=== PATIENT | female | born 1940 | race Caucasian/White ===

== ENCOUNTER → 2017-10-04 08:29 | Outpatient (CLI) | payer MEDICARE, OTHER, SELFPAY ==
[2017-10-04 10:51] LABS: Anion Gap 6 (5-15); BUN 11 mg/dL (7-18); BUN/Creat Ratio 13.9 RATIO (10-20); Calcium,Total 8.9 mg/dL (8.5-10.1); Chloride 106 mmol/L (98-107); Cholesterol 136 mg/dL (200); Creatinine, Serum 0.79 mg/dL (0.55-1.02); EST Glomerular Filtration Rate 75 mL/min (>60); Est Glom Filt Rate - Afr Amer 90 mL/min (>60); Glucose 92 mg/dL (74-106); High Density Lipoprotein 88 mg/dL; Sodium Level 142 mmol/L (136-145); Triglycerides 57 mg/dL; Very Low Density Lipoprotein 11 mg/dL (5-40)
== END ==
PROVIDERS: Family Provider Family Medicine; PCP Family Medicine; Visit Provider Family Medicine
DX: I10 Essential (primary) hypertension (principal)
CPT/HCPCS: 36415; 80048; 80061

== ENCOUNTER → 2017-12-10 06:07 | Outpatient (CLI) | payer MEDICARE, OTHER, SELFPAY ==
--- NOTE | 2017-12-10 16:01 | STRESSREP ---
Stress Test Report Date: 12/10/2017 Procedure: Exercise tolerance test/imaging study Indications: Chest pain Consent: Per the patient Procedure: The patient exercised on a Quentin protocol for 6 minutes completing Stage II achieving a peak heart rate of 144 bpm (100 % predicted maximal heart rate) with a peak blood pressure 182/74 mmHg and a peak MET capacity of 7 METs. The baseline ECG demonstrated sinus bradycardia; nonspecific T-wave abnormality. The peak exercise ECG demonstrated continued nonspecific T-wave abnormality. There were occasional PACs and PVCs during exercise, occasional PACs during recovery, and rare PVCs during recovery. The functional capacity was considered good. There was no complaint of chest discomfort during exercise or recovery. The examination was discontinued secondary to dyspnea. Impression: 1. Technically adequate (percent predicted maximal heart rate greater than 85%) exercise tolerance test 2. Peak exercise ECG demonstrated continued nonspecific T-wave abnormality 3. There were occasional PACs and PVCs during exercise, occasional PACs during recovery, and rare PVCs during recovery. 4. Nuclear images pending Myocardial perfusion imaging study: Technique: The patient was injected with 10 mCi of technetium 99m Cardiolite and subsequently rest SPECT Cardiolite nuclear imaging was obtained in the horizontal long, vertical long, and short axis views. The patient exercised on a Quentin protocol for 6 minutes completing Stage II achieving a peak heart rate of 144 bpm (100 % predicted maximal heart rate) with a peak blood pressure 182/74 mmHg and a peak MET capacity of 7 METs. The patient was injected with 31 mCi of technetium 99m Cardiolite and subsequently stress SPECT Cardiolite nuclear imaging was obtained in the horizontal long, vertical long, and short axis views. A gated Cardiolite study at peak stress was obtained. Interpretation: Rest and stress SPECT Cardiolite nuclear imaging status post realignment and normalization demonstrates the appearance of relative uniform tracer uptake and myocardial perfusion appearing within normal limits. There is end systolic thickening and brightening. The gated Cardiolite study demonstrates myocardial thickening and inward wall motion. The reported LVEF is 74 %. Impression: 1. Rest and stress SPECT Cardiolite nuclear imaging demonstrate relative uniform tracer uptake and myocardial perfusion appearing within normal limits. 2. The gated Cardiolite study reports an LVEF of 74 %. This note was generated with [email or web address] software. It may contain incorrect words, spelling, and punctuation that were not noted in checking the note before signing.
--- NOTE | 2017-12-10 16:06 | STRESSREP_ITS ---
Stress Test Report Date: 12/10/2017 Procedure: Exercise tolerance test/imaging study Indications: Chest pain Consent: Per the patient Procedure: The patient exercised on a Quentin protocol for 6 minutes completing Stage II achieving a peak heart rate of 144 bpm (100 % predicted maximal heart rate) with a peak blood pressure 182/74 mmHg and a peak MET capacity of 7 METs. The baseline ECG demonstrated sinus bradycardia; nonspecific T-wave abnormality. The peak exercise ECG demonstrated continued nonspecific T-wave abnormality. There were occasional PACs and PVCs during exercise, occasional PACs during recovery, and rare PVCs during recovery. The functional capacity was considered good. There was no complaint of chest discomfort during exercise or recovery. The examination was discontinued secondary to dyspnea. Impression: 1. Technically adequate (percent predicted maximal heart rate greater than 85% ) exercise tolerance test 2. Peak exercise ECG demonstrated continued nonspecific T-wave abnormality 3. There were occasional PACs and PVCs during exercise, occasional PACs during recovery, and rare PVCs during recovery. 4. Nuclear images pending Myocardial perfusion imaging study: Technique: The patient was injected with 10 mCi of technetium 99m Cardiolite and subsequently rest SPECT Cardiolite nuclear imaging was obtained in the horizontal long, vertical long, and short axis views. The patient exercised on a Quentin protocol for 6 minutes completing Stage II achieving a peak heart rate of 144 bpm (100 % predicted maximal heart rate) with a peak blood pressure 182/ 74 mmHg and a peak MET capacity of 7 METs. The patient was injected with 31 mCi of technetium 99m Cardiolite and subsequently stress SPECT Cardiolite nuclear imaging was obtained in the horizontal long, vertical long, and short axis views. A gated Cardiolite study at peak stress was obtained. Interpretation: Rest and stress SPECT Cardiolite nuclear imaging status post realignment and normalization demonstrates the appearance of relative uniform tracer uptake and myocardial perfusion appearing within normal limits. There is end systolic thickening and brightening. The gated Cardiolite study demonstrates myocardial thickening and inward wall motion. The reported LVEF is 74 %. Impression: 1. Rest and stress SPECT Cardiolite nuclear imaging demonstrate relative uniform tracer uptake and myocardial perfusion appearing within normal limits. 2. The gated Cardiolite study reports an LVEF of 74 %. This note was generated with [employer] software. It may contain incorrect words, spelling, and punctuation that were not noted in checking the note before signing.
== END ==
PROVIDERS: Family Provider Family Medicine; PCP Family Medicine; Visit Provider Family Medicine
DX: R07.9 Chest pain, unspecified (principal)
CPT/HCPCS: 78452; 93017; A9500; A4216

== ENCOUNTER → 2018-04-01 09:28 | Outpatient (CLI) | payer MEDICARE, OTHER, SELFPAY ==
[2018-04-01 12:46] LABS: Anion Gap 12 (5-15); BUN 12 mg/dL (7-18); BUN/Creat Ratio 13.5 RATIO (10-20); Calcium,Total 8.9 mg/dL (8.5-10.1); Chloride 106 mmol/L (98-107); Cholesterol 132 mg/dL (200); Creatinine, Serum 0.89 mg/dL (0.55-1.02); EST Glomerular Filtration Rate 66 mL/min (>60); Est Glom Filt Rate - Afr Amer 79 mL/min (>60); Glucose 98 mg/dL (74-106); High Density Lipoprotein 81 mg/dL; Potassium 4.4 mmol/L (3.5-5.1); Sodium Level 145 mmol/L (136-145); Triglycerides 54 mg/dL; Very Low Density Lipoprotein 11 mg/dL (5-40)
== END ==
PROVIDERS: Family Provider Family Medicine; PCP Family Medicine; Visit Provider Family Medicine
DX: I10 Essential (primary) hypertension (principal); E78.5 Hyperlipidemia, unspecified
CPT/HCPCS: 36415; 80048; 80061

== ENCOUNTER → 2018-09-29 11:43 | Outpatient (CLI) | payer MEDICARE, OTHER, SELFPAY ==
[2018-08-22 12:52] VITALS: BMI 27.7
[2018-09-29 14:12] LABS: Anion Gap 3 (5-15); BUN 11 mg/dL (7-18); BUN/Creat Ratio 13.1 RATIO (10-20); Calcium,Total 8.9 mg/dL (8.5-10.1); Chloride 108 mmol/L (98-107); Cholesterol 150 mg/dL (200); Creatinine, Serum 0.84 mg/dL (0.55-1.02); EST Glomerular Filtration Rate 70 mL/min (>60); Est Glom Filt Rate - Afr Amer 84 mL/min (>60); Glucose 99 mg/dL (74-106); High Density Lipoprotein 97 mg/dL; Potassium 4.7 mmol/L (3.5-5.1); Sodium Level 141 mmol/L (136-145); Triglycerides 60 mg/dL; Very Low Density Lipoprotein 12 mg/dL (5-40)
== END ==
PROVIDERS: Family Provider Family Medicine; PCP Family Medicine; Visit Provider Family Medicine
DX: I10 Essential (primary) hypertension (principal)
CPT/HCPCS: 36415; 80048; 80061

== ENCOUNTER → 2019-02-26 12:59 | Outpatient (CLI) | payer MEDICARE, OTHER, SELFPAY ==
[2019-02-23 14:03] VITALS: BMI 26.1
--- NOTE | 2019-02-26 13:01 | CDU_ITS ---
Reason For Study: vertigo Rt. Velocities/BP Lt. Velocities/BP Prox CCA 96.9/12.1 cm/sec. Prox CCA 92.4/17.6 cm/sec. Mid CCA 61.7/10.8 cm/sec. Mid CCA 98.6/17.6 cm/sec. Dist CCA 52.6/12.1 cm/sec. Dist CCA 88.7/13.9 cm/sec. Prox ICA 72.1/10.8 cm/sec. Prox ICA 118.2/24.9 cm/sec. Mid ICA 226.7/35.8 cm/sec. Mid ICA 113.8/24.3 cm/sec. Dist ICA 128.0/24.8 cm/sec. Dist ICA 95.5/20.6 cm/sec. Rt. ICA/CCA = 3.7. Lt. ICA/CCA = 1.2. Prox ECA 74.7/5.6 cm/sec. Prox ECA 90.0/7.7 cm/sec. Rt. Vert. 63.0/10.2 cm/sec. Lt. Vert. 39.0/12.6 cm/sec. Right Extracranial There is homogeneous, smooth atherosclerotic plaque noted in the right common carotid artery. There is heterogeneous, irregular atherosclerotic plaque noted in the right internal carotid artery. There is heterogeneous, irregular atherosclerotic plaque noted in the right external carotid artery. Antegrade flow is noted in the right vertebral artery. Left Extracranial There is heterogeneous, irregular atherosclerotic plaque noted in the left common carotid artery. There is heterogeneous, smooth atherosclerotic plaque noted in the left internal carotid artery. There is homogeneous, smooth atherosclerotic plaque noted in the left external carotid artery. Antegrade flow is noted in the left vertebral artery. Procedure Carotid Duplex [id number]. The exam was diagnostic. Exam performed in department. 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 <50% stenosis left external carotid Patent and antegrade vertebrals bilaterally Ordering Physician: Aramis Engle Performed By: Brennon Blas RVT
== END ==
PROVIDERS: Family Provider Family Medicine; PCP Family Medicine; Referring Provider Nurse Practitioner Family; Visit Provider Nurse Practitioner Family
DX: I65.22 Occlusion and stenosis of left carotid artery (principal); I48.0 Paroxysmal atrial fibrillation; R00.1 Bradycardia, unspecified; R42 Dizziness and giddiness
CPT/HCPCS: 93225; 93226; 93880

== ENCOUNTER → 2019-04-01 | Outpatient (CLI) | payer MEDICARE, OTHER, SELFPAY ==
[2019-02-23 14:03] VITALS: BMI 26.1
[2019-04-01 12:34] LABS: Anion Gap 3 (5-15); BUN 12 mg/dL (7-18); BUN/Creat Ratio 13.5 RATIO (10-20); Chloride 111 mmol/L (98-107); Cholesterol 133 mg/dL (200); Creatinine, Serum 0.89 mg/dL (0.55-1.02); EST Glomerular Filtration Rate 65 mL/min (>60); Est Glom Filt Rate - Afr Amer 79 mL/min (>60); Glucose 96 mg/dL (74-106); High Density Lipoprotein 84 mg/dL; Potassium 4.2 mmol/L (3.5-5.1); Sodium Level 144 mmol/L (136-145); Triglycerides 54 mg/dL; Very Low Density Lipoprotein 11 mg/dL (5-40)
== END | disposition home or self-care (01) ==
LOC: MFPLAB 10:06
PROVIDERS: Family Provider Family Medicine; PCP Family Medicine; Referring Provider Family Medicine; Visit Provider Family Medicine
DX: I10 Essential (primary) hypertension (principal)
CPT/HCPCS: 36415; 80048; 80061

== ENCOUNTER → 2019-04-08 | Outpatient (CLI) | payer MEDICARE, OTHER, SELFPAY ==
[2019-02-23 14:03] VITALS: BMI 26.1
--- NOTE | 2019-04-08 14:52 | BI_ITS ---
MAMMOGRAPHY - BILATERAL SCREENING REASON FOR EXAM: Female, 78 years old. Routine annual screening examination. PERTINENT HISTORY: Non-contributory. TECHNIQUE: Digital bilateral breast frank (3D mammographic acquisition) in the CC and MLO projections. 2-D mediolateral oblique (MLO) and craniocaudad (CC) views of both breasts were obtained. CAD: Full Field Digital Mammography with Computer Added Detection was performed. COMPARISON: Comparison is made with prior study of April 04, 2017 and March 20, 2016. FINDINGS: Breast Composition: There are scattered areas of fibroglandular density. There are no dominant masses or suspicious calcifications. Stable small bilateral benign appearing axillary lymph nodes. No other significant abnormalities are identified. There has been no significant change since the prior study. BI/SCREEN MAMM (CAD) W/FRANK BILAT IMPRESSION: Stable bilateral screening mammogram. Yearly follow-up mammogram recommended. (A) ASSESSMENT CATEGORY: BIRADS Category 2: Benign. A letter regarding these results will be sent to the patient by the facility within 30 days. Approximately 10% of breast cancers are not detected by mammography. A normal mammogram should not delay biopsy of a clinically suspicious abnormality. [id number] Electronically Signed: Jason Em, at 15:43 EDT , Service support ,
== END | disposition home or self-care (01) ==
PROVIDERS: Family Provider Family Medicine; PCP Family Medicine; Referring Provider Family Medicine; Visit Provider Family Medicine
DX: Z12.31 Encounter for screening mammogram for malignant neoplasm of breast (principal)
CPT/HCPCS: 77063; 77067

== ENCOUNTER → 2019-12-07 | Outpatient (CLI) | payer MEDICARE, OTHER, SELFPAY ==
[2019-10-15 12:26] VITALS: BMI 24.7
--- NOTE | 2019-12-07 15:41 | MRI_ITS ---
STUDY: MRI RIGHT HIP REASON FOR EXAM: Female, 79 years old. rt hip trochanteric bursitis -- pain rt hip x 6 months, NKI TECHNIQUE: Standardized fat and water weighted pulse sequences were obtained in all 3 orthogonal planes. COMPARISON: None. FINDINGS: Marrow signal is normal, with no fracture, bone contusion, or osteonecrosis. Left hip is unremarkable. Trace right hip joint effusion. Normal right acetabulum, femoral head, and femoral neck. Normal visualized labrum. Moderate fluid in the right trochanteric bursa. No iliopsoas bursitis. Mild interstitial edema in the gluteus medius and minimus muscles. Mild edema in the distal gluteus medius and minimus tendons. Normal iliopsoas insertion. Visualized pelvic structures are unremarkable. No free fluid. No soft tissue mass or cystic lesion. MRI/Lower Ext Joint Only (Routine) IMPRESSION: 1. Intermediate grade strain of the right gluteus medius and minimus tendons. No high-grade tear. 2. Right trochanteric bursitis. Electronically Signed: Joya Javed MD at 18:14 EDT Tel , Service support ,
== END | disposition home or self-care (01) ==
LOC: MRI 15:31
PROVIDERS: PCP Family Medicine; Visit Provider Orthopaedic Surgery
DX: M70.61 Trochanteric bursitis, right hip (principal)
CPT/HCPCS: 73721

== ENCOUNTER → 2020-02-05 | Outpatient (CLI) | payer MEDICARE, OTHER, SELFPAY ==
[2019-10-15 12:26] VITALS: BMI 24.7
[2020-02-05 17:53] LABS: Anion Gap 5 (5-15); BUN 14 mg/dL (7-18); BUN/Creat Ratio 17.6 RATIO (10-20); Calcium,Total 9.2 mg/dL (8.5-10.1); Chloride 108 mmol/L (98-107); Cholesterol 145 mg/dL (200); Creatinine, Serum 0.79 mg/dL (0.55-1.02); EST Glomerular Filtration Rate 74 mL/min (>60); Est Glom Filt Rate - Afr Amer 90 mL/min (>60); Glucose 130 mg/dL (74-106); High Density Lipoprotein 93 mg/dL; Potassium 4.6 mmol/L (3.5-5.1); Sodium Level 142 mmol/L (136-145); Triglycerides 73 mg/dL; Very Low Density Lipoprotein 15 mg/dL (5-40)
== END | disposition home or self-care (01) ==
LOC: MFPLAB 15:02
PROVIDERS: PCP Family Medicine; Visit Provider Family Medicine
DX: I10 Essential (primary) hypertension (principal)
CPT/HCPCS: 36415; 80048; 80061

== ENCOUNTER → 2020-04-11 | Outpatient (CLI) | payer MEDICARE, OTHER, SELFPAY ==
[2019-10-15 12:26] VITALS: BMI 24.7
--- NOTE | 2020-04-11 14:02 | BI_ITS ---
MAMMOGRAPHY - BILATERAL SCREENING REASON FOR EXAM: Female, 79 years old. Routine annual screening examination. PERTINENT HISTORY: Non-contributory. TECHNIQUE: Digital bilateral breast frank (3D mammographic acquisition) in the CC and MLO projections. 2-D mediolateral oblique (MLO) and craniocaudad (CC) views of both breasts were obtained. CAD: Full Field Digital Mammography with Computer Added Detection was performed. COMPARISON: Comparison is made with prior study dated 04/08/2019 and 04/04/2017. FINDINGS: Breast Composition: There are scattered areas of fibroglandular density. There are no dominant masses or suspicious calcifications. Stable small bilateral benign appearing axillary lymph nodes. No other significant abnormalities are identified. There has been no significant change since the prior study. BI/SCREEN MAMM (CAD) W/FRANK BILAT IMPRESSION: Stable bilateral screening mammogram. Yearly follow-up mammogram recommended. (A) ASSESSMENT CATEGORY: BIRADS Category 2: Benign. A letter regarding these results will be sent to the patient by the facility within 30 days. Approximately 10% of breast cancers are not detected by mammography. A normal mammogram should not delay biopsy of a clinically suspicious abnormality. [id number] Electronically Signed: Jason Em, at 15:15 EDT , Service support ,
== END | disposition home or self-care (01) ==
LOC: OPBI 13:59
PROVIDERS: PCP Family Medicine; Referring Provider Family Medicine; Visit Provider Family Medicine
DX: Z12.31 Encounter for screening mammogram for malignant neoplasm of breast (principal)
CPT/HCPCS: 77063; 77067

== ENCOUNTER → 2020-04-20 | Outpatient (CLI) | payer MEDICARE, OTHER, SELFPAY ==
[2020-04-18 13:51] VITALS: BMI 24.2
== END | disposition home or self-care (01) ==
LOC: PSN 10:57
PROVIDERS: PCP Family Medicine; Referring Provider Nurse Practitioner Family; Visit Provider Nurse Practitioner Family
DX: I45.5 Other specified heart block (principal); I48.0 Paroxysmal atrial fibrillation
CPT/HCPCS: 93225; 93226

== ENCOUNTER → 2020-04-28 | Outpatient (CLI) | payer MEDICARE, OTHER, SELFPAY ==
[2020-04-18 13:51] VITALS: BMI 24.2
[2020-04-28 12:17] LABS: Hematocrit 45.8 % (37-47); Hemoglobin 14.8 g/dL (12.0-15.0); Mean Corp Hgb Conc 32.3 g/dL (32-36); Mean Corpuscular Hgb 30.6 pg (27.0-32.0); Mean Corpuscular Volume 94.6 fL (81-99); Platelet Count 252 K/mm3 (150-450); RBC Distribution Width CV 12.3 % (11.6-14.6); RBC Distribution Width SD 43.1 fl (35.1-43.9); Red Blood Count 4.84 M/mm3 (4.2-5.4)
[2020-04-28 13:04] LABS: Anion Gap 5 (5-15); BUN 13 mg/dL (7-18); BUN/Creat Ratio 15.1 RATIO (10-20); Calcium,Total 9.5 mg/dL (8.5-10.1); Chloride 103 mmol/L (98-107); Creatinine, Serum 0.86 mg/dL (0.55-1.02); EST Glomerular Filtration Rate 67 mL/min (>60); Est Glom Filt Rate - Afr Amer 81 mL/min (>60); Glucose 82 mg/dL (74-106); Magnesium 2.3 mg/dL (1.6-2.6); Sodium Level 137 mmol/L (136-145)
== END | disposition home or self-care (01) ==
LOC: MFPLAB 10:50
PROVIDERS: PCP Family Medicine; Referring Provider Family Medicine; Visit Provider Nurse Practitioner Family
DX: I48.0 Paroxysmal atrial fibrillation (principal); R42 Dizziness and giddiness; R55 Syncope and collapse; Z79.01 Long term (current) use of anticoagulants
CPT/HCPCS: 36415; 80048; 83735; 85027

== ENCOUNTER → 2020-05-27 13:51 | Outpatient (CLI) | payer MEDICARE, OTHER, SELFPAY ==
[2020-05-11 13:33] VITALS: BMI 24.5
--- NOTE | 2020-05-27 13:54 | ECHOD_ITS ---
Reason For Study: DYSPNEA/SOB Procedure This was a 2D Doppler, Color Flow transthoracic echocardiogram. Exam performed in department. Left Ventricle Normal LV size. Left ventricular systolic function is normal. The estimated ejection fraction is 65 %. Stage 1 diastolic dysfunction. No regional wall motion abnormalities noted. Right Ventricle Normal RV size. Normal systolic function. Atria Normal left atrium. Normal right atrium. Mitral Valve Normal mitral valve. Mild (1+) mitral valve insufficiency. Tricuspid Valve Normal tricuspid valve. Mild tricuspid valve insufficiency. Pulmonary artery systolic pressure is 35 mmHg. Aortic Valve Normal aortic valve. Trisinus/trileaflet aortic valve. Mild (1+) aortic valve insufficiency. Pulmonic Valve Normal pulmonic valve. Mild pulmonic valve insufficiency identified. Great Vessels Normal aortic root. The pulmonary artery is normal size. Normal inferior vena cava. Pericardium/Pleural No pericardial effusion. MMode/2D Measurements & Calculations LVIDd: 4.1 cm IVSd: 0.90 cm Ao root diam: 3.2 cm LVIDs: 2.7 cm LVPWd: 0.86 cm RVDd: 3.7 cm FS: 34.5 % LAV(MOD-bp): 38.3 ml LVAd ap4: 24.1 cm2 SV(MOD-sp4): 37.6 ml LAV(MOD-bp) Indexed: 21.5 ml/m2 EDV(MOD-sp4): 67.1 ml LAV(MOD-sp2): 37.8 ml EDV(sp4-el): 67.4 ml LAV(MOD-sp4): 35.5 ml LVAs ap4: 14.4 cm2 ESV(MOD-sp4): 29.5 ml ESV(sp4-el): 28.9 ml EF(MOD-sp4): 56.0 % EF(sp4-el): 57.1 % SV(sp4-el): 38.5 ml LA A4 area: 14.9 cm2 LA dimension(2D): 3.5 cm RA A4 area: 11.8 cm2 Time Measurements MV dec time: 0.25 sec Doppler Measurements & Calculations MV E max osmin: 66.4 cm/sec Lat Peak E' Osmin: 8.8 cm/sec Med Peak E' Osmin: 7.8 cm/sec MV A max osmin: 83.7 cm/sec E/E' lat: 7.5 E/E' med: 8.6 MV E/A: 0.79 Ao V2 max: 160.0 cm/sec AI max osmin: 404.9 cm/sec LV V1 max: 125.0 cm/sec Ao max P.2 mmHg AI max P.6 mmHg LV V1 max P.3 mmHg AI dec slope: 319.5 cm/sec2 AI P1/2t: 371.1 msec PA V2 max: 109.1 cm/sec PI end-d osmin: 100.7 cm/sec TR max osmin: 289.6 cm/sec PI dec slope: 184.9 cm/sec2 TR max P.6 mmHg Interpretation Summary Normal LV size. Left ventricular systolic function is normal. The estimated ejection fraction is 65 %. Stage 1 diastolic dysfunction. Mild (1+) aortic valve insufficiency. Mild (1+) mitral valve insufficiency. Ordering Physician: Celsa Harman/Anders Bedoya Referring Physician: DAMIAN ORELLANA Performed By: Megan Goodwin RDCS
== END ==
PROVIDERS: PCP Family Medicine; Referring Provider Physician Assistant Medical; Visit Provider Physician Assistant Medical
DX: R06.00 Dyspnea, unspecified (principal); R06.02 Shortness of breath; G45.9 Transient cerebral ischemic attack, unspecified
CPT/HCPCS: 93306

== ENCOUNTER → 2020-06-29 12:34 | Outpatient (CLI) | payer MEDICARE, OTHER, SELFPAY ==
[2020-06-22 14:03] VITALS: BMI 24.8
--- NOTE | 2020-06-29 12:35 | CDU_ITS ---
Reason For Study: CAROTID STENOSIS Rt. Velocities/BP Lt. Velocities/BP Prox CCA 82.9/13.8 cm/sec. Prox CCA 147.2/15.7 cm/sec. Mid CCA 80.3/12.5 cm/sec. Mid CCA 105.5/13.4 cm/sec. Dist CCA 75.5/14.2 cm/sec. Dist CCA 110.0/16.7 cm/sec. Prox ICA 182.9/19.7 cm/sec. Prox ICA 87.5/14.4 cm/sec. Mid ICA 173.3/20.5 cm/sec. Mid ICA 116.7/21.7 cm/sec. Dist ICA 105.8/19.9 cm/sec. Dist ICA 87.5/19.9 cm/sec. Rt. ICA/CCA = 182.9/82.9=2.2. Lt. ICA/CCA = 116.7/110.0=1.1. Prox ECA 84.8/0.0 cm/sec. Prox ECA 124.0/7.1 cm/sec. Rt. Vert. 66.1/7.9 cm/sec. Lt. Vert. 46.0/6.5 cm/sec. Right Extracranial There is heterogeneous, irregular atherosclerotic plaque noted in the right common carotid artery. There is heterogeneous, irregular atherosclerotic plaque noted in the right internal carotid artery. The atherosclerotic plaque causes acoustic shadowing. There is intimal thickening but no significant atherosclerotic plaque noted in the right external carotid artery. Antegrade flow is noted in the right vertebral artery. There is heterogeneous, irregular atherosclerotic plaque noted in the right bulb. Acoustic shadowing. Left Extracranial There is heterogeneous, irregular atherosclerotic plaque noted in the left common carotid artery. There is homogeneous, smooth atherosclerotic plaque noted in the left internal carotid artery. There is heterogeneous, smooth atherosclerotic plaque noted in the left external carotid artery. Antegrade flow is noted in the left vertebral artery. Interpretation Summary Irregular calcific plaque with shadowing at the proximal right internal and external carotid arteries 50 to 69% stenosis right proximal internal carotid Less than 50% stenosis right external carotid Widely patent left carotid bulb and proximal internal and external carotid arteries with last than 50% stenosis of the left internal carotid artery Less than 50% stenosis left external carotid artery Patent and antegrade vertebrals bilaterally No hemodynamically significant change since February 26, 2019 Ordering Physician: Celsa Harman Referring Physician: Chirag Gibbons Performed By: Daisha Greenberg, JENNIE, RVT
== END ==
PROVIDERS: PCP Family Medicine; Referring Provider Physician Assistant Medical; Visit Provider Physician Assistant Medical
DX: I65.23 Occlusion and stenosis of bilateral carotid arteries (principal)
CPT/HCPCS: 93880

== ENCOUNTER → 2021-01-11 10:25 | Outpatient (CLI) | payer MEDICARE, OTHER, SELFPAY ==
[2020-11-24 12:38] VITALS: BMI 25.0
--- NOTE | 2021-01-11 10:33 | RAD_ITS ---
STUDY: X-RAY - RIGHT KNEE REASON FOR EXAM: Female, 80 years old. KNEE PAIN TECHNIQUE: 3 view(s) of the knee. COMPARISON: None. FINDINGS: No acute fracture, dislocation or osseous destruction. Osteopenia. Mild medial compartment joint space narrowing. Mild lateral prominent joint space narrowing. Moderate/severe patellofemoral joint space narrowing. Small volume joint effusion. Mild swelling. Patellar tendon calcification. 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
== END ==
PROVIDERS: PCP Family Medicine; Referring Provider Family Medicine; Visit Provider Family Medicine
DX: M25.561 Pain in right knee (principal)
CPT/HCPCS: 73562

== ENCOUNTER 2021-08-23 14:52 | Outpatient (CLI) | payer MEDICARE, OTHER, SELFPAY ==
--- NOTE | 2021-08-23 14:55 | VDLE_ITS ---
Reason For Study: LLE PAIN RIGHT LEFT CFV is compressible, spontaneous, phasic, GSV is normal. competent and demonstrates normal CFV is compressible, spontaneous, phasic, augmentation. competent, and demonstrates normal Procedure augmentation. This is a venous duplex using B-mode, color FV is compressible, spontaneous, phasic, flow and spectral Doppler. competent and demonstrates normal Exam performed in department. augmentation. The exam was diagnostic. POP V is compressible, spontaneous, phasic, A preliminary report was called and/or faxed competent and demonstrates normal to Dr. Gibbons @ 3:20pm @[phone]. augmentation. T/P Trunk is compressible. PTV is compressible. LT PerV is compressible. VL/Venous Duplex US, Unilateral Interpretation Summary Deep veins of the left lower extremity are patent and compressible segmentally. There is no evidence of left lower extremity deep vein thrombosis. Valvular competence appears intac t within the proximal deep venous system on the left . The left great saphenous vein appears patent a nd compressible segmentally. Ordering Physician: Chirag Gibbons Referring Physician: Chirag Gibbons Performed By: Daisha Greenberg, JENNIE, RVT
== END 2021-08-23 23:59 | disposition short-term general hospital (02) ==
LOC: CVS 14:53
PROVIDERS: PCP Family Medicine; Visit Provider Family Medicine
DX: M79.605 Pain in left leg (principal)
CPT/HCPCS: 93971

== ENCOUNTER → 2022-06-22 | Outpatient (CLI) | payer MEDICARE, OTHER, SELFPAY ==
[2022-06-22 12:34] LABS: Absolute Lymphocyte Count 2.12 X10^3/uL (0.83-4.51); Absolute Neutrophil Count 3.4 X10^3/uL (2.0-7.7); Basophil# 0.04 X10^3/uL; Basophil% 0.6 % (0-1); Eosinophil# 0.11 X10^3/uL; Eosinophils% 1.8 % (0-5); Hematocrit 46.2 % (37-47); Hemoglobin 14.6 g/dL (12.0-15.0); Lymphocyte # 2.12 X10^3/ul (0.83-4.51); Lymphocyte % 34.2 % (19-41); Mean Corp Hgb Conc 31.6 g/dL (32-36); Mean Corpuscular Volume 94.9 fL (81-99); Mean Platelet Vol. 10.3 fl (6.2-12.0); Monocyte# 0.53 X10^3/uL; Monocyte% 8.6 % (0-10); NRBC Flagged by Analyzer 0 % (0-5); Neutrophil # 3.38 X10^3/uL (2.7-7.7); Neutrophil % 54.6 % (47-70); Platelet Count 236 K/mm3 (150-450); RBC Distribution Width CV 13.6 % (11.6-14.6); RBC Distribution Width SD 47.1 fl (35.1-43.9); Red Blood Count 4.87 M/mm3 (4.2-5.4); White Blood Count 6.2 K/mm3 (4.4-11.0)
[2022-06-22 12:48] LABS: Anion Gap 6 (5-15); BUN 9 mg/dL (7-18); BUN/Creat Ratio 9.8 RATIO (10-20); Calcium,Total 9.3 mg/dL (8.5-10.1); Chloride 105 mmol/L (98-107); Cholesterol 176 mg/dL (200); Creatinine, Serum 0.92 mg/dL (0.55-1.02); EST Glomerular Filtration Rate 63 mL/min (>60); Est Glom Filt Rate - Afr Amer 76 mL/min (>60); Glucose 126 mg/dL (74-106); High Density Lipoprotein 126 mg/dL; Potassium 4.6 mmol/L (3.5-5.1); Sodium Level 141 mmol/L (136-145); Triglycerides 59 mg/dL; Very Low Density Lipoprotein 12 mg/dL (5-40)
== END | disposition home or self-care (01) ==
LOC: MFPLAB 10:25
PROVIDERS: PCP Family Medicine; Referring Provider Family Medicine; Visit Provider Family Medicine
DX: Z00.00 Encounter for general adult medical examination without abnormal findings (principal); I10 Essential (primary) hypertension
CPT/HCPCS: 36415; 80048; 80061; 85025

== ENCOUNTER → 2022-07-26 | Outpatient (CLI) | payer MEDICARE, OTHER, SELFPAY ==
--- NOTE | 2022-07-26 13:35 | BI_ITS ---
MAMMOGRAPHY - BILATERAL SCREENING REASON FOR EXAM: Female, 81 years old. Routine annual screening examination. PERTINENT HISTORY: Non-contributory. TECHNIQUE: Digital bilateral breast frank (3D mammographic acquisition) in the CC and MLO projections. 2-D mediolateral oblique (MLO) and craniocaudad (CC) views of both breasts were obtained. CAD: Full Field Digital Mammography with Computer Added Detection was performed. COMPARISON: Comparison is made with prior study 07/11/2020 and 04/08/2019. FINDINGS: Breast Composition: There are scattered areas of fibroglandular density. There are no dominant masses or suspicious calcifications. No other significant abnormalities are identified. There has been no significant change since the prior study. BI/SCRN MAMM (CAD)W/FRANK BILAT IMPRESSION: Stable bilateral screening mammogram. Yearly follow-up mammogram recommended. (A) ASSESSMENT CATEGORY: BIRADS Category 1: Negative. A letter regarding these results will be sent to the patient by the facility within 30 days. Approximately 10% of breast cancers are not detected by mammography. A normal mammogram should not delay biopsy of a clinically suspicious abnormality. [id number] Electronically Signed: Jason Em MD at 14:46 EST ,
--- NOTE | 2022-07-26 13:36 | BD_ITS ---
STUDY: DUAL ENERGY X-RAY ABSORPTIOMETRY / DXA REASON FOR EXAM: Female, 81 years old. [id number] TECHNIQUE: Bone Mineral Density (BMD) measurements of lumbar spine and bilateral hips were obtained. COMPARISON: Comparison is made with prior study dated 03/20/2016. FINDINGS: Lumbar Spine (L1-L4): g/cm2 (1.084) / T-score (0.3) / Z-score (3.1) Findings are suggestive of normal bone density with a low fracture risk. Left Femur Total: g/cm2 (0.874) / T-score (-0.6) / Z-score (1.6) Left Femoral Neck: g/cm2 (0.723) / T-score (-1.1) / Z-score (1.2) Right Femur Total: g/cm2 (0.893) / T-score (-0.4) / Z-score (1.8) Right Femoral Neck: g/cm2 (0.713) / T-score (-1.2) / Z-score (1.2) The T-Scores on the most recent prior examination were: Lumbar Spine (L1-L4): There has been worsening of bone density since the previous examination. Left Femur Total: which represents a worsening of 13.8%. Right Femur Total: which represents a worsening of 14.7%. BD/Dexa Bone Density Study IMPRESSION: The patient is considered osteopenic as outlined below according to World Efren Organization (WHO) criteria with a low fracture risk. There has been worsening of bone density since the previous examination. Reference Information: The T-score is the number of standard deviations above or below the standard which is normal for young adults at their peak bone mineral density. The World Health Organization (WHO) interprets the T-scores as follows: Above -1 Normal bone density Between -1 and -2.5 Osteopenia Equal to / or below -2.5 Osteoporosis As a practical clinical guideline, osteopenia may be graded as follows: Mild -1 through -1.5 Moderate -1.6 through -2.0 Severe -2.1 through -2.4 The Z-score is the number of standard deviations above or below age-matched controls. A Z-score of less than -1.5 would be considered abnormal. References: 1. NIH Osteoporosis and Related Bone Diseases www osteo.org 2. International Society for Clinical Densitometry www iscd.org 3. National Osteoporosis Foundation www nof.org Electronically Signed: Jason Em MD at 15:02 EST ,
== END | disposition home or self-care (01) ==
PROVIDERS: PCP Family Medicine; Visit Provider Family Medicine
DX: Z00.00 Encounter for general adult medical examination without abnormal findings (principal); Z12.31 Encounter for screening mammogram for malignant neoplasm of breast; M85.80 Other specified disorders of bone density and structure, unspecified site; Z78.0 Asymptomatic menopausal state
CPT/HCPCS: 77063; 77067; 77080

== ENCOUNTER → 2022-10-03 | Outpatient (CLI) | payer MEDICARE, OTHER, SELFPAY ==
--- NOTE | 2022-10-03 15:50 | STRESSREP ---
Stress Test Report Pharmacologic myocardial perfusion stress test. 82-year-old lady with a history of chest pain Resting EKG demonstrates sinus rhythm with a rate of 56 bpm. Resting blood pressure is 142/70 mmHg. 0.4 mg of regadenoson was infused per usual protocol followed by rapid intravenous saline flush injection. Continuous EKG monitoring was performed. The maximum heart rate was 65 bpm which was 47% of max impacted heart rate the maximum workload was 1 metabolic equivalent. At rest there were no ST or T wave changes noted to suggest ischemia and at peak infusion nonspecific ST changes were noted which did not meet the criteria for ischemia. No clinical angina is noted. The final blood pressure was 140/58 mmHg. Myocardial perfusion protocol. 11.2 mCi of technetium 99m sestamibi was injected at rest. 0.4 mg of regadenoson was infused per usual protocol. At peak infusion 36 mCi of technetium 99m sestamibi was injected stress images were obtained stress and rest images were reconstructed and compared in the short axis vertical long and horizontal long axis. Gated images were also obtained. Perfusion SPECT analysis: Review of the stress images demonstrate normal uptake of tracer noted in all areas of the myocardium. The resting images similar demonstrated normal uptake of tracer noted in all areas of the myocardium. No areas of reversibility are noted to suggest ischemia and no previous infarct is noted. Gated SPECT analysis: The gated ejection fraction is 86%. Conclusion: Normal pharmacologic myocardial perfusion stress test. Preserved ejection fraction.
== END | disposition home or self-care (01) ==
LOC: CVS 07:15
PROVIDERS: PCP Family Medicine; Referring Provider Physician Assistant Medical; Visit Provider Physician Assistant Medical
DX: R94.31 Abnormal electrocardiogram [ECG] [EKG] (principal); I48.0 Paroxysmal atrial fibrillation
CPT/HCPCS: 78452; 93017; A9500; A4216; J2785

== ENCOUNTER → 2023-03-01 | Outpatient (CLI) | payer MEDICARE, OTHER, SELFPAY ==
--- NOTE | 2023-03-01 12:20 | RAD_ITS ---
INDICATION: ankle injury EXAMINATION/TECHNIQUE: X-RAY - LEFT XR Ankle Min 3 Views 3 VIEWS COMPARISON: No prior examinations are available for comparison. FINDINGS: SOFT TISSUES: Soft tissue swelling of the lateral aspect of the ankle. No radiopaque foreign body. BONES/JOINTS: No acute fracture or subluxation.. Normal alignment. Preservation of the joint space.. Lucency in the distal fibula probably due to demineralization. RAD/Ankle min 3 Views IMPRESSION: Soft tissues swelling without evidence of acute fracture. Electronically Signed: Logan Brenner MD at 13:30 EDT ,
== END | disposition home or self-care (01) ==
PROVIDERS: PCP Family Medicine; Visit Provider Physician Assistant Surgical
DX: S99.912A Unspecified injury of left ankle, initial encounter (principal); X58.XXXA Exposure to other specified factors, initial encounter
CPT/HCPCS: 73610

== ENCOUNTER → 2023-06-21 | Outpatient (CLI) | payer MEDICARE, OTHER, SELFPAY ==
--- NOTE | 2023-06-21 15:35 | RAD_ITS ---
EXAM: XR CHEST, 2 VIEWS CLINICAL INDICATION: HIDALGO, Cough TECHNIQUE: Frontal and lateral views of the chest. COMPARISON: No relevant prior studies available. FINDINGS: LUNGS AND PLEURAL SPACES: Small right pleural effusion mild interstitial thickening of both lower lobes of lungs which may represent acute or chronic inflammatory change. HEART: Normal heart size. MEDIASTINUM: No mediastinal or hilar mass. BONES/JOINTS: No acute abnormality. RAD/Chest PA and Lateral IMPRESSION: Small pleural effusion. Question acute versus chronic inflammatory change of the lower lobes of the lung. Electronically Signed: Fran Krueger MD at 11:13 EST ,
[2023-06-21 16:44] LABS: Absolute Lymphocyte Count 1.19 X10^3/uL (0.83-4.51); Absolute Neutrophil Count 5.8 X10^3/uL (2.0-7.7); Basophil# 0.03 X10^3/uL; Basophil% 0.4 % (0-1); Eosinophil# 0.04 X10^3/uL; Eosinophils% 0.5 % (0-5); Hematocrit 38.4 % (37-47); Hemoglobin 12.2 g/dL (12.0-15.0); Lymphocyte # 1.19 X10^3/ul (0.83-4.51); Lymphocyte % 15.6 % (19-41); Mean Corp Hgb Conc 31.8 g/dL (32-36); Mean Corpuscular Hgb 30.1 pg (27.0-32.0); Mean Corpuscular Volume 94.8 fL (81-99); Mean Platelet Vol. 9.5 fl (6.2-12.0); Monocyte# 0.57 X10^3/uL; Monocyte% 7.5 % (0-10); NRBC Flagged by Analyzer 0 % (0-5); Neutrophil # 5.78 X10^3/uL (2.7-7.7); Neutrophil % 75.6 % (47-70); Platelet Count 268 K/mm3 (150-450); RBC Distribution Width CV 13.2 % (11.6-14.6); RBC Distribution Width SD 45.8 fl (35.1-43.9); Red Blood Count 4.05 M/mm3 (4.2-5.4); White Blood Count 7.6 K/mm3 (4.4-11.0)
[2023-06-21 17:04] LABS: Anion Gap 6 (5-15); BUN 15 mg/dL (7-18); BUN/Creat Ratio 11.7 RATIO (10-20); Calcium,Total 9.5 mg/dL (8.5-10.1); Chloride 100 mmol/L (98-107); Creatinine, Serum 1.28 mg/dL (0.55-1.02); EST Glomerular Filtration Rate 42 mL/min (>60); Est Glom Filt Rate - Afr Amer 51 mL/min (>60); Glucose 118 mg/dL (74-106); Potassium 4.4 mmol/L (3.5-5.1); Sodium Level 132 mmol/L (136-145)
[2023-06-21 17:09] LABS: BNP,B-Type NATRIURETIC PEPTIDE 150.1 pg/mL (0-100)
== END | disposition home or self-care (01) ==
LOC: RAD 15:30
PROVIDERS: PCP Family Medicine; Referring Provider Nurse Practitioner Gerontology; Visit Provider Nurse Practitioner Gerontology
DX: R06.09 Other forms of dyspnea (principal)
CPT/HCPCS: 36415; 71046; 80048; 83880; 85025

== ENCOUNTER → 2023-06-27 | Outpatient (CLI) | payer MEDICARE, OTHER, SELFPAY ==
--- NOTE | 2023-06-27 07:50 | CDU_ITS ---
Reason For Study: lightheaded, carotid disease Rt. Velocities/BP Lt. Velocities/BP Prox CCA 54.1/6.9 cm/sec. Prox CCA 123.2/12.6 cm/sec. Mid CCA 77.8/11.6 cm/sec. Mid CCA 106.0/10.2 cm/sec. Dist CCA 65.5/8.8 cm/sec. Dist CCA 102.3/10.2 cm/sec. Prox ICA 185.1/22.6 cm/sec. Prox ICA 62.6/11.6 cm/sec. Mid ICA 196.0/18.2 cm/sec. Mid ICA 74.9/15.4 cm/sec. Dist ICA 152.1/16.0 cm/sec. Dist ICA 86.3/14.5 cm/sec. Rt. ICA/CCA = 2.5. Lt. ICA/CCA = .8. Prox ECA 126.8/6.5 cm/sec. Prox ECA 106.0/7.7 cm/sec. Rt. Vert. 74.0/9.0 cm/sec. Lt. Vert. 73.0/10.7 cm/sec. Right Extracranial There is heterogeneous, irregular atherosclerotic plaque noted in the right common carotid artery. There is heterogeneous, irregular atherosclerotic plaque noted in the right internal carotid artery. The atherosclerotic plaque causes acoustic shadowing. There is heterogeneous, irregular atherosclerotic plaque noted in the right external carotid artery. Antegrade flow is noted in the right vertebral artery. Left Extracranial There is heterogeneous, irregular atherosclerotic plaque noted in the left common carotid artery. There is homogeneous, smooth atherosclerotic plaque noted in the left internal carotid artery. There is homogeneous, smooth atherosclerotic plaque noted in the left external carotid artery. Antegrade flow is noted in the left vertebral artery. Procedure Carotid Duplex [id number]. This is a Carotid Duplex examination using B-mode, color flow and specral Doppler. The exam was diagnostic. Exam performed in department. VL/Carotid Duplex Ultrasound Interpretation Summary Moderate (50-69%) stenosis right extracranial internal carotid. Mild (<50%) stenosis left extracranial internal carotid. Patent and antegrade vertebrals bilaterally. Ordering Physician: Sarah Davila Performed By: Brennon Blas RVT
[2023-06-27 09:55] LABS: Anion Gap 7 (5-15); BUN 11 mg/dL (7-18); BUN/Creat Ratio 10.6 RATIO (10-20); Calcium,Total 9.1 mg/dL (8.5-10.1); Chloride 93 mmol/L (98-107); Creatinine, Serum 1.04 mg/dL (0.55-1.02); EST Glomerular Filtration Rate 54 mL/min (>60); Est Glom Filt Rate - Afr Amer 65 mL/min (>60); Glucose 136 mg/dL (74-106); Potassium 3.7 mmol/L (3.5-5.1); Sodium Level 129 mmol/L (136-145)
== END | disposition home or self-care (01) ==
PROVIDERS: PCP Family Medicine; Referring Provider Nurse Practitioner Gerontology; Visit Provider Nurse Practitioner Gerontology
DX: R06.09 Other forms of dyspnea (principal); I65.23 Occlusion and stenosis of bilateral carotid arteries; R42 Dizziness and giddiness
CPT/HCPCS: 36415; 80048; 93880

== ENCOUNTER 2023-06-29 01:32 | Inpatient (IN) | payer MEDICARE, OTHER, SELFPAY ==
[2023-06-29] VITALS (11 sets, daily range): BP systolic 129–168; BP diastolic 50–108; PULSE 62–90; RESP 16–24; TEMP 36.2–36.9; O2SAT 86–97; BMI 24.7; BMI 26.1
--- NOTE | 2023-06-29 02:08 | EDS_ITS ---
HPI History of Present Illness Chief Complaint: Weakness Narrative Narrative: 82-year-old female past medical history of hyponatremia, atrial fibrillation, hypertension, on Xarelto presents status post fall. She states she saw her primary care physician today and was put on a new medication, Levaquin, for bronchitis. She has had a cough and shortness of breath for quite some time now. She felt lightheaded and fell down at home, striking her head. She denies loss of consciousness but states she has bilateral hip pain. Additionally, she and her family state that she was diagnosed with hyponatremia today as well. She denies any nausea or vomiting, no fevers or chills, no other symptoms. She arrives to the emergency department in a c-collar placed by EMS. This incident happened when she was going to bed around 11:00, approximately 3 hours ago. [facility] Medical History Diverticulosis Essential (primary) hypertension GERD (gastroesophageal reflux disease) Near syncope Non-sustained ventricular tachycardia Paroxysmal atrial fibrillation TIA (transient ischemic attack) Home Medications atorvastatin 40 mg tablet 40 mg PO QHS #90 tabs 03/08/16 [Rx Last Taken Unknown] aspirin 81 mg tablet,delayed release 81 mg PO .qod 02/23/19 [History Last Taken Unknown] hydroxyzine HCl 50 mg tablet 50 mg PO QHS PRN 03/28/21 [History Last Taken Unknown] flecainide 100 mg tablet 100 mg PO Q12H #180 tabs 11/01/22 [Rx Last Taken Unknown] amlodipine 2.5 mg tablet 2.5 mg PO DAILY #30 tabs 06/21/23 [Rx Last Taken Unknown] metoprolol succinate 25 mg tablet,extended release 24 hr 12.5 mg (1/2 x 25 mg) PO DAILY #45 tabs 06/27/23 [Rx Last Taken Unknown] rivaroxaban 20 mg tablet (Xarelto) 20 mg PO DAILY #90 tabs 06/27/23 [Rx Last Taken Unknown] spironolactone 25 mg tablet 25 mg PO DAILY #30 tabs 06/28/23 [Rx Last Taken Unknown] Allergy/AdvReac Type Severity Reaction Status Date / Time Sulfa (Sulfonamide Allergy Unknown Verified 06/29/23 01:37 Antibiotics) Family History Father CHF (congestive heart failure) Brother CAD (coronary artery disease) Brother CAD (coronary artery disease) Surgical History History of left-sided carotid endarterectomy (03/30/16) History of thyroid surgery Social History Smoking Status: Former smoker alcohol intake: never caffeine: Yes Type: coffee Number of servings: 4 ROS ROS ED ROS Narrative Constitutional: No fever, no chills. HEENT: No sore throat. No neck pain. No loss of vision. No rhinorrhea. Cardiovascular: No chest pain. No palpitations. No pedal edema. Respiratory: Positive cough, no shortness of breath. Abdominal: No abdominal pain. No nausea. No vomiting. Genitourinary: No dysuria. No hematuria. Musculoskeletal: No myalgias. Bilateral hip pain. Chronic bilateral knee pain. Neurologic: No headaches. No dizziness. Positive lightheaded nests. Skin: No rash. No change in color. Psychiatric: No depression. No anxiety. EXAM Physical Exam Narrative Exam Narrative: Afebrile. Vital signs noted. GCS 15. ABCs intact. HEENT: Normocephalic. Atraumatic. PERRL, EOMI. Neck soft and supple. No point tenderness or step off. In c-collar currently. Cardiovascular: Regular rate and rhythm. No murmurs, rubs, or gallops appreciated. Respiratory: No tachypnea. Lungs clear to auscultation bilaterally. Gastrointestinal: Abdomen soft, nontender, with normoactive bowel sounds. No rebound or guarding. Neurological: Awake. Alert. Nonfocal, nonlateralizing. Skin: No rash. Normal color. No pallor. Musculoskeletal: No pedal edema. Full range of motion extremities. Const Vital Signs: 06/29/23 01:32 06/29/23 01:32 06/29/23 02:06 Temperature 97.2 F L Temperature Source Temporal Pulse Rate 64 Respiratory Rate 18 Respiratory Effort Normal Non-Labored Respiratory Pattern Normal Blood Pressure 135/53 H Blood Pressure Mean 80 Pulse Ox 88 92 Oxygen Delivery Method Room Air Room Air Oxygen Flow Rate (L/min) 06/29/23 02:27 06/29/23 02:28 Temperature Temperature Source Pulse Rate Respiratory Rate Respiratory Effort Respiratory Pattern Blood Pressure Blood Pressure Mean Pulse Ox 86 93 Oxygen Delivery Method Room Air Nasal Cannula Oxygen Flow Rate (L/min) 2 MDM MDM MDM Narrative Medical decision making narrative: Given her lightheadedness, concern is for hyponatremia versus medication side effect versus dehydration. As she fell I do feel CT of the head and neck is indicated as she is on an anticoagulant. Pulse ox was 88% on room air initially, but has risen to 92%. Chest x-ray will be obtained to help rule out pneumothorax or pneumonia. I reviewed her laboratory work from today and she does have an elevated white count of 12.5, hemoglobin stable 11.4, platelet count normal at 244. BUN is normal at 17 with creatinine slightly elevated at 1.07, glucose of 152 and anion gap normal at 11. Her sodium is low at 126 with a chloride also low at 89 which is consistent with dehydration. She states that she was told that she was drinking too much water, but I do not think this is a delusional effect as her urinalysis was obtained and reviewed and she has 150 ketones in her urine. There is no evidence of infection. I do not feel that she needs antibiotics for a UTI. I do feel that she may have become lightheaded from hyponatremia. Additionally, she became hypoxic on room air here with a pulse ox as low as 86 and was placed on nasal cannula oxygen. Chest x-ray in 1 view obtained and interpreted by myself as perihilar pneumonia on the right and on the right side. I reviewed the radiology report which confirms my suspicion for pneumonia. I see no evidence of a hip fracture or dislocation bilaterally, no pelvic fracture on my interpretation of her 3 views of the bilateral hips. I reviewed the CT report of the brain which shows no evidence of an acute hemorrhage. Additionally, CT of the C-spine radiology report was reviewed and it shows degenerative changes but no evidence of an acute fracture. Given her hyponatremia, pneumonia and hypoxia, she was started on Levaquin, but she is not tolerating that. She was started on Rocephin and Zithromax for community- acquired pneumonia. Her daughter states that she has had a cough for at least a month. I will discuss patient with hospitalist, Dr. Viera, for admission. Disposition is admit in stable condition. History & Record Review Discussion w/independent historian: Patient Additional record(s) reviewed:: Prior ED visit and Prior labs Lab Data Attestation: I reviewed the patient's lab results. Labs: Laboratory Results - last 24 hr 06/29/23 06/29/23 02:18 03:19 WBC 12.5 H RBC 3.77 L Hgb 11.4 L Hct 33.3 L MCV 88.3 MCH 30.2 MCHC 34.2 RDW Std Deviation 40.4 RDW Coeff of Missy 12.5 Plt Count 244 MPV 8.6 Immature Gran % (Auto) 0.400 Neut % (Auto) 88.2 H Lymph % (Auto) 4.9 L [place] % (Auto) 6.1 Eos % (Auto) 0.2 Baso % (Auto) 0.2 Absolute Neuts (auto) 11.0 H Absolute Lymphs (auto) 0.61 L Nucleated RBC % 0 Sodium 126 L Potassium 4.1 Chloride 89 L Carbon Dioxide 26.0 Anion Gap 11 BUN 17 Creatinine 1.07 H Estim Creat Clear Calc 37.95 Est GFR (MDRD) Af Amer 63 Est GFR (MDRD) Non-Af 52 L BUN/Creatinine Ratio 15.9 Glucose 152 H Calcium 8.7 Total Bilirubin 0.90 AST 26 ALT 25 Alkaline Phosphatase 101 Troponin I High Sens 20 Total Protein 6.3 L Albumin 3.1 L Globulin 3.2 Albumin/Globulin Ratio 1.0 Urine Color Yellow Urine Clarity Clear Urine pH 5.0 Ur Specific [place] 1.020 Urine Protein 30 H Urine Glucose (UA) Normal Urine Ketones 150 A* Urine Occult Blood 50 H Urine Nitrite Negative Urine Bilirubin Negative Urine Urobilinogen Normal Ur Leukocyte Esterase 25 H Urine RBC 0-5 SEEN Urine WBC 0 SEEN Ur Squamous Epith Cells 0 SEEN Urine Bacteria 0 SEEN Urine Mucus 0 SEEN Radiography Diagnostic Testing: Clinical Impression(s) from Imaging Studies Brain CT 06/29/23 02:32 IMPRESSION: 1. No evidence of acute intracranial pathology. 2. Diffuse involutional changes and chronic ischemic small vessel white matter disease. AIDOC was utilized to assist in identifying pertinent positive findings. Electronically Signed: Filippo Alexander MD at 2:59 EST , Cervical Spine CT 06/29/23 02:32 IMPRESSION: 1. No acute or healing fracture or malalignment. Multilevel spine degenerative changes. 2. 3 mm of degenerative retrolisthesis of C5 on C6. No critical central canal stenosis. Electronically Signed: Filippo Alexander MD at 3:06 EST Reading Location ID and State: [id number] / [employer] Tel , Service support , Chest X-Ray 06/29/23 02:50 IMPRESSION: 1. Small right pleural effusion. Possible subtle airspace along the medial aspect of the right lower lobe; consider atelectasis versus infiltrate. 2. Opacity at the medial aspect of the right upper lobe/apex raises concern for airspace filling process such as pneumonia. Electronically Signed: Filippo Alexander MD at 3:49 EST Reading Location ID and State: [id number] / [place] [employer] Tel , Service support , Hip/Pelvis X-Ray 06/29/23 02:50 IMPRESSION: No acute or healing fracture or malalignment. Moderate hip osteoarthrosis bilaterally. Electronically Signed: Filippo Alexander MD at 3:50 EST Reading Location ID and State: [id number] / [place] [employer] Tel , Service support , Management Discussion w/another healthcare provider: Hospitalist (Dr. Viera) Discharge Plan Dx/Rx/DC Orders Clinical Impression: Pneumonia, Hyponatremia, Hypoxia, Dehydration Disposition Disposition: Acute Care Hospital [facility]
[2023-06-29] MEDS: 0.9% Normal Saline (1000mL) 1,000 ML 999 ML IV (02:17)
[2023-06-29 02:24] LABS: Absolute Lymphocyte Count 0.61 X10^3/uL (0.83-4.51); Basophil# 0.02 X10^3/uL; Basophil% 0.2 % (0-1); Eosinophil# 0.02 X10^3/uL; Eosinophils% 0.2 % (0-5); Hematocrit 33.3 % (37-47); Hemoglobin 11.4 g/dL (12.0-15.0); Lymphocyte # 0.61 X10^3/ul (0.83-4.51); Lymphocyte % 4.9 % (19-41); Mean Corp Hgb Conc 34.2 g/dL (32-36); Mean Corpuscular Hgb 30.2 pg (27.0-32.0); Mean Corpuscular Volume 88.3 fL (81-99); Mean Platelet Vol. 8.6 fl (6.2-12.0); Monocyte# 0.76 X10^3/uL; Monocyte% 6.1 % (0-10); NRBC Flagged by Analyzer 0 % (0-5); Neutrophil # 11.02 X10^3/uL (2.7-7.7); Neutrophil % 88.2 % (47-70); Platelet Count 244 K/mm3 (150-450); RBC Distribution Width CV 12.5 % (11.6-14.6); RBC Distribution Width SD 40.4 fl (35.1-43.9); Red Blood Count 3.77 M/mm3 (4.2-5.4); White Blood Count 12.5 K/mm3 (4.4-11.0)
--- NOTE | 2023-06-29 02:32 | CT_ITS ---
EXAM: CT HEAD WITHOUT INTRAVENOUS CONTRAST CLINICAL INDICATION: Head injury on anticoagulation TECHNIQUE: Multiple axial images were obtained of the head without intravenous contrast. CTDIvol = ( 44.99 ) mGy, DLP = ( 829.85 ) mGycm This CT exam was performed using one or more of the following dose reduction techniques: automated exposure control, adjustment of the mA and/or kV according to patient size, and/or use of iterative reconstruction technique. COMPARISON: March 07, 2016. FINDINGS: BRAIN AND EXTRA-AXIAL SPACES: Periventricular small vessel ischemic change. No midline shift or hydrocephalus. Diffuse parenchymal atrophy. Posterior fossa structures are unremarkable. Basal cisterns are patent. No acute intracranial hemorrhage, mass effect or edema. No evidence of acute cortical stroke. BONES/JOINTS: Unremarkable. No discrete lytic or blastic abnormalities. VASCULATURE: Atherosclerotic calcifications of the carotid siphons and vertebrobasilar arteries. SINUSES: Unremarkable as visualized. Clear. MASTOID AIR CELLS: Visualized sinuses and mastoid air cells are clear. ORBITS: Visualized globes, extraocular muscles, optic nerves and retrobulbar fat appear unremarkable. CT/Brain/Head without Contrast IMPRESSION: 1. No evidence of acute intracranial pathology. 2. Diffuse involutional changes and chronic ischemic small vessel white matter disease. AIDOC was utilized to assist in identifying pertinent positive findings. Electronically Signed: Filippo Alexander MD at 2:59 EST ,
--- NOTE | 2023-06-29 02:32 | CT_ITS ---
EXAM: CT CERVICAL SPINE WITHOUT INTRAVENOUS CONTRAST CLINICAL INDICATION: Trauma TECHNIQUE: Helically acquired images were obtained of the cervical spine without intravenous contrast. 2D reformatted images were reviewed. CTDIvol = ( 17.62 ) mGy, DLP = ( 1359.79 ) mGycm This CT exam was performed using one or more of the following dose reduction techniques: automated exposure control, adjustment of the mA and/or kV according to patient size, and/or use of iterative reconstruction technique. COMPARISON: No relevant prior studies available. FINDINGS: VERTEBRAE: See below. DISCS/SPINAL CANAL/NEURAL FORAMINA: Moderate to severe degenerative disease at C5-6. No critical central stenosis. Degenerative changes of the spine with no acute or healing fracture. 3 mm of degenerative retrolisthesis of C5 on C6. No other malalignment. No unusual lytic or sclerotic lesions of bone. SOFT TISSUES: Unremarkable. No prevertebral soft tissue swelling. LYMPH NODES: Unremarkable. No cervical adenopathy. THYROID: Absent right thyroid lobe. Multiple hypodense nodules involving the left thyroid lobe. LUNG APICES: Unremarkable as visualized. Clear. PLEURAL SPACE: Soft tissue mass at the right apex. Inflammatory changes involving the apices. Large right pleural effusion extending to the apex. No pneumothorax. CT/Spine Cervical without Contras IMPRESSION: 1. No acute or healing fracture or malalignment. Multilevel spine degenerative changes. 2. 3 mm of degenerative retrolisthesis of C5 on C6. No critical central canal stenosis. Electronically Signed: Filippo Alexander MD at 3:06 [facility] ,
[2023-06-29 02:44] LABS: AST(SGOT) 26 U/L (15-37); Alanine Aminotransfer ALT/SGPT 25 U/L (13-56); Albumin, Serum 3.1 g/dL (3.2-5.0); Alkaline Phosphatase 101 U/L (45-117); Anion Gap 11 (5-15); BUN 17 mg/dL (7-18); BUN/Creat Ratio 15.9 RATIO (10-20); Calcium,Total 8.7 mg/dL (8.5-10.1); Chloride 89 mmol/L (98-107); Creatinine, Serum 1.07 mg/dL (0.55-1.02); EST Glomerular Filtration Rate 52 mL/min (>60); Est Glom Filt Rate - Afr Amer 63 mL/min (>60); Estimated Creatinine Clearance 37.95 ml/min; Globulin 3.2 g/dL (2.2-4.2); Glucose 152 mg/dL (74-106); Potassium 4.1 mmol/L (3.5-5.1); Protein, Total 6.3 g/dL (6.4-8.2); Sodium Level 126 mmol/L (136-145); Troponin-I HS 20 pg/mL (3.0-54.0)
--- NOTE | 2023-06-29 02:50 | RAD_ITS ---
EXAM: XR BILATERAL HIPS WITH PELVIS WHEN PERFORMED, 2 VIEWS CLINICAL INDICATION: Trauma TECHNIQUE: Frontal view of the bilateral hips with pelvis when performed. COMPARISON: No relevant prior studies available. FINDINGS: BONES/JOINTS: Moderate osteoarthrosis of the hip joints bilaterally. No destructive or sclerotic lesions. Note that overlapping bowel shadows may however obscure fine detail. Sacroiliac joint is unremarkable. No widening of the pubic symphysis. No acute or healing fracture or malalignment. SOFT TISSUES: Unremarkable. No soft tissue swelling or gas. OTHER FINDINGS: No osteonecrosis. RAD/HIP, UNI W/ Pelvis 2-3 Views IMPRESSION: No acute or healing fracture or malalignment. Moderate hip osteoarthrosis bilaterally. Electronically Signed: Filippo Alexander MD at 3:50 EST Reading Location ID and State: [facility] / [place] Tel , Service support ,
--- NOTE | 2023-06-29 02:50 | RAD_ITS ---
EXAM: XR CHEST, 1 VIEW CLINICAL INDICATION: Shortness of breath TECHNIQUE: Frontal view of the chest. COMPARISON: No relevant prior studies available. FINDINGS: LUNGS AND PLEURAL SPACES: Questionable airspace opacity at the medial aspect the right lower lung. Small left pleural effusion suspected. No pneumothorax. HEART: Unremarkable. Cardiac silhouette not enlarged. MEDIASTINUM: Central airways and mediastinal contour are unremarkable. BONES/JOINTS: Unremarkable. No acute fracture. No suspicious lytic or sclerotic lesions of bone. SOFT TISSUES: Unremarkable. LYMPH NODES: Right hilar fullness is concerning for adenopathy. Pulmonary arterial enlargement can have a similar appearance. RAD/Chest 1 View (Portable) IMPRESSION: 1. Small right pleural effusion. Possible subtle airspace along the medial aspect of the right lower lobe; consider atelectasis versus infiltrate. 2. Opacity at the medial aspect of the right upper lobe/apex raises concern for airspace filling process such as pneumonia. Electronically Signed: Filippo Alexander MD at 3:49 EST ,
[2023-06-29 03:23] LABS: Bacteria 0 SEEN /hpf (None Seen); Mucous, Urine 0 SEEN /hpf (<or=2+); Squamous Epithelial Cells - UA 0 SEEN /hpf (5-10); White Blood Cells 0 SEEN /hpf (0-5)
[2023-06-29 03:24] LABS: Color, Urine Yellow (Yellow); Glucose, Dipstick Normal (Normal); Leukocyte Esterase-Dipstick 25 /ul (Negative); Nitrite-Dipstick Negative (Negative); Occult Blood-Urine 50 /ul (Negative); Protein-Dipstick 30 mg/dl (Negative); Urine Bilirubin Dipstick Negative (Negative); Urine Clarity Clear (Clear); Urine Urobilinogen Normal (Normal)
[2023-06-29 03:34] LABS: Ketone-Dipstick 150 mg/dl (Negative)
[2023-06-29 03:35] LABS: Red Blood Cells-Urine 0-5 SEEN /hpf (0-5)
[2023-06-29] MEDS: Ceftriaxone 2 GM in 0.9% Normal Saline (50mL MB+) 50 ML IV ×2 (04:05→20:59)
--- NOTE | 2023-06-29 04:09 | HP.PCM.HOS_ITS ---
[facility] - General General Date of Admission: 06/29/23 Date of Service: 06/29/23 Chief Complaint: Fall HPI Narrative LANDON MARMOLEJO, is a 82 F with history of atrial fibrillation, hypertension, carotid artery stenosis presents following a fall around bedtime. Over the last 1 month she has been having progressive cough and associated fatigue, lightheadedness and shortness of breath. For suspected bronchitis she was started on Levaquin today. After taking her first dose she felt even more fatigued, and could not maintain her balance at night and tripped and fell. Extensive evaluation done in the ED did not show any major sequelae of the fall. She is on anticoagulation with Xarelto for her A-fib. She was also found to have hyponatremia with a sodium of 126 mg/DL. She drinks a lot of fluids throughout the day at least 10 to 12 glasses of water per day. She is presently on spironolactone only. The chest x-ray showed small right pleural effusion possible subtle airspace along the medial aspect of right lower lobe consider atelectasis. [facility] Medical History Diverticulosis Essential (primary) hypertension GERD (gastroesophageal reflux disease) Near syncope Non-sustained ventricular tachycardia Paroxysmal atrial fibrillation TIA (transient ischemic attack) Home Medications atorvastatin 40 mg tablet 40 mg PO QHS #90 tabs 03/08/16 [Rx Last Taken Unknown] aspirin 81 mg tablet,delayed release 81 mg PO MOWEFR 02/23/19 [History Last Taken Unknown] hydroxyzine HCl 50 mg tablet 50 mg PO QHS PRN 03/28/21 [History Last Taken Unknown] flecainide 100 mg tablet 100 mg PO Q12H #180 tabs 11/01/22 [Rx Last Taken Unknown] amlodipine 2.5 mg tablet 2.5 mg PO DAILY #30 tabs 06/21/23 [Rx Last Taken Unknown] metoprolol succinate 25 mg tablet,extended release 24 hr 12.5 mg (1/2 x 25 mg) PO DAILY #45 tabs 06/27/23 [Rx Last Taken Unknown] rivaroxaban 20 mg tablet (Xarelto) 20 mg PO DAILY #90 tabs 06/27/23 [Rx Last Taken Unknown] spironolactone 25 mg tablet 25 mg PO DAILY 06/29/23 [History Last Taken Unknown] Allergy/AdvReac Type Severity Reaction Status Date / Time Sulfa (Sulfonamide Allergy Unknown Verified 06/29/23 01:37 Antibiotics) Family History Father CHF (congestive heart failure) Brother CAD (coronary artery disease) Brother CAD (coronary artery disease) Surgical History History of left-sided carotid endarterectomy (03/30/16) History of thyroid surgery Social History Smoking Status: Former smoker alcohol intake: never caffeine: Yes Type: coffee Number of servings: 4 ROS Constitutional Constitutional: Reports fatigue, fever(s) and malaise Cardiovascular Cardiovascular: Reports dyspnea on exertion Respiratory/Chest Respiratory/Chest: Reports cough and dyspnea Genitourinary Genitourinary: Reports other Musculoskeletal Musculoskeletal: Reports other Neurologic Neurologic: Reports other Vital Signs Vital Signs Vital Signs: 06/29/23 01:32 06/29/23 01:32 06/29/23 02:06 Temperature 97.2 F L Temperature Source Temporal Pulse Rate 64 Respiratory Rate 18 Respiratory Effort Normal Non-Labored Respiratory Pattern Normal Blood Pressure 135/53 H Blood Pressure Mean 80 Pulse Ox 88 92 Oxygen Delivery Method Room Air Room Air Oxygen Flow Rate (L/min) 06/29/23 02:27 06/29/23 02:28 Temperature Temperature Source Pulse Rate Respiratory Rate Respiratory Effort Respiratory Pattern Blood Pressure Blood Pressure Mean Pulse Ox 86 93 Oxygen Delivery Method Room Air Nasal Cannula Oxygen Flow Rate (L/min) 2 Weight Weight: 153 lb 3.54 oz Body Mass Index (BMI) 24.7 Physical Exam Const alert and oriented x3 General Appearance: cooperative HEENT normocephalic Eyes PERRL Resp normal respiratory effort Auscultation: crackles left and rales bilateral Neuro Sensorium / Orientation: awake and alert Psych affect normal Results Lab / Micro Data Attestation: I reviewed the patient's lab results. 06/29/23 02:18 06/29/23 02:18 Labs: Laboratory Results - last 24 hr 06/29/23 02:18: WBC 12.5 H, RBC 3.77 L, Hgb 11.4 L, Hct 33.3 L, MCV 88.3, MCH 30.2, MCHC 34.2, RDW Std Deviation 40.4, RDW Coeff of Missy 12.5, Plt Count 244, MPV 8.6, Immature Gran % (Auto) 0.400, Neut % (Auto) 88.2 H, Lymph % (Auto) 4.9 L, [place] % (Auto) 6.1, Eos % (Auto) 0.2, Baso % (Auto) 0.2, Absolute Neuts (auto) 11.0 H, Absolute Lymphs (auto) 0.61 L, Nucleated RBC % 0, Sodium 126 L, Potassium 4.1, Chloride 89 L, Carbon Dioxide 26.0, Anion Gap 11, BUN 17, Creatinine 1.07 H, Estim Creat Clear Calc 37.95, Est GFR (MDRD) Af Amer 63, Est GFR (MDRD) Non-Af 52 L, BUN/Creatinine Ratio 15.9, Glucose 152 H, Calcium 8.7, Total Bilirubin 0.90, AST 26, ALT 25, Alkaline Phosphatase 101, Troponin I High Sens 20, Total Protein 6.3 L, Albumin 3.1 L, Globulin 3.2, Albumin/Globulin Ratio 1.0 06/29/23 03:19: Urine Color Yellow, Urine Clarity Clear, Urine pH 5.0, Ur Specific [place] 1.020, Urine Protein 30 H, Urine Glucose (UA) Normal, Urine Ketones 150 A*, Urine Occult Blood 50 H, Urine Nitrite Negative, Urine Bilirubin Negative, Urine Urobilinogen Normal, Ur Leukocyte Esterase 25 H, Urine RBC 0-5 SEEN, Urine WBC 0 SEEN, Ur Squamous Epith Cells 0 SEEN, Urine Bacteria 0 SEEN, Urine Mucus 0 SEEN Imagaing Radiology Impression Brain CT 06/29/23 02:32 IMPRESSION: 1. No evidence of acute intracranial pathology. 2. Diffuse involutional changes and chronic ischemic small vessel white matter disease. AIDOC was utilized to assist in identifying pertinent positive findings. Electronically Signed: Filippo Alexander MD at 2:59 EST , Cervical Spine CT 06/29/23 02:32 IMPRESSION: 1. No acute or healing fracture or malalignment. Multilevel spine degenerative changes. 2. 3 mm of degenerative retrolisthesis of C5 on C6. No critical central canal stenosis. Electronically Signed: Filippo Alexander MD at 3:06 EST , Chest X-Ray 06/29/23 02:50 IMPRESSION: 1. Small right pleural effusion. Possible subtle airspace along the medial aspect of the right lower lobe; consider atelectasis versus infiltrate. 2. Opacity at the medial aspect of the right upper lobe/apex raises concern for airspace filling process such as pneumonia. Electronically Signed: Filippo Alexander MD at 3:49 EST , Hip/Pelvis X-Ray 06/29/23 02:50 IMPRESSION: No acute or healing fracture or malalignment. Moderate hip osteoarthrosis bilaterally. Electronically Signed: Filippo Alexander MD at 3:50 EST , Assessment & Plan Assessment/Plan (1) Pneumonia: PLAN: Plan 1. Community-acquired pneumonia/bronchitis: Ongoing for about 1 month now, will start her on ceftriaxone and azithromycin. Also inhaled albuterol as needed for shortness of breath, oxygen support and respiratory therapy. If there is no improvement in [address] chest for further characterization given her age and prolonged symptoms. Assess for Legionella and strep pneumonia infection 2. Fall: In the setting of ongoing cough, chronic illness, hyponatremia, beta-sydnee therapy. We will hold metoprolol for now, consult physical therapy and Occupational Therapy to assess and improve her balance. Close monitoring of vitals including orthostatic vitals. 3. Hyponatremia: Patient endorses increased water intake over the last few months, hyponatremia pneumonia could be Legionella and we will test her for that. Strict input output monitoring, restrict water intake to 1.5 L daily. 4. A-fib on Xarelto continue as before 5. Respiratory therapy, nutrition evaluation
[2023-06-29] MEDS: Azithromycin 500 MG in Dextrose 5%-Water (250mL Bag) 250 ML 250 MG IV ×2 (04:56→21:56)
--- NOTE | 2023-06-29 09:04 | CPS ---
Pt was increased to 4 lpm. Nurse made aware of change.
[2023-06-29 09:29] LABS: Absolute Lymphocyte Count 0.55 X10^3/uL (0.83-4.51); Absolute Neutrophil Count 10.6 X10^3/uL (2.0-7.7); Basophil# 0.01 X10^3/uL; Basophil% 0.1 % (0-1); Hematocrit 37.1 % (37-47); Hemoglobin 12.5 g/dL (12.0-15.0); Lymphocyte # 0.55 X10^3/ul (0.83-4.51); Lymphocyte % 4.6 % (19-41); Mean Corp Hgb Conc 33.7 g/dL (32-36); Mean Corpuscular Hgb 30.7 pg (27.0-32.0); Mean Corpuscular Volume 91.2 fL (81-99); Monocyte# 0.62 X10^3/uL; Monocyte% 5.2 % (0-10); NRBC Flagged by Analyzer 0 % (0-5); Neutrophil # 10.63 X10^3/uL (2.7-7.7); Neutrophil % 89.8 % (47-70); POSITIVE DIFFERENTIAL YES; Platelet Count 303 K/mm3 (150-450); RBC Distribution Width CV 12.5 % (11.6-14.6); Red Blood Count 4.07 M/mm3 (4.2-5.4); White Blood Count 11.9 K/mm3 (4.4-11.0)
[2023-06-29 09:33] LABS: Differential Indicated SCAN CRITERIA MET
[2023-06-29] MEDS: amLODIPine 2.5 MG Tablet PO (09:42)
[2023-06-29] MEDS: Flecainide 100 MG Tablet PO ×2 (09:43→20:52)
[2023-06-29] MEDS: guaiFENesin 1,200 MG Tablet 1200 MG PO ×2 (09:43→20:52)
[2023-06-29] MEDS: Rivaroxaban 20 MG Tablet PO (09:43)
[2023-06-29 09:58] LABS: ALB/GLOB Ratio 0.8 RATIO (0.9-2.4); AST(SGOT) 28 U/L (15-37); Alanine Aminotransfer ALT/SGPT 24 U/L (13-56); Alkaline Phosphatase 111 U/L (45-117); Anion Gap 9 (5-15); BUN 14 mg/dL (7-18); Calcium,Total 8.6 mg/dL (8.5-10.1); Chloride 91 mmol/L (98-107); Creatinine, Serum 0.88 mg/dL (0.55-1.02); EST Glomerular Filtration Rate 66 mL/min (>60); Est Glom Filt Rate - Afr Amer 80 mL/min (>60); Estimated Creatinine Clearance 46.14 ml/min; Globulin 3.6 g/dL (2.2-4.2); Glucose 185 mg/dL (74-106); Phosphorus 2.7 mg/dL (2.5-4.9); Potassium 4.1 mmol/L (3.5-5.1); Protein, Total 6.6 g/dL (6.4-8.2); Sodium Level 124 mmol/L (136-145); Thyroid Stim Hormone (TSH) 0.95 uIU/mL (0.358-3.74)
--- NOTE | 2023-06-29 10:00 | EKG12_ITS ---
Test Reason : CP Blood Pressure : / mmHG Vent. Rate : 069 BPM Atrial Rate : 069 BPM P-R Int : 248 ms QRS Dur : 154 ms QT Int : 434 ms P-R-T Axes : 058 -23 007 degrees QTc Int : 465 ms Sinus rhythm with sinus arrhythmia with 1st degree A-V block Non-specific intra-ventricular conduction block Abnormal ECG When compared with ECG of 29-JUN-2023 02:12, MANUAL COMPARISON REQUIRED, DATA IS UNCONFIRMED Confirmed by CHINO MORA, DANIKA ([id number]), international editorial producer KALLI RODRÍGUEZ ([id number]) on 07/02/2023 8:45:02 A M Referred By: Irena Viera Confirmed By:RICARDO MAGANA MD
[2023-06-29 10:02] LABS: International Normalized Ratio 2.3; Prothrombin Time (Protime)PT. 25.9 SECONDS (11.7-14.9)
[2023-06-29 10:07] LABS: Osmolality, Serum 269 mOsm/KG (280-301)
[2023-06-29 10:18] LABS: Platelet Estimate ADEQUATE (ADEQ); Red Cell Morphology NORM C+C NORMAL (NORM C&C)
--- NOTE | 2023-06-29 11:15 | CASEMGMT ---
JOLIE AYALA Assessment: Face to Face with pt for initial transition planning/care coordination assessment. JOLIE AYALA introduced self and role at [facility], pt voices understanding and consents to assessment. Pt is A&O x4 and answers all questions appropriately at this time. Pt sitting up in bed in no distress with oxygen on. Care providers, pharmacy, and demographics verified/updated. Admitting Dx:pneumonia PCP:Shai Specialists:Aureliano cardio Sam Pharmacy:[facility] Insurance:[facility], [facility] Prescription Benefit: yes LNOK:Carmen Followay, dtr Living Arrangements: Pt lives alone in a single story home with 2 steps to enter. Pt reports she is I in ADL's. Pt dtr takes her grocery shopping and does the laundry. Pt denies concerns at home. Transportation: Pt does not drive, dtr provides transportation. DME:cane, doesn't use; shower bench HHC/SNF:Denies hx of Pt states no concerns with going home at time of dc. Pt states no further concerns/needs. CM to follow therapy and for oxygen needs. Advised pt to ask CM if any further question/concerns/needs arise, voices understanding. Pt Goal:Home Plan:Home, follow therapy and oxygen needs
--- NOTE | 2023-06-29 13:46 | PCM.PN.HOSP ---
Reason for Visit Reason for Visit: Diagnoses Pneumonia, unspecified organism (06/29/23) Objective Data Objective Data Vital Signs: Vital Signs Temp Pulse Resp BP Pulse Ox O2 Del Method O2 Flow Rate 97.6 F L 64 16 168/70 H 94 Nasal Cannula 4 06/29/23 08:11 06/29/23 08:11 06/29/23 08:11 06/29/23 08:11 06/29/23 08:11 06/29/23 08:18 06/29/23 08:18 Oxygen Flow Rate (L/min) 4 Oxygen Delivery Method Nasal Cannula Weight: 161 lb 13.109 oz Body Mass Index (BMI) 26.1 Intake & Output: Intake and Output for Last 24 Hours 06/27/23 06/28/23 06/29/23 23:59 23:59 23:59 Intake Total 2180 / 2180 Balance 2180 / 2180 Lab / Micro Data 06/29/23 09:02 06/29/23 09:02 Labs: Laboratory Results - last 24 hr 06/29/23 02:18: WBC 12.5 H, RBC 3.77 L, Hgb 11.4 L, Hct 33.3 L, MCV 88.3, MCH 30.2, MCHC 34.2, RDW Std Deviation 40.4, RDW Coeff of Missy 12.5, Plt Count 244, MPV 8.6, Immature Gran % (Auto) 0.400, Neut % (Auto) 88.2 H, Lymph % (Auto) 4.9 L, [place] % (Auto) 6.1, Eos % (Auto) 0.2, Baso % (Auto) 0.2, Absolute Neuts (auto) 11.0 H, Absolute Lymphs (auto) 0.61 L, Nucleated RBC % 0, Sodium 126 L, Potassium 4.1, Chloride 89 L, Carbon Dioxide 26.0, Anion Gap 11, BUN 17, Creatinine 1.07 H, Estim Creat Clear Calc 37.95, Est GFR (MDRD) Af Amer 63, Est GFR (MDRD) Non-Af 52 L, BUN/Creatinine Ratio 15.9, Glucose 152 H, Calcium 8.7, Total Bilirubin 0.90, AST 26, ALT 25, Alkaline Phosphatase 101, Troponin I High Sens 20, Total Protein 6.3 L, Albumin 3.1 L, Globulin 3.2, Albumin/Globulin Ratio 1.0 06/29/23 03:19: Urine Color Yellow, Urine Clarity Clear, Urine pH 5.0, Ur Specific [place] 1.020, Urine Protein 30 H, Urine Glucose (UA) Normal, Urine Ketones 150 A*, Urine Occult Blood 50 H, Urine Nitrite Negative, Urine Bilirubin Negative, Urine Urobilinogen Normal, Ur Leukocyte Esterase 25 H, Urine RBC 0-5 SEEN, Urine WBC 0 SEEN, Ur Squamous Epith Cells 0 SEEN, Urine Bacteria 0 SEEN, Urine Mucus 0 SEEN 06/29/23 03:52: Lactic Acid 1.0 06/29/23 09:02: WBC 11.9 H, RBC 4.07 L, Hgb 12.5, Hct 37.1, MCV 91.2, MCH 30.7, MCHC 33.7, RDW Std Deviation 42.0, RDW Coeff of Missy 12.5, Plt Count 303, MPV 9.0, Immature Gran % (Auto) 0.300, Neut % (Auto) 89.8 H, Lymph % (Auto) 4.6 L, [place] % (Auto) 5.2, Eos % (Auto) 0.0, Baso % (Auto) 0.1, Absolute Neuts (auto) 10.6 H, Absolute Lymphs (auto) 0.55 L, Nucleated RBC % 0, Platelet Estimate ADEQUATE, RBC Morphology NORM C+C, PT 25.9 H, INR 2.3, Sodium 124 L, Potassium 4.1, Chloride 91 L, Carbon Dioxide 24.0, Anion Gap 9, BUN 14, Creatinine 0.88, Estim Creat Clear Calc 46.14, Est GFR (MDRD) Af Amer 80, Est GFR (MDRD) Non-Af 66, BUN/Creatinine Ratio 16.0, Glucose 185 H, Serum Osmolality 269 L, Calcium 8.6, Phosphorus 2.7, Magnesium 2.0, Total Bilirubin 0.50, Direct Bilirubin 0.20, AST 28, ALT 24, Alkaline Phosphatase 111, Total Protein 6.6, Albumin 3.0 L, Globulin 3.6, Albumin/Globulin Ratio 0.8 L, TSH 0.95 Radiography Diagnostic Testing: Radiology Impression Brain CT 06/29/23 02:32 IMPRESSION: 1. No evidence of acute intracranial pathology. 2. Diffuse involutional changes and chronic ischemic small vessel white matter disease. AIDOC was utilized to assist in identifying pertinent positive findings. Electronically Signed: Filippo Alexander MD at 2:59 EST , Cervical Spine CT 06/29/23 02:32 IMPRESSION: 1. No acute or healing fracture or malalignment. Multilevel spine degenerative changes. 2. 3 mm of degenerative retrolisthesis of C5 on C6. No critical central canal stenosis. Chest X-Ray 06/29/23 02:50 IMPRESSION: 1. Small right pleural effusion. Possible subtle airspace along the medial aspect of the right lower lobe; consider atelectasis versus infiltrate. 2. Opacity at the medial aspect of the right upper lobe/apex raises concern for airspace filling process such as pneumonia. Hip/Pelvis X-Ray 06/29/23 02:50 IMPRESSION: No acute or healing fracture or malalignment. Moderate hip osteoarthrosis bilaterally. Physical Exam Narrative Seen and examined. Assessment & Plan Assessment/Plan (1) Pneumonia: (2) Hyponatremia: PLAN: Plan Patient was admitted after she had a fall yesterday night around bedtime. Patient has been gradually declining over 1 to 2 months with fatigue, lightheadedness shortness of breath and progressive cough. She was started on Levaquin as an outpatient process. Bronchitis she felt more fatigue could not maintain balance and then fall. 1. Community-acquired pneumonia/bronchitis: Chest x-ray needed reviewed and shows patchy infiltrate in the right upper lobe and right lower lobe. Continue IV ceftriaxone and azithromycin. Pneumonia workup is ordered including respiratory panel and COVID-19 PCR. Incentive spirometry and Mucinex DM 2. Fall: In the setting of ongoing cough, chronic illness, hyponatremia, beta-sydnee therapy. hold metoprolol for now, consult physical therapy and Occupational Therapy to assess and improve her balance. Close monitoring of vitals including orthostatic vitals. 3. Hypotonic isovolemic hyponatremia: As per the history patient. She has been drinking about 3 L of fluid every day. There was probability of SIADH in view of pneumonia.Patient admitted with sodium 129 and is gradually decreasing therefore will start on IV fluid normal saline. It also has partial thyroidectomy but states he does not need thyroid supplement. Serum TSH 0.95. Cortisol pending. Will consult nephrology. 4. A-fib on Xarelto continue as before 5. Respiratory therapy, nutrition evaluation Laboratory Results 06/29/23 02:18: WBC 12.5 H, RBC 3.77 L, Hgb 11.4 L, Hct 33.3 L, MCV 88.3, MCH 30.2, MCHC 34.2, RDW Std Deviation 40.4, RDW Coeff of Missy 12.5, Plt Count 244, MPV 8.6, Immature Gran % (Auto) 0.400, Neut % (Auto) 88.2 H, Lymph % (Auto) 4.9 L, [place] % (Auto) 6.1, Eos % (Auto) 0.2, Baso % (Auto) 0.2, Absolute Neuts (auto) 11.0 H, Absolute Lymphs (auto) 0.61 L, Nucleated RBC % 0, Sodium 126 L, Potassium 4.1, Chloride 89 L, Carbon Dioxide 26.0, Anion Gap 11, BUN 17, Creatinine 1.07 H, Estim Creat Clear Calc 37.95, Est GFR (MDRD) Af Amer 63, Est GFR (MDRD) Non-Af 52 L, BUN/Creatinine Ratio 15.9, Glucose 152 H, Calcium 8.7, Total Bilirubin 0.90, AST 26, ALT 25, Alkaline Phosphatase 101, Troponin I High Sens 20, Total Protein 6.3 L, Albumin 3.1 L, Globulin 3.2, Albumin/Globulin Ratio 1.0 06/29/23 03:19: Urine Color Yellow, Urine Clarity Clear, Urine pH 5.0, Ur Specific [place] 1.020, Urine Protein 30 H, Urine Glucose (UA) Normal, Urine Ketones 150 A*, Urine Occult Blood 50 H, Urine Nitrite Negative, Urine Bilirubin Negative, Urine Urobilinogen Normal, Ur Leukocyte Esterase 25 H, Urine RBC 0-5 SEEN, Urine WBC 0 SEEN, Ur Squamous Epith Cells 0 SEEN, Urine Bacteria 0 SEEN, Urine Mucus 0 SEEN 06/29/23 03:52: Lactic Acid 1.0 06/29/23 09:02: WBC 11.9 H, RBC 4.07 L, Hgb 12.5, Hct 37.1, MCV 91.2, MCH 30.7, MCHC 33.7, RDW Std Deviation 42.0, RDW Coeff of Missy 12.5, Plt Count 303, MPV 9.0, Immature Gran % (Auto) 0.300, Neut % (Auto) 89.8 H, Lymph % (Auto) 4.6 L, [place] % (Auto) 5.2, Eos % (Auto) 0.0, Baso % (Auto) 0.1, Absolute Neuts (auto) 10.6 H, Absolute Lymphs (auto) 0.55 L, Nucleated RBC % 0, Platelet Estimate ADEQUATE, RBC Morphology NORM C+C, PT 25.9 H, INR 2.3, Sodium 124 L, Potassium 4.1, Chloride 91 L, Carbon Dioxide 24.0, Anion Gap 9, BUN 14, Creatinine 0.88, Estim Creat Clear Calc 46.14, Est GFR (MDRD) Af Amer 80, Est GFR (MDRD) Non-Af 66, BUN/Creatinine Ratio 16.0, Glucose 185 H, Serum Osmolality 269 L, Calcium 8.6, Phosphorus 2.7, Magnesium 2.0, Total Bilirubin 0.50, Direct Bilirubin 0.20, AST 28, ALT 24, Alkaline Phosphatase 111, Total Protein 6.6, Albumin 3.0 L, Globulin 3.6, Albumin/Globulin Ratio 0.8 L, TSH 0.95, Cortisol Pending Charges/Coding Visit Charges Inpatient E&M: 91811 Subs Hosp L2
[2023-06-29 15:04] LABS: Sodium Level 124 mmol/L (136-145)
[2023-06-29] MEDS: 0.9% Normal Saline (1000mL) 1,000 ML 75 ML IV (15:49)
[2023-06-29] MEDS: 0.9% Saline Lock 10 ML Syringe IV (15:58)
--- NOTE | 2023-06-29 19:39 | EKG12_ITS ---
Test Reason : ROUTINE Blood Pressure : / mmHG Vent. Rate : 061 BPM Atrial Rate : 063 BPM P-R Int : 270 ms QRS Dur : 152 ms QT Int : 522 ms P-R-T Axes : 054 -41 050 degrees QTc Int : 525 ms Sinus rhythm Left axis deviation Non-specific intra-ventricular conduction block Minimal voltage criteria for LVH, may be normal variant ( Devyn product ) Abnormal ECG When compared with ECG of 29-JUN-2023 02:12, MANUAL COMPARISON REQUIRED, DATA IS UNCONFIRMED Confirmed by CHINO MORA, DANIKA ([id number]), video effects editor KALLI RODRÍGUEZ ([id number]) on 07/02/2023 8:45:17 A M Referred By: Irena Viera Confirmed By:RICARDO MAGANA MD
[2023-06-29] MEDS: Atorvastatin Calcium 40 MG Tablet PO (20:52)
[2023-06-29] MEDS: hydrOXYzine 10 MG Tablet 5 MG PO (20:53)
[2023-06-29 21:13] LABS: Sodium Level 123 mmol/L (136-145)
[2023-06-29] MEDS: Ipratropium/Albuterol Sulfate 3 ML AMPUL.NEB INHALATION (22:12)
[2023-06-29] MEDS: hydrOXYzine PAM 25 MG Capsule 50 MG PO (23:29)
[2023-06-30] VITALS (16 sets, daily range): BP systolic 132–154; BP diastolic 53–75; PULSE 58–82; RESP 12–28; TEMP 36.3–36.8; O2SAT 90–99
[2023-06-30] MEDS: 0.9% Saline Lock 10 ML Syringe IV ×2 (01:16→05:33)
[2023-06-30] MEDS: Furosemide 40 MG/4 ML Vial IV ×2 (01:16→05:33)
[2023-06-30 02:45] LABS: Osmolality, Urine 539 mOsm/KG
[2023-06-30 02:47] LABS: Protein, Urine (Random) 37.1 mg/dL (<11.9); Protein:Creat Ratio 523 mg/g CRE (0-200); Urine Chloride < 10 mmol/L (Not Establ.); Urine Sodium 9 mmol/L (Not Establ.)
[2023-06-30 02:59] LABS: M R Staph aureus DNA By PCR Negative (Negative); Probe Check PASS; Specimen Processing Control PASS
[2023-06-30] MEDS: Ipratropium/Albuterol Sulfate 3 ML AMPUL.NEB INHALATION (04:18)
--- NOTE | 2023-06-30 06:45 | PN.HOSP_ITS ---
Reason for Visit Reason for Visit: Diagnoses Hypo-osmolality and hyponatremia (06/29/23) Pneumonia, unspecified organism (06/29/23) Subjective Subjective Progressive shortness of breath overnight, associated with orthopnea. Increased oxygen requirement Objective Data Objective Data Vital Signs: Vital Signs Temp Pulse Resp BP Pulse Ox O2 Del Method O2 Flow Rate 97.4 F L 69 24 H 132/75 H 94 Bi-pap 6 06/30/23 02:20 06/30/23 05:31 06/30/23 05:35 06/30/23 02:20 06/30/23 05:35 06/30/23 05:35 06/30/23 05:30 FiO2 40 06/30/23 05:35 Oxygen Flow Rate (L/min) 6 Oxygen Delivery Method Bi-pap Weight: 161 lb 13.109 oz Body Mass Index (BMI) 26.1 Intake & Output: Intake and Output for Last 24 Hours 06/28/23 06/29/23 06/30/23 23:59 23:59 23:59 Intake Total 3132.5 / 3372.5 855 / 855 Output Total 1600 / 1600 Balance 3132.5 / 3122.5 -745 / -745 Lab / Micro Data Attestation: I reviewed the patient's lab results. 06/29/23 09:02 06/29/23 20:47 Labs: Laboratory Results - last 24 hr 06/29/23 00:45: MRSA (PCR) Negative 06/29/23 09:02: WBC 11.9 H, RBC 4.07 L, Hgb 12.5, Hct 37.1, MCV 91.2, MCH 30.7, MCHC 33.7, RDW Std Deviation 42.0, RDW Coeff of Missy 12.5, Plt Count 303, MPV 9.0, Immature Gran % (Auto) 0.300, Neut % (Auto) 89.8 H, Lymph % (Auto) 4.6 L, [place] % (Auto) 5.2, Eos % (Auto) 0.0, Baso % (Auto) 0.1, Absolute Neuts (auto) 10.6 H, Absolute Lymphs (auto) 0.55 L, Nucleated RBC % 0, Platelet Estimate ADEQUATE, RBC Morphology NORM C+C, PT 25.9 H, INR 2.3, Sodium 124 L, Potassium 4.1, Chloride 91 L, Carbon Dioxide 24.0, Anion Gap 9, BUN 14, Creatinine 0.88, Estim Creat Clear Calc 46.14, Est GFR (MDRD) Af Amer 80, Est GFR (MDRD) Non-Af 66, BUN/Creatinine Ratio 16.0, Glucose 185 H, Serum Osmolality 269 L, Calcium 8. 6, Phosphorus 2.7, Magnesium 2.0, Total Bilirubin 0.50, Direct Bilirubin 0.20, AST 28, ALT 24, Alkaline Phosphatase 111, Total Protein 6.6, Albumin 3.0 L, Globulin 3.6, Albumin/Globulin Ratio 0.8 L, TSH 0.95 06/29/23 14:31: Sodium 124 L 06/29/23 20:47: Sodium 123 L 06/30/23 00:45: Urine Osmolality 539, U Random Total Protein 37.1 H, Ur Random Sodium 9, Urine Creatinine 70.90, Protein/Creatinin Ratio 523 H, Urine Potassium 46.0, Urine Chloride < 10 Micro: Microbiology 06/30/23 00:45 Urine, Random Legionella Antigen - Final 06/30/23 00:45 Urine, Random Streptococcus pneumoniae Antigen (M - Final 06/29/23 14:55 Mucosa - Nose Coronavirus COVID-19 PCR - Final 06/29/23 14:55 Mucosa - Nose Respiratory Panel (PCR) - Final Physical Exam Resp Resp Narrative: Increased respiratory effort Auscultation: crackles bilateral and rales diffuse Cardio regular rate GI normal to inspection, nondistended, normoactive bowel sounds Assessment & Plan Assessment/Plan (1) Hypoxia: PLAN: Plan Ms Chan was admitted for pneumonia, and hyponatremia developed acute respiratory failure overnight. This was in the setting of ongoing fluid therapy and she likely had features of ADHF secondary to volume overload. We had stopped her fluids overnight and gave her 1 dose of 40 mg IV Lasix but she is still symptomatic. 1. Acute acute on chronic respiratory failure: Injection IV Lasix 40 mg stat, start on positive pressure ventilation using BiPAP for further improvement of ventilation. 2. Hyponatremia: Follow-up on morning labs
[2023-06-30] MEDS: Rivaroxaban 20 MG Tablet PO (08:10)
[2023-06-30] MEDS: amLODIPine 2.5 MG Tablet PO (08:10)
[2023-06-30] MEDS: Flecainide 100 MG Tablet PO ×2 (08:10→21:08)
[2023-06-30] MEDS: guaiFENesin 1,200 MG Tablet 1200 MG PO ×2 (08:10→21:09)
--- NOTE | 2023-06-30 09:26 | CPS ---
PT ON 6LPM WHILE EATING BREAKFAST AT THIS TIME
[2023-06-30 09:28] LABS: Uric Acid 4.5 mg/dL (2.6-6.0)
--- NOTE | 2023-06-30 09:54 | PN.HOSP_ITS ---
Reason for Visit Reason for Visit: Diagnoses Hypo-osmolality and hyponatremia (06/29/23) Pneumonia, unspecified organism (06/29/23) Hypoxemia (06/29/23) Objective Data Objective Data Vital Signs: Vital Signs Temp Pulse Resp BP Pulse Ox O2 Del Method O2 Flow Rate 98.2 F 60 14 143/56 H 90 Nasal Cannula 6 06/30/23 08:25 06/30/23 08:25 06/30/23 08:25 06/30/23 08:25 06/30/23 09:26 06/30/23 09:26 06/30/23 09:26 FiO2 40 06/30/23 08:25 Oxygen Flow Rate (L/min) 6 Oxygen Delivery Method Nasal Cannula Weight: 161 lb 13.109 oz Body Mass Index (BMI) 26.1 Intake & Output: Intake and Output for Last 24 Hours 06/28/23 06/29/23 06/30/23 23:59 23:59 23:59 Intake Total 3132.5 / 3372.5 855 / 855 Output Total 1600 / 1600 Balance 3132.5 / 3122.5 -745 / -745 Lab / Micro Data 06/29/23 09:02 06/29/23 20:47 Labs: Laboratory Results - last 24 hr 06/29/23 00:45: MRSA (PCR) Negative 06/29/23 09:02: Platelet Estimate ADEQUATE, RBC Morphology NORM C+C, PT 25.9 H, INR 2.3, Sodium 124 L, Potassium 4.1, Chloride 91 L, Carbon Dioxide 24.0, Anion Gap 9, BUN 14, Creatinine 0.88, Estim Creat Clear Calc 46.14, Est GFR (MDRD) Af Amer 80, Est GFR (MDRD) Non-Af 66, BUN/Creatinine Ratio 16.0, Glucose 185 H, Serum Osmolality 269 L, Calcium 8.6, Phosphorus 2.7, Magnesium 2.0, Total Bilirubin 0.50, Direct Bilirubin 0.20, AST 28, ALT 24, Alkaline Phosphatase 111, Total Protein 6.6, Albumin 3.0 L, Globulin 3.6, Albumin/Globulin Ratio 0.8 L, TSH 0.95 06/29/23 14:31: Sodium 124 L 06/29/23 20:47: Sodium 123 L 06/30/23 00:45: Urine Osmolality 539, U Random Total Protein 37.1 H, Ur Random Sodium 9, Urine Creatinine 70.90, Protein/Creatinin Ratio 523 H, Urine Potassium 46.0, Urine Chloride < 10 06/30/23 08:20: Uric Acid 4.5 Micro: Microbiology 06/30/23 00:45 Urine, Random Legionella Antigen - Final 06/30/23 00:45 Urine, Random Streptococcus pneumoniae Antigen (M - Final 06/29/23 14:55 Mucosa - Nose Coronavirus COVID-19 PCR - Final 06/29/23 14:55 Mucosa - Nose Respiratory Panel (PCR) - Final Physical Exam Narrative Seen and examined. Overnight patient was short of breath and put on BiPAP and Lasix was given for fluid overload. In the morning patient was short of breath feels better. Sodium still low. Discussed with the patient's daughter near the bedside. Physical finding: General: Alert, Oriented x3, Cooperative HEENT: Atraumatic, PERRLA, EOMI, Normocephalic Oral: No Gingival or Mucosal Lesions/ Ulcerations Neck: Supple, No JVD, Negative Carotid Bruits Lungs: Air entry diminished in bilateral lung bases. Mild coarse crepitation on both lungs. On oxygen. Cardiovascular: Regular rate, Regular Rhythm, Normal S1, Normal S2, systolic murmur murmurs Abdomen: Bowel Sounds Present, Soft, Non Tender, Non-Distended : No renal angle tenderness. No suprapubic tenderness. Extremities: No edema, Capillary Refill Less than 3 Seconds Skin: No rashes, No breakdown Musculoskeletal: No Tenderness to Palpation of Joints or Extremities Neurological: Cranial nerves II-XII grossly intact, DTR 2+/4. No acute focal neurological deficit. Psych/Mental Status: Flat affect. Assessment & Plan Assessment/Plan (1) Hypoxia: (2) Hyponatremia: PLAN: Plan Patient was admitted after she had a fall yesterday night around bedtime. Patient has been gradually declining over 1 to 2 months with fatigue, lightheadedness shortness of breath and progressive cough. She was started on Levaquin as an outpatient process. Bronchitis she felt more fatigue could not maintain balance and then fall. 1. Acute hypoxic respiratory failure due to mild pulmonary edema, acute on chronic HFpEF, valvular heart disease/community-acquired pneumonia/bronchitis: Chest x-ray needed reviewed and shows patchy infiltrate in the right upper lobe and right lower lobe. Continue IV ceftriaxone and azithromycin. Pneumonia workup is ordered including respiratory panel and COVID-19 PCR. Incentive ada metry and Mucinex DM 06/30: Continue the antibiotic. Overnight patient got very short of breath pro bably due to IV fluid given and required IV furosemide to decongest. Patient required BiPAP and ordered for naps and at night. Repeat chest x-ray ordered. 2D echo for tomorrow AM. Last echo in May 2020 shows EF 65% with stage I diastolic dysfunction, mild AR and mild MR. Does not need Lasix now. 2. Fall: In the setting of ongoing cough, chronic illness, hyponatremia, beta- sydnee therapy. hold metoprolol for now, consult physical therapy and Occupational Therapy to assess and improve her balance. Close monitoring of vitals including orthostatic vitals. 3. Hypotonic isovolemic hyponatremia: As per the history patient. She has been drinking about 3 L of fluid every day. There was probability of SIADH in view of pneumonia.Patient admitted with sodium 129 and is gradually decreasing therefore will start on IV fluid normal saline. It also has partial thyroidectomy but states he does not need thyroid supplement. Serum TSH 0.95. Cortisol pending. All Purpose Clerk has been consulted 06/30: Serum sodium did not increase with IV fluid 123, urine osmolality 539 more than serum osmolality 269. Urine sodium 9. Fluid restriction 1500 mill per hour. 4. A-fib on Xarelto continue as before 5. Respiratory therapy, nutrition evaluation Charges/Coding Visit Charges Inpatient E&M: 12484 Subs Hosp L2
--- NOTE | 2023-06-30 11:42 | CPS ---
PT PLACED BACK ON BIPAP POST DOING SMI AND PEP. NURSE AWARE OF BIPAP PLACEMENT.
--- NOTE | 2023-06-30 15:30 | RAD_ITS ---
STUDY: XR Chest 1 View 06/30/2023 3:28 PM REASON FOR EXAM: Female, 82 years old. sob COMPARISON: Study done yesterday TECHNIQUE: XR Chest 1 View FINDINGS: There are bilateral pleural effusions. There are bilateral infiltrates. Normal heart size. Normal mediastinum. Normal kenya. Prominent appearing increased interstitial lung markings. Normal visualized pulmonary arteries. There is atherosclerotic calcification of the aortic arch with tortuosity. There are diffuse degenerative changes of the visualized thoracic spine. There is degenerative osteoarthritis of the bilateral shoulders. There are no acute findings of the upper abdomen. RAD/Chest 1 View (Portable) IMPRESSION: Pulmonary findings appear worse. Electronically Signed: Andrea Alvarado MD at 15:47 EST ,
[2023-06-30 16:10] LABS: Anion Gap 9 (5-15); BUN 12 mg/dL (7-18); BUN/Creat Ratio 16.3 RATIO (10-20); Chloride 89 mmol/L (98-107); Creatinine, Serum 0.74 mg/dL (0.55-1.02); EST Glomerular Filtration Rate 80 mL/min (>60); Est Glom Filt Rate - Afr Amer 97 mL/min (>60); Glucose 180 mg/dL (74-106); Potassium 3.9 mmol/L (3.5-5.1); Sodium Level 125 mmol/L (136-145)
--- NOTE | 2023-06-30 16:12 | CON.PCM.RE_ITS ---
Assessment & Plan Assessment/Plan (1) Hyponatremia: PLAN: No prior hyponatremia. sodium was 132 on june 21. now around 126. clinically has significant dyspnea. CXR shows possible interstitial markings. better with lasix. urine sodium is less than 20. possibly hypervolemic hyponatremia. echo pending. will give a dose of samsca. HPI Consult Data Date of Consult: 06/30/23 HPI Narrative Reason for Consultation: Hyponatremia HPI Narrative: LANDON MARMOLEJO, is a 82 F who presents to the hospital with dyspnea. nephrology on consultation due to hyponatremia. no prior hyponatremia. being treated for pneumonia. was dyspneic overnight with fluids, received lasix and feels somewhat better. some LE edema which she says is chronic. ROS negative except above PFSH Medical History Diverticulosis Essential (primary) hypertension GERD (gastroesophageal reflux disease) Near syncope Non-sustained ventricular tachycardia Paroxysmal atrial fibrillation TIA (transient ischemic attack) Home Medications atorvastatin 40 mg tablet 40 mg PO QHS #90 tabs 03/08/16 [Rx Last Taken Unknown] aspirin 81 mg tablet,delayed release 81 mg PO MOWEFR 02/23/19 [History Last Taken Unknown] hydroxyzine HCl 50 mg tablet 50 mg PO QHS PRN sleep 03/28/21 [History Last Taken Unknown] flecainide 100 mg tablet 100 mg PO Q12H #180 tabs 11/01/22 [Rx Last Taken Unknown] amlodipine 2.5 mg tablet 2.5 mg PO DAILY #30 tabs 06/21/23 [Rx Last Taken Unknown] metoprolol succinate 25 mg tablet,extended release 24 hr 12.5 mg (1/2 x 25 mg) PO DAILY #45 tabs 06/27/23 [Rx Last Taken Unknown] rivaroxaban 20 mg tablet (Xarelto) 20 mg PO DAILY #90 tabs 06/27/23 [Rx Last Taken Unknown] spironolactone 25 mg tablet 25 mg PO DAILY 06/29/23 [History Last Taken Unknown] Allergy/AdvReac Type Severity Reaction Status Date / Time Sulfa (Sulfonamide Allergy Unknown Verified 06/29/23 01:37 Antibiotics) Family History Father CHF (congestive heart failure) Brother CAD (coronary artery disease) Brother CAD (coronary artery disease) Surgical History History of left-sided carotid endarterectomy (03/30/16) History of thyroid surgery Social History Smoking Status: Former smoker alcohol intake: never caffeine: Yes Type: coffee Number of servings: 4 Physical Exam Narrative Alert awake oriented x 3 no obvious distress no pallor no icterus no JVD s1s2 no murmurs lungs clear abdomen soft no organomegaly no edema no cyanosis Lab / Micro Data 06/29/23 09:02 06/30/23 08:20 Labs: Laboratory Results - last 24 hr 06/29/23 00:45: MRSA (PCR) Negative 06/29/23 20:47: Sodium 123 L 06/30/23 00:45: Urine Osmolality 539, U Random Total Protein 37.1 H, Ur Random Sodium 9, Urine Creatinine 70.90, Protein/Creatinin Ratio 523 H, Urine Potassium 46.0, Urine Chloride < 10 06/30/23 08:20: Sodium 125 L, Potassium 3.9, Chloride 89 L, Carbon Dioxide 27.0, Anion Gap 9, BUN 12, Creatinine 0.74, Estim Creat Clear Calc 40.60, Est GFR (MDRD) Af Amer 97, Est GFR (MDRD) Non-Af 80, BUN/Creatinine Ratio 16.3, Glucose 180 H, Uric Acid 4.5, Calcium 9.0 Micro: Microbiology 06/30/23 00:45 Urine, Random Legionella Antigen - Final 06/30/23 00:45 Urine, Random Streptococcus pneumoniae Antigen (M - Final 06/29/23 14:55 Mucosa - Nose Coronavirus COVID-19 PCR - Final 06/29/23 14:55 Mucosa - Nose Respiratory Panel (PCR) - Final Imagaing Radiology Impression Chest X-Ray 06/30/23 15:30 IMPRESSION: Pulmonary findings appear worse. Electronically Signed: Andrea Alvarado MD at 15:47 EST ,
[2023-06-30] MEDS: TOLVAPTAN 15 MG TABLET PO (16:52)
[2023-06-30] MEDS: Atorvastatin Calcium 40 MG Tablet PO (21:08)
[2023-06-30] MEDS: Ceftriaxone 2 GM in 0.9% Normal Saline (50mL MB+) 50 ML IV (21:09)
[2023-06-30] MEDS: Azithromycin 500 MG in Dextrose 5%-Water (250mL Bag) 250 ML 250 MG IV (21:50)
[2023-07-01] VITALS (11 sets, daily range): BP systolic 122–156; BP diastolic 50–71; PULSE 57–93; RESP 12–28; TEMP 36.3–37; O2SAT 85–97
--- NOTE | 2023-07-01 05:55 | ECHOD_ITS ---
Reason For Study: Heart Failure Procedure This was a 2D Doppler, Color Flow transthoracic echocardiogram. Exam performed portable in patient room. Left Ventricle Normal LV size. The estimated ejection fraction is 70 %. Diastolic function is indeterminate. No regional wall motion abnormalities noted. Right Ventricle Normal RV size. Normal systolic function. Atria Normal left atrium. Normal right atrium. No doppler evidence for ASD. Mitral Valve There is no mitral valve stenosis. Trivial mitral valve insufficiency. Tricuspid Valve There is no tricuspid stenosis. Mild tricuspid valve insufficiency. Pulmonary artery systolic pressure is 70 mmHg. Aortic Valve Trisinus/trileaflet aortic valve. There is no aortic stenosis. Trivial aortic valve insufficiency. Pulmonic Valve There is no pulmonic valvular stenosis. No pulmonic valve insufficiency. Great Vessels Normal aortic root. Pericardium/Pleural No pericardial effusion. MMode/2D Measurements & Calculations LVIDd: 4.1 cm IVSd: 0.97 cm Ao root diam: 3.8 cm LVIDs: 2.0 cm LVPWd: 0.91 cm RVDd: 5.0 cm FS: 50.2 % LAV(MOD-bp): 45.6 ml LVAd ap4: 17.7 cm2 SV(MOD-sp4): 27.8 ml LAV(MOD-bp) Indexed: 25.0 ml/m2 LVLd ap4: 6.4 cm LAV(MOD-sp2): 43.4 ml EDV(MOD-sp4): 41.9 ml LAV(MOD-sp4): 36.8 ml EDV(sp4-el): 41.7 ml LVAs ap4: 8.5 cm2 LVLs ap4: 4.7 cm ESV(MOD-sp4): 14.1 ml ESV(sp4-el): 13.1 ml EF(MOD-sp4): 66.4 % EF(sp4-el): 68.7 % SV(sp4-el): 28.6 ml LA A4 area: 16.9 cm2 LA dimension(2D): 3.4 cm RA A4 area: 11.9 cm2 TAPSE: 3.1 cm Time Measurements MV dec time: 0.15 sec Doppler Measurements & Calculations MV E max osmin: 75.6 cm/sec Lat Peak E' Osmin: 13.3 cm/sec Med Peak E' Osmin: 6.4 cm/sec MV A max osmin: 97.3 cm/sec E/E' lat: 5.7 E/E' med: 11.8 MV E/A: 0.78 Ao V2 max: 192.4 cm/sec AI max osmin: 304.4 cm/sec MV dec slope: 512.0 cm/sec2 Ao max P.8 mmHg AI max P.1 mmHg Ao V2 mean: 138.5 cm/sec Ao mean P.2 mmHg AI dec slope: 214.9 cm/sec2 Ao V2 VTI: 33.7 cm AI P1/2t: 415.0 msec LV V1 max: 144.8 cm/sec PA V2 max: 124.4 cm/sec PI end-d osmin: 135.6 cm/sec LV V1 max P.4 mmHg TR max osmin: 408.8 cm/sec TR max P.9 mmHg ECHO/Echo Complete Interpretation Summary The estimated ejection fraction is 70 %. Diastolic function is indeterminate. Trivial mitral valve insufficiency. Trivial aortic valve insufficiency. Ordering Physician: Mauricio Rivera Referring Physician: Chirag Gibbons Performed By: Desi Engle, JENNIE, RVT
[2023-07-01 06:51] LABS: Absolute Lymphocyte Count 0.58 X10^3/uL (0.83-4.51); Absolute Neutrophil Count 17.4 X10^3/uL (2.0-7.7); Basophil# 0.02 X10^3/uL; Basophil% 0.1 % (0-1); Hematocrit 35.7 % (37-47); Hemoglobin 11.9 g/dL (12.0-15.0); Lymphocyte # 0.58 X10^3/ul (0.83-4.51); Mean Corp Hgb Conc 33.3 g/dL (32-36); Mean Corpuscular Hgb 29.9 pg (27.0-32.0); Mean Corpuscular Volume 89.7 fL (81-99); Mean Platelet Vol. 8.9 fl (6.2-12.0); Monocyte# 1.32 X10^3/uL; Monocyte% 6.8 % (0-10); NRBC Flagged by Analyzer 0 % (0-5); Neutrophil # 17.41 X10^3/uL (2.7-7.7); Neutrophil % 89.7 % (47-70); POSITIVE DIFFERENTIAL YES; Platelet Count 352 K/mm3 (150-450); RBC Distribution Width CV 12.5 % (11.6-14.6); Red Blood Count 3.98 M/mm3 (4.2-5.4); White Blood Count 19.4 K/mm3 (4.4-11.0)
[2023-07-01 06:59] LABS: Differential Indicated SCAN CRITERIA MET
[2023-07-01 07:09] LABS: Anion Gap 4 (5-15); BUN 9 mg/dL (7-18); BUN/Creat Ratio 12.6 RATIO (10-20); Calcium,Total 8.9 mg/dL (8.5-10.1); Chloride 93 mmol/L (98-107); Creatinine, Serum 0.72 mg/dL (0.55-1.02); EST Glomerular Filtration Rate 83 mL/min (>60); Est Glom Filt Rate - Afr Amer 100 mL/min (>60); Glucose 167 mg/dL (74-106); Potassium 3.9 mmol/L (3.5-5.1); Sodium Level 130 mmol/L (136-145)
[2023-07-01 07:29] LABS: Differential Comment SCANNED
[2023-07-01] MEDS: amLODIPine 2.5 MG Tablet PO (09:11)
[2023-07-01] MEDS: Aspirin E.C. 81 MG Tablet PO (09:11)
[2023-07-01] MEDS: guaiFENesin 1,200 MG Tablet 1200 MG PO ×2 (09:12→21:19)
[2023-07-01] MEDS: Rivaroxaban 20 MG Tablet PO (09:12)
[2023-07-01] MEDS: Flecainide 100 MG Tablet PO ×2 (09:12→21:19)
--- NOTE | 2023-07-01 09:49 | PCM.PN.REN ---
Subjective Subjective Sitting up in bed. No overnight events. Daughter at bedside. Objective Data Objective Data Vital Signs: Vital Signs Temp Pulse Resp BP Pulse Ox O2 Del Method O2 Flow Rate 97.6 F L 89 18 156/70 H 92 Nasal Cannula 7 07/01/23 08:58 07/01/23 08:58 07/01/23 08:58 07/01/23 08:58 07/01/23 08:58 07/01/23 09:03 07/01/23 09:03 FiO2 40 07/01/23 07:12 Oxygen Flow Rate (L/min) 7 Oxygen Delivery Method Nasal Cannula Weight: 73.4 kg Body Mass Index (BMI) 26.1 Intake & Output: Intake and Output for Last 24 Hours 06/29/23 06/30/23 07/01/23 23:59 23:59 23:59 Intake Total 3132.5 / 3372.5 1160 / 1310 300 / 300 Output Total 2050 / 2950 1300 / 1300 Balance 3132.5 / 3122.5 -890 / -1640 -1000 / -1000 Lab / Micro Data 07/01/23 06:25 07/01/23 06:25 Labs: Laboratory Results - last 24 hr 06/29/23 09:02: Cortisol 63.10 H 06/30/23 08:20: Sodium 125 L, Potassium 3.9, Chloride 89 L, Carbon Dioxide 27.0, Anion Gap 9, BUN 12, Creatinine 0.74, Estim Creat Clear Calc 40.60, Est GFR (MDRD) Af Amer 97, Est GFR (MDRD) Non-Af 80, BUN/Creatinine Ratio 16.3, Glucose 180 H, Calcium 9.0 07/01/23 06:25: WBC 19.4 H, RBC 3.98 L, Hgb 11.9 L, Hct 35.7 L, MCV 89.7, MCH 29.9, MCHC 33.3, RDW Std Deviation 41.0, RDW Coeff of Missy 12.5, Plt Count 352, MPV 8.9, Immature Gran % (Auto) 0.400, Neut % (Auto) 89.7 H, Lymph % (Auto) 3.0 L, [place] % (Auto) 6.8, Eos % (Auto) 0.0, Baso % (Auto) 0.1, Absolute Neuts (auto) 17.4 H, Absolute Lymphs (auto) 0.58 L, Nucleated RBC % 0, Differential Comment SCANNED, Sodium 130 L, Potassium 3.9, Chloride 93 L, Carbon Dioxide 33.0 H, Anion Gap 4 L, BUN 9, Creatinine 0.72, Estim Creat Clear Calc 40.60, Est GFR (MDRD) Af Amer 100, Est GFR (MDRD) Non-Af 83, BUN/Creatinine Ratio 12.6, Glucose 167 H, Calcium 8.9 Micro: Microbiology 06/30/23 00:45 Urine, Random Legionella Antigen - Final 06/30/23 00:45 Urine, Random Streptococcus pneumoniae Antigen (M - Final 06/29/23 14:55 Mucosa - Nose Coronavirus COVID-19 PCR - Final 06/29/23 14:55 Mucosa - Nose Respiratory Panel (PCR) - Final Radiography Diagnostic Testing: Radiology Impression Chest X-Ray 06/30/23 15:30 IMPRESSION: Pulmonary findings appear worse. Electronically Signed: Andrea Alvarado MD at 15:47 EST , Physical Exam Narrative Alert awake oriented x 3 no obvious distress s1s2 no murmurs Lung sounds diminished with faint rales abdomen soft, nontender Trace edema left lower leg Assessment & Plan Assessment/Plan (1) Hyponatremia: PLAN: - Acute hyponatremia with no prior hyponatremia. Sodium was 132 on 06/21/2023. Sodium 129 on 06/27, on presentation to the hospital 06/29 sodium 126 --> sodium 123 06/29 2047 --> sodium 125 06/30 patient received samsca 06/30 --> today sodium 130. Clinically still has some dyspnea with scattered rales. CXR shows possible interstitial markings, yesterday breathing improved with lasix. Urine sodium is less than 20, urine osmo 539, serum osmo 269. possibly hypervolemic hyponatremia. Echo ordered today and is pending. Can use lasix as needed. Continue FR and reviewed with both patient and daughter.
[2023-07-01] MEDS: Piperacil/Tazobactam 4.5 GM in 0.9% Normal Saline (100mL MB+) 100 ML IV (10:39)
--- NOTE | 2023-07-01 11:30 | CASEMGMT ---
JOLIE AYALA Face to Face with patient for initial transition planning/care coordination assessment. RN CM introduced self and role at [facility]. Patient lying in bed, sleeping with bipap on, daughter at bedside. Daughter willing to participate in assessment and is able to answer all questions appropriately. Care providers, pharmacy, and demographics verified. Daughter wishes to discharge home. Will monitor progress with therapy for safe disposition. Daughter states she has no further needs or concerns at this time. CM to follow for discharge planning needs that may arise. PCP: Shai Specialists: CHICHI, detective and intelligence analyst Preferred Pharmacy: [facility] Insurance: [employer] Prescription Benefit: yes Living Will/HPOA: yes, daughter Carmen Followay LNOK: daughter Living Arrangements: Patient lives alone in a single story home with 2 steps and railing to enter the home. Patient was independent at home. Transportation: daughter DME/HHC: Patient has shower chair, raised toilet, cane at home. Will monitor for home oxygen at discharge, daughter would like [employer] for DME. No previous HHC or SNF. Disposition Plan: TBD, anticipate HHC vs SNF pending course of treatment and progress with therapy. Nay BURCH, RN, CM
[2023-07-01] MEDS: Vancomycin HCl 1,750 MG in 0.9% Normal Saline (500mL Bag) 500 ML 250 MG IV (12:05)
--- NOTE | 2023-07-01 14:34 | PCM.RX.CS ---
Consult Antibiotic Management Pharmacy has been consulted to manage selected antiobiotic: Vancomycin Type of Intervention Type of Consult: New start Suspected Infection Suspected Infection: Pneumonia Prior Doses of Antibiotics Prior Doses of Antibiotics Received/Current Regimen: 1750mg of Vancomycin given 07/01/23 @ 1205 Labs Labs: Sodium 130 mmol/L (136-145) L 07/01/23 06:25 Potassium 3.9 mmol/L (3.5-5.1) 07/01/23 06:25 Chloride 93 mmol/L (98-107) L 07/01/23 06:25 Carbon Dioxide 33.0 mmol/L (21.0-32.0) H 07/01/23 06:25 Anion Gap 4 (5-15) L 07/01/23 06:25 BUN 9 mg/dL (7-18) 07/01/23 06:25 Creatinine 0.72 mg/dL (0.55-1.02) 07/01/23 06:25 Est GFR (MDRD) Af Amer 100 mL/min (>60) 07/01/23 06:25 Est GFR (MDRD) Non-Af 83 mL/min (>60) 07/01/23 06:25 BUN/Creatinine Ratio 12.6 RATIO (10-20) 07/01/23 06:25 Glucose 167 mg/dL (74-106) H 07/01/23 06:25 Microbiology Microbiology: Microbiology 06/30/23 00:45 Urine, Random Legionella Antigen - Final 06/30/23 00:45 Urine, Random Streptococcus pneumoniae Antigen (M - Final 06/29/23 14:55 Mucosa - Nose Coronavirus COVID-19 PCR - Final 06/29/23 14:55 Mucosa - Nose Respiratory Panel (PCR) - Final Dosing Weight Weight used for dosin.4 kg Estimated Creatinine Clearance Estimated Creatinine Clearance: 70 Goal Trough Goal Trough: 15-20 mcg/mL Pharmacy Plan for Drug Dosing Pharmacy Plan for Drug Dosinmg every 12 hours to start 07/02 @ 0100 Pharmacy Service will continue to monitor and adjust dosing as required. Follow-Up Labs Follow-Up Labs: Trough: Vancomycin Date/Time Labs Ordered Labs to be done on [date and time ordered]: 07/03/23 @ 0030
[2023-07-01] MEDS: Piperacil/Tazobactam 3.375 GM in 0.9% Normal Saline (50mL MB+) 50 ML IV ×2 (14:53→21:19)
--- NOTE | 2023-07-01 15:14 | PCM.PN.HOSP ---
Reason for Visit Reason for Visit: Diagnoses Hypo-osmolality and hyponatremia (06/29/23) Pneumonia, unspecified organism (06/29/23) Hypoxemia (06/29/23) Subjective Subjective Patient seen at bedside this morning. Patient was on BiPAP when I arrived to the room daughter was present. Patient reported feeling somewhat decreased shortness of breath overnight and this morning. She feels fairly tired this morning and would like to continue sleeping with the BiPAP on. She denies any significant increased work of breathing with BiPAP on. She denies any significant sputum production. She otherwise denies any fevers or chills, chest pain, abdominal pain or discomfort. No other acute concerns this point. Objective Data Objective Data Vital Signs: Vital Signs Temp Pulse Resp BP Pulse Ox O2 Del Method O2 Flow Rate 97.7 F L 87 20 H 147/71 H 93 Bi-pap 6 07/01/23 14:45 07/01/23 14:45 07/01/23 14:45 07/01/23 14:45 07/01/23 15:05 07/01/23 15:05 07/01/23 14:55 FiO2 40 07/01/23 15:05 Oxygen Flow Rate (L/min) 6 Oxygen Delivery Method Bi-pap Weight: 73.4 kg Body Mass Index (BMI) 26.1 Intake & Output: Intake and Output for Last 24 Hours 06/29/23 06/30/23 07/01/23 23:59 23:59 23:59 Intake Total 3132.5 / 3372.5 1160 / 1310 1235 / 1235 Output Total 2050 / 2950 1625 / 1625 Balance 3132.5 / 3122.5 -890 / -1640 -390 / -390 Lab / Micro Data 07/01/23 06:25 07/01/23 06:25 Labs: Laboratory Results - last 24 hr 06/29/23 09:02: Cortisol 63.10 H 06/30/23 08:20: Sodium 125 L, Potassium 3.9, Chloride 89 L, Carbon Dioxide 27.0, Anion Gap 9, BUN 12, Creatinine 0.74, Estim Creat Clear Calc 40.60, Est GFR (MDRD) Af Amer 97, Est GFR (MDRD) Non-Af 80, BUN/Creatinine Ratio 16.3, Glucose 180 H, Calcium 9.0 07/01/23 06:25: WBC 19.4 H, RBC 3.98 L, Hgb 11.9 L, Hct 35.7 L, MCV 89.7, MCH 29.9, MCHC 33.3, RDW Std Deviation 41.0, RDW Coeff of Missy 12.5, Plt Count 352, MPV 8.9, Immature Gran % (Auto) 0.400, Neut % (Auto) 89.7 H, Lymph % (Auto) 3.0 L, [place] % (Auto) 6.8, Eos % (Auto) 0.0, Baso % (Auto) 0.1, Absolute Neuts (auto) 17.4 H, Absolute Lymphs (auto) 0.58 L, Nucleated RBC % 0, Differential Comment SCANNED, Sodium 130 L, Potassium 3.9, Chloride 93 L, Carbon Dioxide 33.0 H, Anion Gap 4 L, BUN 9, Creatinine 0.72, Estim Creat Clear Calc 40.60, Est GFR (MDRD) Af Amer 100, Est GFR (MDRD) Non-Af 83, BUN/Creatinine Ratio 12.6, Glucose 167 H, Calcium 8.9 Micro: Microbiology 06/30/23 00:45 Urine, Random Legionella Antigen - Final 06/30/23 00:45 Urine, Random Streptococcus pneumoniae Antigen (M - Final 06/29/23 14:55 Mucosa - Nose Coronavirus COVID-19 PCR - Final 06/29/23 14:55 Mucosa - Nose Respiratory Panel (PCR) - Final Radiography Diagnostic Testing: Radiology Impression Chest X-Ray 06/30/23 15:30 IMPRESSION: Pulmonary findings appear worse. Electronically Signed: Andrea Alvarado MD at 15:47 EST Reading Location ID and State: [facility] / [place] , Service support , Echocardiogram 07/01/23 05:55 Interpretation Summary The estimated ejection fraction is 70 %. Diastolic function is indeterminate. Trivial mitral valve insufficiency. Trivial aortic valve insufficiency. Ordering Physician: Mauricio Rivera Referring Physician: Chirag Gibbons Performed By: Deis Engle, JENNIE, RVT Physical Exam Const alert and oriented x3 Constitutional Narrative: Elderly female, chronically ill-appearing, laying in bed with BiPAP on, fatigued appearing, providing short answers to questions that are appropriate. General Appearance: cooperative HEENT normocephalic, head/scalp atraumatic, hearing grossly normal bilaterally, nasal mucous membranes and turbinates normal and moist oral mucous membranes Eyes PERRL, EOMs intact bilaterally and conjunctivae normal Neck full ROM, no lymphadenopathy and supple Lymph Lymphatic: no lymphadenopathy noted Chest inspection of chest normal Resp Resp Narrative: Decreased breath sounds bilaterally, worst at lung bases. No wheezing noted. No increased work of breathing noted on BiPAP. Cardio regular rate, regular rhythm, no murmurs and peripheral pulses 2+ throughout GI normal to inspection, nondistended, normoactive bowel sounds, soft to palpation, non-tender and non-distended Back/Spine normal ROM Extremity normal to inspection, full ROM and no pedal edema Skin no rashes or lesions noted Neuro moves all extremities and no focal motor deficits Speech: speech normal Assessment & Plan Assessment/Plan (1) Hypoxia: (2) Pneumonia: (3) Hyponatremia: PLAN: Plan Patient is an 82-year-old female who presented to [facility] ED on 06/29/2023 with worsening cough, fatigue and shortness of breath. 1. 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 COVID-negative, respiratory PCR panel negative, urine antigens negative. Had worsening of respiratory status on 06/30, suspected due to overload from IV fluids, given IV Lasix and echo was ordered. Echo 07/01 showed EF 70%, diastolic function indeterminate, no significant valve abnormalities. Patient unfortunately had continued mild worsening respiratory status on 07/01. ? Broaden antibiotic coverage to vancomycin and Zosyn on 07/01. Monitor closely, wean supplemental oxygen as able. Scheduled Mucinex, DuoNebs as needed. Can consider spot doses of IV diuretics, but considering echo appears fairly normal may not be that helpful. Can consider pulmonology consult. 2. Fall, debility ? PT/OT/case management following. Suspect this is somewhat acute worsening on chronic debility. PT/OT recommending long-term care. Will continue to discuss with patient and family. 3. Hyponatremia, improving ? Nephrology following. Suspected possible hypervolemic hyponatremia but etiology still unclear. Sodium joshua at 123 on 06/29, given dose of tolvaptan on 06/30 with improvement in sodium to 130. Continue to monitor sodium daily. Appreciate nephrology recommendations. Chronic medical conditions: ? Atrial fibrillation: Continue home Xarelto. DVT prophylaxis: Xarelto CODE STATUS: Full code, verified Expected disposition: TBD Total clinical time spent by myself addressing the patient's medical issues, reviewing all the data, and collaborating with patient's care team: 35 minutes. Charges/Coding Visit Charges Inpatient E&M: 79928 Subs Hosp L2
[2023-07-01] MEDS: hydrOXYzine PAM 25 MG Capsule 50 MG PO (21:19)
[2023-07-01] MEDS: Atorvastatin Calcium 40 MG Tablet PO (21:19)
[2023-07-02] VITALS (11 sets, daily range): BP systolic 106–145; BP diastolic 46–60; PULSE 78–93; RESP 12–29; TEMP 36.2–37.3; O2SAT 90–99
[2023-07-02] MEDS: Vancomycin IV 1,000 MG/200 ML BAG 200 MG IV ×2 (01:28→12:24)
[2023-07-02] MEDS: 0.9% Saline Lock 10 ML Syringe IV ×2 (01:31→15:27)
[2023-07-02] MEDS: Piperacil/Tazobactam 3.375 GM in 0.9% Normal Saline (50mL MB+) 50 ML IV ×3 (06:55→20:32)
[2023-07-02 08:33] LABS: Absolute Lymphocyte Count 1.11 X10^3/uL (0.83-4.51); Absolute Neutrophil Count 15.8 X10^3/uL (2.0-7.7); Basophil# 0.03 X10^3/uL; Basophil% 0.2 % (0-1); Eosinophil# 0.01 X10^3/uL; Eosinophils% 0.1 % (0-5); Hematocrit 37.8 % (37-47); Hemoglobin 12.1 g/dL (12.0-15.0); Lymphocyte # 1.11 X10^3/ul (0.83-4.51); Mean Corpuscular Hgb 29.6 pg (27.0-32.0); Mean Corpuscular Volume 92.4 fL (81-99); Mean Platelet Vol. 9.3 fl (6.2-12.0); Monocyte% 7.1 % (0-10); NRBC Flagged by Analyzer 0 % (0-5); Neutrophil # 15.81 X10^3/uL (2.7-7.7); Neutrophil % 85.9 % (47-70); Platelet Count 372 K/mm3 (150-450); RBC Distribution Width CV 12.9 % (11.6-14.6); RBC Distribution Width SD 43.8 fl (35.1-43.9); Red Blood Count 4.09 M/mm3 (4.2-5.4); White Blood Count 18.4 K/mm3 (4.4-11.0)
[2023-07-02 09:24] LABS: Anion Gap 16 (5-15); BUN 5 mg/dL (7-18); Calcium,Total 6.6 mg/dL (8.5-10.1); Chloride 100 mmol/L (98-107); Creatinine, Serum 0.83 mg/dL (0.55-1.02); EST Glomerular Filtration Rate 70 mL/min (>60); Est Glom Filt Rate - Afr Amer 85 mL/min (>60); Estimated Creatinine Clearance 48.92 ml/min; Glucose 102 mg/dL (74-106); Potassium 3.4 mmol/L (3.5-5.1); Sodium Level 136 mmol/L (136-145)
--- NOTE | 2023-07-02 10:21 | PN.RENAL_ITS ---
Subjective Subjective Patient is resting in bed. She is on BiPAP. No overnight events. Daughter at bedside. Objective Data Objective Data Vital Signs: Vital Signs Temp Pulse Resp BP Pulse Ox O2 Del Method O2 Flow Rate 98.0 F 78 24 H 137/52 H 94 Bi-pap 6 07/02/23 03:10 07/02/23 05:20 07/02/23 05:20 07/02/23 03:10 07/02/23 05:20 07/02/23 10:00 07/01/23 14:55 FiO2 50 07/02/23 05:20 Oxygen Flow Rate (L/min) 6 Oxygen Delivery Method Bi-pap Weight: 73.4 kg Body Mass Index (BMI) 26.1 Intake & Output: Intake and Output for Last 24 Hours 06/30/23 07/01/23 07/02/23 23:59 23:59 23:59 Intake Total 1160 / 1310 1520 / 1520 250 / 250 Output Total 2050 / 2950 1875 / 1875 1620 / 1620 Balance -890 / -1640 -355 / -355 -1370 / -1370 Lab / Micro Data 07/02/23 07:40 07/02/23 07:40 Labs: Laboratory Results - last 24 hr 07/02/23 07:40: WBC 18.4 H, RBC 4.09 L, Hgb 12.1, Hct 37.8, MCV 92.4, MCH 29.6, MCHC 32.0, RDW Std Deviation 43.8, RDW Coeff of Missy 12.9, Plt Count 372, MPV 9.3, Immature Gran % (Auto) 0.700, Neut % (Auto) 85.9 H, Lymph % (Auto) 6.0 L, [place] % (Auto) 7.1, Eos % (Auto) 0.1, Baso % (Auto) 0.2, Absolute Neuts (auto) 15.8 H, Absolute Lymphs (auto) 1.11, Nucleated RBC % 0, Sodium 136, Potassium 3.4 L, Chloride 100, Carbon Dioxide 20.0 L, Anion Gap 16 H, BUN 5 L, Creatinine 0.83, Estim Creat Clear Calc 48.92, Est GFR (MDRD) Af Amer 85, Est GFR (MDRD) Non-Af 70, BUN/Creatinine Ratio 6.0 L, Glucose 102, Calcium 6.6 L Micro: Microbiology 06/30/23 00:45 Urine, Random Legionella Antigen - Final 06/30/23 00:45 Urine, Random Streptococcus pneumoniae Antigen (M - Final 06/29/23 14:55 Mucosa - Nose Coronavirus COVID-19 PCR - Final 06/29/23 14:55 Mucosa - Nose Respiratory Panel (PCR) - Final Radiography Diagnostic Testing: Radiology Impression Echocardiogram 07/01/23 05:55 Interpretation Summary The estimated ejection fraction is 70 %. Diastolic function is indeterminate. Trivial mitral valve insufficiency. Trivial aortic valve insufficiency. Ordering Physician: Mauricio Rivera Referring Physician: Chirag Gibbons Performed By: Desi Engle, JENNIE, RVT Physical Exam Narrative Alert awake oriented x 3 no obvious distress s1s2 no murmurs Lung sounds diminished with faint rhonchi, on bipap this am abdomen soft, nontender Trace edema left lower leg Assessment & Plan Assessment/Plan (1) Hyponatremia: PLAN: - Acute hyponatremia with no prior hyponatremia. Sodium was 132 on 06/21/2023. Sodium 129 on 06/27. On presentation to the hospital 06/29 sodium 126 --> sodium 123 06/29 @2046 --> sodium 125 06/30 patient received samsca 06/30 --> 07/01 sodium 130--> today sodium 136. Clinically still has some dyspnea and now on bipap. Possibly more from pneumonia/ARDS vs fluid. Antibiotic coverage broadened. Urine sodium is less than 20, urine osmo 539, serum osmo 269. Possi jorge hypervolemic hyponatremia. Echo: EF 70%, diastolic function indeterminate, trivial mitral and aortic valve insufficiency. BNP 150 on 06/21. Can use lasix as needed. Continue FR. She is currently NPO today for swallow eval.
--- NOTE | 2023-07-02 12:05 | CASEMGMT ---
SW spoke with patient's daughter Carmen as patient was on bipap. SW explained it is being recommended that patient go to a custodial facility for rehab. Carmen said she has not spoken to the physician yet today and she would like to talk with him first. Elen CHACON
[2023-07-02] MEDS: amLODIPine 2.5 MG Tablet PO (12:18)
[2023-07-02] MEDS: Rivaroxaban 20 MG Tablet PO (12:19)
[2023-07-02] MEDS: Flecainide 100 MG Tablet PO ×2 (12:19→20:31)
[2023-07-02] MEDS: guaiFENesin 1,200 MG Tablet 1200 MG PO ×2 (12:19→20:31)
[2023-07-02] MEDS: Furosemide 40 MG/4 ML Vial IV (15:27)
--- NOTE | 2023-07-02 17:59 | PCM.PN.HOSP ---
Reason for Visit Reason for Visit: Diagnoses Hypo-osmolality and hyponatremia (06/29/23) Pneumonia, unspecified organism (06/29/23) Hypoxemia (06/29/23) Subjective Subjective Patient seen at bedside this morning, daughter present. Patient was on BiPAP during my interview. Patient appeared similar today to yesterday on exam. She was alert and answered questions with very short answers appropriately. Had no significant increased work of breathing on BiPAP. However, she has had no significant treatment from yesterday. Per patient's daughter, patient has been eating and drinking very little. She has not been out of bed much at all. Otherwise no acute concerns this morning. Objective Data Objective Data Vital Signs: Vital Signs Temp Pulse Resp BP Pulse Ox O2 Del Method O2 Flow Rate 97.1 F L 86 20 H 132/54 H 99 Bi-pap 15 07/02/23 12:16 07/02/23 12:16 07/02/23 12:16 07/02/23 12:16 07/02/23 12:16 07/02/23 14:00 07/02/23 07:50 FiO2 70 07/02/23 14:10 Oxygen Flow Rate (L/min) 15 Oxygen Delivery Method Bi-pap Weight: 73.4 kg Body Mass Index (BMI) 26.1 Intake & Output: Intake and Output for Last 24 Hours 06/30/23 07/01/23 07/02/23 23:59 23:59 23:59 Intake Total 1160 / 1310 1520 / 1520 500 / 500 Output Total 2050 / 2950 1875 / 1875 1620 / 1620 Balance -890 / -1640 -355 / -355 -1120 / -1120 Lab / Micro Data 07/02/23 07:40 07/02/23 07:40 Labs: Laboratory Results - last 24 hr 07/02/23 07:40: WBC 18.4 H, RBC 4.09 L, Hgb 12.1, Hct 37.8, MCV 92.4, MCH 29.6, MCHC 32.0, RDW Std Deviation 43.8, RDW Coeff of Missy 12.9, Plt Count 372, MPV 9.3, Immature Gran % (Auto) 0.700, Neut % (Auto) 85.9 H, Lymph % (Auto) 6.0 L, [place] % (Auto) 7.1, Eos % (Auto) 0.1, Baso % (Auto) 0.2, Absolute Neuts (auto) 15.8 H, Absolute Lymphs (auto) 1.11, Nucleated RBC % 0, Sodium 136, Potassium 3.4 L, Chloride 100, Carbon Dioxide 20.0 L, Anion Gap 16 H, BUN 5 L, Creatinine 0.83, Estim Creat Clear Calc 48.92, Est GFR (MDRD) Af Amer 85, Est GFR (MDRD) Non-Af 70, BUN/Creatinine Ratio 6.0 L, Glucose 102, Calcium 6.6 L Micro: Microbiology 06/30/23 00:45 Urine, Random Legionella Antigen - Final 06/30/23 00:45 Urine, Random Streptococcus pneumoniae Antigen (M - Final 06/29/23 14:55 Mucosa - Nose Coronavirus COVID-19 PCR - Final 06/29/23 14:55 Mucosa - Nose Respiratory Panel (PCR) - Final Physical Exam Const alert and oriented x3 Constitutional Narrative: Elderly female, chronically ill-appearing, laying in bed with BiPAP on, fatigued appearing, providing short answers to questions that are appropriate. General Appearance: cooperative HEENT normocephalic, head/scalp atraumatic, hearing grossly normal bilaterally, nasal mucous membranes and turbinates normal and moist oral mucous membranes Eyes PERRL, EOMs intact bilaterally and conjunctivae normal Neck full ROM, no lymphadenopathy and supple Lymph Lymphatic: no lymphadenopathy noted Chest inspection of chest normal Resp Resp Narrative: Decreased breath sounds bilaterally, worst at lung bases. No wheezing noted. No increased work of breathing noted on BiPAP. Cardio regular rate, regular rhythm, no murmurs and peripheral pulses 2+ throughout GI normal to inspection, nondistended, normoactive bowel sounds, soft to palpation, non-tender and non-distended Back/Spine normal ROM Extremity normal to inspection, full ROM and no pedal edema Skin no rashes or lesions noted Neuro moves all extremities and no focal motor deficits Speech: speech normal Assessment & Plan Assessment/Plan (1) Hypoxia: (2) Pneumonia: (3) Hyponatremia: PLAN: Plan Patient is an 82-year-old female who presented to [facility] ED on 06/29/2023 with worsening cough, fatigue and shortness of breath. 1. 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 COVID-negative, respiratory PCR panel negative, urine antigens negative. Had worsening of respiratory status on 06/30, suspected due to overload from IV fluids, given IV Lasix and echo was ordered. Echo 07/01 showed EF 70%, diastolic function indeterminate, no significant valve abnormalities. Patient unfortunately had continued mild worsening respiratory status on 07/01, antibiotic coverage broadened to vancomycin and Zosyn. ? Patient unfortunately has had minimal improvement at this point. Have concern that patient could have a degree of acute respiratory distress syndrome contributing to her presentation. Continue vancomycin and Zosyn for now. Scheduled Mucinex, DuoNebs as needed. Gave spot dose of IV Lasix 40 mg on 07/02, continue spot diuresis as needed. Can consider pulmonology consult if patient does not improve. 2. Fall, debility ? PT/OT/case management following. Suspect this is somewhat acute worsening on chronic debility. PT/OT recommending long-term care. Will continue to discuss with patient and family. 3. Hyponatremia, improved ? Nephrology following. Suspected possible hypervolemic hyponatremia but etiology still unclear. Sodium joshua at 123 on 06/29, given dose of tolvaptan on 06/30 with improvement in sodium to 130. Sodium improved to normal range at 136 on 07/02 with only fluid restriction. Continue to monitor daily sodium. 4. Concern for dysphagia ? Speech therapy following. Plan was for MBSS on 07/02, however patient was requiring to high level of oxygen. Will keep patient n.p.o. for now, attempt MBSS tomorrow if possible. Chronic medical conditions: ? Atrial fibrillation: Continue home Xarelto. DVT prophylaxis: Xarelto CODE STATUS: Full code, verified Expected disposition: Likely SNF, TBD Total clinical time spent by myself addressing the patient's medical issues, reviewing all the data, and collaborating with patient's care team: 35 minutes. Charges/Coding Visit Charges Inpatient E&M: 21619 Subs Hosp L2
[2023-07-02] MEDS: Atorvastatin Calcium 40 MG Tablet PO (20:31)
[2023-07-02] MEDS: hydrOXYzine PAM 25 MG Capsule 50 MG PO (22:26)
[2023-07-03] VITALS (24 sets, daily range): BP systolic 113–145; BP diastolic 42–78; PULSE 77–94; RESP 12–92; TEMP 36.5–37.4; O2SAT 74–100
[2023-07-03 00:49] LABS: Vancomycin, Trough Level 16.9 ug/mL (5.0-15.0)
--- NOTE | 2023-07-03 00:58 | PCM.RX.CS ---
Consult Antibiotic Management Pharmacy has been consulted to manage selected antiobiotic: Vancomycin Type of Intervention Type of Consult: Follow-up Labs Labs: Sodium 136 mmol/L (136-145) 07/02/23 07:40 Potassium 3.4 mmol/L (3.5-5.1) L 07/02/23 07:40 Chloride 100 mmol/L (98-107) 07/02/23 07:40 Carbon Dioxide 20.0 mmol/L (21.0-32.0) L 07/02/23 07:40 Anion Gap 16 (5-15) H 07/02/23 07:40 BUN 5 mg/dL (7-18) L 07/02/23 07:40 Creatinine 0.83 mg/dL (0.55-1.02) 07/02/23 07:40 Est GFR (MDRD) Af Amer 85 mL/min (>60) 07/02/23 07:40 Est GFR (MDRD) Non-Af 70 mL/min (>60) 07/02/23 07:40 BUN/Creatinine Ratio 6.0 RATIO (10-20) L 07/02/23 07:40 Glucose 102 mg/dL (74-106) 07/02/23 07:40 Vancomycin Trough 16.9 ug/mL (5.0-15.0) H 07/03/23 00:20 Microbiology Microbiology: Microbiology 06/30/23 00:45 Urine, Random Legionella Antigen - Final 06/30/23 00:45 Urine, Random Streptococcus pneumoniae Antigen (M - Final 06/29/23 14:55 Mucosa - Nose Coronavirus COVID-19 PCR - Final 06/29/23 14:55 Mucosa - Nose Respiratory Panel (PCR) - Final Dosing Weight Weight used for dosin.4 kg Estimated Creatinine Clearance Estimated Creatinine Clearance: 49 Goal Trough Goal Trough: 15-20 mcg/mL Pharmacy Plan for Drug Dosing Pharmacy Plan for Drug Dosing: Vancomycin trough level of 16.9, drawn 12hrs post-dose, was within the target range of 15-20. Will continue dosing at 1000mg q12h, and draw another trough in two days. Pharmacy Service will continue to monitor and adjust dosing as required. Follow-Up Labs Follow-Up Labs: Trough: Vancomycin Date/Time Labs Ordered Labs to be done on [date and time ordered]: 07/05/23 @0000
[2023-07-03] MEDS: Vancomycin IV 1,000 MG/200 ML BAG 200 MG IV ×2 (01:11→12:53)
[2023-07-03] MEDS: Piperacil/Tazobactam 3.375 GM in 0.9% Normal Saline (50mL MB+) 50 ML IV ×3 (05:18→20:11)
[2023-07-03 08:07] LABS: Hematocrit 36.2 % (37-47); Mean Corp Hgb Conc 30.4 g/dL (32-36); Mean Corpuscular Hgb 29.1 pg (27.0-32.0); Mean Corpuscular Volume 95.8 fL (81-99); Mean Platelet Vol. 9.2 fl (6.2-12.0); Platelet Count 321 K/mm3 (150-450); Red Blood Count 3.78 M/mm3 (4.2-5.4); White Blood Count 16.2 K/mm3 (4.4-11.0)
[2023-07-03] MEDS: Flecainide 100 MG Tablet PO (08:19)
[2023-07-03] MEDS: amLODIPine 2.5 MG Tablet PO (08:19)
[2023-07-03] MEDS: Aspirin E.C. 81 MG Tablet PO (08:19)
[2023-07-03] MEDS: Rivaroxaban 20 MG Tablet PO (08:19)
[2023-07-03] MEDS: guaiFENesin 1,200 MG Tablet 1200 MG PO (08:20)
[2023-07-03 08:35] LABS: Anion Gap 4 (5-15); BUN 17 mg/dL (7-18); BUN/Creat Ratio 22.3 RATIO (10-20); Calcium,Total 9.3 mg/dL (8.5-10.1); Chloride 103 mmol/L (98-107); Creatinine, Serum 0.76 mg/dL (0.55-1.02); EST Glomerular Filtration Rate 77 mL/min (>60); Est Glom Filt Rate - Afr Amer 93 mL/min (>60); Glucose 162 mg/dL (74-106); Potassium 3.4 mmol/L (3.5-5.1); Sodium Level 136 mmol/L (136-145)
--- NOTE | 2023-07-03 09:07 | EX.PCM.CONCC ---
Assessment & Plan Assessment/Plan (1) Acute hypoxemic respiratory failure: PLAN: Plan RECOMMENDATIONS: 1. Continue current supportive measures including BiPAP therapy. Wean FiO2 to maintain oxygen saturations at or above 90%. 2. Continue broad-spectrum antimicrobials as ordered. 3. Recommend n.p.o., given tenuous respiratory status. 4. Attempt, if feasible, to wean the patient to heated high flow oxygen once again. 5. Continue Xarelto per home regimen. IMPRESSIONS: 1. Acute hypoxemic respiratory failure Most likely secondary to progressive bilateral pneumonia. The patient's antimicrobials were just recently broadened to include vancomycin and Zosyn, both of which will be continued. PE seems quite unlikely given that the patient is systemically anticoagulated on Xarelto at her baseline. The patient does have preserved ejection fraction with pulmonary hypertension noted on her echocardiogram. Ultimately, she may benefit from attempts at diuresis. In the interim, the patient will be continued on BiPAP therapy with a goal to wean FiO2 to maintain oxygen saturations at or above 90%. I would recommend that she be made n.p.o. for now given tenuous respiratory status. Agree with consideration for modified barium swallow once oxygenation status improves, given concerns for dysphagia. 2. Chronic atrial fibrillation/coronary artery disease/hypertension/hyperlipidemia Complicates care, management, recovery and prognosis. Continue home medications as indicated. CODE STATUS: Discussed with the patient on July 03. She wishes to remain full code and is agreeable to intubation, if needed. This note was generated with [employer] dictation software. It may contain incorrect words, spelling, and punctuation that were not noted in checking the note before signing. HPI Consult Data Date of Consult: 07/03/23 HPI Narrative Reason for Consultation: Acute hypoxemic respiratory failure HPI Narrative: The patient is an 82-year-old female, with a history as outlined below, who presented initially to the emergency department via EMS on June 29 with generalized weakness, cough and shortness of breath. Prior to her emergency department visit, the patient had been evaluated by her PCP with concern for presumptive bronchitis. The patient has a known medical history including atrial fibrillation, coronary artery disease and hypertension. On presentation to the emergency department, the patient was documented to be afebrile and hemodynamically stable. She was initially saturating 86% on room air. Initial laboratory evaluation revealed a white blood cell count of 13,000. Chemistry profile was notable for a sodium of 126, chloride of 89 and creatinine of 1.07. Lactate was within normal limits. Liver function profile was within normal limits. Respiratory viral panel was negative. COVID PCR was negative. Over the course of her hospitalization, the patient's respiratory status has progressively declined. According to report, the patient has been primarily BiPAP dependent for the last couple days. The patient has been unable to tolerate heated high flow oxygen. Surface echocardiogram completed on July 01 demonstrated normal ejection fraction with a pulmonary artery systolic pressure estimated to be 70 mmHg. Her white count is elevated this morning at 16,000. She is currently being maintained on Xarelto and broad-spectrum antimicrobials. Troponin and BNP were both within normal limits this morning. Her chest x-ray continues to demonstrate evidence of bilateral pulmonary infiltrates. [facility] Medical History Diverticulosis Essential (primary) hypertension GERD (gastroesophageal reflux disease) Near syncope Non-sustained ventricular tachycardia Paroxysmal atrial fibrillation TIA (transient ischemic attack) Home Medications atorvastatin 40 mg tablet 40 mg PO QHS #90 tabs 03/08/16 [Rx Last Taken Unknown] aspirin 81 mg tablet,delayed release 81 mg PO MOWEFR 02/23/19 [History Last Taken Unknown] hydroxyzine HCl 50 mg tablet 50 mg PO QHS PRN sleep 03/28/21 [History Last Taken Unknown] flecainide 100 mg tablet 100 mg PO Q12H #180 tabs 11/01/22 [Rx Last Taken Unknown] amlodipine 2.5 mg tablet 2.5 mg PO DAILY #30 tabs 06/21/23 [Rx Last Taken Unknown] metoprolol succinate 25 mg tablet,extended release 24 hr 12.5 mg (1/2 x 25 mg) PO DAILY #45 tabs 06/27/23 [Rx Last Taken Unknown] rivaroxaban 20 mg tablet (Xarelto) 20 mg PO DAILY #90 tabs 06/27/23 [Rx Last Taken Unknown] spironolactone 25 mg tablet 25 mg PO DAILY 06/29/23 [History Last Taken Unknown] Allergy/AdvReac Type Severity Reaction Status Date / Time Sulfa (Sulfonamide Allergy Unknown Verified 06/29/23 01:37 Antibiotics) Family History Father CHF (congestive heart failure) Brother CAD (coronary artery disease) Brother CAD (coronary artery disease) Surgical History History of left-sided carotid endarterectomy (03/30/16) History of thyroid surgery Social History Smoking Status: Former smoker alcohol intake: never caffeine: Yes Type: coffee Number of servings: 4 ROS ROS Narrative 10 systems were reviewed with pertinent positives as noted in the HPI above. Physical Exam Const alert General Appearance: cooperative, ill appearing and frail HEENT normocephalic and head/scalp atraumatic Eyes PERRL, EOMs intact bilaterally and conjunctivae normal Neck supple General: trachea midline Chest inspection of chest normal Resp Effort and Inspection: tachypneic Auscultation: rales Cardio regular rate and regular rhythm GI normal to inspection, nondistended, normoactive bowel sounds Extremity no clubbing, cyanosis or edema Skin no rashes or lesions noted Neuro CN's II-XII intact bilaterally, moves all extremities and no focal motor deficits Psych cooperative and affect normal Lab / Micro Data 07/03/23 07:35 07/03/23 07:35 Labs: Laboratory Results - last 24 hr 07/02/23 07:40: Sodium 136, Potassium 3.4 L, Chloride 100, Carbon Dioxide 20.0 L, Anion Gap 16 H, BUN 5 L, Creatinine 0.83, Estim Creat Clear Calc 48.92, Est GFR (MDRD) Af Amer 85, Est GFR (MDRD) Non-Af 70, BUN/Creatinine Ratio 6.0 L, Glucose 102, Calcium 6.6 L 07/03/23 00:20: Vancomycin Trough 16.9 H 07/03/23 07:35: WBC 16.2 H, RBC 3.78 L, Hgb 11.0 L, Hct 36.2 L, MCV 95.8, MCH 29.1, MCHC 30.4 L, RDW Std Deviation 46.0 H, RDW Coeff of Missy 13.0, Plt Count 321, MPV 9.2, Sodium 136, Potassium 3.4 L, Chloride 103, Carbon Dioxide 29.0, Anion Gap 4 L, BUN 17, Creatinine 0.76, Estim Creat Clear Calc 40.60, Est GFR (MDRD) Af Amer 93, Est GFR (MDRD) Non-Af 77, BUN/Creatinine Ratio 22.3 H, Glucose 162 H, Calcium 9.3 Charges/Coding Visit Charges Inpatient E&M: 82554 Init Hosp L3
--- NOTE | 2023-07-03 09:20 | RAD_ITS ---
STUDY: X-RAY CHEST REASON FOR EXAM: Female, 82 years old. Respiratory Failure TECHNIQUE: Single AP portable view of the chest. COMPARISON: Comparison is made with prior study dated June 30, 2023. FINDINGS: EKG electrodes are seen. Since prior study, there is a been progressive bilateral airspace disease worse in the left hemithorax. There is no demonstrated pleural abnormality. There is borderline cardiomegaly. Normal mediastinum and [place]. Normal visualized pulmonary arteries. There is atherosclerotic calcification of the aortic arch with tortuosity. Normal visualized thoracic spine. Normal visualized ribs, clavicles, and shoulders. There is no demonstrated abnormality of the visualized soft tissue structures of the upper abdomen. RAD/Chest 1 View (Portable) IMPRESSION: Progressive bilateral airspace disease worse in the left hemithorax. Electronically Signed: Jason Em MD at 10:33 EST ,
[2023-07-03 09:48] LABS: BNP,B-Type NATRIURETIC PEPTIDE 75.5 pg/mL (0-100)
[2023-07-03 09:50] LABS: Troponin-I HS 41 pg/mL (3.0-54.0)
[2023-07-03 10:03] LABS: Procalcitonin 0.57 ng/mL (0.00-0.09)
[2023-07-03] MEDS: Furosemide 40 MG/4 ML Vial IV (11:41)
--- NOTE | 2023-07-03 12:30 | NURSING ---
gold colored band removed per sister and she took it home
--- NOTE | 2023-07-03 15:17 | CHAPLAIN ---
Type of Pastoral Visit ___ Initial Visit _x__ Follow-up Visit ___ On-call Visit ___ General Patient Visit ___ Spiritual Assessment ___ Family Conference ___ Bereavement ___ Rapid Response ___ Code Blue ___ Other (describe below) Pastoral Care Referral From _x__ Patient _x__ Family ___ Nurse ___ Physician ___ Maintenance Shop Technician ___ Cnc Mill Programmer ___ Other (describe below) Sacrament/Intervention ___ Active listening ___ Anointing ___ Mu-Ism ___ Bereavement ___ Communion ___ Archana exploration ___ ___ Life review _x__ Prayer ___ Reconciliation ___ Sacrament of Sick _x__ Supportive presence ___ Wedding ___ Other (describe below) Pastoral Comments daughter and grandson are in the room with patient; pt is on bi-pap and awake; offer of support through presence and prayer; pt welcomes both but is unable to communicate clearly at this time; daughter indicates appreciation for the offer and that prayer would be best; assurance of ongoing care given
--- NOTE | 2023-07-03 16:23 | PCM.PN.HOSP ---
Reason for Visit Reason for Visit: Diagnoses Hypo-osmolality and hyponatremia (06/29/23) Pneumonia, unspecified organism (06/29/23) Acute respiratory failure with hypoxia (06/29/23) Hypoxemia (06/29/23) Subjective Subjective Patient was transferred to the ICU early this morning due to worsening respiratory status. Patient seen at bedside in the ICU midmorning. Patient was satting in the mid 90s on BiPAP. She was alert and was making appropriate eye contact with me, but she appeared very fatigued. She did have moderate increased work of breathing at that time. She attempted to talk to me but was difficult to understand because of the BiPAP. Overall, vital signs stable, patient respiratory status tenuous but stable on BiPAP at this time. Objective Data Objective Data Vital Signs: Vital Signs Temp Pulse Resp BP Pulse Ox O2 Del Method O2 Flow Rate 99.4 F H 79 23 H 122/64 H 100 Bi-pap 15 07/03/23 12:00 07/03/23 12:00 07/03/23 08:13 07/03/23 12:00 07/03/23 12:00 07/03/23 12:00 07/03/23 07:04 FiO2 50 07/03/23 09:50 Oxygen Flow Rate (L/min) 15 Oxygen Delivery Method Bi-pap Weight: 73.4 kg Body Mass Index (BMI) 26.1 Intake & Output: Intake and Output for Last 24 Hours 07/01/23 07/02/23 07/03/23 23:59 23:59 23:59 Intake Total 1520 / 1520 550 / 550 620 / 620 Output Total 1875 / 1875 2120 / 2120 350 / 350 Balance -355 / -355 -1570 / -1570 270 / 270 Lab / Micro Data 07/03/23 07:35 07/03/23 07:35 Labs: Laboratory Results - last 24 hr 07/03/23 00:20: Vancomycin Trough 16.9 H 07/03/23 07:35: WBC 16.2 H, RBC 3.78 L, Hgb 11.0 L, Hct 36.2 L, MCV 95.8, MCH 29.1, MCHC 30.4 L, RDW Std Deviation 46.0 H, RDW Coeff of Missy 13.0, Plt Count 321, MPV 9.2, Sodium 136, Potassium 3.4 L, Chloride 103, Carbon Dioxide 29.0, Anion Gap 4 L, BUN 17, Creatinine 0.76, Estim Creat Clear Calc 40.60, Est GFR (MDRD) Af Amer 93, Est GFR (MDRD) Non-Af 77, BUN/Creatinine Ratio 22.3 H, Glucose 162 H, Calcium 9.3 07/03/23 09:15: Troponin I High Sens 41, B-Natriuretic Peptide 75.5, Procalcitonin 0.57 H Micro: Microbiology 06/30/23 00:45 Urine, Random Legionella Antigen - Final 06/30/23 00:45 Urine, Random Streptococcus pneumoniae Antigen (M - Final 06/29/23 14:55 Mucosa - Nose Coronavirus COVID-19 PCR - Final 06/29/23 14:55 Mucosa - Nose Respiratory Panel (PCR) - Final Radiography Diagnostic Testing: Radiology Impression Chest X-Ray 07/03/23 09:20 IMPRESSION: Progressive bilateral airspace disease worse in the left hemithorax. Electronically Signed: Jason Em MD at 10:33 EST , Physical Exam Const alert Constitutional Narrative: Elderly female, chronically ill-appearing, sitting in bed on BiPAP, alert and making appropriate eye contact but appears very fatigued. General Appearance: cooperative HEENT normocephalic, head/scalp atraumatic, hearing grossly normal bilaterally, nasal mucous membranes and turbinates normal and moist oral mucous membranes Eyes PERRL, EOMs intact bilaterally and conjunctivae normal Neck full ROM, no lymphadenopathy and supple Lymph Lymphatic: no lymphadenopathy noted Chest inspection of chest normal Resp Resp Narrative: Decreased breath sounds bilaterally, worst at lung bases. No wheezing noted. Satting in mid 90s on BiPAP, moderate increased work of breathing noted. Cardio regular rate, regular rhythm, no murmurs and peripheral pulses 2+ throughout GI normal to inspection, nondistended, normoactive bowel sounds, soft to palpation, non-tender and non-distended Back/Spine normal ROM Extremity normal to inspection, full ROM and no pedal edema Skin no rashes or lesions noted Neuro moves all extremities and no focal motor deficits Assessment & Plan Assessment/Plan (1) Hypoxia: (2) Pneumonia: (3) Hyponatremia: PLAN: Plan Patient is an 82-year-old female who presented to [facility] ED on 06/29/2023 with worsening cough, fatigue and shortness of breath. 1. 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 COVID-negative, respiratory PCR panel negative, urine antigens negative. Had worsening of respiratory status on 06/30, suspected due to overload from IV fluids, given IV Lasix and echo was ordered. Echo 07/01 showed EF 70%, diastolic function indeterminate, no significant valve abnormalities. Patient unfortunately had continued mild worsening respiratory status on 07/01, antibiotic coverage broadened to vancomycin and Zosyn. ? Patient unfortunately had worsening respiratory status on morning of 07/03, was transferred to the ICU for further management. Belt And Link Assembly Supervisor consulted. Worsening respiratory status seems most likely due to progressive bilateral pneumonia. Maintain on BiPAP for now with goal to wean to heated high flow nasal cannula if able. Continue broad-spectrum antibiotics. Considering spot diuresis as needed. 2. Fall, debility ? PT/OT/case management following. Suspect this is acute worsening on chronic debility. PT/OT recommending long-term care. Will continue to discuss with patient and family. 3. Hyponatremia, improved ? Nephrology following. Suspected possible hypervolemic hyponatremia but etiology still unclear. Sodium joshua at 123 on 06/29, given dose of tolvaptan on 06/30 with improvement in sodium to 130. Sodium improved to normal range at 136 on 07/02 with only fluid restriction. Continue to monitor daily sodium. 4. Concern for dysphagia ? Speech therapy following. Plan was for MBSS on 07/02, however patient was requiring to high level of oxygen. Will keep patient n.p.o. for now, attempt MBSS if oxygen level improves. Chronic medical conditions: ? Atrial fibrillation: Continue home Xarelto. DVT prophylaxis: Xarelto CODE STATUS: Full code, verified Expected disposition: Likely SNF, TBD Total clinical time spent by myself addressing the patient's medical issues, reviewing all the data, and collaborating with patient's care team: 35 minutes. Charges/Coding Visit Charges Inpatient E&M: 89611 Subs Hosp L2
[2023-07-04] VITALS (31 sets, daily range): BP systolic 104–135; BP diastolic 26–64; PULSE 76–86; RESP 12–38; TEMP 36.8–37.7; O2SAT 91–100; BMI 22.8
[2023-07-04] MEDS: Vancomycin IV 1,000 MG/200 ML BAG 200 MG IV ×2 (01:06→14:37)
[2023-07-04 03:52] LABS: Hematocrit 32.7 % (37-47); Hemoglobin 10.4 g/dL (12.0-15.0); Mean Corp Hgb Conc 31.8 g/dL (32-36); Mean Corpuscular Hgb 30.1 pg (27.0-32.0); Mean Corpuscular Volume 94.5 fL (81-99); Mean Platelet Vol. 8.9 fl (6.2-12.0); Platelet Count 281 K/mm3 (150-450); Red Blood Count 3.46 M/mm3 (4.2-5.4); White Blood Count 12.8 K/mm3 (4.4-11.0)
[2023-07-04 04:08] LABS: Anion Gap 6 (5-15); BUN 21 mg/dL (7-18); BUN/Creat Ratio 27.6 RATIO (10-20); Calcium,Total 8.6 mg/dL (8.5-10.1); Chloride 104 mmol/L (98-107); Creatinine, Serum 0.76 mg/dL (0.55-1.02); EST Glomerular Filtration Rate 77 mL/min (>60); Est Glom Filt Rate - Afr Amer 94 mL/min (>60); Glucose 176 mg/dL (74-106); Sodium Level 143 mmol/L (136-145)
[2023-07-04] MEDS: 0.9% Saline Lock 10 ML Syringe IV (06:14)
[2023-07-04] MEDS: Piperacil/Tazobactam 3.375 GM in 0.9% Normal Saline (50mL MB+) 50 ML IV ×3 (06:14→20:16)
[2023-07-04] MEDS: Flecainide 100 MG Tablet PO (07:54)
[2023-07-04] MEDS: guaiFENesin 1,200 MG Tablet 1200 MG PO (07:54)
[2023-07-04] MEDS: amLODIPine 2.5 MG Tablet PO (07:54)
[2023-07-04] MEDS: Rivaroxaban 20 MG Tablet PO (07:55)
[2023-07-04] MEDS: Potassium Chloride 10mEq/100mL 10 MEQ/100 ML IV.SOLN. 100 MEQ IV BOLUS ×4 (08:06→11:27)
[2023-07-04] MEDS: 0.9% Normal Saline (250mL Bag) 250 ML 15 ML IV (08:06)
--- NOTE | 2023-07-04 08:28 | PN.CC_ITS ---
Assessment & Plan Assessment/Plan (1) Acute hypoxemic respiratory failure: PLAN: Plan RECOMMENDATIONS: 1. Transition from BiPAP to Airvo heated high flow for patient comfort. Wean FiO2 to maintain saturations at or above 90%. 2. Continue broad-spectrum antimicrobials as ordered. 3. Recommend n.p.o., given tenuous respiratory status. 4. Continue Xarelto per home regimen. IMPRESSIONS: 1. Acute hypoxemic respiratory failure Most likely secondary to progressive bilateral pneumonia. The patient's antimicrobials were just recently broadened to include vancomycin and Zosyn, both of which will be continued. PE seems quite unlikely given that the patient is systemically anticoagulated on Xarelto at her baseline. The patient does have preserved ejection fraction with pulmonary hypertension noted on her echocardiogram. Ultimately, she may benefit from attempts at diuresis. In the interim, the patient will be continued on BiPAP therapy with a goal to wean FiO2 to maintain oxygen saturations at or above 90%. I would recommend that she be made n.p.o. for now given tenuous respiratory status. 2. Chronic atrial fibrillation/coronary artery disease/hypertension/hyperlipidemia Complicates care, management, recovery and prognosis. Continue home medications as indicated. CODE STATUS: Discussed with the patient on July 03. She wishes to remain full code and is agreeable to intubation, if needed. This note was generated with [employer] dictation software. It may contain incorrect words, spelling, and punctuation that were not noted in checking the note before signing. Subjective Subjective The patient was seen and examined at the bedside this morning. Events from the last 24 hours have been reviewed. The patient is currently afebrile, hemodynamically stable and maintaining appropriate oxygen saturations on BiPAP with an FiO2 requirement of 60%. The patient has been essentially BiPAP dependent for several days and readily desaturates when removed from positive pressure ventilatory support. Potassium is low this morning at 3.0. Objective Data Objective Data The patient's most recent lab work, culture data and imaging studies have all been personally reviewed. Surface echocardiogram completed on July 01 demonstrated an ejection fraction of 70% and a pulmonary artery systolic pressure of 70 mmHg. Infectious workup has been unrevealing to date. Vital Signs: Vital Signs Temp Pulse Resp BP Pulse Ox O2 Del Method O2 Flow Rate 99.5 F H 84 20 H 133/47 H 95 Bi-pap 15 07/04/23 03:00 07/04/23 07:40 07/04/23 07:40 07/04/23 07:00 07/04/23 07:40 07/04/23 07:00 07/03/23 19:00 FiO2 92 07/04/23 07:40 Oxygen Flow Rate (L/min) 15 Oxygen Delivery Method Bi-pap Weight: 141 lb 8.588 oz Body Mass Index (BMI) 22.8 Intake & Output: Intake and Output for Last 24 Hours 07/02/23 07/03/23 07/04/23 23:59 23:59 23:59 Intake Total 550 / 550 670 / 670 250 / 250 Output Total 2120 / 2120 680 / 730 435 / 435 Balance -1570 / -1570 -10 / -60 -185 / -185 Lab / Micro Data Attestation: I reviewed the patient's lab results. 07/04/23 03:44 07/04/23 03:44 Labs: Laboratory Results - last 24 hr 07/03/23 07:35: Sodium 136, Potassium 3.4 L, Chloride 103, Carbon Dioxide 29.0, Anion Gap 4 L, BUN 17, Creatinine 0.76, Estim Creat Clear Calc 40.60, Est GFR (MDRD) Af Amer 93, Est GFR (MDRD) Non-Af 77, BUN/Creatinine Ratio 22.3 H, Glucose 162 H, Calcium 9.3 07/03/23 09:15: Troponin I High Sens 41, B-Natriuretic Peptide 75.5, Procalcitonin 0.57 H 07/04/23 03:44: WBC 12.8 H, RBC 3.46 L, Hgb 10.4 L, Hct 32.7 L, MCV 94.5, MCH 30.1, MCHC 31.8 L, RDW Std Deviation 45.0 H, RDW Coeff of Missy 13.0, Plt Count 281, MPV 8.9, Sodium 143, Potassium 3.0 L, Chloride 104, Carbon Dioxide 33.0 H, Anion Gap 6, BUN 21 H, Creatinine 0.76, Estim Creat Clear Calc 40.60, Est GFR (MDRD) Af Amer 94, Est GFR (MDRD) Non-Af 77, BUN/Creatinine Ratio 27.6 H, Gl ucose 176 H, Calcium 8.6 Micro: Microbiology 06/30/23 00:45 Urine, Random Legionella Antigen - Final 06/30/23 00:45 Urine, Random Streptococcus pneumoniae Antigen (M - Final 06/29/23 14:55 Mucosa - Nose Coronavirus COVID-19 PCR - Final 06/29/23 14:55 Mucosa - Nose Respiratory Panel (PCR) - Final Radiography Diagnostic Testing: Radiology Impression Chest X-Ray 07/03/23 09:20 IMPRESSION: Progressive bilateral airspace disease worse in the left hemithorax. Electronically Signed: Jason Em MD at 10:33 EST , Physical Exam Const alert and no apparent distress Constitutional Narrative: Family present at the bedside. General Appearance: cooperative HEENT normocephalic and head/scalp atraumatic Eyes PERRL, EOMs intact bilaterally and conjunctivae normal Neck supple General: trachea midline Chest inspection of chest normal Resp no use of accessory muscles Effort and Inspection: tachypneic Auscultation: rales Cardio regular rate and regular rhythm GI normal to inspection, nondistended, normoactive bowel sounds Extremity no clubbing, cyanosis or edema Skin no rashes or lesions noted Neuro CN's II-XII intact bilaterally, moves all extremities and no focal motor deficits Psych cooperative and affect normal Charges/Coding Visit Charges Inpatient E&M: 27932 Subs Hosp L3
--- NOTE | 2023-07-04 12:31 | PN.RENAL_ITS ---
Subjective Subjective Following for hyponatremia Resting in bed. on high flow O2. Objective Data Objective Data Vital Signs: Vital Signs Temp Pulse Resp BP Pulse Ox O2 Del Method O2 Flow Rate 99.5 F H 85 20 H 131/48 H 95 High Flow 60 07/04/23 03:00 07/04/23 08:00 07/04/23 07:40 07/04/23 10:00 07/04/23 08:00 07/04/23 10:00 07/04/23 10:00 FiO2 90 07/04/23 10:00 Oxygen Flow Rate (L/min) 60 Oxygen Delivery Method High Flow Weight: 64.2 kg Body Mass Index (BMI) 22.8 Intake & Output: Intake and Output for Last 24 Hours 07/02/23 07/03/23 07/04/23 23:59 23:59 23:59 Intake Total 550 / 550 670 / 670 561.67 / 561.67 Output Total 2120 / 2120 680 / 730 535 / 535 Balance -1570 / -1570 -10 / -60 26.67 / 26.67 Lab / Micro Data 07/04/23 03:44 07/04/23 03:44 Labs: Laboratory Results - last 24 hr 07/04/23 03:44: WBC 12.8 H, RBC 3.46 L, Hgb 10.4 L, Hct 32.7 L, MCV 94.5, MCH 30.1, MCHC 31.8 L, RDW Std Deviation 45.0 H, RDW Coeff of Missy 13.0, Plt Count 281, MPV 8.9, Sodium 143, Potassium 3.0 L, Chloride 104, Carbon Dioxide 33.0 H, Anion Gap 6, BUN 21 H, Creatinine 0.76, Estim Creat Clear Calc 40.60, Est GFR (MDRD) Af Amer 94, Est GFR (MDRD) Non-Af 77, BUN/Creatinine Ratio 27.6 H, Glucose 176 H, Calcium 8.6 Micro: Microbiology 06/30/23 00:45 Urine, Random Legionella Antigen - Final 06/30/23 00:45 Urine, Random Streptococcus pneumoniae Antigen (M - Final 06/29/23 14:55 Mucosa - Nose Coronavirus COVID-19 PCR - Final 06/29/23 14:55 Mucosa - Nose Respiratory Panel (PCR) - Final Radiography Diagnostic Testing: Radiology Impression Chest X-Ray 07/03/23 09:20 IMPRESSION: Progressive bilateral airspace disease worse in the left hemithorax. Electronically Signed: Jason Em MD at 10:33 EST , Physical Exam Narrative Alert, on bipap no obvious distress s1s2 no murmurs Lung sounds diminished abdomen soft, nontender Trace edema to legs Assessment & Plan Assessment/Plan (1) Hyponatremia: PLAN: - Acute hyponatremia with no prior hyponatremia. Sodium was 132 on 06/21/2023. Sodium 129 on 06/27. On presentation to the hospital 06/29 sodium 126 --> sodium 123 06/29 @2046 --> s odium 125 06/30 patient received samsca 06/30 --> 07/01 sodium 130--> 136--> today sodium 143. Urine sodium is less than 20, urine osmo 539, serum osmo 269. Possibly hypervolemic hyponatremia. Echo: EF 70%, diastolic function indeterminate, trivial mitral and aortic valve insufficiency. BNP 150 on 06/21. Can use lasix as needed. nephrology will sign off as hyponatremia resolved and no history of CKD/CARIDAD. discussed with Dr. Gauthier.
--- NOTE | 2023-07-04 14:06 | PCM.PN.HOSP ---
Reason for Visit Reason for Visit: Diagnoses Hypo-osmolality and hyponatremia (06/29/23) Pneumonia, unspecified organism (06/29/23) Acute respiratory failure with hypoxia (06/29/23) Hypoxemia (06/29/23) Subjective Subjective Patient seen at bedside this morning, friend present. Patient was satting in the mid 90s on Airvo at 60 L/min. Patient actually appears more awake and alert this morning than previous days. She was answering all questions appropriately and had good mentation. Stated that she felt much more comfortable on the Airvo as opposed to the BiPAP. She had no noticeable increased work of breathing and did not feel short of breath per her report. She continues to report weakness, similar to previous days. Denied any other acute concerns this morning. Objective Data Objective Data Vital Signs: Vital Signs Temp Pulse Resp BP Pulse Ox O2 Del Method O2 Flow Rate 99.5 F H 85 20 H 131/48 H 95 High Flow 60 07/04/23 03:00 07/04/23 08:00 07/04/23 07:40 07/04/23 10:00 07/04/23 08:00 07/04/23 10:00 07/04/23 10:00 FiO2 90 07/04/23 10:00 Oxygen Flow Rate (L/min) 60 Oxygen Delivery Method High Flow Weight: 64.2 kg Body Mass Index (BMI) 22.8 Intake & Output: Intake and Output for Last 24 Hours 07/02/23 07/03/23 07/04/23 23:59 23:59 23:59 Intake Total 550 / 550 670 / 670 561.67 / 561.67 Output Total 2120 / 2120 680 / 730 535 / 535 Balance -1570 / -1570 -10 / -60 26.67 / 26.67 Lab / Micro Data 07/04/23 03:44 07/04/23 03:44 Labs: Laboratory Results - last 24 hr 07/04/23 03:44: WBC 12.8 H, RBC 3.46 L, Hgb 10.4 L, Hct 32.7 L, MCV 94.5, MCH 30.1, MCHC 31.8 L, RDW Std Deviation 45.0 H, RDW Coeff of Missy 13.0, Plt Count 281, MPV 8.9, Sodium 143, Potassium 3.0 L, Chloride 104, Carbon Dioxide 33.0 H, Anion Gap 6, BUN 21 H, Creatinine 0.76, Estim Creat Clear Calc 40.60, Est GFR (MDRD) Af Amer 94, Est GFR (MDRD) Non-Af 77, BUN/Creatinine Ratio 27.6 H, Glucose 176 H, Calcium 8.6 Micro: Microbiology 06/30/23 00:45 Urine, Random Legionella Antigen - Final 06/30/23 00:45 Urine, Random Streptococcus pneumoniae Antigen (M - Final 06/29/23 14:55 Mucosa - Nose Coronavirus COVID-19 PCR - Final 06/29/23 14:55 Mucosa - Nose Respiratory Panel (PCR) - Final Physical Exam Const alert Constitutional Narrative: Elderly female, chronically ill-appearing, mentation improved today, answering all questions appropriately and appears to have better energy. General Appearance: cooperative HEENT normocephalic, head/scalp atraumatic, hearing grossly normal bilaterally, nasal mucous membranes and turbinates normal and moist oral mucous membranes Eyes PERRL, EOMs intact bilaterally and conjunctivae normal Neck full ROM, no lymphadenopathy and supple Lymph Lymphatic: no lymphadenopathy noted Chest inspection of chest normal Resp Resp Narrative: Satting in mid 90s on Airvo at 60 L, no increased work of breathing noted. Decreased breath sounds throughout bilaterally but no wheezing or crackles noted. Cardio regular rate, regular rhythm, no murmurs and peripheral pulses 2+ throughout GI normal to inspection, nondistended, normoactive bowel sounds, soft to palpation, non-tender and non-distended Back/Spine normal ROM Extremity normal to inspection, full ROM and no pedal edema Skin no rashes or lesions noted Neuro moves all extremities and no focal motor deficits Speech: speech normal Psych affect normal Assessment & Plan Assessment/Plan (1) Hypoxia: (2) Pneumonia: (3) Hyponatremia: PLAN: Plan Patient is an 82-year-old female who presented to [facility] ED on 06/29/2023 with worsening cough, fatigue and shortness of breath. 1. 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 COVID-negative, respiratory PCR panel negative, urine antigens negative. Had worsening of respiratory status on 06/30, suspected due to overload from IV fluids, given IV Lasix and echo was ordered. Echo 07/01 showed EF 70%, diastolic function indeterminate, no significant valve abnormalities. Patient unfortunately had continued mild worsening respiratory status on 07/01, antibiotic coverage broadened to vancomycin and Zosyn. Unfortunately had worsening respiratory status on morning of 07/03, was transferred to the ICU for further management. Suspected that worsening respiratory status is most likely due to progressive bilateral pneumonia. ? Headlight Adjuster following. Patient with some improvement on 07/04, transitioned from BiPAP to Airvo and satting in the mid 90s on 60 L. Continue treatment of pneumonia with broad-spectrum antibiotics. Consider spot diuresis as needed. 2. Fall, debility ? PT/OT/case management following. Suspect this is acute worsening on chronic debility. PT/OT recommending long-term care. Will continue to discuss with patient and family. 3. Hyponatremia, improved Suspected secondary to hypervolemic hyponatremia. Sodium joshua of 123 on 06/29. Given dose of tolvaptan on 06/30 with improvement in sodium to 130. Sodium improved to normal range on 07/02. ? Nephrology followed. Sodium stable within normal range. Monitor. 4. Concern for dysphagia ? Speech therapy following. Planning for MBSS when oxygen level allows. Continue n.p.o. status for now. Chronic medical conditions: ? Atrial fibrillation: Continue home Xarelto. DVT prophylaxis: Xarelto CODE STATUS: Full code, verified Expected disposition: Likely SNF, TBD Total clinical time spent by myself addressing the patient's medical issues, reviewing all the data, and collaborating with patient's care team: 35 minutes. Charges/Coding Visit Charges Inpatient E&M: 23914 Subs Hosp L2
[2023-07-04] MEDS: Vancomycin Trough/Random Due 1 LAB MC (20:16)
[2023-07-04 22:05] LABS: Allen Test Positive; Base Excess 10 mmol/L (-2 to +2); Blood Gas Specimen Type ART; Comment 16/10 12 60%; Mode Not entered; O2 Delivery Device BiPAP; PO2 57 mmHG (75-100); SITE L Radial; SO2 90 % (95-99); Total Carbon Dioxide 36 mmol/L; pCO2 50.1 mmHg (35-45); pH 7.44 (7.35-7.45)
[2023-07-05] VITALS (32 sets, daily range): BP systolic 107–136; BP diastolic 41–93; PULSE 26–94; RESP 12–221; TEMP 36.6–37.6; O2SAT 88–97; BMI 22.4
[2023-07-05] MEDS: 0.9% Saline Lock 10 ML Syringe IV ×2 (00:17→04:36)
[2023-07-05 00:48] LABS: Vancomycin, Trough Level 22.5 ug/mL (5.0-15.0)
[2023-07-05] MEDS: Vancomycin IV 1,000 MG/200 ML BAG 200 MG IV ×2 (01:04→12:25)
--- NOTE | 2023-07-05 01:10 | NURSING ---
0100- this RN called pharmacy to verify that vancomycin dose for 0030 was ok to give despite vanc trough coming back at 22.5. Katelyn Becerril verified that this was okay to give at this time.
--- NOTE | 2023-07-05 01:18 | PCM.RX.CS ---
Consult Antibiotic Management Pharmacy has been consulted to manage selected antiobiotic: Vancomycin Type of Intervention Type of Consult: Follow-up Labs Labs: Sodium 143 mmol/L (136-145) 07/04/23 03:44 Potassium 3.0 mmol/L (3.5-5.1) L 07/04/23 03:44 Chloride 104 mmol/L (98-107) 07/04/23 03:44 Carbon Dioxide 33.0 mmol/L (21.0-32.0) H 07/04/23 03:44 Anion Gap 6 (5-15) 07/04/23 03:44 BUN 21 mg/dL (7-18) H 07/04/23 03:44 Creatinine 0.76 mg/dL (0.55-1.02) 07/04/23 03:44 Est GFR (MDRD) Af Amer 94 mL/min (>60) 07/04/23 03:44 Est GFR (MDRD) Non-Af 77 mL/min (>60) 07/04/23 03:44 BUN/Creatinine Ratio 27.6 RATIO (10-20) H 07/04/23 03:44 Glucose 176 mg/dL (74-106) H 07/04/23 03:44 Vancomycin Trough 22.5 ug/mL (5.0-15.0) H 07/05/23 00:05 Microbiology Microbiology: Microbiology 06/30/23 00:45 Urine, Random Legionella Antigen - Final 06/30/23 00:45 Urine, Random Streptococcus pneumoniae Antigen (M - Final 06/29/23 14:55 Mucosa - Nose Coronavirus COVID-19 PCR - Final 06/29/23 14:55 Mucosa - Nose Respiratory Panel (PCR) - Final Goal Trough Goal Trough: 15-20 mcg/mL Pharmacy Plan for Drug Dosing Pharmacy Plan for Drug Dosing: Pharmacy Service will continue to monitor and adjust dosing as required. TROUGH 22.5 AT 9.5 HOURS. PREVIOUS DOSE HUNG 2 HOURS LATE. CONTINUE WITH CURRENT DOSE AND FOLLOW UP IN 24 HOURS Follow-Up Labs Follow-Up Labs: Trough: Vancomycin Date/Time Labs Ordered Labs to be done on [date and time ordered]: 07/06 @ 0000
[2023-07-05 04:29] LABS: Hematocrit 32.7 % (37-47); Hemoglobin 10.1 g/dL (12.0-15.0); Mean Corp Hgb Conc 30.9 g/dL (32-36); Mean Corpuscular Hgb 29.4 pg (27.0-32.0); Mean Corpuscular Volume 95.1 fL (81-99); Mean Platelet Vol. 8.9 fl (6.2-12.0); Platelet Count 282 K/mm3 (150-450); RBC Distribution Width CV 13.2 % (11.6-14.6); RBC Distribution Width SD 45.2 fl (35.1-43.9); Red Blood Count 3.44 M/mm3 (4.2-5.4); White Blood Count 11.9 K/mm3 (4.4-11.0)
[2023-07-05] MEDS: Piperacil/Tazobactam 3.375 GM in 0.9% Normal Saline (50mL MB+) 50 ML IV ×3 (04:36→23:45)
[2023-07-05 04:43] LABS: Anion Gap 4 (5-15); BUN 23 mg/dL (7-18); BUN/Creat Ratio 34.4 RATIO (10-20); Calcium,Total 8.8 mg/dL (8.5-10.1); Chloride 106 mmol/L (98-107); Creatinine, Serum 0.67 mg/dL (0.55-1.02); EST Glomerular Filtration Rate 90 mL/min (>60); Est Glom Filt Rate - Afr Amer 108 mL/min (>60); Glucose 168 mg/dL (74-106); Potassium 3.7 mmol/L (3.5-5.1); Sodium Level 144 mmol/L (136-145)
--- NOTE | 2023-07-05 10:14 | CASEMGMT ---
Discharge Planning A list of?SNF providers including quality and resource use data and consistent with the patient's preferred geographic region, medical needs, and insurance network was created in [employer] Guide.? This list was provided to the SW. Nicole Vaughn Discharge Planning Asst.
[2023-07-05] MEDS: Flecainide 100 MG Tablet PO ×2 (11:36→20:26)
[2023-07-05] MEDS: Rivaroxaban 20 MG Tablet PO (11:36)
[2023-07-05] MEDS: guaiFENesin 1,200 MG Tablet 1200 MG PO ×2 (11:37→20:25)
[2023-07-05] MEDS: Aspirin E.C. 81 MG Tablet PO (11:37)
[2023-07-05] MEDS: amLODIPine 2.5 MG Tablet PO (11:37)
--- NOTE | 2023-07-05 11:38 | PN.CC_ITS ---
Assessment & Plan Assessment/Plan (1) Acute hypoxemic respiratory failure: PLAN: Plan RECOMMENDATIONS: 1. Patient has been on BiPAP 06/05, FiO2 65% since after her break on Airvo yesterday. She we will try to get a break today. Given her slightly worse respiratory status today we will start her on Solu-Medrol and low-dose Lasix. 2. Continue broad-spectrum antimicrobials as ordered. 3. She remains n.p.o. however concern for her poor nutritional status. If she is unable to take a break today evaluation of her swallow will start tube feeds via NG tube. 4. Continue Xarelto per home regimen. IMPRESSIONS: 1. Acute hypoxemic respiratory failure Most likely secondary to progressive bilateral pneumonia. The patient's antim icrobials were just recently broadened to include vancomycin and Zosyn, both of which will be continued. PE seems quite unlikely given that the patient is systemically anticoagulated on Xarelto at her baseline. The patient does have preserved ejection fraction with pulmonary hypertension noted on her echocardiogram. Ultimately, she may benefit from attempts at diuresis. In the interim, the patient will be continued on BiPAP therapy with a goal to wean FiO2 to maintain oxygen saturations at or above 90%. 2. Chronic atrial fibrillation/coronary artery disease/hypertension/hyp erlipidemia Complicates care, management, recovery and prognosis. Continue home medications as indicated. CODE STATUS: Discussed with the patient on July 03. She wishes to remain fu ll code and is agreeable to intubation, if needed. This note was generated with [employer] dictation software. It may contain incorrect words, spelling, and punctuation that were not noted in checking the note before signing. Subjective Subjective Appears to have had slightly worse respiratory status overnight. She is on Bi PAP on 06/05, 65% FiO2 pulling volumes around 400 cc with a respiratory rate of 25. Objective Data Objective Data Vital Signs: Vital Signs Temp Pulse Resp BP Pulse Ox O2 Del Method O2 Flow Rate 37.1 C 78 28 H 115/60 96 Bi-pap 60 07/05/23 08:00 07/05/23 08:00 07/05/23 08:00 07/05/23 08:00 07/05/23 08:00 07/05/23 08:00 07/05/23 06:00 FiO2 70 07/05/23 08:00 Oxygen Flow Rate (L/min) 60 Oxygen Delivery Method Bi-pap Weight: 63.3 kg Body Mass Index (BMI) 22.4 Intake & Output: Intake and Output for Last 24 Hours 07/03/23 07/04/23 07/05/23 23:59 23:59 23:59 Intake Total 670 / 670 961.67 / 961.67 550 / 550 Output Total 680 / 730 1225 / 1225 440 / 440 Balance -10 / -60 -263.33 / -263.33 110 / 110 Lab / Micro Data 07/05/23 04:21 07/05/23 04:21 Labs: Laboratory Results - last 24 hr 07/05/23 00:05: Vancomycin Trough 22.5 H 07/05/23 04:21: WBC 11.9 H, RBC 3.44 L, Hgb 10.1 L, Hct 32.7 L, MCV 95.1, MCH 29.4, MCHC 30.9 L, RDW Std Deviation 45.2 H, RDW Coeff of Missy 13.2, Plt Count 2 82, MPV 8.9, Sodium 144, Potassium 3.7, Chloride 106, Carbon Dioxide 34.0 H, Anion Gap 4 L, BUN 23 H, Creatinine 0.67, Estim Creat Clear Calc 40.60, Est GFR (MDRD) Af Amer 108, Est GFR (MDRD) Non-Af 90, BUN/Creatinine Ratio 34.4 H, Glucose 168 H, Calcium 8.8 Micro: Microbiology 06/30/23 00:45 Urine, Random Legionella Antigen - Final 06/30/23 00:45 Urine, Random Streptococcus pneumoniae Antigen (M - Final 06/29/23 14:55 Mucosa - Nose Coronavirus COVID-19 PCR - Final 06/29/23 14:55 Mucosa - Nose Respiratory Panel (PCR) - Final ABG Data ABG results: ABG 07/04/23 22:02 Specimen Type ART Sample Site L Radial pH 7.44 Bicarbonate Actual 34.0 H Total CO2 36 Base Excess 10 H O2 Saturation 90 L O2 % 60.0 ABG pCO2 50.1 H ABG pO2 57 L Fam Test Positive O2 Delivery Device BiPAP Vent Mode Not entered Clinical Comments 06/05 12 60% Physical Exam Const alert and no apparent distress General Appearance: cooperative, ill appearing and frail HEENT normocephalic and head/scalp atraumatic Eyes PERRL, EOMs intact bilaterally and conjunctivae normal Neck supple General: trachea midline Chest inspection of chest normal Resp no use of accessory muscles Auscultation: rales Cardio regular rate and regular rhythm GI normal to inspection, nondistended, normoactive bowel sounds Extremity no clubbing, cyanosis or edema Skin no rashes or lesions noted Neuro moves all extremities and no focal motor deficits Psych cooperative and affect normal Charges/Coding Visit Charges Inpatient E&M: 67927 Subs Hosp L3
[2023-07-05] MEDS: Furosemide 20 MG/2 ML VIAL IV ×2 (11:39→17:45)
[2023-07-05] MEDS: Pantoprazole Sodium 40 MG in 0.9% Normal Saline (100mL MB+) 100 ML 330 MG IV (11:40)
[2023-07-05] MEDS: Potassium Chloride 10mEq/100mL 10 MEQ/100 ML IV.SOLN. 100 MEQ IV BOLUS ×3 (12:22→15:03)
[2023-07-05 12:45] LABS: Bedside Glucose 108 mg/dL (74-106)
[2023-07-05] MEDS: Magnesium Sulfate 4gm/100mL 4 GM/100 ML IV.SOLN. IV (13:31)
--- NOTE | 2023-07-05 13:31 | PN.HOSP_ITS ---
Reason for Visit Reason for Visit: Diagnoses Hypo-osmolality and hyponatremia (06/29/23) Pneumonia, unspecified organism (06/29/23) Acute respiratory failure with hypoxia (06/29/23) Hypoxemia (06/29/23) Subjective Subjective Patient seen at bedside this morning, daughter present. Patient was on BiPAP during my encounter. She appeared to be comfortable with no increased work of breathing noted. She did appear slightly more fatigued than yesterday. She notably has not had any nutrition for 4 to 5 days because of her n.p.o. status and significant time on BiPAP. No other acute concerns this morning. Objective Data Objective Data Vital Signs: Vital Signs Temp Pulse Resp BP Pulse Ox O2 Del Method O2 Flow Rate 98.9 F 76 22 H 112/51 L 91 Bi-pap 60 07/05/23 12:00 07/05/23 13:00 07/05/23 13:00 07/05/23 13:00 07/05/23 13:00 07/05/23 13:00 07/05/23 12:00 FiO2 65 07/05/23 13:00 Oxygen Flow Rate (L/min) 60 Oxygen Delivery Method Bi-pap Weight: 63.3 kg Body Mass Index (BMI) 22.4 Intake & Output: Intake and Output for Last 24 Hours 07/03/23 07/04/23 07/05/23 23:59 23:59 23:59 Intake Total 670 / 670 961.67 / 961.67 660 / 660 Output Total 680 / 730 1225 / 1225 440 / 440 Balance -10 / -60 -263.33 / -263.33 220 / 220 Lab / Micro Data 07/05/23 04:21 07/05/23 04:21 Labs: Laboratory Results - last 24 hr 07/05/23 00:05: Vancomycin Trough 22.5 H 07/05/23 04:21: WBC 11.9 H, RBC 3.44 L, Hgb 10.1 L, Hct 32.7 L, MCV 95.1, MCH 29.4, MCHC 30.9 L, RDW Std Deviation 45.2 H, RDW Coeff of Missy 13.2, Plt Count 282, MPV 8.9, Sodium 144, Potassium 3.7, Chloride 106, Carbon Dioxide 34.0 H, Anion Gap 4 L, BUN 23 H, Creatinine 0.67, Estim Creat Clear Calc 40.60, Est GFR (MDRD) Af Amer 108, Est GFR (MDRD) Non-Af 90, BUN/Creatinine Ratio 34.4 H, Glucose 168 H, Calcium 8.8 07/05/23 12:21: POC Glucose 108 H Micro: Microbiology 06/30/23 00:45 Urine, Random Legionella Antigen - Final 06/30/23 00:45 Urine, Random Streptococcus pneumoniae Antigen (M - Final 06/29/23 14:55 Mucosa - Nose Coronavirus COVID-19 PCR - Final 06/29/23 14:55 Mucosa - Nose Respiratory Panel (PCR) - Final ABG Data ABG results: ABG 07/04/23 22:02 Specimen Type ART Sample Site L Radial pH 7.44 Bicarbonate Actual 34.0 H Total CO2 36 Base Excess 10 H O2 Saturation 90 L O2 % 60.0 ABG pCO2 50.1 H ABG pO2 57 L Fam Test Positive O2 Delivery Device BiPAP Vent Mode Not entered Clinical Comments 06/05 12 60% Physical Exam Const alert Constitutional Narrative: Elderly female, chronically ill-appearing, on BiPAP this morning, breathing comfortably but does appear fatigued, no acute distress. General Appearance: cooperative HEENT normocephalic, head/scalp atraumatic, hearing grossly normal bilaterally, nasal mucous membranes and turbinates normal and moist oral mucous membranes Eyes PERRL, EOMs intact bilaterally and conjunctivae normal Neck full ROM, no lymphadenopathy and supple Lymph Lymphatic: no lymphadenopathy noted Chest inspection of chest normal Resp Resp Narrative: Satting in mid 90s on BiPAP, no increased work of breathing noted. Decreased breath sounds throughout bilaterally but no wheezing or crackles noted. Cardio regular rate, regular rhythm, no murmurs and peripheral pulses 2+ throughout GI normal to inspection, nondistended, normoactive bowel sounds, soft to palpation, non-tender and non-distended Back/Spine normal ROM Extremity normal to inspection, full ROM and no pedal edema Skin no rashes or lesions noted Neuro moves all extremities and no focal motor deficits Speech: speech normal Psych affect normal Assessment & Plan Assessment/Plan (1) Hypoxia: (2) Pneumonia: (3) Hyponatremia: PLAN: Plan Patient is an 82-year-old female who presented to [facility] ED on 06/29/2023 with worsening cough, fatigue and shortness of breath. 1. 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 COVID-negative, respiratory PCR panel negative, urine antigens negative. Had worsening of respiratory status on 06/30, suspected due to overload from IV fluids, given IV Lasix and echo was ordered. Echo 07/01 showed EF 70%, diastolic function indeterminate, no significant valve abnormalities. Patient unfortunately had continued mild worsening respiratory status on 07/01, antibiotic coverage broadened to vancomycin and Zosyn. Unfortunately had worsening respiratory status on morning of 07/03, was transferred to the ICU for further management. Suspected that worsening respiratory status is most likely due to progressive bilateral pneumonia. ? Orthopedic Physical Therapist following. Has been on BiPAP 16?10, FiO2 65% since her break on Airvo yesterday. Will try to give another break on Airvo today. Initiated on Solu-Medrol and low-dose IV Lasix given mild worsening today. Notably remains n.p.o., if unable to complete swallow study today will likely need to place NG tube and begin tube feeds, nutrition following. 2. Fall, debility ? PT/OT/case management following. Suspect this is acute worsening on chronic debility. PT/OT recommending long-term care. Will continue to discuss with patient and family. 3. Hyponatremia, improved Suspected secondary to hypervolemic hyponatremia. Sodium joshua of 123 on 06/29. Given dose of tolvaptan on 06/30 with improvement in sodium to 130. Sodium imp roved to normal range on 07/02. ? Nephrology followed. Sodium stable within normal range. Monitor. 4. Concern for dysphagia ? Speech therapy following. Planning for MBSS when oxygen level allows. If unable to complete today, planning for NG tube with tube feeds as noted above. Chronic medical conditions: ? Atrial fibrillation: Continue home Xarelto. DVT prophylaxis: Xarelto CODE STATUS: Full code, verified Expected disposition: TBD Total clinical time spent by myself addressing the patient's medical issues, reviewing all the data, and collaborating with patient's care team: 35 minutes. Charges/Coding Visit Charges Inpatient E&M: 87999 Subs Hosp L2
[2023-07-05 17:24] LABS: Bedside Glucose 163 mg/dL (74-106)
[2023-07-05] MEDS: Atorvastatin Calcium 40 MG Tablet PO (20:25)
[2023-07-05] MEDS: Vancomycin Trough/Random Due 1 LAB MC (23:46)
[2023-07-06] VITALS (32 sets, daily range): BP systolic 98–149; BP diastolic 43–94; PULSE 71–92; RESP 12–36; TEMP 36.6–37.6; O2SAT 90–100; BMI 22.4
[2023-07-06 00:37] LABS: Vancomycin, Trough Level 22.8 ug/mL (5.0-15.0)
[2023-07-06 01:40] LABS: Bedside Glucose 162 mg/dL (74-106)
--- NOTE | 2023-07-06 01:59 | PCM.RX.CS ---
Consult Antibiotic Management Pharmacy has been consulted to manage selected antiobiotic: Vancomycin Type of Intervention Type of Consult: Follow-up Labs Labs: Sodium 144 mmol/L (136-145) 07/05/23 04:21 Potassium 3.7 mmol/L (3.5-5.1) 07/05/23 04:21 Chloride 106 mmol/L (98-107) 07/05/23 04:21 Carbon Dioxide 34.0 mmol/L (21.0-32.0) H 07/05/23 04:21 Anion Gap 4 (5-15) L 07/05/23 04:21 BUN 23 mg/dL (7-18) H 07/05/23 04:21 Creatinine 0.67 mg/dL (0.55-1.02) 07/05/23 04:21 Est GFR (MDRD) Af Amer 108 mL/min (>60) 07/05/23 04:21 Est GFR (MDRD) Non-Af 90 mL/min (>60) 07/05/23 04:21 BUN/Creatinine Ratio 34.4 RATIO (10-20) H 07/05/23 04:21 Glucose 168 mg/dL (74-106) H 07/05/23 04:21 Vancomycin Trough 22.8 ug/mL (5.0-15.0) H 07/05/23 23:25 Microbiology Microbiology: Microbiology 06/30/23 00:45 Urine, Random Legionella Antigen - Final 06/30/23 00:45 Urine, Random Streptococcus pneumoniae Antigen (M - Final 06/29/23 14:55 Mucosa - Nose Coronavirus COVID-19 PCR - Final 06/29/23 14:55 Mucosa - Nose Respiratory Panel (PCR) - Final Goal Trough Goal Trough: 15-20 mcg/mL Pharmacy Plan for Drug Dosing Pharmacy Plan for Drug Dosing: Pharmacy Service will continue to monitor and adjust dosing as required. TROUGH 22.8 @ 11 HOURS. HOLD DOSE AND DRAW RANDOM LEVEL IN 8 HOURS Follow-Up Labs Follow-Up Labs: Trough: Vancomycin Date/Time Labs Ordered Labs to be done on [date and time ordered]: 07/06 @ 0800
[2023-07-06 04:23] LABS: Hematocrit 33.4 % (37-47); Hemoglobin 10.4 g/dL (12.0-15.0); Mean Corp Hgb Conc 31.1 g/dL (32-36); Mean Corpuscular Hgb 29.1 pg (27.0-32.0); Mean Corpuscular Volume 93.6 fL (81-99); Mean Platelet Vol. 9.4 fl (6.2-12.0); Platelet Count 308 K/mm3 (150-450); RBC Distribution Width CV 12.9 % (11.6-14.6); RBC Distribution Width SD 44.5 fl (35.1-43.9); Red Blood Count 3.57 M/mm3 (4.2-5.4); White Blood Count 12.3 K/mm3 (4.4-11.0)
[2023-07-06 04:36] LABS: Anion Gap 6 (5-15); BUN 30 mg/dL (7-18); BUN/Creat Ratio 38.2 RATIO (10-20); Calcium,Total 8.6 mg/dL (8.5-10.1); Chloride 107 mmol/L (98-107); Creatinine, Serum 0.79 mg/dL (0.55-1.02); EST Glomerular Filtration Rate 74 mL/min (>60); Est Glom Filt Rate - Afr Amer 90 mL/min (>60); Glucose 188 mg/dL (74-106); Potassium 3.7 mmol/L (3.5-5.1); Sodium Level 146 mmol/L (136-145)
[2023-07-06 04:39] LABS: Phosphorus 3.7 mg/dL (2.5-4.9)
[2023-07-06] MEDS: Piperacil/Tazobactam 3.375 GM in 0.9% Normal Saline (50mL MB+) 50 ML IV ×3 (05:32→21:37)
[2023-07-06] MEDS: Vancomycin Trough/Random Due 1 LAB MC (05:39)
--- NOTE | 2023-07-06 05:55 | RAD_ITS ---
INDICATION: hypoxia EXAMINATION/TECHNIQUE: X-RAY - XR Chest 1 View COMPARISON: July 03, 2023 FINDINGS: LINES/DEVICES: None. LUNGS: Allowing for difference in technique, there are grossly stable bilateral reticular opacities. There are stable ill-defined opacities throughout the left mid and lower lungs as well. No pneumothorax. MEDIASTINUM AND CARDIOVASCULAR STRUCTURES: Cardiac silhouette not enlarged. Central airways and mediastinal contour are unremarkable. BONES AND SOFT TISSUES: Unremarkable. RAD/Chest 1 View (Portable) IMPRESSION: Stable ill-defined opacities within the left mid and lower lung and bilateral reticular opacities may be secondary to edema and/or an infectious process. Electronically Signed: Kathy Mcgee MD at 9:23 EST ,
[2023-07-06 06:23] LABS: Vancomycin, Random Level 18.4 ug/mL (0.0-15.0)
[2023-07-06] MEDS: Vancomycin HCl 750 MG in 0.9% Normal Saline (250mL Bag) 250 ML 250 MG IV ×2 (06:57→19:57)
[2023-07-06] MEDS: Furosemide 20 MG/2 ML VIAL IV ×2 (11:30→17:51)
[2023-07-06] MEDS: Rivaroxaban 20 MG Tablet PO (11:30)
[2023-07-06] MEDS: guaiFENesin 1,200 MG Tablet 1200 MG PO ×2 (11:30→21:40)
[2023-07-06] MEDS: Pantoprazole Sodium 40 MG in 0.9% Normal Saline (100mL MB+) 100 ML 330 MG IV (11:31)
[2023-07-06] MEDS: amLODIPine 2.5 MG Tablet PO (11:31)
[2023-07-06] MEDS: Flecainide 100 MG Tablet PO ×2 (11:32→21:40)
--- NOTE | 2023-07-06 12:12 | PN.CC_ITS ---
Assessment & Plan Assessment/Plan (1) Acute hypoxemic respiratory failure: PLAN: Plan RECOMMENDATIONS: 1. Some improvement today. She was on 55%FiO 2 on the bipap (down from 65%) and she was able to sit in a chair and remain on Airvo long enough to tolerate speech eval. 2. Cont Diuresis and solumedrol with GI ppx 3. Continue broad-spectrum antimicrobials as ordered. 4. Continue Xarelto per home regimen. IMPRESSIONS: 1. Acute hypoxemic respiratory failure Most likely secondary to progressive bilateral pneumonia. The patient's antimicrobials were just recently broadened to include vancomycin and Zosyn, both of which will be continued. PE seems quite unlikely given that the patient is systemically anticoagulated on Xarelto at her baseline. The patient does have preserved ejection fraction with pulmonary hypertension noted on her echocardiogram. Ultimately, she may benefit from attempts at diuresis. In the interim, the patient will be continued on BiPAP therapy with a goal to wean FiO2 to maintain oxygen saturations at or above 90%. 2. Chronic atrial fibrillation/coronary artery disease/hypert ension/hyperlipidemia Complicates care, management, recovery and prognosis. Continue home medications as indicated. CODE STATUS: Discussed with the patient on July 03. She wishes to remain full code and is agreeable to intubation, if needed. This note was generated with [employer] dictation software. It may contain incorrect words, spelling, and punctuation that were not noted in checking the note before signing. Subjective Subjective She reports feeling better Objective Data Objective Data Vital Signs: Vital Signs Temp Pulse Resp BP Pulse Ox O2 Del Method O2 Flow Rate 36.9 C 74 25 H 120/45 L 94 Bi-pap 60 07/06/23 07:00 07/06/23 07:00 07/06/23 07:00 07/06/23 07:00 07/06/23 07:00 07/06/23 07:00 07/05/23 19:00 FiO2 55 07/06/23 07:00 Oxygen Flow Rate (L/min) 60 Oxygen Delivery Method Bi-pap Weight: 63.3 kg Body Mass Index (BMI) 22.4 Intake & Output: Intake and Output for Last 24 Hours 07/04/23 07/05/23 07/06/23 23:59 23:59 23:59 Intake Total 961.67 / 961.67 1310 / 1310 365 / 365 Output Total 1225 / 1225 1600 / 1600 250 / 250 Balance -263.33 / -263.33 -290 / -290 115 / 115 Lab / Micro Data 07/06/23 04:02 07/06/23 04:02 Labs: Laboratory Results - last 24 hr 07/05/23 12:21: POC Glucose 108 H 07/05/23 16:56: POC Glucose 163 H 07/05/23 23:25: Vancomycin Trough 22.8 H 07/06/23 01:22: POC Glucose 162 H 07/06/23 04:02: WBC 12.3 H, RBC 3.57 L, Hgb 10.4 L, Hct 33.4 L, MCV 93.6, MCH 29.1, MCHC 31.1 L, RDW Std Deviation 44.5 H, RDW Coeff of Missy 12.9, Plt Count 308, MPV 9.4, Sodium 146 H, Potassium 3.7, Chloride 107, Carbon Dioxide 33.0 H, Anion Gap 6, BUN 30 H, Creatinine 0.79, Estim Creat Clear Calc 40.60, Est GFR (MDRD) Af Amer 90, Est GFR (MDRD) Non-Af 74, BUN/Creatinine Ratio 38.2 H, Glucose 188 H, Calcium 8.6, Phosphorus 3.7, Magnesium 3.0 H 07/06/23 05:46: Random Vancomycin 18.4 H Micro: Microbiology 06/30/23 00:45 Urine, Random Legionella Antigen - Final 06/30/23 00:45 Urine, Random Streptococcus pneumoniae Antigen (M - Final 06/29/23 14:55 Mucosa - Nose Coronavirus COVID-19 PCR - Final 06/29/23 14:55 Mucosa - Nose Respiratory Panel (PCR) - Final Radiography Diagnostic Testing: Radiology Impression Chest X-Ray 07/06/23 05:55 IMPRESSION: Stable ill-defined opacities within the left mid and lower lung and bilateral reticular opacities may be secondary to edema and/or an infectious process. Electronically Signed: Kathy Mcgee MD at 9:23 EST , Physical Exam Const alert and no apparent distress Constitutional Narrative: Family present at the bedside. General Appearance: cooperative, ill appearing and frail HEENT normocephalic and head/scalp atraumatic Eyes PERRL, EOMs intact bilaterally and conjunctivae normal Neck supple General: trachea midline Chest inspection of chest normal Resp no use of accessory muscles Effort and Inspection: tachypneic Auscultation: rales Cardio regular rate and regular rhythm GI normal to inspection, nondistended, normoactive bowel sounds Extremity no clubbing, cyanosis or edema Skin no rashes or lesions noted Neuro CN's II-XII intact bilaterally, moves all extremities and no focal motor deficits Psych cooperative and affect normal Charges/Coding Visit Charges Inpatient E&M: 49155 Subs Hosp L3
--- NOTE | 2023-07-06 12:46 | PN.HOSP_ITS ---
Reason for Visit Reason for Visit: Diagnoses Hypo-osmolality and hyponatremia (06/29/23) Pneumonia, unspecified organism (06/29/23) Acute respiratory failure with hypoxia (06/29/23) Hypoxemia (06/29/23) Subjective Subjective Patient seen at bedside this morning, multiple family members present. Patient was sitting in bedside chair with Airvo on. Appeared comfortable, no increased work of breathing noted, in no acute distress. Patient states she feels much more comfortable with the Airvo on a comparison to the BiPAP. She was able to pass a swallow study this morning and is looking forward to getting some nutrition. Patient notably has minimal dyspnea with conversation. She does feel weaker than baseline and is not able to walk without assistance for more than a few steps without getting winded. She otherwise denies any pain or di scomfort. No other acute concerns this morning. Objective Data Objective Data Vital Signs: Vital Signs Temp Pulse Resp BP Pulse Ox O2 Del Method O2 Flow Rate 98.5 F 74 25 H 120/45 L 94 Bi-pap 60 07/06/23 07:00 07/06/23 07:00 07/06/23 07:00 07/06/23 07:00 07/06/23 07:00 07/06/23 07:00 07/05/23 19:00 FiO2 55 07/06/23 07:00 Oxygen Flow Rate (L/min) 60 Oxygen Delivery Method Bi-pap Weight: 63.3 kg Body Mass Index (BMI) 22.4 Intake & Output: Intake and Output for Last 24 Hours 07/04/23 07/05/23 07/06/23 23:59 23:59 23:59 Intake Total 961.67 / 961.67 1310 / 1310 365 / 365 Output Total 1225 / 1225 1600 / 1600 250 / 250 Balance -263.33 / -263.33 -290 / -290 115 / 115 Lab / Micro Data 07/06/23 04:02 07/06/23 04:02 Labs: Laboratory Results - last 24 hr 07/05/23 16:56: POC Glucose 163 H 07/05/23 23:25: Vancomycin Trough 22.8 H 07/06/23 01:22: POC Glucose 162 H 07/06/23 04:02: WBC 12.3 H, RBC 3.57 L, Hgb 10.4 L, Hct 33.4 L, MCV 93.6, MCH 29.1, MCHC 31.1 L, RDW Std Deviation 44.5 H, RDW Coeff of Missy 12.9, Plt Count 308, MPV 9.4, Sodium 146 H, Potassium 3.7, Chloride 107, Carbon Dioxide 33.0 H, Anion Gap 6, BUN 30 H, Creatinine 0.79, Estim Creat Clear Calc 40.60, Est GFR (MDRD) Af Amer 90, Est GFR (MDRD) Non-Af 74, BUN/Creatinine Ratio 38.2 H, Glucose 188 H, Calcium 8.6, Phosphorus 3.7, Magnesium 3.0 H 07/06/23 05:46: Random Vancomycin 18.4 H Micro: Microbiology 06/30/23 00:45 Urine, Random Legionella Antigen - Final 06/30/23 00:45 Urine, Random Streptococcus pneumoniae Antigen (M - Final 06/29/23 14:55 Mucosa - Nose Coronavirus COVID-19 PCR - Final 06/29/23 14:55 Mucosa - Nose Respiratory Panel (PCR) - Final Radiography Diagnostic Testing: Radiology Impression Chest X-Ray 07/06/23 05:55 IMPRESSION: Stable ill-defined opacities within the left mid and lower lung and bilateral reticular opacities may be secondary to edema and/or an infectious process. Electronically Signed: Kathy Mcgee MD at 9:23 EST , Physical Exam Const alert Constitutional Narrative: Elderly female, chronically ill-appearing, on Airvo this morning, sitting comfortably in bedside chair, appears fatigued but otherwise mentating appropriately and conversing normally, no acute distress. General Appearance: cooperative HEENT normocephalic, head/scalp atraumatic, hearing grossly normal bilaterally, nasal mucous membranes and turbinates normal and moist oral mucous membranes Eyes PERRL, EOMs intact bilaterally and conjunctivae normal Neck full ROM, no lymphadenopathy and supple Lymph Lymphatic: no lymphadenopathy noted Chest inspection of chest normal Resp Resp Narrative: Satting in mid 90s on Airvo, no increased work of breathing noted. Decreased breath sounds throughout bilaterally but no wheezing or crackles noted. Cardio regular rate, regular rhythm, no murmurs and peripheral pulses 2+ throughout GI normal to inspection, nondistended, normoactive bowel sounds, soft to palpation, non-tender and non-distended Back/Spine normal ROM Extremity normal to inspection, full ROM and no pedal edema Skin no rashes or lesions noted Neuro moves all extremities and no focal motor deficits Speech: speech normal Psych affect normal Assessment & Plan Assessment/Plan (1) Hypoxia: (2) Pneumonia: (3) Hyponatremia: PLAN: Plan Patient is an 82-year-old female who presented to [facility] ED on 06/29/2023 with worsening cough, fatigue and shortness of breath. 1. 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 COVID-negative, respiratory PCR panel negative, urine antigens negative. Had worsening of respiratory status on 06/30, suspected due to overload from IV fluids, given IV Lasix and echo was ordered. Echo 07/01 showed EF 70%, diastolic function indeterminate, no significant valve abnormalities. Patient unfortunately had continued mild worsening respiratory status on 07/01, antibiotic coverage broadened to vancomycin and Zosyn. Unfortunately had worsening respiratory status on morning of 07/03, was transferred to the ICU for further management. Suspected that worsening respiratory status is most likely due to progressive bilateral pneumonia. ? Inspector Integrated [employer] following. Some improvement noted on 07/06. Good saturations on Airvo, weaning as able. Continue IV Solu-Medrol, low-dose IV Lasix and IV antibiotics. Monitor closely. 2. Fall, debility ? PT/OT/case management following. Suspect this is acute worsening on chronic debility. PT/OT recommending long-term care. Will continue to discuss with patient and family. 3. Hyponatremia, improved Suspected secondary to hypervolemic hyponatremia. Sodium joshua of 123 on 06/29. Given dose of tolvaptan on 06/30 with improvement in sodium to 130. Sodium improved to normal range on 07/02. ? Nephrology followed. Sodium stable within normal range. Monitor. 4. Dysphagia, improved ? Speech therapy following. Patient was able to complete a bedside swallow evaluation on 07/06, cleared for a diet. Nutrition following. Encouraged p.o. intake as tolerated. Chronic medical conditions: ? Atrial fibrillation: Continue home Xarelto. DVT prophylaxis: Xarelto CODE STATUS: Full code, verified Expected disposition: TBD Total clinical time spent by myself addressing the patient's medical issues, reviewing all the data, and collaborating with patient's care team: 35 minutes. Charges/Coding Visit Charges Inpatient E&M: 90777 Subs Hosp L2
[2023-07-06] MEDS: 0.9% Saline Lock 10 ML Syringe IV ×2 (14:46→19:10)
[2023-07-06] MEDS: Potassium Chloride 10mEq/100mL 10 MEQ/100 ML IV.SOLN. 100 MEQ IV BOLUS (19:07)
[2023-07-06] MEDS: Potassium Chloride 10mEq/100mL 10 MEQ/100 ML IV.SOLN. 80 MEQ IV BOLUS (21:37)
[2023-07-06] MEDS: Atorvastatin Calcium 40 MG Tablet PO (21:40)
[2023-07-07] VITALS (34 sets, daily range): BP systolic 105–154; BP diastolic 44–99; PULSE 65–92; RESP 12–33; TEMP 36.5–37.3; O2SAT 82–100; BMI 22.3
[2023-07-07 00:39] LABS: Bedside Glucose 275 mg/dL (74-106)
[2023-07-07] MEDS: Piperacil/Tazobactam 3.375 GM in 0.9% Normal Saline (50mL MB+) 50 ML IV ×3 (05:47→20:40)
[2023-07-07] MEDS: 0.9% Saline Lock 10 ML Syringe IV ×4 (05:55→20:44)
[2023-07-07] MEDS: Vancomycin HCl 750 MG in 0.9% Normal Saline (250mL Bag) 250 ML 250 MG IV ×2 (06:00→20:40)
[2023-07-07 06:34] LABS: Anion Gap 0 (5-15); BUN 34 mg/dL (7-18); BUN/Creat Ratio 42.8 RATIO (10-20); Calcium,Total 9.1 mg/dL (8.5-10.1); Chloride 110 mmol/L (98-107); Creatinine, Serum 0.79 mg/dL (0.55-1.02); EST Glomerular Filtration Rate 74 mL/min (>60); Est Glom Filt Rate - Afr Amer 89 mL/min (>60); Glucose 252 mg/dL (74-106); Magnesium 2.8 mg/dL (1.6-2.6); Potassium 3.5 mmol/L (3.5-5.1); Sodium Level 145 mmol/L (136-145)
[2023-07-07 06:38] LABS: Phosphorus 3.2 mg/dL (2.5-4.9)
[2023-07-07 09:01] LABS: Bedside Glucose 214 mg/dL (74-106)
[2023-07-07] MEDS: Furosemide 20 MG/2 ML VIAL IV (10:48)
[2023-07-07] MEDS: guaiFENesin 1,200 MG Tablet 1200 MG PO ×2 (10:48→20:52)
[2023-07-07] MEDS: amLODIPine 2.5 MG Tablet PO (10:48)
[2023-07-07] MEDS: Rivaroxaban 20 MG Tablet PO (10:48)
[2023-07-07] MEDS: Flecainide 100 MG Tablet PO ×2 (10:49→20:51)
[2023-07-07] MEDS: Pantoprazole Sodium 40 MG in 0.9% Normal Saline (100mL MB+) 100 ML 330 MG IV (10:52)
[2023-07-07 10:59] LABS: Base Excess 8 mmol/L (-2 to +2); Bicarbonate 30.8 mmol/L (22-26); Blood Gas Specimen Type ART; Comment airvo 60lpm; Mode Not entered; O2 Delivery Device HFNC; PO2 50 mmHG (75-100); SITE R Brach; SO2 88 % (95-99); Total Carbon Dioxide 32 mmol/L; pCO2 38.3 mmHg (35-45); pH 7.51 (7.35-7.45)
--- NOTE | 2023-07-07 11:33 | PCM.PN.INT ---
Assessment & Plan Assessment/Plan (1) Acute hypoxemic respiratory failure: PLAN: Plan RECOMMENDATIONS: 1. Some improvement today. She was on 55%FiO 2 on the bipap (down from 65%) and she was able to participate with PT and remained on Airvo now FiO2 down to 45%. 2. Will hold lasix today as her bicarb is trending up and her pH on ABG was 7.5 today. Will reduce solumedrol to 40 q8 3. Continue broad-spectrum antimicrobials as ordered. 4. Continue Xarelto per home regimen. 5. She will need chest CT once more stable for better evaluation of lung parenchyma 6. She passed swallow 7. ISS for elevated BS likely steroid related IMPRESSIONS: 1. Acute hypoxemic respiratory failure Most likely secondary to progressive bilateral pneumonia vs pulmonary fibrosis. PE seems quite unlikely given that the patient is systemically anticoagulated on Xarelto at her baseline. The patient does have preserved ejection fraction with pulmonary hypertension noted on her echocardiogram. Ultimately, she may benefit from attempts at diuresis. In the interim, the patient will be continued on BiPAP therapy with a goal to wean FiO2 to maintain oxygen saturations at or above 90%. 2. Chronic atrial fibrillation/coronary artery disease/hypertension/hyperlipidemia Complicates care, management, recovery and prognosis. Continue home medications as indicated. CODE STATUS: full code This note was generated with [employer] dictation software. It may contain incorrect words, spelling, and punctuation that were not noted in checking the note before signing. Subjective Subjective Continues to feel better. Tolerating Airvo most of the day and bipap at night. Objective Data Objective Data Vital Signs: Vital Signs Temp Pulse Resp BP Pulse Ox O2 Del Method O2 Flow Rate 36.7 C 92 26 H 136/54 H 96 Airvo 60 07/07/23 10:00 07/07/23 10:00 07/07/23 10:00 07/07/23 10:00 07/07/23 10:00 07/07/23 10:00 07/07/23 10:00 FiO2 45 07/07/23 10:00 Oxygen Flow Rate (L/min) 60 Oxygen Delivery Method Airvo Weight: 63 kg Body Mass Index (BMI) 22.3 Intake & Output: Intake and Output for Last 24 Hours 07/05/23 07/06/23 07/07/23 23:59 23:59 23:59 Intake Total 1310 / 1310 1300.00 / 1300.00 150 / 150 Output Total 1600 / 1600 1150 / 1150 250 / 250 Balance -290 / -290 150.00 / 150.00 -100 / -100 Lab / Micro Data 07/06/23 04:02 07/07/23 05:55 Labs: Laboratory Results - last 24 hr 07/07/23 00:06: POC Glucose 275 H 07/07/23 05:55: Sodium 145, Potassium 3.5, Chloride 110 H, Carbon Dioxide 35.0 H, Anion Gap 0 L, BUN 34 H, Creatinine 0.79, Estim Creat Clear Calc 40.60, Est GFR (MDRD) Af Amer 89, Est GFR (MDRD) Non-Af 74, BUN/Creatinine Ratio 42.8 H, Glucose 252 H, Calcium 9.1, Phosphorus 3.2, Magnesium 2.8 H 07/07/23 08:42: POC Glucose 214 H Micro: Microbiology 06/30/23 00:45 Urine, Random Legionella Antigen - Final 06/30/23 00:45 Urine, Random Streptococcus pneumoniae Antigen (M - Final 06/29/23 14:55 Mucosa - Nose Coronavirus COVID-19 PCR - Final 06/29/23 14:55 Mucosa - Nose Respiratory Panel (PCR) - Final ABG Data ABG results: ABG 07/07/23 10:54 Specimen Type ART Sample Site R Brach pH 7.51 H Bicarbonate Actual 30.8 H Total CO2 32 Base Excess 8 H O2 Saturation 88 L O2 % 42.0 ABG pCO2 38.3 ABG pO2 50 L O2 Delivery Device HFNC Vent Mode Not entered Clinical Comments airvo 60lpm Physical Exam Const alert and no apparent distress Constitutional Narrative: Family present at the bedside. General Appearance: cooperative, ill appearing and frail HEENT normocephalic and head/scalp atraumatic Eyes PERRL, EOMs intact bilaterally and conjunctivae normal Neck supple General: trachea midline Resp no use of accessory muscles Auscultation: rales Cardio regular rate and regular rhythm GI normal to inspection, nondistended, normoactive bowel sounds Extremity no clubbing, cyanosis or edema Skin no rashes or lesions noted Neuro moves all extremities and no focal motor deficits Psych cooperative and affect normal Charges/Coding Visit Charges Inpatient E&M: 26068 Subs Hosp L3
--- NOTE | 2023-07-07 11:46 | PCM.PN.HOSP ---
Reason for Visit Reason for Visit: Diagnoses Hypo-osmolality and hyponatremia (06/29/23) Pneumonia, unspecified organism (06/29/23) Acute respiratory failure with hypoxia (06/29/23) Hypoxemia (06/29/23) Subjective Subjective Patient seen at bedside this morning. Sitting comfortably in bedside chair, on Airvo at similar requirements yesterday, conversing normally, no acute distress. Patient was just working with speech therapy, continued to have some choking with thin liquids, plan was to continue with nectar thick diet. Nursing staff noted that they have had difficulty getting accurate O2 readings for patient with multiple O2 monitor sites. Otherwise, patient denies any fevers or chills. She continues to have fairly significant shortness of breath with exertion. No other acute concerns this morning. Objective Data Objective Data Vital Signs: Vital Signs Temp Pulse Resp BP Pulse Ox O2 Del Method O2 Flow Rate 98.1 F 92 26 H 136/54 H 96 Airvo 60 07/07/23 10:00 07/07/23 10:00 07/07/23 10:00 07/07/23 10:00 07/07/23 10:00 07/07/23 10:00 07/07/23 10:00 FiO2 45 07/07/23 10:00 Oxygen Flow Rate (L/min) 60 Oxygen Delivery Method Airvo Weight: 63 kg Body Mass Index (BMI) 22.3 Intake & Output: Intake and Output for Last 24 Hours 07/05/23 07/06/23 07/07/23 23:59 23:59 23:59 Intake Total 1310 / 1310 1300.00 / 1300.00 350 / 350 Output Total 1600 / 1600 1150 / 1150 525 / 525 Balance -290 / -290 150.00 / 150.00 -175 / -175 Lab / Micro Data 07/06/23 04:02 07/07/23 05:55 Labs: Laboratory Results - last 24 hr 07/07/23 00:06: POC Glucose 275 H 07/07/23 05:55: Sodium 145, Potassium 3.5, Chloride 110 H, Carbon Dioxide 35.0 H, Anion Gap 0 L, BUN 34 H, Creatinine 0.79, Estim Creat Clear Calc 40.60, Est GFR (MDRD) Af Amer 89, Est GFR (MDRD) Non-Af 74, BUN/Creatinine Ratio 42.8 H, Glucose 252 H, Calcium 9.1, Phosphorus 3.2, Magnesium 2.8 H 07/07/23 08:42: POC Glucose 214 H Micro: Microbiology 06/30/23 00:45 Urine, Random Legionella Antigen - Final 06/30/23 00:45 Urine, Random Streptococcus pneumoniae Antigen (M - Final 06/29/23 14:55 Mucosa - Nose Coronavirus COVID-19 PCR - Final 06/29/23 14:55 Mucosa - Nose Respiratory Panel (PCR) - Final ABG Data ABG results: ABG 07/07/23 10:54 Specimen Type ART Sample Site R Brach pH 7.51 H Bicarbonate Actual 30.8 H Total CO2 32 Base Excess 8 H O2 Saturation 88 L O2 % 42.0 ABG pCO2 38.3 ABG pO2 50 L O2 Delivery Device HFNC Vent Mode Not entered Clinical Comments airvo 60lpm Physical Exam Const alert Constitutional Narrative: Elderly female, chronically ill-appearing, on Airvo this morning, sitting comfortably in bedside chair, appears fatigued but otherwise mentating appropriately and conversing normally, no acute distress. General Appearance: cooperative HEENT normocephalic, head/scalp atraumatic, hearing grossly normal bilaterally, nasal mucous membranes and turbinates normal and moist oral mucous membranes Eyes PERRL, EOMs intact bilaterally and conjunctivae normal Neck full ROM, no lymphadenopathy and supple Lymph Lymphatic: no lymphadenopathy noted Chest inspection of chest normal Resp Resp Narrative: Satting in mid 90s on Airvo, no increased work of breathing noted. Decreased breath sounds throughout bilaterally but no wheezing or crackles noted. Cardio regular rate, regular rhythm, no murmurs and peripheral pulses 2+ throughout GI normal to inspection, nondistended, normoactive bowel sounds, soft to palpation, non-tender and non-distended Back/Spine normal ROM Extremity normal to inspection, full ROM and no pedal edema Skin no rashes or lesions noted Neuro moves all extremities and no focal motor deficits Speech: speech normal Psych affect normal Assessment & Plan Assessment/Plan (1) Hypoxia: (2) Pneumonia: (3) Hyponatremia: PLAN: Plan Patient is an 82-year-old female who presented to [facility] ED on 06/29/2023 with worsening cough, fatigue and shortness of breath. 1. 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 COVID-negative, respiratory PCR panel negative, urine antigens negative. Had worsening of respiratory status on 06/30, suspected due to overload from IV fluids, given IV Lasix and echo was ordered. Echo 07/01 showed EF 70%, diastolic function indeterminate, no significant valve abnormalities. Patient unfortunately had continued mild worsening respiratory status on 07/01, antibiotic coverage broadened to vancomycin and Zosyn. Unfortunately had worsening respiratory status on morning of 07/03, was transferred to the ICU for further management. Suspected that worsening respiratory status is most likely due to progressive bilateral pneumonia. ? Salicylic Acid Blender following. Continuing to show mild improvement, weaning Airvo as able. ABG 07/07 showed pH 7.5, pO2 50 on Airvo at 45% FiO2. Holding Lasix today as bicarb is trending up, reduced Solu-Medrol to 40 mg every 8 hours. Continue broad-spectrum antibiotics. Will need CT chest once more stable for better evaluation of lung parenchyma. Appears that patient may require a longer wean from oxygen, may need to discuss LTAC with patient and family in coming days. 2. Fall, debility ? PT/OT/case management following. Suspect this is acute worsening on chronic debility. PT/OT recommending long-term care. Will continue to discuss with patient and family. 3. Hyponatremia, improved Suspected secondary to hypervolemic hyponatremia. Sodium joshua of 123 on 06/29. Given dose of tolvaptan on 06/30 with improvement in sodium to 130. Sodium improved to normal range on 07/02. ? Nephrology followed. Sodium stable within normal range. Monitor. 4. Dysphagia, improved ? Speech therapy following. Patient was able to complete a bedside swallow evaluation on 07/06, cleared for a nectar thick diet. Nutrition following. Encouraged p.o. intake as tolerated. Chronic medical conditions: ? Atrial fibrillation: Continue home Xarelto. DVT prophylaxis: Xarelto CODE STATUS: Full code, verified Expected disposition: TBD Total clinical time spent by myself addressing the patient's medical issues, reviewing all the data, and collaborating with patient's care team: 35 minutes. Charges/Coding Visit Charges Inpatient E&M: 66732 Subs Hosp L2
[2023-07-07] MEDS: Insulin Lispro 100 UNIT/ML INSULN.PEN SC ×3 (12:48→20:52)
[2023-07-07 13:01] LABS: Bedside Glucose 265 mg/dL (74-106)
[2023-07-07] MEDS: Vancomycin Trough/Random Due 1 LAB MC (17:54)
[2023-07-07 18:16] LABS: Bedside Glucose 234 mg/dL (74-106)
[2023-07-07 19:57] LABS: Vancomycin, Trough Level 18.3 ug/mL (5.0-15.0)
[2023-07-07] MEDS: Atorvastatin Calcium 40 MG Tablet PO (20:52)
--- NOTE | 2023-07-07 21:41 | PCM.RX.CS ---
Consult Antibiotic Management Pharmacy has been consulted to manage selected antiobiotic: Vancomycin Type of Intervention Type of Consult: Follow-up Labs Labs: Sodium 145 mmol/L (136-145) 07/07/23 05:55 Potassium 3.5 mmol/L (3.5-5.1) 07/07/23 05:55 Chloride 110 mmol/L (98-107) H 07/07/23 05:55 Carbon Dioxide 35.0 mmol/L (21.0-32.0) H 07/07/23 05:55 Anion Gap 0 (5-15) L 07/07/23 05:55 BUN 34 mg/dL (7-18) H 07/07/23 05:55 Creatinine 0.79 mg/dL (0.55-1.02) 07/07/23 05:55 Est GFR (MDRD) Af Amer 89 mL/min (>60) 07/07/23 05:55 Est GFR (MDRD) Non-Af 74 mL/min (>60) 07/07/23 05:55 BUN/Creatinine Ratio 42.8 RATIO (10-20) H 07/07/23 05:55 Glucose 252 mg/dL (74-106) H 07/07/23 05:55 Vancomycin Trough 18.3 ug/mL (5.0-15.0) H 07/07/23 19:00 Random Vancomycin 18.4 ug/mL (0.0-15.0) H 07/06/23 05:46 Microbiology Microbiology: Microbiology 06/30/23 00:45 Urine, Random Legionella Antigen - Final 06/30/23 00:45 Urine, Random Streptococcus pneumoniae Antigen (M - Final 06/29/23 14:55 Mucosa - Nose Coronavirus COVID-19 PCR - Final 06/29/23 14:55 Mucosa - Nose Respiratory Panel (PCR) - Final Goal Trough Goal Trough: 15-20 mcg/mL Pharmacy Plan for Drug Dosing Pharmacy Plan for Drug Dosing: Pharmacy Service will continue to monitor and adjust dosing as required. TROUGH 18.3 @ 13 HOURS. NO CHANGES, FOLLOW UP TROUGH IN 2 DAYS Follow-Up Labs Follow-Up Labs: Trough: Vancomycin Date/Time Labs Ordered Labs to be done on [date and time ordered]: 07/09 @ 9795
[2023-07-07 21:45] LABS: Bedside Glucose 312 mg/dL (74-106)
[2023-07-07 23:17] LABS: Hematocrit 34.4 % (37-47); Hemoglobin 10.4 g/dL (12.0-15.0); Mean Corp Hgb Conc 30.2 g/dL (32-36); Mean Corpuscular Hgb 29.6 pg (27.0-32.0); Platelet Count 336 K/mm3 (150-450); RBC Distribution Width CV 13.3 % (11.6-14.6); RBC Distribution Width SD 48.2 fl (35.1-43.9); Red Blood Count 3.51 M/mm3 (4.2-5.4); White Blood Count 17.8 K/mm3 (4.4-11.0)
[2023-07-07] MEDS: Menthol/Lanolin/Calamine/Znox 113 GM Tube 1 APPLIC TOPICAL (23:41)
[2023-07-08] VITALS (24 sets, daily range): BP systolic 124–156; BP diastolic 40–65; PULSE 69–88; RESP 12–30; TEMP 36.4–37.5; O2SAT 92–100; BMI 22.5; BMI 22.6
[2023-07-08 05:09] LABS: Anion Gap 4 (5-15); BUN 26 mg/dL (7-18); BUN/Creat Ratio 36.6 RATIO (10-20); Calcium,Total 8.8 mg/dL (8.5-10.1); Chloride 110 mmol/L (98-107); Creatinine, Serum 0.71 mg/dL (0.55-1.02); EST Glomerular Filtration Rate 84 mL/min (>60); Est Glom Filt Rate - Afr Amer 101 mL/min (>60); Glucose 233 mg/dL (74-106); Magnesium 2.6 mg/dL (1.6-2.6); Potassium 3.4 mmol/L (3.5-5.1); Sodium Level 148 mmol/L (136-145)
[2023-07-08] MEDS: Piperacil/Tazobactam 3.375 GM in 0.9% Normal Saline (50mL MB+) 50 ML IV ×3 (05:22→21:14)
[2023-07-08] MEDS: Vancomycin HCl 750 MG in 0.9% Normal Saline (250mL Bag) 250 ML 250 MG IV ×2 (05:30→18:54)
[2023-07-08 06:57] LABS: Hematocrit 33.8 % (37-47); Hemoglobin 10.4 g/dL (12.0-15.0); Mean Corp Hgb Conc 30.8 g/dL (32-36); Mean Corpuscular Volume 94.2 fL (81-99); Mean Platelet Vol. 9.7 fl (6.2-12.0); Platelet Count 309 K/mm3 (150-450); RBC Distribution Width CV 13.1 % (11.6-14.6); RBC Distribution Width SD 45.8 fl (35.1-43.9); Red Blood Count 3.59 M/mm3 (4.2-5.4); White Blood Count 17.6 K/mm3 (4.4-11.0)
[2023-07-08] MEDS: Potassium Chloride Oral Tablet 20 MEQ 40 MEQ PO (08:21)
[2023-07-08] MEDS: Insulin Lispro 100 UNIT/ML INSULN.PEN SC ×4 (08:22→21:27)
[2023-07-08] MEDS: guaiFENesin 1,200 MG Tablet 1200 MG PO ×2 (08:22→21:27)
[2023-07-08] MEDS: Aspirin E.C. 81 MG Tablet PO (08:22)
[2023-07-08] MEDS: amLODIPine 2.5 MG Tablet PO (08:22)
[2023-07-08] MEDS: Flecainide 100 MG Tablet PO ×2 (08:22→21:26)
[2023-07-08] MEDS: Rivaroxaban 20 MG Tablet PO (08:22)
[2023-07-08] MEDS: Menthol/Lanolin/Calamine/Znox 113 GM Tube 1 APPLIC TOPICAL ×2 (08:23→21:14)
[2023-07-08 08:35] LABS: Bedside Glucose 172 mg/dL (74-106)
--- NOTE | 2023-07-08 09:05 | PCM.PN.HOSP ---
Subjective Subjective Doing well, respiratory status stable on BiPAP this morning. Objective Data Objective Data Vital Signs: Vital Signs Temp Pulse Resp BP Pulse Ox O2 Del Method O2 Flow Rate 98.4 F 71 30 H 126/55 H 95 Bi-pap 30 07/08/23 06:00 07/08/23 07:19 07/08/23 07:19 07/08/23 06:00 07/08/23 07:19 07/08/23 06:00 07/08/23 06:00 FiO2 30 07/08/23 07:19 Oxygen Flow Rate (L/min) 30 Oxygen Delivery Method Bi-pap Weight: 141 lb 1.533 oz Body Mass Index (BMI) 22.6 Intake & Output: Intake and Output for Last 24 Hours 07/07/23 07/08/23 07/09/23 03:59 03:59 03:59 Intake Total 1400.00 / 1400.00 1270 / 1270 505 / 505 Output Total 1150 / 1150 1175 / 1175 575 / 575 Balance 250.00 / 250.00 95 / 95 -70 / -70 Lab / Micro Data 07/08/23 04:20 07/08/23 04:20 Labs: Laboratory Results - last 24 hr 07/07/23 05:55: WBC 17.8 H, RBC 3.51 L, Hgb 10.4 L, Hct 34.4 L, MCV 98.0, MCH 29.6, MCHC 30.2 L, RDW Std Deviation 48.2 H, RDW Coeff of Missy 13.3, Plt Count 336, MPV 10.0 07/07/23 12:42: POC Glucose 265 H 07/07/23 17:51: POC Glucose 234 H 07/07/23 19:00: Vancomycin Trough 18.3 H 07/07/23 20:51: POC Glucose 312 H 07/08/23 04:20: WBC 17.6 H, RBC 3.59 L, Hgb 10.4 L, Hct 33.8 L, MCV 94.2, MCH 29.0, MCHC 30.8 L, RDW Std Deviation 45.8 H, RDW Coeff of Missy 13.1, Plt Count 309, MPV 9.7, Sodium 148 H, Potassium 3.4 L, Chloride 110 H, Carbon Dioxide 34.0 H, Anion Gap 4 L, BUN 26 H, Creatinine 0.71, Estim Creat Clear Calc 40.60, Est GFR (MDRD) Af Amer 101, Est GFR (MDRD) Non-Af 84, BUN/Creatinine Ratio 36.6 H, Glucose 233 H, Calcium 8.8, Magnesium 2.6 07/08/23 08:14: POC Glucose 172 H Micro: Microbiology 06/30/23 00:45 Urine, Random Legionella Antigen - Final 06/30/23 00:45 Urine, Random Streptococcus pneumoniae Antigen (M - Final 06/29/23 14:55 Mucosa - Nose Coronavirus COVID-19 PCR - Final 06/29/23 14:55 Mucosa - Nose Respiratory Panel (PCR) - Final ABG Data ABG results: ABG 07/07/23 10:54 Specimen Type ART Sample Site R Brach pH 7.51 H Bicarbonate Actual 30.8 H Total CO2 32 Base Excess 8 H O2 Saturation 88 L O2 % 42.0 ABG pCO2 38.3 ABG pO2 50 L O2 Delivery Device HFNC Vent Mode Not entered Clinical Comments airvo 60lpm Physical Exam Narrative General: Alert, Oriented x3, Cooperative, No apparent distress HEENT: Atraumatic, PERRLA, EOMI, Normocephalic Oral: Moist Mucosa Neck: Supple, No JVD Lungs: Diminished, Normal air movement, No rhonchi, No wheeze, No rales Cardiovascular: Regular rate, Regular Rhythm, Normal S1, Normal S2, murmurs Abdomen: Soft, Non Tender, Non-Distended, No Hepato-splenomegaly Extremities: No edema, Capillary Refill Less than 3 Seconds Skin: No rashes, No breakdown Musculoskeletal: No Tenderness to Palpation of Joints or Extremities Neurological: Cranial nerves II-XII grossly intact, Motor Exam 5/5 strength throughout, Sensory exam intact to light touch and pain Psych/Mental Status: Normal Affect, Appropriate Assessment & Plan Assessment/Plan (1) Hypoxia: (2) Pneumonia: (3) Hyponatremia: PLAN: Plan 1. 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 COVID-negative, respiratory PCR panel negative, urine antigens negative. Had worsening of respiratory status on 06/30, suspected due to overload from IV fluids, given IV Lasix and echo was ordered. Echo 07/01 showed EF 70%, diastolic function indeterminate, no significant valve abnormalities. Patient unfortunately had continued mild worsening respiratory status on 07/01, antibiotic coverage broadened to vancomycin and Zosyn. Unfortunately had worsening respiratory status on morning of 07/03, was transferred to the ICU for further management. Suspected that worsening respiratory status is most likely due to progressive bilateral pneumonia. ? Motorboat Mechanic Inboard/Outboard following. Continuing to show mild improvement, weaning Airvo as able. ABG 07/07 showed pH 7.5, pO2 50 on Airvo at 45% FiO2. Holding Lasix today as bicarb is trending up, reduced Solu-Medrol to 40 mg every 8 hours. Continue broad-spectrum antibiotics. Will need CT chest once more stable for better evaluation of lung parenchyma. Appears that patient may require a longer wean from oxygen, may need to discuss LTAC with patient and family in coming days. 07/08/2023: Appreciate pulmonology's assistance continue with IV antibiotics and IV Lasix as well as steroids 2. Fall, debility ? PT/OT/case management following. Suspect this is acute worsening on chronic debility. PT/OT recommending long-term care. Will continue to discuss with patient and family. 3. Hyponatremia, improved Suspected secondary to hypervolemic hyponatremia. Sodium joshua of 123 on 06/29. Given dose of tolvaptan on 06/30 with improvement in sodium to 130. Sodium improved to normal range on 07/02. ? Nephrology followed. Sodium stable within normal range. Monitor. 4. Dysphagia, improved ? Speech therapy following. Patient was able to complete a bedside swallow evaluation on 07/06, cleared for a nectar thick diet. Nutrition following. Encouraged p.o. intake as tolerated. Chronic medical conditions: ? Atrial fibrillation: Continue home Xarelto. DVT: Xarelto Charges/Coding Visit Charges Inpatient E&M: 71486 Subs Hosp L2
--- NOTE | 2023-07-08 09:46 | PCM.PN.INT ---
Assessment & Plan Assessment/Plan (1) Acute hypoxemic respiratory failure: PLAN: Plan RECOMMENDATIONS: 1. Wean oxygen as tolerated. Transition to high flow nasal cannula for able to make it to 40% on Airvo 2. Wean Solu-Medrol 3. Complete 10 days of antibiotics 4. Continue Xarelto per home regimen. 5. Wean steroids 6. Possible CT chest tomorrow IMPRESSIONS: 1. Acute hypoxemic respiratory failure Most likely secondary to progressive bilateral pneumonia vs pulmonary fibrosis. PE seems quite unlikely given that the patient is systemically anticoagulated on Xarelto at her baseline. The patient does have preserved ejection fraction with pulmonary hypertension noted on her echocardiogram. Will decrease diuretics today. In the interim, the patient will be continued on BiPAP therapy with a goal to wean FiO2 to maintain oxygen saturations at or above 90%. Patient will likely need a CT scan without contrast later in the hospitalization for characterization of lung disease 2. Chronic atrial fibrillation/coronary artery disease/hypertension/hyperlipidemia Complicates care, management, recovery and prognosis. Continue home medications as indicated. Electrolytes will be repleted as tolerated. Patient is fully anticoagulated at baseline. May need to readdress CODE STATUS if pulmonary fibrosis and pulmonary hypertension are confirmed as accurate once past the acute stage Subjective Subjective Patient did okay overnight. Patient did tolerate BiPAP with sleep, but is still requiring Airvo during the day. Patient is not reporting any pain. Patient does have dyspnea on exertion. Patient continues to have a modified diet and is asking for real food. Objective Data Objective Data Vital Signs: Vital Signs Temp Pulse Resp BP Pulse Ox O2 Del Method O2 Flow Rate 36.9 C 71 30 H 126/55 H 95 Bi-pap 30 07/08/23 06:00 07/08/23 07:19 07/08/23 07:19 07/08/23 06:00 07/08/23 07:19 07/08/23 06:00 07/08/23 06:00 FiO2 30 07/08/23 07:19 Oxygen Flow Rate (L/min) 30 Oxygen Delivery Method Bi-pap Weight: 64 kg Body Mass Index (BMI) 22.6 Intake & Output: Intake and Output for Last 24 Hours 07/06/23 07/07/23 07/08/23 23:59 23:59 23:59 Intake Total 1300.00 / 1300.00 1370 / 1370 555 / 555 Output Total 1150 / 1150 1175 / 1175 575 / 575 Balance 150.00 / 150.00 195 / 195 -20 / -20 Lab / Micro Data Attestation: I reviewed the patient's lab results. 07/08/23 04:20 07/08/23 04:20 Labs: Laboratory Results - last 24 hr 07/07/23 05:55: WBC 17.8 H, RBC 3.51 L, Hgb 10.4 L, Hct 34.4 L, MCV 98.0, MCH 29.6, MCHC 30.2 L, RDW Std Deviation 48.2 H, RDW Coeff of Missy 13.3, Plt Count 336, MPV 10.0 07/07/23 12:42: POC Glucose 265 H 07/07/23 17:51: POC Glucose 234 H 07/07/23 19:00: Vancomycin Trough 18.3 H 07/07/23 20:51: POC Glucose 312 H 07/08/23 04:20: WBC 17.6 H, RBC 3.59 L, Hgb 10.4 L, Hct 33.8 L, MCV 94.2, MCH 29.0, MCHC 30.8 L, RDW Std Deviation 45.8 H, RDW Coeff of Missy 13.1, Plt Count 309, MPV 9.7, Sodium 148 H, Potassium 3.4 L, Chloride 110 H, Carbon Dioxide 34.0 H, Anion Gap 4 L, BUN 26 H, Creatinine 0.71, Estim Creat Clear Calc 40.60, Est GFR (MDRD) Af Amer 101, Est GFR (MDRD) Non-Af 84, BUN/Creatinine Ratio 36.6 H, Glucose 233 H, Calcium 8.8, Magnesium 2.6 07/08/23 08:14: POC Glucose 172 H Micro: Microbiology 06/30/23 00:45 Urine, Random Legionella Antigen - Final 06/30/23 00:45 Urine, Random Streptococcus pneumoniae Antigen (M - Final 06/29/23 14:55 Mucosa - Nose Coronavirus COVID-19 PCR - Final 06/29/23 14:55 Mucosa - Nose Respiratory Panel (PCR) - Final ABG Data ABG results: ABG 07/07/23 10:54 Specimen Type ART Sample Site R Brach pH 7.51 H Bicarbonate Actual 30.8 H Total CO2 32 Base Excess 8 H O2 Saturation 88 L O2 % 42.0 ABG pCO2 38.3 ABG pO2 50 L O2 Delivery Device HFNC Vent Mode Not entered Clinical Comments airvo 60lpm Physical Exam Const alert and oriented x3 Constitutional Narrative: Good BiPAP synchrony on initial evaluation. Tolerating Airvo on reassessment. General Appearance: cooperative and frail HEENT normocephalic and head/scalp atraumatic Eyes PERRL, EOMs intact bilaterally and conjunctivae normal Neck full ROM, no lymphadenopathy and supple Resp Auscultation: diminished lung sounds; Negative for rales, rhonchi or wheezes Cardio regular rate, regular rhythm, no murmurs, no rub and no gallops GI normal to inspection, nondistended, normoactive bowel sounds, soft to palpation, non-tender and non-distended Back/Spine normal ROM Extremity normal to inspection, full ROM and no clubbing, cyanosis or edema Skin no rashes or lesions noted Neuro moves all extremities and no focal motor deficits Speech: speech normal Psych affect normal Charges/Coding Visit Charges Inpatient E&M: 16770 Subs Hosp L3
[2023-07-08] MEDS: Pantoprazole Sodium 40 MG in 0.9% Normal Saline (100mL MB+) 100 ML 330 MG IV (10:36)
[2023-07-08 12:12] LABS: Bedside Glucose 245 mg/dL (74-106)
--- NOTE | 2023-07-08 15:08 | ST.MBS ---
Modified Barium Swallow Patient Information Study Date: 07/08/23 Study Time: 14:15 Direct Billable Minutes: 102 Total Minutes procedure & reportin Diagnosis: Acute hypoxemic respiratory failure J96.01, PNA J18.9 Referring Physician: Aki Shane Reason for Referral: Objectively assess swallow function, assess risk for aspiration, and determine recommendations for least restrictive diet textures and compensatory strategies to improve safety of swallow. Medical History: PMH: A fib, HTN, GERD, Diverticulosis, Near syncope, TIA, Non-sustained ventricular tachycardia She presented to [facility] ED 06/29/2023 after sustaining a fall. Over the past month, she had been having progressively worsening cough with associated fatigue, lightheadedness, and shortness of breath. Upon admission, chest x-ray showed small right pleural effusion with possible subtle airspace along the medial aspect of the right lower lobe; consider atelectasis versus infiltrate. Additionally, opacity in the medial aspect of the right upper lobe/apex was concerning for PNA. She was admitted for further care. Patient required BiPAP and was recommended NPO due to tenuous respiratory status 07/02/2023. She was cleared to be evaluated by ST 07/05/23 and recommended for minced and moist textures / nectar thick liquids. FOOD SERVICE REPRESENTATIVE is recommending MBSS to consider the patient for diet advancement and further assess risk for aspiration. Current Diet Ordered: Minced & moist / [place]/mildly thick liquids Dentition: Natural Teeth Mental Status: WNL Respiratory Status: Oxygenating on 4L/M nasal cannula (8L/min via nasal cannula) Penetration-Aspiration Scale Penetration-Aspiration Scale: OBJECTIVE ASSESSMENT OF SWALLOW FUNCTION (QUANTITATIVE ? PER TRIAL): PENETRATION / ASPIRATION SCALE (VEGA): 1 = does not enter airway 2 = enters airway/above vocal folds/ejected 3 = enters airway/above vocal folds/not ejected 4 = enters airway/contacts vocal folds/ejected 5 = enters airway/contacts vocal folds/not ejected 6 = enters airway/below vocal folds/ejected 7 = enters airway/below vocal folds/not ejected despite effort 8 = enters airway/below vocal folds/no effort VIDEOFLOROSCOPIC SCALE SCORE (VEGA): Grade I = aspiration of material that has penetrated into the laryngeal vestibule, intact cough reflex Grade II = aspiration < 10 % of the bolus, intact cough reflex Grade III = aspiration of < 10 % of the bolus, reduced cough reflex or aspiration of > 10 % of the bolus, intact cough reflex Grade IV = aspiration of > 10 % of the bolus, reduced cough reflex Penetration-Aspiration Scale Score Thin Liquid via teaspoon: Result: 7= enters airways/below vocal folds/not ejected despite effort Comment: Weak, reflexive throat clear. Cued cough and re-swallow to somewhat clear contrast from the laryngeal vestibule. Thin Liquid via teaspoon Effortful swallow: Result: 5= enters airways/contacts vocal folds/not ejected Thin Liquid via small single sip: cup: Result: 3= enters airways/above vocal folds/not ejected Comment: SILENT post prandial aspiration of previous trial observed. FOOD SERVICE REPRESENTATIVE cued cough and re-swallow, which mostly cleared contrast from the laryngeal vestibule. [place] Thick Liquid via small single sip: cup: Result: 2= enter airway/above vocal folds/ejected Pudding via teaspoon: Result: 1= does not enter airway 1/4 Cookie: Result: 1= does not enter airway Thin Liquid via small single sip: cup Effortful swallow: Result: 1= does not enter airway Thin Liquid via small single sip: cup Effortful swallow Trial 2: Result: 1= does not enter airway Thin Liquid via single sip: straw: Result: 8= enters airway/below vocal folds/no effort [place] Thick Liquid via small single sip: cup Trial 2: Result: 2= enter airway/above vocal folds/ejected Oral Phase Labial Seal: No Labial Escape Tongue Control During Bolus Hold: Posterior escape of greater than half of bolus Bolus Preparation/Mastication: Slow prolonged chewing/mashing with complete recollection Bolus Transport/Lingual Motion: Delayed initiation of tongue motion Oral Residue: Residue collection on oral structures Pharyngeal Phase Initiation of Pharyngeal Swallow: Bolus head in pyriforms Soft Palate Elevation: Trace column of contrast/air between soft palate and pharyngeal wall Laryngeal Elevation: Partial superior movement thyroid cart/partial apprx aryt-epig petiole Anterior Hyoid Excursion: Partial anterior movement Epiglottic Movement: Complete inversion Laryngeal Vestibule Closure at Height of Swallow: Incomplete; narrow column of air/contrast in laryngeal vestibule Pharyngeal Stripping Wave: Present - diminished Pharyngoesophageal Segment Opening: Parital distension and partial duration; parital obstruction of flow Tongue Base Retraction: Wide column of contrast between tongue base & post. pharyngeal wall Pharyngeal Residue: Collection of residue within or on pharyngeal structures Esophageal Phase Esophageal Clearance: Complete clearance Diagnosis/Impression Diagnosis: Moderate oropharyngeal dysphagia R13.12 Impression: The oral phase is primarily marked by... -Decreased bolus control with >1/2 of the bolus spilling posteriorly to the pyriforms prior to swallow onset observed with thin liquids. -Delayed tongue motion for A-P transport. -Prolonged, but complete mastication of cookie. The pharyngeal phase is primarily marked by... -Decreased airway closure during the swallow due to partial anterior hyoid excursion and laryngeal elevation. -Moderately decreased tongue base retraction, UES opening/duration, and pharyngeal stripping wave, resulting in moderate pharyngeal residues in the vallecula and pyriforms, most notable with pudding and cookie. Liquid wash was most effective in clearing residues. -SILENT aspiration of thin liquids via straw and SILENT post prandial aspiration of thin liquids via tsp (Trial 2). Overt aspiration of thin liquids via tsp (Trial1) with weak throat clear. Use of effortful swallow and cough and re-swallow were most effective in reducing risk for aspiration with thin liquids. Recommendations Diet: Regular Textures (Easy to Chew textures - IDDSI Level 7) and [place]-thick Liquids Compensatory Strategies: Small Bites, Small Sips, Slow Rate, Alternate bites/solids and sips/liquids and Sitting upright Supervision: Distant Supervision (Family ok to provide supervision) Recommend Repeat Modified Barium Swallow: TBD Need for Skilled Speech Therapy Services: Yes Comment: -Implement oropharyngeal exercise program (Kimi, CTAR, Effortful, Rush, Effortful breath hold and swallow). -Ongoing monitoring of diet tolerance. -Trial thin liquids with FOOD SERVICE REPRESENTATIVE ONLY with use of effortful swallow, intermittent cough and re-swallow to consider the patient for further diet advancement. If unable to advance diet, would strongly recommend implementation of [place] Free Water Protocol at the next level of care. Education Completed: 1. Described result of evaluation. and 2. Pt understands evaluation & agrees with goals and treatment plan. Status Active ST Patient: Active Contact Information [facility] Speech Therapy:: Gemma Ngo M.A. [facility]-FOOD SERVICE REPRESENTATIVE Speech-Language Pathologist [facility] [address] [place] [address] [email or web address] [phone]
[2023-07-08] MEDS: CARBOXYMETHYLCELLULOSE SODIUM 1 DRP DROPS 2 DRP OPHTHALMIC (16:53)
[2023-07-08 17:18] LABS: Bedside Glucose 186 mg/dL (74-106)
[2023-07-08] MEDS: 0.9% Saline Lock 10 ML Syringe IV (21:14)
[2023-07-08] MEDS: Atorvastatin Calcium 40 MG Tablet PO (21:26)
[2023-07-08 21:42] LABS: Bedside Glucose 264 mg/dL (74-106)
[2023-07-09] VITALS (9 sets, daily range): BP systolic 116–150; BP diastolic 46–73; PULSE 67–86; RESP 17–20; TEMP 36.4–37.4; O2SAT 84–99; BMI 23.0
--- NOTE | 2023-07-09 01:35 | NURSING ---
02 sats 87% on 3L NC desated all the way to 84% on the monitor, pt denies feeling SOB or any discomfort. Increased 02 to 6L NC sats at 93%.
[2023-07-09 03:55] LABS: Magnesium 2.5 mg/dL (1.6-2.6)
[2023-07-09] MEDS: Vancomycin HCl 750 MG in 0.9% Normal Saline (250mL Bag) 250 ML 250 MG IV (05:27)
[2023-07-09] MEDS: Insulin Lispro 100 UNIT/ML INSULN.PEN SC ×4 (06:38→21:41)
[2023-07-09] MEDS: Piperacil/Tazobactam 3.375 GM in 0.9% Normal Saline (50mL MB+) 50 ML IV ×2 (06:58→14:54)
[2023-07-09 06:59] LABS: Bedside Glucose 179 mg/dL (74-106)
--- NOTE | 2023-07-09 07:54 | PN.CC_ITS ---
Assessment & Plan Assessment/Plan (1) Acute hypoxemic respiratory failure: PLAN: Plan RECOMMENDATIONS: 1. Continue to wean supplemental oxygen to maintain saturations at or above 90%. 2. Antimicrobials to complete 10 days of therapy. 3. Continue steroids. 4. Diuresis as tolerated by hemodynamics and renal function. 5. Xarelto per home regimen. 6. Encourage incentive spirometer use and mobilize patient as tolerated. IMPRESSIONS: 1. Acute hypoxemic respiratory failure Most likely secondary to progressive bilateral pneumonia vs pulmonary fibrosis. PE seems quite unlikely given that the patient is systemically anticoagulated on Xarelto at her baseline. The patient does have preserved ejection fraction with pulmonary hypertension noted on her echocardiogram. The patient has responded clinically to antimicrobials, Lasix and steroids. Continue to wean supplemental oxygen to maintain saturations at or above 90%. Encourage incentive spirometer use and mobilize patient as tolerated. 2. Chronic atrial fibrillation/coronary artery disease/hypertension/hyperlipidemia Complicates care, management, recovery and prognosis. Continue home medications as indicated. This note was generated with [employer] dictation software. It may contain incorrect words, spelling, and punctuation that were not noted in checking the note before signing. Subjective Subjective The patient was seen and examined at the bedside this morning. Events from the last 24 hours have been reviewed. The patient is currently afebrile, he modynamically stable and maintaining appropriate oxygen saturations on 5 L/min via nasal cannula. The patient denied any resting shortness of breath this morning. Objective Data Objective Data The patient's most recent lab work, culture data and imaging studies have all been personally reviewed. Surface echocardiogram completed on July 01 demonstrated an ejection fraction of 70% and a pulmonary artery systolic pres sure of 70 mmHg. Infectious workup has been unrevealing to date. Vital Signs: Vital Signs Temp Pulse Resp BP Pulse Ox O2 Del Method O2 Flow Rate 98.5 F 75 17 135/73 H 95 Nasal Cannula 6 07/09/23 03:30 07/09/23 03:30 07/09/23 03:30 07/09/23 03:30 07/09/23 03:30 07/09/23 03:39 07/09/23 03:39 FiO2 40 07/08/23 10:13 Oxygen Flow Rate (L/min) 6 Oxygen Delivery Method Nasal Cannula Weight: 142 lb 10.225 oz Body Mass Index (BMI) 23.0 Intake & Output: Intake and Output for Last 24 Hours 07/07/23 07/08/23 07/09/23 23:59 23:59 23:59 Intake Total 1370 / 1370 1030 / 1030 315 / 315 Output Total 1175 / 1175 855 / 855 375 / 375 Balance 195 / 195 175 / 175 -60 / -60 Lab / Micro Data Attestation: I reviewed the patient's lab results. 07/08/23 04:20 07/08/23 04:20 Labs: Laboratory Results - last 24 hr 07/08/23 08:14: POC Glucose 172 H 07/08/23 11:54: POC Glucose 245 H 07/08/23 16:55: POC Glucose 186 H 07/08/23 21:23: POC Glucose 264 H 07/09/23 03:38: Magnesium 2.5 07/09/23 06:36: POC Glucose 179 H Micro: Microbiology 06/30/23 00:45 Urine, Random Legionella Antigen - Final 06/30/23 00:45 Urine, Random Streptococcus pneumoniae Antigen (M - Final 06/29/23 14:55 Mucosa - Nose Coronavirus COVID-19 PCR - Final 06/29/23 14:55 Mucosa - Nose Respiratory Panel (PCR) - Final Radiography Diagnostic Testing: Radiology Impression Chest X-Ray 07/03/23 09:20 IMPRESSION: Progressive bilateral airspace disease worse in the left hemithorax. Electronically Signed: Jason Em MD at 10:33 EST Reading Location ID and State: [facility] / [place] , Service support , Physical Exam Const alert and no apparent distress General Appearance: cooperative HEENT normocephalic, head/scalp atraumatic and moist oral mucous membranes Eyes PERRL, EOMs intact bilaterally and conjunctivae normal Neck supple General: trachea midline Chest inspection of chest normal Resp Auscultation: diminished lung sounds; Negative for rales, rhonchi or wheezes Cardio regular rate and regular rhythm GI normal to inspection, nondistended, normoactive bowel sounds Extremity no clubbing, cyanosis or edema Skin no rashes or lesions noted Neuro CN's II-XII intact bilaterally, moves all extremities and no focal motor deficits Psych cooperative and affect normal Charges/Coding Visit Charges Inpatient E&M: 19594 Subs Hosp L2
[2023-07-09] MEDS: CARBOXYMETHYLCELLULOSE SODIUM 1 DRP DROPS 2 DRP OPHTHALMIC (08:43)
[2023-07-09] MEDS: Rivaroxaban 20 MG Tablet PO (08:43)
[2023-07-09] MEDS: Menthol/Lanolin/Calamine/Znox 113 GM Tube 1 APPLIC TOPICAL ×2 (08:43→21:46)
[2023-07-09] MEDS: amLODIPine 2.5 MG Tablet PO (08:44)
[2023-07-09] MEDS: guaiFENesin 1,200 MG Tablet 1200 MG PO ×2 (08:44→21:23)
[2023-07-09] MEDS: Pantoprazole Sodium 40 MG in 0.9% Normal Saline (100mL MB+) 100 ML 330 MG IV (08:45)
[2023-07-09] MEDS: Flecainide 100 MG Tablet PO ×2 (08:46→21:23)
[2023-07-09] MEDS: 0.9% Saline Lock 10 ML Syringe IV (08:52)
--- NOTE | 2023-07-09 09:44 | CASEMGMT ---
SW spoke with patient and her daughter Carmen. Introduced self and role at [facility]. SW explained recommendations for custodial facility short term for rehab. Carmen said they have not discussed the d/c plan yet. SW explained Medicare SNF coverage and provided them with a list of custodial facility providers including quality and resource use data and consistent with patient?s preferred geographic region, medical needs, and insurance network were provided from the [employer] Guide. SW wrote SW's name and phone number on the list. SW let them know they can contact SW with any questions. SW let them know they would need to pick 3 facilities they would be okay with and SW will check with facilities. SW also let them know if they decide home with home health a list can be provided. SW explained Medicare home health and how often they would come to the home. SW will check back. Elen CHACON
--- NOTE | 2023-07-09 09:45 | PN.HOSP_ITS ---
Subjective Subjective Doing well, no issues overnight. She is improving in her respiratory status currently down to 6 L nasal cannula Objective Data Objective Data Vital Signs: Vital Signs Temp Pulse Resp BP Pulse Ox O2 Del Method O2 Flow Rate 98.5 F 75 17 135/73 H 95 Nasal Cannula 6 07/09/23 03:30 07/09/23 03:30 07/09/23 03:30 07/09/23 03:30 07/09/23 03:30 07/09/23 03:39 07/09/23 03:39 FiO2 40 07/08/23 10:13 Oxygen Flow Rate (L/min) 6 Oxygen Delivery Method Nasal Cannula Weight: 142 lb 10.225 oz Body Mass Index (BMI) 23.0 Intake & Output: Intake and Output for Last 24 Hours 07/08/23 07/09/23 07/10/23 03:59 03:59 03:59 Intake Total 1270 / 1270 1030 / 1030 265 / 265 Output Total 1175 / 1175 855 / 855 375 / 375 Balance 95 / 95 175 / 175 -110 / -110 Lab / Micro Data 07/08/23 04:20 07/08/23 04:20 Labs: Laboratory Results - last 24 hr 07/08/23 11:54: POC Glucose 245 H 07/08/23 16:55: POC Glucose 186 H 07/08/23 21:23: POC Glucose 264 H 07/09/23 03:38: Magnesium 2.5 07/09/23 06:36: POC Glucose 179 H Micro: Microbiology 06/30/23 00:45 Urine, Random Legionella Antigen - Final 06/30/23 00:45 Urine, Random Streptococcus pneumoniae Antigen (M - Final 06/29/23 14:55 Mucosa - Nose Coronavirus COVID-19 PCR - Final 06/29/23 14:55 Mucosa - Nose Respiratory Panel (PCR) - Final Physical Exam Narrative General: Alert, Oriented x3, Cooperative, No apparent distress HEENT: Atraumatic, PERRLA, EOMI, Normocephalic Oral: Moist Mucosa Neck: Supple, No JVD Lungs: Diminished, Normal air movement, No rhonchi, No wheeze, No rales Cardiovascular: Regular rate, Regular Rhythm, Normal S1, Normal S2, murmurs Abdomen: Soft, Non Tender, Non-Distended, No Hepato-splenomegaly Extremities: No edema, Capillary Refill Less than 3 Seconds Skin: No rashes, No breakdown Musculoskeletal: No Tenderness to Palpation of Joints or Extremities Neurological: Cranial nerves II-XII grossly intact, Motor Exam 5/5 strength throughout, Sensory exam intact to light touch and pain Psych/Mental Status: Normal Affect, Appropriate Assessment & Plan Assessment/Plan (1) Hypoxia: (2) Pneumonia: (3) Hyponatremia: PLAN: Plan 1. 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 COVID-negative, respiratory PCR panel negative, urine antigens negative. Had worsening of respiratory status on 06/30, suspected due to overload from IV fluids, given IV Lasix and echo was ordered. Echo 07/01 showed EF 70%, diastolic function indeterminate, no significant valve abnormalities. Patient unfortunately had continued mild worsening respiratory status on 07/01, antibiotic coverage broadened to vancomycin and Zosyn. Unfortunately had worsening respiratory status on morning of 07/03, was transferred to the ICU for further management. Suspected that worsening respiratory status is most likely due to progressive bilateral pneumonia. ? Child Care Centre Director following. Continuing to show mild improvement, weaning Airvo as able. ABG 07/07 showed pH 7.5, pO2 50 on Airvo at 45% FiO2. Holding Lasix today as bicarb is trending up, reduced Solu-Medrol to 40 mg every 8 hours. Continue broad-spectrum antibiotics. Will need CT chest once more stable for better evaluation of lung parenchyma. Appears that patient may require a longer wean from oxygen, may need to discuss LTAC with patient and family in coming d ays. 07/08/2023: Appreciate pulmonology's assistance continue with IV antibiotics and IV Lasix as well as steroids 07/09/2023: Respiratory status is improving we will continue with current therapies once she is under 6 L nasal cannula will obtain ambulatory pulse ox for discharge planning 2. Fall, debility ? PT/OT/case management following. Suspect this is acute worsening on chronic debility. PT/OT recommending long-term care. Will continue to discuss with patient and family. 3. Hyponatremia, improved Suspected secondary to hypervolemic hyponatremia. Sodium joshua of 123 on 06/29. Given dose of tolvaptan on 06/30 with improvement in sodium to 130. Sodium improved to normal range on 07/02. ? Nephrology followed. Sodium stable within normal range. Monitor. 4. Dysphagia, improved ? Speech therapy following. Patient was able to complete a bedside swallow evaluation on 07/06, cleared for a nectar thick diet. Nutrition following. Encouraged p.o. intake as tolerated. Chronic medical conditions: ? Atrial fibrillation: Continue home Xarelto. DVT: Xarelto Charges/Coding Visit Charges Inpatient E&M: 44856 Subs Hosp L2
[2023-07-09 11:04] LABS: Bedside Glucose 162 mg/dL (74-106)
[2023-07-09] MEDS: Vancomycin Trough/Random Due 1 LAB MC (16:55)
[2023-07-09 17:13] LABS: Bedside Glucose 258 mg/dL (74-106)
[2023-07-09 18:32] LABS: Vancomycin, Trough Level 20.5 ug/mL (5.0-15.0)
--- NOTE | 2023-07-09 18:52 | PCM.RX.CS ---
Consult Antibiotic Management Pharmacy has been consulted to manage selected antiobiotic: Vancomycin Type of Intervention Type of Consult: Follow-up Prior Doses of Antibiotics Prior Doses of Antibiotics Received/Current Regimen: current dose is vanc 750mg IV q12h Labs Labs: Sodium 148 mmol/L (136-145) H 07/08/23 04:20 Potassium 3.4 mmol/L (3.5-5.1) L 07/08/23 04:20 Chloride 110 mmol/L (98-107) H 07/08/23 04:20 Carbon Dioxide 34.0 mmol/L (21.0-32.0) H 07/08/23 04:20 Anion Gap 4 (5-15) L 07/08/23 04:20 BUN 26 mg/dL (7-18) H 07/08/23 04:20 Creatinine 0.71 mg/dL (0.55-1.02) 07/08/23 04:20 Est GFR (MDRD) Af Amer 101 mL/min (>60) 07/08/23 04:20 Est GFR (MDRD) Non-Af 84 mL/min (>60) 07/08/23 04:20 BUN/Creatinine Ratio 36.6 RATIO (10-20) H 07/08/23 04:20 Glucose 233 mg/dL (74-106) H 07/08/23 04:20 Vancomycin Trough 20.5 ug/mL (5.0-15.0) H 07/09/23 16:55 Random Vancomycin 18.4 ug/mL (0.0-15.0) H 07/06/23 05:46 Microbiology Microbiology: Microbiology 06/30/23 00:45 Urine, Random Legionella Antigen - Final 06/30/23 00:45 Urine, Random Streptococcus pneumoniae Antigen (M - Final 06/29/23 14:55 Mucosa - Nose Coronavirus COVID-19 PCR - Final 06/29/23 14:55 Mucosa - Nose Respiratory Panel (PCR) - Final Dosing Weight Weight used for dosin.7 kg Estimated Creatinine Clearance Estimated Creatinine Clearance: 50.8ml/min Goal Trough Goal Trough: 15-20 mcg/mL Pharmacy Plan for Drug Dosing Pharmacy Plan for Drug Dosing: The vanc trough drawn at 16:55 today (approx 11.5 hours after the previous dose) was 20.5. This is slightly above goal range so will discontinue current dose of 750mg q12h. Will wait approximately 7 hours from when the trough was drawn and resume at 500mg q12h at midnight. This will allow the trough to drop below 20 before dosing is restarted at the new dose. Will not need to check another trough since the vancomycin is due to be stopped after tomorrow's doses. Pharmacy Service will continue to monitor and adjust dosing as required. Date/Time Labs Ordered Labs to be done on [date and time ordered]: none at this time since vanc is to be stopped after tomorrow's doses
[2023-07-09] MEDS: Atorvastatin Calcium 40 MG Tablet PO (21:28)
[2023-07-10] VITALS (7 sets, daily range): BP systolic 122–135; BP diastolic 54–78; PULSE 72–82; RESP 16–18; TEMP 36.6–37; O2SAT 83–99; BMI 23.2
[2023-07-10] MEDS: Piperacil/Tazobactam 3.375 GM in 0.9% Normal Saline (50mL MB+) 50 ML IV ×4 (00:13→19:50)
[2023-07-10] MEDS: 0.9% Saline Lock 10 ML Syringe IV ×2 (00:14→06:15)
[2023-07-10] MEDS: Vancomycin IV 500 MG/100 ML BAG 100 MG IV ×2 (00:14→11:59)
[2023-07-10 05:31] LABS: Absolute Lymphocyte Count 0.63 X10^3/uL (0.83-4.51); Absolute Neutrophil Count 14.9 X10^3/uL (2.0-7.7); Basophil# 0.01 X10^3/uL; Basophil% 0.1 % (0-1); Eosinophil# 0.03 X10^3/uL; Eosinophils% 0.2 % (0-5); Hematocrit 33.9 % (37-47); Hemoglobin 10.4 g/dL (12.0-15.0); Lymphocyte # 0.63 X10^3/ul (0.83-4.51); Lymphocyte % 3.9 % (19-41); Mean Corp Hgb Conc 30.7 g/dL (32-36); Mean Corpuscular Hgb 29.6 pg (27.0-32.0); Mean Corpuscular Volume 96.6 fL (81-99); Monocyte# 0.26 X10^3/uL; Monocyte% 1.6 % (0-10); NRBC Flagged by Analyzer 0 % (0-5); Neutrophil # 14.91 X10^3/uL (2.7-7.7); Neutrophil % 93.5 % (47-70); Platelet Count 288 K/mm3 (150-450); RBC Distribution Width CV 13.3 % (11.6-14.6); RBC Distribution Width SD 47.5 fl (35.1-43.9); Red Blood Count 3.51 M/mm3 (4.2-5.4)
[2023-07-10 06:06] LABS: Bedside Glucose 192 mg/dL (74-106)
[2023-07-10 06:08] LABS: Anion Gap 2 (5-15); BUN 23 mg/dL (7-18); Calcium,Total 8.4 mg/dL (8.5-10.1); Chloride 113 mmol/L (98-107); Creatinine, Serum 0.74 mg/dL (0.55-1.02); EST Glomerular Filtration Rate 79 mL/min (>60); Est Glom Filt Rate - Afr Amer 96 mL/min (>60); Glucose 232 mg/dL (74-106); Potassium 4.4 mmol/L (3.5-5.1); Sodium Level 147 mmol/L (136-145)
[2023-07-10] MEDS: Insulin Lispro 100 UNIT/ML INSULN.PEN SC ×3 (06:15→20:35)
[2023-07-10 07:19] LABS: Bedside Glucose 206 mg/dL (74-106)
[2023-07-10] MEDS: Flecainide 100 MG Tablet PO ×2 (09:23→19:50)
[2023-07-10] MEDS: Rivaroxaban 20 MG Tablet PO (09:23)
[2023-07-10] MEDS: Aspirin E.C. 81 MG Tablet PO (09:23)
[2023-07-10] MEDS: Menthol/Lanolin/Calamine/Znox 113 GM Tube 1 APPLIC TOPICAL ×2 (09:24→19:50)
[2023-07-10] MEDS: amLODIPine 2.5 MG Tablet PO (09:24)
[2023-07-10] MEDS: guaiFENesin 1,200 MG Tablet 1200 MG PO ×2 (09:24→19:49)
[2023-07-10] MEDS: Pantoprazole Sodium 40 MG in 0.9% Normal Saline (100mL MB+) 100 ML 330 MG IV (09:26)
--- NOTE | 2023-07-10 10:38 | CASEMGMT ---
SW received a phone call from patient's daughter Carmen. Carmen said that the doctor was just in the room and said patient will be discharged today vs tomorrow pending how much O2 she needs. SW went to patient's room. SW sat down and discussed options. Patient lives alone so they would like patient to go to [facility]. [facility] asked that they look at other possible options on the list in the event TCU is unable to take patient. SW let them know SW will make a referral and let them know. Elen Ruiz POCKET GRINDER OPERATOR INES
[2023-07-10 11:47] LABS: Bedside Glucose 174 mg/dL (74-106)
--- NOTE | 2023-07-10 13:36 | PN.CC_ITS ---
Assessment & Plan Assessment/Plan (1) Acute hypoxemic respiratory failure: PLAN: Plan RECOMMENDATIONS: 1. Wean oxygen as tolerated. Obtain walking oximetry prior to discharge 2. Okay to transition to prednisone wean over the next 12 to 14 days 3. Complete 10 days of antibiotics 4. Continue Xarelto per home regimen. 5. If discharged on supplemental oxygen, patient should follow-up in the pulmonary office in 2 weeks IMPRESSIONS: 1. Acute hypoxemic respiratory failure Most likely secondary to progressive bilateral pneumonia vs pulmonary fibrosis. PE seems quite unlikely given that the patient is systemically anticoagulated on Xarelto at her baseline. The patient does have preserved ejection fraction with pulmonary hypertension noted on her echocardiogram. Patient continues to improve. Patient will need a walking oximetry. Outpatient CT scan to evaluate for pneumonia versus pulmonary fibrosis in 4 to 6 weeks 2. Chronic atrial fibrillation/coronary artery disease/hypertension/hyp erlipidemia Complicates care, management, recovery and prognosis. Continue home medic ations as indicated. Electrolytes will be repleted as tolerated. Patient is fully anticoagulated at baseline. May need to readdress CODE STATUS if pulmonary fibrosis and pulmonary hypertension are confirmed as accurate once past the acute stage Subjective Subjective Patient did well overnight. Patient's daughter at the bedside during my evaluation. Patient down to 2 L nasal cannula. Patient still has a cough, but feels this is improving. Objective Data Objective Data Vital Signs: Vital Signs Temp Pulse Resp BP Pulse Ox O2 Del Method O2 Flow Rate 37.0 C 82 16 130/63 H 89 Nasal Cannula 0 07/10/23 09:21 07/10/23 09:21 07/10/23 09:21 07/10/23 09:21 07/10/23 13:13 07/10/23 12:11 07/10/23 13:13 FiO2 40 07/08/23 10:13 Oxygen Flow Rate (L/min) [ 5 AMBULATING with Oxygen #1] Oxygen Flow Rate (L/min) [ 0 AMBULATING on Room Air] Oxygen Flow Rate (L/min) [At 0 REST on Room Air] Oxygen Flow Rate (L/min) 2 Oxygen Delivery Method Nasal Cannula Weight: 65.4 kg Body Mass Index (BMI) 23.2 Intake & Output: Intake and Output for Last 24 Hours 07/08/23 07/09/23 07/10/23 23:59 23:59 23:59 Intake Total 1030 / 1030 885 / 1185 1010 / 1010 Output Total 855 / 855 775 / 975 450 / 450 Balance 175 / 175 110 / 210 560 / 560 Lab / Micro Data Attestation: I reviewed the patient's lab results. 07/10/23 04:58 07/10/23 04:58 Labs: Laboratory Results - last 24 hr 07/09/23 16:45: POC Glucose 258 H 07/09/23 16:55: Vancomycin Trough 20.5 H 07/09/23 21:40: POC Glucose 192 H 07/10/23 04:58: WBC 16.0 H, RBC 3.51 L, Hgb 10.4 L, Hct 33.9 L, MCV 96.6, MCH 29.6, MCHC 30.7 L, RDW Std Deviation 47.5 H, RDW Coeff of Missy 13.3, Plt Count 288, MPV 10.0, Immature Gran % (Auto) 0.700, Neut % (Auto) 93.5 H, Lymph % (Auto) 3.9 L, [place] % (Auto) 1.6, Eos % (Auto) 0.2, Baso % (Auto) 0.1, Absolute Neuts (auto) 14.9 H, Absolute Lymphs (auto) 0.63 L, Nucleated RBC % 0, Sodium 147 H, Potassium 4.4, Chloride 113 H, Carbon Dioxide 32.0, Anion Gap 2 L, BUN 23 H, Creatinine 0.74, Estim Creat Clear Calc 40.60, Est GFR (MDRD) Af Amer 96, Est GFR (MDRD) Non-Af 79, BUN/Creatinine Ratio 31.0 H, Glucose 232 H, Calcium 8.4 L 07/10/23 06:10: POC Glucose 206 H 07/10/23 11:29: POC Glucose 174 H Micro: Microbiology 06/30/23 00:45 Urine, Random Legionella Antigen - Final 06/30/23 00:45 Urine, Random Streptococcus pneumoniae Antigen (M - Final 06/29/23 14:55 Mucosa - Nose Coronavirus COVID-19 PCR - Final 06/29/23 14:55 Mucosa - Nose Respiratory Panel (PCR) - Final Physical Exam Const alert and no apparent distress General Appearance: cooperative HEENT normocephalic, head/scalp atraumatic and moist oral mucous membranes Eyes PERRL, EOMs intact bilaterally and conjunctivae normal Neck supple General: trachea midline Chest inspection of chest normal Resp Auscultation: diminished lung sounds; Negative for rales, rhonchi or wheezes Cardio regular rate and regular rhythm GI normal to inspection, nondistended, normoactive bowel sounds Extremity no clubbing, cyanosis or edema Skin no rashes or lesions noted Neuro CN's II-XII intact bilaterally, moves all extremities and no focal motor deficits Psych cooperative and affect normal Charges/Coding Visit Charges Inpatient E&M: 22299 Subs Hosp L2
--- NOTE | 2023-07-10 14:05 | PN.HOSP_ITS ---
Subjective Subjective Doing well, oxygen requirement improves every day however should require 5 L with ambulation to get to 87% Objective Data Objective Data Vital Signs: Vital Signs Temp Pulse Resp BP Pulse Ox O2 Del Method O2 Flow Rate 98.6 F 82 16 130/63 H 89 Nasal Cannula 0 07/10/23 09:21 07/10/23 09:21 07/10/23 09:21 07/10/23 09:21 07/10/23 13:13 07/10/23 12:11 07/10/23 13:13 FiO2 40 07/08/23 10:13 Oxygen Flow Rate (L/min) [ 5 AMBULATING with Oxygen #1] Oxygen Flow Rate (L/min) [ 0 AMBULATING on Room Air] Oxygen Flow Rate (L/min) [At 0 REST on Room Air] Oxygen Flow Rate (L/min) 2 Oxygen Delivery Method Nasal Cannula Weight: 144 lb 2.917 oz Body Mass Index (BMI) 23.2 Intake & Output: Intake and Output for Last 24 Hours 07/09/23 07/10/23 07/11/23 03:59 03:59 03:59 Intake Total 1030 / 1030 1235 / 1235 610 / 610 Output Total 855 / 855 975 / 975 250 / 250 Balance 175 / 175 260 / 260 360 / 360 Lab / Micro Data 07/10/23 04:58 07/10/23 04:58 Labs: Laboratory Results - last 24 hr 07/09/23 16:45: POC Glucose 258 H 07/09/23 16:55: Vancomycin Trough 20.5 H 07/09/23 21:40: POC Glucose 192 H 07/10/23 04:58: WBC 16.0 H, RBC 3.51 L, Hgb 10.4 L, Hct 33.9 L, MCV 96.6, MCH 29.6, MCHC 30.7 L, RDW Std Deviation 47.5 H, RDW Coeff of Missy 13.3, Plt Count 288, MPV 10.0, Immature Gran % (Auto) 0.700, Neut % (Auto) 93.5 H, Lymph % (Auto) 3.9 L, [place] % (Auto) 1.6, Eos % (Auto) 0.2, Baso % (Auto) 0.1, Absolute Neuts (auto) 14.9 H, Absolute Lymphs (auto) 0.63 L, Nucleated RBC % 0, Sodium 147 H, Potassium 4.4, Chloride 113 H, Carbon Dioxide 32.0, Anion Gap 2 L, BUN 23 H, Creatinine 0.74, Estim Creat Clear Calc 40.60, Est GFR (MDRD) Af Amer 96, Est GFR (MDRD) Non-Af 79, BUN/Creatinine Ratio 31.0 H, Glucose 232 H, Calcium 8.4 L 07/10/23 06:10: POC Glucose 206 H 07/10/23 11:29: POC Glucose 174 H Micro: Microbiology 06/30/23 00:45 Urine, Random Legionella Antigen - Final 06/30/23 00:45 Urine, Random Streptococcus pneumoniae Antigen (M - Final 06/29/23 14:55 Mucosa - Nose Coronavirus COVID-19 PCR - Final 06/29/23 14:55 Mucosa - Nose Respiratory Panel (PCR) - Final Physical Exam Narrative General: Alert, Oriented x3, Cooperative, No apparent distress HEENT: Atraumatic, PERRLA, EOMI, Normocephalic Oral: Moist Mucosa Neck: Supple, No JVD Lungs: Diminished, Normal air movement, No rhonchi, No wheeze, No rales Cardiovascular: Regular rate, Regular Rhythm, Normal S1, Normal S2, murmurs Abdomen: Soft, Non Tender, Non-Distended, No Hepato-splenomegaly Extremities: No edema, Capillary Refill Less than 3 Seconds Skin: No rashes, No breakdown Musculoskeletal: No Tenderness to Palpation of Joints or Extremities Neurological: Cranial nerves II-XII grossly intact, Motor Exam 5/5 strength throughout, Sensory exam intact to light touch and pain Psych/Mental Status: Normal Affect, Appropriate Assessment & Plan Assessment/Plan (1) Hypoxia: (2) Pneumonia: (3) Hyponatremia: PLAN: Plan 1. 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 COVID-negative, respiratory PCR panel negative, urine antigens negative. Had worsening of respiratory status on 06/30, suspected due to overload from IV fluids, given IV Lasix and echo was ordered. Echo 07/01 showed EF 70%, diastolic function indeterminate, no significant valve abnormalities. Patient unfortunately had continued mild worsening respiratory status on 07/01, antibiotic coverage broadened to vancomycin and Zosyn. Unfortunately had worsening respiratory status on morning of 07/03, was transferred to the ICU for further management. Suspected that worsening respiratory status is most likely due to progressive bilateral pneumonia. ? Sports Management Internship following. Continuing to show mild improvement, weaning Airvo as able. ABG 07/07 showed pH 7.5, pO2 50 on Airvo at 45% FiO2. Holding Lasix today as bicarb is trending up, reduced Solu-Medrol to 40 mg every 8 hours. Continue broad-spectrum antibiotics. Will need CT chest once more stable for better evaluation of lung parenchyma. Appears that patient may require a longer wean from oxygen, may need to discuss LTAC with patient and family in coming days. 07/08/2023: Appreciate pulmonology's assistance continue with IV antibiotics and IV Lasix as well as steroids 07/09/2023: Respiratory status is improving we will continue with current therapies once she is under 6 L nasal cannula will obtain ambulatory pulse ox for discharge planning 07/10/2023: Respiratory status continues to improve though she required elevated amounts of oxygen with ambulation. This could be due to silent aspiration in terms of leading to her pneumonia. Can likely discontinue her vancomycin to [place] and she may not need any antibiotics on discharge as she is close to completing 10 days of antibiotic therapy 2. Fall, debility ? PT/OT/case management following. Suspect this is acute worsening on chronic debility. PT/OT recommending long-term care. Will continue to discuss with patient and family. 3. Hyponatremia, improved Suspected secondary to hypervolemic hyponatremia. Sodium joshua of 123 on 06/29. Given dose of tolvaptan on 06/30 with improvement in sodium to 130. Sodium im proved to normal range on 07/02. ? Nephrology followed. Sodium stable within normal range. Monitor. 4. Dysphagia, improved ? Speech therapy following. Patient was able to complete a bedside swallow evaluation on 07/06, cleared for a nectar thick diet. Nutrition following. Encouraged p.o. intake as tolerated. Chronic medical conditions: ? Atrial fibrillation: Continue home Xarelto. DVT: Xarelto Charges/Coding Visit Charges Inpatient E&M: 51310 Subs Hosp L2
[2023-07-10 16:22] LABS: Bedside Glucose 177 mg/dL (74-106)
--- NOTE | 2023-07-10 16:31 | NURSING ---
Inocencia D/c at this time per MD order
[2023-07-10] MEDS: Atorvastatin Calcium 40 MG Tablet PO (19:49)
[2023-07-10 20:55] LABS: Bedside Glucose 185 mg/dL (74-106)
[2023-07-11 04:00] VITALS: BP 135/54; PULSE 70; RESP 16; TEMP 36.6; O2SAT 94
[2023-07-11 05:33] LABS: Absolute Lymphocyte Count 0.93 X10^3/uL (0.83-4.51); Absolute Neutrophil Count 12.5 X10^3/uL (2.0-7.7); Basophil# 0.01 X10^3/uL; Basophil% 0.1 % (0-1); Eosinophil# 0.53 X10^3/uL; Eosinophils% 3.6 % (0-5); Hematocrit 33.6 % (37-47); Hemoglobin 10.6 g/dL (12.0-15.0); Lymphocyte # 0.93 X10^3/ul (0.83-4.51); Lymphocyte % 6.3 % (19-41); Mean Corp Hgb Conc 31.5 g/dL (32-36); Mean Corpuscular Hgb 30.5 pg (27.0-32.0); Mean Corpuscular Volume 96.8 fL (81-99); Monocyte# 0.57 X10^3/uL; Monocyte% 3.9 % (0-10); NRBC Flagged by Analyzer 0 % (0-5); Neutrophil # 12.52 X10^3/uL (2.7-7.7); Neutrophil % 85.4 % (47-70); Platelet Count 286 K/mm3 (150-450); RBC Distribution Width CV 13.2 % (11.6-14.6); RBC Distribution Width SD 46.7 fl (35.1-43.9); Red Blood Count 3.47 M/mm3 (4.2-5.4); White Blood Count 14.7 K/mm3 (4.4-11.0)
[2023-07-11 05:47] LABS: Anion Gap 3 (5-15); BUN 18 mg/dL (7-18); BUN/Creat Ratio 25.2 RATIO (10-20); Calcium,Total 8.3 mg/dL (8.5-10.1); Chloride 111 mmol/L (98-107); Creatinine, Serum 0.71 mg/dL (0.55-1.02); EST Glomerular Filtration Rate 83 mL/min (>60); Est Glom Filt Rate - Afr Amer 101 mL/min (>60); Glucose 139 mg/dL (74-106); Potassium 3.3 mmol/L (3.5-5.1); Sodium Level 146 mmol/L (136-145)
[2023-07-11 05:50] VITALS: BMI 23.6
[2023-07-11 06:41] LABS: Bedside Glucose 108 mg/dL (74-106)
[2023-07-11 07:34] VITALS: O2SAT 94
[2023-07-11 07:53] VITALS: O2SAT 81; O2SAT 87; O2SAT 91
[2023-07-11 08:34] VITALS: BP 147/51; PULSE 78; RESP 14; TEMP 37.1; O2SAT 90
[2023-07-11] MEDS: guaiFENesin 1,200 MG Tablet 1200 MG PO (08:36)
[2023-07-11] MEDS: amLODIPine 2.5 MG Tablet PO (08:37)
[2023-07-11] MEDS: predniSONE 20 MG Tablet 40 MG PO (08:37)
[2023-07-11] MEDS: Rivaroxaban 20 MG Tablet PO (08:37)
[2023-07-11] MEDS: Flecainide 100 MG Tablet PO (08:37)
[2023-07-11] MEDS: Pantoprazole Sodium 40 MG Tablet PO (08:37)
[2023-07-11] MEDS: Menthol/Lanolin/Calamine/Znox 113 GM Tube 1 APPLIC TOPICAL (08:38)
[2023-07-11] MEDS: Furosemide 40 MG/4 ML Vial IV (10:24)
--- NOTE | 2023-07-11 10:33 | PN.HOSP_ITS ---
Subjective Subjective Doing well, breathing is steadily improving. She did need 6 L nasal cannula yesterday with ambulation and she does have some lower extremity edema, will trial her on x 1 Lasix Objective Data Objective Data Vital Signs: Vital Signs Temp Pulse Resp BP Pulse Ox O2 Del Method O2 Flow Rate 98.7 F 78 14 147/51 H 90 Nasal Cannula 2 07/11/23 08:34 07/11/23 08:34 07/11/23 08:34 07/11/23 08:34 07/11/23 08:34 07/11/23 08:34 07/11/23 08:34 FiO2 40 07/08/23 10:13 Oxygen Flow Rate (L/min) [ 6 AMBULATING with Oxygen #1] Oxygen Flow Rate (L/min) [ 0 AMBULATING on Room Air] Oxygen Flow Rate (L/min) [At 0 REST on Room Air] Oxygen Flow Rate (L/min) 2 Oxygen Delivery Method Nasal Cannula Weight: 146 lb 9.718 oz Body Mass Index (BMI) 23.6 Intake & Output: Intake and Output for Last 24 Hours 07/10/23 07/11/23 07/12/23 03:59 03:59 03:59 Intake Total 1235 / 1235 1250 / 1250 480 / 480 Output Total 975 / 975 250 / 250 Balance 260 / 260 1000 / 1000 480 / 480 Lab / Micro Data 07/11/23 05:10 07/11/23 05:10 Labs: Laboratory Results - last 24 hr 07/10/23 11:29: POC Glucose 174 H 07/10/23 15:54: POC Glucose 177 H 07/10/23 20:34: POC Glucose 185 H 07/11/23 05:10: WBC 14.7 H, RBC 3.47 L, Hgb 10.6 L, Hct 33.6 L, MCV 96.8, MCH 30.5, MCHC 31.5 L, RDW Std Deviation 46.7 H, RDW Coeff of Missy 13.2, Plt Count 286, MPV 10.0, Immature Gran % (Auto) 0.700, Neut % (Auto) 85.4 H, Lymph % (Auto) 6.3 L, [place] % (Auto) 3.9, Eos % (Auto) 3.6, Baso % (Auto) 0.1, Absolute Neuts (auto) 12.5 H, Absolute Lymphs (auto) 0.93, Nucleated RBC % 0, Sodium 146 H, Potassium 3.3 L, Chloride 111 H, Carbon Dioxide 32.0, Anion Gap 3 L, BUN 18, Creatinine 0.71, Estim Creat Clear Calc 40.60, Est GFR (MDRD) Af Amer 101, Est GFR (MDRD) Non-Af 83, BUN/Creatinine Ratio 25.2 H, Glucose 139 H, Calcium 8.3 L 07/11/23 06:21: POC Glucose 108 H Micro: Microbiology 06/30/23 00:45 Urine, Random Legionella Antigen - Final 06/30/23 00:45 Urine, Random Streptococcus pneumoniae Antigen (M - Final 06/29/23 14:55 Mucosa - Nose Coronavirus COVID-19 PCR - Final 06/29/23 14:55 Mucosa - Nose Respiratory Panel (PCR) - Final Physical Exam Narrative General: Alert, Oriented x3, Cooperative, No apparent distress HEENT: Atraumatic, PERRLA, EOMI, Normocephalic Oral: Moist Mucosa Neck: Supple, No JVD Lungs: Diminished, Normal air movement, No rhonchi, No wheeze, No rales Cardiovascular: Regular rate, Regular Rhythm, Normal S1, Normal S2, murmurs Abdomen: Soft, Non Tender, Non-Distended, No Hepato-splenomegaly Extremities: Edema, Capillary Refill Less than 3 Seconds Skin: No rashes, No breakdown Musculoskeletal: No Tenderness to Palpation of Joints or Extremities Neurological: Cranial nerves II-XII grossly intact, Motor Exam 5/5 strength throughout, Sensory exam intact to light touch and pain Psych/Mental Status: Normal Affect, Appropriate Assessment & Plan Assessment/Plan (1) Hypoxia: (2) Pneumonia: (3) Hyponatremia: PLAN: Plan 1. 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 COVID-negative, respiratory PCR panel negative, urine antigens negative. Had worsening of respiratory status on 06/30, suspected due to overload from IV fluids, given IV Lasix and echo was ordered. Echo 07/01 showed EF 70%, diastolic function indeterminate, no significant valve abnormalities. P atient unfortunately had continued mild worsening respiratory status on 12/11, antibiotic coverage broadened to vancomycin and Zosyn. Unfortunately had worsening respiratory status on morning of 07/03, was transferred to the ICU for further management. Suspected that worsening respiratory status is most likely due to progressive bilateral pneumonia. ? Residential Program Coordinator following. Continuing to show mild improvement, weaning Airvo as able. ABG 07/07 showed pH 7.5, pO2 50 on Airvo at 45% FiO2. Holding Lasix today as bicarb is trending up, reduced Solu-Medrol to 40 mg every 8 hours. Continue broad-spectrum antibiotics. Will need CT chest once more stable for better evaluation of lung parenchyma. Appears that patient may require a longer wean from oxygen, may need to discuss LTAC with patient and family in coming days. 07/08/2023: Appreciate pulmonology's assistance continue with IV antibiotics and IV Lasix as well as steroids 07/09/2023: Respiratory status is improving we will continue with current therapies once she is under 6 L nasal cannula will obtain ambulatory pulse ox for discharge planning 07/10/2023: Respiratory status continues to improve though she required elevated amounts of oxygen with ambulation. This could be due to silent aspiration in terms of leading to her pneumonia. Can likely discontinue her vancomycin tomorrow and she may not need any antibiotics on discharge as she is close to completing 10 days of antibiotic therapy 07/11/2023: We will give her a dose of IV Lasix x 1 and repeat an ambulatory pulse ox. Will likely not need any antibiotics on discharge. Transition her to oral prednisone today 2. Fall, debility ? PT/OT/case management following. Suspect this is acute worsening on chronic debility. PT/OT recommending long-term care. Will continue to discuss with patient and family. 3. Hyponatremia, improved Suspected secondary to hypervolemic hyponatremia. Sodium joshua of 123 on 06/29. Given dose of tolvaptan on 06/30 with improvement in sodium to 130. Sodium improved to normal range on 07/02. ? Nephrology followed. Sodium stable within normal range. Monitor. 4. Dysphagia, improved ? Speech therapy following. Patient was able to complete a bedside swallow evaluation on 07/06, cleared for a nectar thick diet. Nutrition following. Encouraged p.o. intake as tolerated. Chronic medical conditions: ? Atrial fibrillation: Continue home Xarelto. DVT: Xarelto Charges/Coding Visit Charges Inpatient E&M: 56710 Subs Hosp L2
[2023-07-11 11:09] LABS: Bedside Glucose 158 mg/dL (74-106)
--- NOTE | 2023-07-11 13:40 | TREXTCAR_ITS ---
Diet Diet Order/Speech Therapy: 07/08/23 10:30 Diet: Carbohydrate Controlled Food consistency:: Easy to Chew Liquid Consistency:: Regular/Thin Dietary Modifications:: No Added Salt Type of Dietary Supplement:: fort pud BID w/ L & D Is pt able to select menu?: Yes Diet Comments: hard swallow w/ liquids, distant supervision. Routine Orders/Code Status Routine Lab Work: CBC and BMP Code Status: Full Code Wound(s) L flowers: Wound Type: scab Therapies Physical Therapy: Eval and Treat Occupational Therapy: Eval and Treat Speech Therapy: Eval and Treat Problem/Diagnosis (1) Hypoxia: Status: Acute Code(s): R09.02 - Hypoxemia (2) Pneumonia: Status: Acute Code(s): J18.9 - Pneumonia, unspecified organism (3) Hyponatremia: Status: Acute Code(s): E87.1 - Hypo-osmolality and hyponatremia Plan 1. 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 COVID-negative, respiratory PCR panel negative, urine antigens negative. Had worsening of respiratory status on 06/30, suspected due to overload from IV fluids, given IV Lasix and echo was ordered. Echo 07/01 showed EF 70%, diastolic function indeterminate, no significant valve abnormalities. Patient unfortunately had continued mild worsening respiratory status on 07/01, antibiotic coverage broadened to vancomycin and Zosyn. Unfortunately had worsening respiratory status on morning of 07/03, was transferred to the ICU for further management. Suspected that worsening respiratory status is most likely due to progressive bilateral pneumonia. ? Mold Stamper And Repairer following. Continuing to show mild improvement, weaning Airvo as able. ABG 07/07 showed pH 7.5, pO2 50 on Airvo at 45% FiO2. Holding Lasix today as bicarb is trending up, reduced Solu-Medrol to 40 mg every 8 hours. Continue broad-spectrum antibiotics. Will need CT chest once more stable for better evaluation of lung parenchyma. Appears that patient may require a longer wean from oxygen, may need to discuss LTAC with patient and family in coming days. 07/08/2023: Appreciate pulmonology's assistance continue with IV antibiotics and IV Lasix as well as steroids 07/09/2023: Respiratory status is improving we will continue with current therapies once she is under 6 L nasal cannula will obtain ambulatory pulse ox for discharge planning 07/10/2023: Respiratory status continues to improve though she required elevated amounts of oxygen with ambulation. This could be due to silent aspiration in terms of leading to her pneumonia. Can likely discontinue her vancomycin tomorrow and she may not need any antibiotics on discharge as she is close to completing 10 days of antibiotic therapy 07/11/2023: We will give her a dose of IV Lasix x 1 and repeat an ambulatory pulse ox. Will likely not need any antibiotics on discharge. Transition her to oral prednisone today 2. Fall, debility ? PT/OT/case management following. Suspect this is acute worsening on chronic debility. PT/OT recommending long-term care. Will continue to discuss with patient and family. 3. Hyponatremia, improved Suspected secondary to hypervolemic hyponatremia. Sodium joshua of 123 on 06/29. Given dose of tolvaptan on 06/30 with improvement in sodium to 130. Sodium improved to normal range on 07/02. ? Nephrology followed. Sodium stable within normal range. Monitor. 4. Dysphagia, improved ? Speech therapy following. Patient was able to complete a bedside swallow evaluation on 07/06, cleared for a nectar thick diet. Nutrition following. Encouraged p.o. intake as tolerated. Chronic medical conditions: ? Atrial fibrillation: Continue home Xarelto. DVT: Xarelto Allergies/Procedures Done in Hospital Allergies Sulfa (Sulfonamide Antibiotics) Allergy (Verified 06/29/23 01:37) Unknown Procedures: None Type of Care/Length of Stay Estimated LOS: Convalescent Care Less Than 30 days Type of Care Needed: Skilled Rehab Potential: Good Prognosis: Good Additional Orders/Day of Discharge Day of Discharge: 07/11/23 Dietary and Speech Recommendations Dietitian Recommendations/Changes: Will change diet to carbohydrate- controlled/no added salt with consistency/texture as per HEAVY MACHINERY ASSEMBLER. Will continue fortified pudding BID with lunch and dinner as tolerated. Discharge Plan Admission Admit Date/Time: 06/29/23 05:11 Attending Provider: Aki Shane Primary Care Provider: Chirag Gibbons Consulting Providers: Aki Shane; Corenlio Gauthier; Quentin Will; Christian Camacho; Jesus Manuel Pizano; Danis Spivye; Savanah Edwards HOUSE CALLS NURSE; Giselle Triplett Discharge Orders/Prescriptions Prescriptions: New prednisone 20 mg Tablet 40 mg PO BREAKFAST Qty: 0 0RF Continued aspirin 81 mg tablet,delayed release (DR/EC) 81 mg PO MOWEFR Patient Comments: heart health, prevention of stroke hydroxyzine HCl 50 mg tablet 50 mg PO QHS PRN (Reason: sleep) amlodipine 2.5 mg tablet 2.5 mg PO DAILY Qty: 30 11RF atorvastatin 40 MG tablet 40 mg PO QHS Qty: 90 0RF Patient Comments: cholesterol spironolactone 25 mg tablet 25 mg PO DAILY Rx Instructions: has not started yet flecainide 100 mg tablet 100 mg PO Q12H Qty: 180 3RF metoprolol succinate 25 mg tablet extended release 24 hr 12.5 mg PO DAILY Qty: 45 3RF Xarelto 20 mg tablet 20 mg PO DAILY Qty: 90 3RF Referrals / Follow Up: Chirag Gibbons MD [Primary Care Provider] - Disposition Disposition (needs filled in before D/C Order can be placed): [facility] Facility
[2023-07-11 13:50] VITALS: BP 136/76; PULSE 87; RESP 14; TEMP 37; O2SAT 95
--- NOTE | 2023-07-11 13:51 | PCM.DC.SUM ---
Providers Date of Admission: 06/29/23 Primary Care Physician: Dr. Chirag Gibbons MD Consultations 06/29/23 14:01 Consult: Nephrology Routine Consulting Provider: Giselle Triplett Reason for Consult: Hyponatremia Na 124 EMERGENT Consult: No Notified: Yes Date Notified: 06/29/23 Time Notified: 14:01 Method of Notification: Text 07/03/23 08:05 Consult: Coordinator [employer] / Pulmonary Medicine Routine Consulting Provider: Pulmonary Medicine rachel [place] Reason for Consult: acute respiratory failure EMERGENT Consult: No Notified: Yes Date Notified: 07/03/23 Time Notified: 08:05 Method of Notification: Verbal Reason For Visit: PNEUMONIA Diagnosis Discharge Diagnosis (1) Hypoxia: Status: Acute Code(s): R09.02 - Hypoxemia (2) Pneumonia: Status: Acute Code(s): J18.9 - Pneumonia, unspecified organism (3) Hyponatremia: Status: Acute Code(s): E87.1 - Hypo-osmolality and hyponatremia Medications at Discharge Home Medications atorvastatin 40 mg tablet 40 mg PO QHS #90 tabs 03/08/16 aspirin 81 mg tablet,delayed release 81 mg PO MOWEFR 02/23/19 hydroxyzine HCl 50 mg tablet 50 mg PO QHS PRN sleep 03/28/21 flecainide 100 mg tablet 100 mg PO Q12H #180 tabs 11/01/22 amlodipine 2.5 mg tablet 2.5 mg PO DAILY #30 tabs 06/21/23 metoprolol succinate 25 mg tablet,extended release 24 hr 12.5 mg (1/2 x 25 mg) PO DAILY #45 tabs 06/27/23 rivaroxaban 20 mg tablet (Xarelto) 20 mg PO DAILY #90 tabs 06/27/23 spironolactone 25 mg tablet 25 mg PO DAILY 06/29/23 prednisone 20 mg tablet 40 mg (2 x 20 mg) PO BREAKFAST #0 tabs 07/11/23 Hospital Course Operations None Procedures 2-D Echocardiogram Summary of Care Provided Minutes Spent on Discharge: 34 Hospital Course: Per HPI: LANDON MARMOLEJO, is a 82 F with history of atrial fibrillation, hypertension, carotid artery stenosis presents following a fall around bedtime. Over the last 1 month she has been having progressive cough and associated fatigue, lightheadedness and shortness of breath. For suspected bronchitis she was started on Levaquin today. After taking her first dose she felt even more fatigued, and could not maintain her balance at night and tripped and fell. Extensive evaluation done in the ED did not show any major sequelae of the fall. She is on anticoagulation with Xarelto for her A-fib. She was also found to have hyponatremia with a sodium of 126 mg/DL. She drinks a lot of fluids throughout the day at least 10 to 12 glasses of water per day. She is presently on spironolactone only. The chest x-ray showed small right pleural effusion possible subtle airspace along the medial aspect of right lower lobe consider atelectasis. Hospital Course: 1. Acute hypoxic respiratory failure secondary to community-acquired pneumonia with possible aspiration/acute on chronic diastolic CHF valvular heart disease?82-year-old female presented to the hospital with patchy infiltrates in her right upper and right lower lobe. She is found during her stay to have some swallowing deficits so there is a possibility that this could be due to aspiration. She did have decline in her respiratory status during her hospitalization and had ultimately transferred to the ICU. She had to be maintained on BiPAP for few days but slowly started to improve with IV Lasix and steroids. Her antibiotics were also broadened to Zosyn and vancomycin. She has completed 10 days of antibiotics and will not need any on discharge. Her oxygen requirements is down to 2 L at rest and 4 L with ambulation. She is still about 2 L positive so she was given a dose of IV Lasix today prior to discharge to help with her respiratory status as her creatinine is stable at baseline of 0.71. She does take Aldactone at home which she will continue with on discharge to the transitional care unit. Will continue with steroids, she was transition to 40 mg of prednisone daily and this should be tapered at the transitional care unit over the next 10 to 14 days. I discussed with her the plan for possible discharge today she expressed understanding of the risk benefits of going to the snf and would like to go today. 2. Dysphagia?she does have some thickened liquids recommended by speech therapy, and I do recommend continued speech therapy in the transitional care unit 3. Hypertension, hyperlipidemia, A-fib are all chronic medical conditions which complicate her care. Her home medications were continued where appropriate Weight / BMI Weight Weight: 146 lb 9.718 oz Body Mass Index (BMI) 23.6 ABG / Lab / Microbiology Data 07/11/23 05:10 07/11/23 05:10 Laboratory: Laboratory Results - last 24 hr 07/10/23 15:54: POC Glucose 177 H 07/10/23 20:34: POC Glucose 185 H 07/11/23 05:10: WBC 14.7 H, RBC 3.47 L, Hgb 10.6 L, Hct 33.6 L, MCV 96.8, MCH 30.5, MCHC 31.5 L, RDW Std Deviation 46.7 H, RDW Coeff of Missy 13.2, Plt Count 286, MPV 10.0, Immature Gran % (Auto) 0.700, Neut % (Auto) 85.4 H, Lymph % (Auto) 6.3 L, [place] % (Auto) 3.9, Eos % (Auto) 3.6, Baso % (Auto) 0.1, Absolute Neuts (auto) 12.5 H, Absolute Lymphs (auto) 0.93, Nucleated RBC % 0, Sodium 146 H, Potassium 3.3 L, Chloride 111 H, Carbon Dioxide 32.0, Anion Gap 3 L, BUN 18, Creatinine 0.71, Estim Creat Clear Calc 40.60, Est GFR (MDRD) Af Amer 101, Est GFR (MDRD) Non-Af 83, BUN/Creatinine Ratio 25.2 H, Glucose 139 H, Calcium 8.3 L 07/11/23 06:21: POC Glucose 108 H 07/11/23 10:48: POC Glucose 158 H Microbiology: Microbiology 06/30/23 00:45 Urine, Random Legionella Antigen - Final 06/30/23 00:45 Urine, Random Streptococcus pneumoniae Antigen (M - Final 06/29/23 14:55 Mucosa - Nose Coronavirus COVID-19 PCR - Final 06/29/23 14:55 Mucosa - Nose Respiratory Panel (PCR) - Final Meaningful Use Info Meaningful Use Diagnoses (Choose all that apply): None applicable Discharge Plan Admission Admit Date/Time: 06/29/23 05:11 Attending Provider: Aki Shane Primary Care Provider: Chirag Gibbons Consulting Providers: Aki Shane; Cornelio Gauthier; Quentin Will; Christian Camacho; Jesus Manuel Pizano; Danis Spivey; Savanah Edwards SHIP WORKER; Giselle Triplett Discharge Orders/Prescriptions Prescriptions: New prednisone 20 mg Tablet 40 mg PO BREAKFAST Qty: 0 0RF Continued aspirin 81 mg tablet,delayed release (DR/EC) 81 mg PO MOWEFR Patient Comments: heart health, prevention of stroke hydroxyzine HCl 50 mg tablet 50 mg PO QHS PRN (Reason: sleep) amlodipine 2.5 mg tablet 2.5 mg PO DAILY Qty: 30 11RF atorvastatin 40 MG tablet 40 mg PO QHS Qty: 90 0RF Patient Comments: cholesterol spironolactone 25 mg tablet 25 mg PO DAILY Rx Instructions: has not started yet flecainide 100 mg tablet 100 mg PO Q12H Qty: 180 3RF metoprolol succinate 25 mg tablet extended release 24 hr 12.5 mg PO DAILY Qty: 45 3RF Xarelto 20 mg tablet 20 mg PO DAILY Qty: 90 3RF Referrals / Follow Up: Chirag Gibbons MD [Primary Care Provider] - Disposition Disposition (needs filled in before D/C Order can be placed): Custodial Facility Charges/Coding Visit Charges Inpatient E&M: 87646 Disch Hosp >30min
--- NOTE | 2023-07-11 14:23 | PN.CC_ITS ---
Assessment & Plan Assessment/Plan (1) Acute hypoxemic respiratory failure: PLAN: Plan RECOMMENDATIONS: 1. Wean oxygen as tolerated. Obtain walking oximetry prior to discharge from TCU 2. Okay to transition to prednisone wean over the next 12 to 14 days 3. Complete 10 days of antibiotics 4. Continue Xarelto per home regimen. 5. If discharged from TCU on supplemental oxygen, patient should follow-up in the pulmonary office in 2 weeks IMPRESSIONS: 1. Acute hypoxemic respiratory failure Most likely secondary to progressive bilateral pneumonia vs pulmonary fibrosis. PE seems quite unlikely given that the patient is systemically anticoagulated on Xarelto at her baseline. The patient does have preserved eje ction fraction with pulmonary hypertension noted on her echocardiogram. Patient continues to improve. Patient will need a walking oximetry prior to discharge from the TCU. Outpatient CT scan to evaluate for pneumonia versus pulmonary fibrosis in 4 to 6 weeks. This can be done by our office or by PCP depending on whether patient requires supplemental oxygen 2. Chronic atrial fibrillation/coronary artery disease/hypertension/hyperlipidemia Complicates care, management, recovery and prognosis. Continue home medications as indicated. Electrolytes will be repleted as tolerated. Patient is fully anticoagulated at baseline. May need to readdress CODE STATUS if pulmonary fibrosis and pulmonary hypertension are confirmed as accurate once past the acute stage Subjective Subjective Patient did well overnight. Patient still requiring supplemental oxygen to maintain saturations, but was able to ambulate yesterday on 5 L nasal cannula. Did discuss with the patient's daughter at the bedside and she agrees that the patient is improving slowly, but still has weakness. Patient is tentatively scheduled to go to TCU later today. Objective Data Objective Data Vital Signs: Vital Signs Temp Pulse Resp BP Pulse Ox O2 Del Method O2 Flow Rate 37.1 C 78 14 147/51 H 90 Nasal Cannula 4 07/11/23 08:34 07/11/23 08:34 07/11/23 08:34 07/11/23 08:34 07/11/23 08:34 07/11/23 08:34 07/11/23 11:22 FiO2 40 07/08/23 10:13 Oxygen Flow Rate (L/min) [ 6 AMBULATING with Oxygen #1] Oxygen Flow Rate (L/min) [ 0 AMBULATING on Room Air] Oxygen Flow Rate (L/min) [At 0 REST on Room Air] Oxygen Flow Rate (L/min) 4 Oxygen Delivery Method Nasal Cannula Weight: 66.5 kg Body Mass Index (BMI) 23.6 Intake & Output: Intake and Output for Last 24 Hours 07/09/23 07/10/23 07/11/23 23:59 23:59 23:59 Intake Total 885 / 1185 1360 / 1600 770 / 770 Output Total 775 / 975 450 / 450 Balance 110 / 210 910 / 1150 770 / 770 Lab / Micro Data Attestation: I reviewed the patient's lab results. 07/11/23 05:10 07/11/23 05:10 Labs: Laboratory Results - last 24 hr 07/10/23 15:54: POC Glucose 177 H 07/10/23 20:34: POC Glucose 185 H 07/11/23 05:10: WBC 14.7 H, RBC 3.47 L, Hgb 10.6 L, Hct 33.6 L, MCV 96.8, MCH 30.5, MCHC 31.5 L, RDW Std Deviation 46.7 H, RDW Coeff of Missy 13.2, Plt Count 2 86, MPV 10.0, Immature Gran % (Auto) 0.700, Neut % (Auto) 85.4 H, Lymph % (Auto) 6.3 L, [place] % (Auto) 3.9, Eos % (Auto) 3.6, Baso % (Auto) 0.1, Absolute Neuts (auto) 12.5 H, Absolute Lymphs (auto) 0.93, Nucleated RBC % 0, Sodium 146 H, Potassium 3.3 L, Chloride 111 H, Carbon Dioxide 32.0, Anion Gap 3 L, BUN 18, Creatinine 0.71, Estim Creat Clear Calc 40.60, Est GFR (MDRD) Af Amer 101, Est GFR (MDRD) Non-Af 83, BUN/Creatinine Ratio 25.2 H, Glucose 139 H, Calcium 8.3 L 07/11/23 06:21: POC Glucose 108 H 07/11/23 10:48: POC Glucose 158 H Micro: Microbiology 06/30/23 00:45 Urine, Random Legionella Antigen - Final 06/30/23 00:45 Urine, Random Streptococcus pneumoniae Antigen (M - Final 06/29/23 14:55 Mucosa - Nose Coronavirus COVID-19 PCR - Final 06/29/23 14:55 Mucosa - Nose Respiratory Panel (PCR) - Final Physical Exam Const alert and no apparent distress General Appearance: cooperative HEENT normocephalic, head/scalp atraumatic and moist oral mucous membranes Eyes PERRL, EOMs intact bilaterally and conjunctivae normal Neck supple General: trachea midline Chest inspection of chest normal Resp Auscultation: diminished lung sounds; Negative for rales, rhonchi or wheezes Cardio regular rate and regular rhythm GI normal to inspection, nondistended, normoactive bowel sounds Extremity no clubbing, cyanosis or edema Skin no rashes or lesions noted Neuro CN's II-XII intact bilaterally, moves all extremities and no focal motor deficits Psych cooperative and affect normal Charges/Coding Visit Charges Inpatient E&M: 73228 Subs Hosp L2
--- NOTE | 2023-07-11 15:01 | CASEMGMT ---
Patient is ready for discharge to TCU. SW called patient's daughter Carmen and let her know this information. Patient stated she is also aware. Plan: d/c to [facility] TCU Elen CHACON
--- NOTE | 2023-07-11 15:20 | NURSING ---
Called report over to TCU. Pt belongings packed and sent over.
== END 2023-07-11 15:33 | disposition skilled nursing facility (03) | DRG 177 ==
LOC: ED 04:27 → PCU 05:32 → ICU 07-03 08:55 → PCU 07-09 17:26
PROVIDERS: Family Medicine; Hospitalist; Internal Medicine; Internal Medicine Critical Care Medicine; Admitting Provider Internal Medicine; Emergency Provider Emergency Medicine; PCP Family Medicine; Referring Provider Internal Medicine; Visit Provider Family Medicine
DX: J69.0 Pneumonitis due to inhalation of food and vomit (principal); J80 Acute respiratory distress syndrome; I50.33 Acute on chronic diastolic (congestive) heart failure; I48.20 Chronic atrial fibrillation, unspecified; E87.1 Hypo-osmolality and hyponatremia; I27.20 Pulmonary hypertension, unspecified; E86.0 Dehydration; I11.0 Hypertensive heart disease with heart failure; I35.1 Nonrheumatic aortic (valve) insufficiency; I65.23 Occlusion and stenosis of bilateral carotid arteries; E78.5 Hyperlipidemia, unspecified; J40 Bronchitis, not specified as acute or chronic; I25.10 Atherosclerotic heart disease of native coronary artery without angina pectoris; R13.10 Dysphagia, unspecified; R53.81 Other malaise; Z11.52 Encounter for screening for COVID-19; Z79.01 Long term (current) use of anticoagulants; Z79.2 Long term (current) use of antibiotics; Z87.891 Personal history of nicotine dependence
CPT/HCPCS: 36415; 36600; 70450; 71045; 72125; 73502; 74230; 80048; 80053; 80202; 81001; 82248; 82436; 82533; 82570; 82803; 82962; 83605; 83735; 83880; 83930; 83935; 84100; 84133; 84145; 84156; 84295; 84300; 84443; 84484; 84550; 85025; 85027; 85610; 87449; 87633; 87635; 87641; 92526; 92610; 92611; 93005; 93306; 93880; 94002; 94003; 94640; 94660; 94668; 94762; 97110; 97116; 97162; 97166; 97530; 97535; 97802; 97803; 99285; J7030; J7040; J7050; P9612; A4216; J0696; J1940

== ENCOUNTER 2023-07-11 15:52 | Inpatient (IN) | payer MEDICARE, OTHER, SELFPAY ==
[2023-07-11 16:00] VITALS: BMI 23.0
[2023-07-11 16:02] VITALS: BP 146/55; PULSE 82; RESP 16; TEMP 36.5; O2SAT 94
--- OUTSIDE RECORDS SUMMARY | 2023-07-11 16:29 | XMS RPT_ITS | CCD ---
Author Name Unknown Address [address] [place] [address] Organization [facility] Care Team Providers Care Lead Producer Name Role Phone Sudha Goncalves Unavailable Unavailable Sudha Goncalves Unavailable Unavailable Sudha Goncalves Unavailable Unavailable Valdez MORA, Colin Smith Unavailable Valeriano Maldonado MD Unavailable Allergies Allergy Classification Reported Allergen(s) Allergy Type Date of Onset Reaction(s) Facility (5 sources) Sulfonamides (Antibiotic); Translations: [SULFA] drug allergy 03-28-2016 R[facility] Work Phone: Medications Completed/Discontinued Medications Medication Drug Class(es) Dates Sig (Normalized) Sig (Original) aspirin 81 mg delayed release oral tablet (9 sources) Nonsteroidal Anti-inflammatory Drug Start: 02-23-2020 ASPIRIN 81 TBEC 1 tablet daily ASPIRIN TBEC [id number] Saloni Ramirez LPN Problems Active Problems Problem Classification Problem Date Documented Da te Episodic/Chronic Cardiac dysrhythmias (4 sources) Paroxysmal atrial fibrillation; Translations: [Paroxysmal atrial fibrillation] Onset: 09-19-2016 09-19-2016 Chronic Occlusion or stenosis of precerebral arteries (8 sources) Occlusion and stenosis of right carotid artery; Translations: [Occlusion and stenosis of left carotid artery] Onset: 03-28-2016 03-28-2016 Chronic Other connective tissue disease (1 source) Trochanteric bursitis, right hip; Translations: [Trochanteric bursitis, right hip] Onset: 02-26-2020 02-26-2020 Episodic Sprains and strains (1 source) Strain of muscle, fascia and tendon of right hip, subsequent encounter; Translations: [Strain of muscle, fascia and tendon of right hip, subsequent encounter] Onset: 02-26-2020 02-26-2020 Episodic Transient cerebral ischemia (4 sources) Transient cerebral ischemia; Translations: [Transient cerebral ischemic attack, unspecified] Onset: 03-28-2016 03-28-2016 Chronic Past or Other Problems Problem Classification Problem Date Documented Date Episodic/Chronic Other circulatory disease (8 sources) Electrocardiogram abnormal; Translations: [Abnormal electrocardiogram [ECG] [EKG]] Onset: 03-28-2016 Resolved: 09-19-2016 09-19-2016 Episodic Unclassified (8 sources) Preoperative cardiovascular examination ; Translations: [Encounter for preprocedural cardiovascular examination] Onset: 03-28-2016 Resolved: 09-19-2016 09-19-2016 Unclassified (1 source) Problem Results Test Name Value Interpretation Reference Range Facil ity Vital Signs Date Time Vital Sign Value Performing Clinician Facility 03-28-2017 15:11-0400 BMI (Body Mass Index) 26.95 kg/m2 [employer] Work Phone: 03-28-2017 15:11-0400 BP Diastolic 70 mm[Hg] [employer] Work Phone: 03-28-2017 15:11-0400 BP Systolic 150 mm[Hg] [employer] Work Phone: 03-28-2017 15:11-0400 Pulse (Heart Rate) 60 /min [employer] Work Phone: 03-28-2017 15:11-0400 Weight 75.75 kg [employer] Work Phone: 03-13-2017 14:45-0400 BMI (Body Mass Index) 26.69 kg/m2 Coiln Kellogg MD [facility] Work Phone: 03-13-2017 14:45-0400 Body Temperature 97.7 [degF] Colin Kellogg MD [facility] Work Phone: 03-13-2017 14:45-0400 BP Diastolic 70 mm[Hg] Colin Kellogg MD [facility] Work Phone: 03-13-2017 14:45-0400 BP Systolic 147 mm[Hg] Colin Kellogg MD [facility] Work Phone: 03-13-2017 14:45-0400 Height 167.64 cm Colin Kellogg MD [facility] Work Phone: 03-13-2017 14:45-0400 Pulse (Heart Rate) 62 /min Colin Kellogg MD [facility] Work Phone: 03-13-2017 14:45-0400 Respiratory Rate 20 /min Colin Kellogg MD [facility] Work Phone: 03-13-2017 14:45-0400 Weight 75.03 kg Colin Kellogg MD [facility] Work Phone: 03-28-2016 14:32-0400 BSA (Body Surface Area) 1.84 m2 Colin Kellogg MD [facility] Work Phone: NEGATED: Highlighted [id number] 11:05-0400 BMI (Body Mass Index) 5.5 kg/m2 Elvi VanScoit AT [facility] Work Phone: NEGATED: Highlighted [id number] 11:05-0400 Body weight 67.59 kg Elvi VanScoit AT [facility] Work Phone: NEGATED: Highlighted [id number] 11:05-0400 Body weight 68 kg Elvi VanScoit AT [facility] Work Phone: NEGATED: Highlighted [id number] 11:05-0400 Heart rate 2+ Elvi VanScoit AT [facility] Work Phone: NEGATED: Highlighted [id number] 11:05-0400 Height 351.03 cm Elvi VanScoit AT [facility] Work Phone: NEGATED: Highlighted [id number] 11:05-0400 Height 351 cm Elvi VanScoit AT [facility] Work Phone: Encounters Encounter Date Encounter Type Care Provider Facility Start: 02-26-2020 End: 02-26-2020 Patient encounter procedure Valeriano Maldonado MD Work Phone: [facility] Work Phone: Procedures Date Procedure Procedure Detail Performing Clinician Start: 02-26-2020 End: 02-26-2020 Arthrocentesis aspir&/inj major jt/bursa w/o us Valeriano Maldonado MD Work Phone: Start: 02-26-2020 End: 02-26-2020 Blood pressure screening not performed - reason not given Valeriano Maldonado MD Work Phone: Start: 02-26-2020 End: 02-26-2020 BMI documented as below normal parameters - follow-up documented Valeriano Maldonado MD Work Phone: Start: 02-26-2020 End: 02-26-2020 Documentation of current medications Valeriano Maldonado MD Work Phone: Start: 02-26-2020 End: 02-26-2020 Injection - betamethasone acetate 3 mg and betamethasone sodium phosphate 3 mg Valeriano Maldonado MD Work Phone: Start: 02-26-2020 End: 02-26-2020 Pain assessment documented as negative - follow-up not required Valeriano Maldonado MD Work Phone: Start: 02-26-2020 End: 02-26-2020 Tobacco non-user Valeriano Maldonado MD Work Phone: Start: 03-28-2017 End: 03-28-2017 PHYSICAL SCIENCES PROFESSOR Celsa Harman PA-C Work Phone: Start: 03-28-2017 End: 03-28-2017 Follow Up Appt 3 months Celsa bhatia PA-C Work Phone: Start: 03-13-2017 End: 03-19-2017 Carotid duplex Colin Kellogg MD Work Phone: Start: 09-28-2016 End: 09-28-2016 Follow Up Appt 6 months Adam Ruvalcaba Start: 09-28-2016 End: 09-28-2016 MMM Anders Bedoya MD Start: 03-29-2016 End: 03-30-2016 Stress Echocardiogram (treadmill) Anders Bedoya MD Start: 03-28-2016 End: 03-28-2016 Electrocardiogram, complete Anders Bedoya MD Start: 03-28-2016 End: 03-28-2016 Follow Up Appt Other Anders Bedoya MD NEGATED: Highlighted rowStart: 02-26-2020 End: 02-26-2020 Documentation of current medications Elvi Bijal AT Plan of Treatment Date Care Activity Detail Author Start: 02-26-2020 End: 02-26-2020 Appointment Appointment [facility] Work Phone: Start: 02-26-2020 End: 02-26-2020 Radex hip unilateral with pelvis 2-3 views XR PELVIS W HIP 2-3 VWS-RT [facility] Work Phone: Start: 07-11-2017 End: 07-11-2017 Appointment Appointment [facility] Work Phone: Start: 03-28-2017 End: 03-28-2017 Appointment Appointment [facility] Work Phone: Start: 03-28-2017 End: 03-28-2017 48 hour holter monitor 48 hour holter monitor [facility] Work Phone: Start: 03-28-2017 End: 03-28-2017 PHYSICAL SCIENCES PROFESSOR PHYSICAL SCIENCES PROFESSOR [facility] Work Phone: Start: 03-28-2017 End: 03-28-2017 Follow Up Appt 3 months Follow Up Appt 3 months [facility] Work Phone: Start: 03-13-2017 End: 03-13-2017 Appointment Appointment [facility] Work Phone: Start: 03-13-2017 End: 03-19-2017 Carotid duplex Carotid duplex [facility] Work Phone: Start: 09-28-2016 End: 09-28-2016 Follow Up Appt 6 months Follow Up Appt 6 months [facility] Work Phone: Start: 09-28-2016 End: 09-28-2016 MMM MMM [facility] Work Phone: Start: 03-29-2016 End: 03-30-2016 Stress Echocardiogram (treadmill) Stress Echocardiogram (treadmill) [facility] Work Phone: Start: 03-28-2016 End: 03-28-2016 Electrocardiogram, complete EKG (In office) [facility] Work Phone: Start: 03-28-2016 End: 03-28-2016 Follow Up Appt Other Follow Up Appt Other [facility] Work Phone: Social History Date Type Detail Facility Start: 02-26-2020 End: 02-26-2020 Assertion Unknown if ever smoked [facility] Or [facility] Work Phone: Chief Complaint Chief Complaint Description Start Date right hip pain Preliminary chief co mplaint data, not yet signed by the author as of Instructions Instruction Description Start Date CompletedPatient advised to follow-up with Primary Care Physician for BMI management. Advance Directives There may be information available, but it has not been provided by the sender. Assessments There may be information available, but it has not been provided by the sender. Review of System There may be information available, but it has not been provided by the sender. Family History There may be information available, but it has not been provided by the sender. History of Present Illness There may be information available, but it has not been provided by the sender. Additional Source Comments Reason for Visit (unrecogniz ed section and content) FOR RECORDS PERTAINING TO PATIENTS WHO ARE OR HAVE BEEN ENROLLED IN A CHEMICAL DEPENDENCY/SUBSTANCEABUSE PROGRAM, SOME INFORMATION MAY BE OMITTED. This clinical summary was aggregated from multiple sources. Caution should be exercised in using it in the provision of clinical care. This summary normalizes information from multiple sources, and as a consequence, information in this document may materially change the coding, format and clinical context of patient data. In addition, data may be omitted in some cases. CLINICAL DECISIONS SHOULD BE BASED ON THE PRIMARY CLINICAL RECORDS. [facility]. provides no warranty or guarantee of the accuracy or completeness of information in this document.
[2023-07-11] MEDS: Flu Vacc QS2023-24(65YR UP)/PF 240 MCG/0.7 ML Syringe IM (17:52)
[2023-07-11] MEDS: Flecainide 100 MG Tablet PO (17:55)
--- NOTE | 2023-07-11 20:18 | HP.PCM_ITS ---
HPI - General General Date of Admission: 07/11/23 Date of Service: 07/11/23 Chief Complaint: Here for rehabilitation. HPI Narrative 06/29/2023 LANDON MARMOLEJO, is a 82 Female who presents to [facility] ED with weakness. Fall, on Levaquin for bronchitis, cough, short of breath. Lightheaded, fell down, hit head, no LOC, bilateral hip pain. Hyponatremia, C-collar per EMS. WBC 12.5, Sodium 126, Urinalysis negative, Pulsox 86% on RA. Chest X-ray pneumonia. Rocephin, Zithromax for pneumonia. 06/29/2023 Admit to Hospital. Rocephin, Zithromax, urinary antigens for pneumonia. PT/OT for fall. Fluid restriction for hyponatremia. 06/30/2023 Progressive shortness of breath, orthopnea, increasing oxygen requirements. Acute on chronic HFpEF, Lasix 40mg iv, BiPAP. 06/30/2023 Fluid restriction for hyponatremia. 07/01/2023 Echo EF 70%. 07/01/2023 BiPAP, less short of breath. Vancomycin, Zosyn for pneumonia. PT/OT for debility. Sodium 130 after Tolvaptan. 07/02/2023 BiPAP, not OOB. Lasix 40mg iv x 1 dose. Sodium 136 with fluid restriction. NPO, MBS for dysphagia. 07/03/2023 BiPAP, ICU for acute respiratory failure with hypoxia. 07/04/2023 Airvo. Continue Vancomycin, Zosyn for pneumonia. 07/05/2023 BiPAP. Solu-medrol, Lasix iv. NG tube for TF. 07/06/2023 Airvo. MBS okay for diet, start diet. 07/07/2023 Airvo. 07/08/2023 BiPAP. ATB's iv, Lasix iv, Steroids IV for pneumonia. 07/09/2023 Oxygen 6 liters per nasal cannula. [place] thick diet. 07/10/2023 Oxygen 5 liters per nasal cannula. Discontinue Vancomycin, finished with antibiotics. 07/11/2023 Oxygen 6 liters per nasal cannula for ambulation. Lasix x 1, transition to oral prednisone. 07/11/2023 Admit to TCU with debility, here for rehabilitation, strengthening, prior to discharge home alone. [facility] Medical History Diverticulosis Essential (primary) hypertension GERD (gastroesophageal reflux disease) Near syncope Non-sustained ventricular tachycardia Paroxysmal atrial fibrillation TIA (transient ischemic attack) Home Medications atorvastatin 40 mg tablet 40 mg PO QHS cholesterol #90 tabs 03/08/16 [Rx Last Taken 07/10/23 19:40] aspirin 81 mg tablet,delayed release [address] [facility] 02/23/19 [History Last Taken 07/10/23 09:20] hydroxyzine HCl 50 mg tablet 50 mg PO QHS PRN sleep 03/28/21 [History Last Taken Unknown] flecainide 100 mg tablet 100 mg PO Q12H heart rate #180 tabs 11/01/22 [Rx Last Taken 07/11/23 08:35] amlodipine 2.5 mg tablet 2.5 mg PO DAILY blood pressure #30 tabs 06/21/23 [Rx Last Taken 07/11/23 08:35] metoprolol succinate 25 mg tablet,extended release 24 hr 12.5 mg (1/2 x 25 mg) PO DAILY blood pressure #45 tabs 06/27/23 [Rx Last Taken Unknown] rivaroxaban 20 mg tablet (Xarelto) 20 mg PO DAILY blood thinner #90 tabs 06/27/23 [Rx Last Taken 07/11/23 08:35] spironolactone 25 mg tablet 25 mg PO DAILY diuretic 06/29/23 [History Last Taken Unknown] prednisone 20 mg tablet 40 mg (2 x 20 mg) PO BREAKFAST Breathing #0 tabs 07/11/23 [Rx Last Taken 07/11/23 08:40] Allergy/AdvReac Type Severity Reaction Status Date / Time Sulfa (Sulfonamide Allergy Unknown Verified 06/29/23 01:37 Antibiotics) Family History Father CHF (congestive heart failure) Brother CAD (coronary artery disease) Brother CAD (coronary artery disease) Surgical History History of left-sided carotid endarterectomy (03/30/16) History of thyroid surgery Social History (Updated 07/11/23 @ 20:[address] Dexter Stephens MD) household members: none Smoking Status: Former smoker alcohol intake: never caffeine: Yes Type: coffee Number of servings: 4 ROS Constitutional Constitutional: Reports weakness; Denies chills, fever(s) or weight gain ENT HEENT: Denies headache(s), nasal congestion or nasal discharge Cardiovascular Cardiovascular: Denies chest pain or palpitations Respiratory/Chest Respiratory/Chest: Denies cough, excessive phlegm production or shortness of breath with exertion Gastrointestinal Gastrointestinal: Denies abdominal pain, nausea or vomiting Genitourinary Genitourinary: Denies dysuria Musculoskeletal Musculoskeletal: Denies joint pain or joint swelling Integumentary Integumentary: Denies rash or wounds Neurologic Neurologic: Denies focal weakness, numbness or tingling Psychiatric Psychiatric: Denies anxiety, auditory hallucinations, depression, homicidal ideation or suicidal ideation Vital Signs Vital Signs Vital Signs: 07/11/23 16:02 07/11/23 16:00 Temperature 97.7 F L Temperature Source Temporal Pulse Rate 82 Pulse Rhythm Regular Pulse Strength Normal (2+) Respiratory Rate 16 Respiratory Effort Normal Non-Labored Respiratory Depth Normal Respiratory Pattern Normal Blood Pressure 146/55 H Blood Pressure Mean 85 Blood Pressure Source Monitor Blood Pressure Position Semi-Fowlers Blood Pressure Location Left Arm Pulse Ox 94 Oxygen Delivery Method Nasal Cannula Nasal Cannula Oxygen Flow Rate (L/min) 2 2 Weight Weight: 64.682 kg Body Mass Index (BMI) 23.0 Physical Exam Const alert General Appearance: cooperative HEENT normocephalic Eyes PERRL and EOMs intact bilaterally Neck supple, no JVD and no carotid bruits Resp normal respiratory effort, normal air movement and clear to auscultation bilaterally Cardio regular rate and regular rhythm GI normal to inspection, nondistended, normoactive bowel sounds, non-tender and non-distended Extremity normal capillary refill General Extremity: Negative for edema Skin no rashes or lesions noted General Skin Exam: no breakdown Psych affect normal Appearance: appropriate Assessment & Plan Assessment/Plan (1) Debility: (2) Acute hypoxemic respiratory failure: (3) Fall: (4) Hyponatremia: (5) Pneumonia: (6) Dysphagia: (7) Atrial fibrillation: (8) Hypertension: (9) Hyperlipidemia: (10) Insomnia: PLAN: Plan 82 year old female with below past medical history hospitalized for acute respiratory failure with hypoxia, pneumonia, complicated by hyponatremia, dysphagia, admitted to TCU with debility, here for rehabilitation, strengthening, prior to discharge home alone. * Debility - PT/OT. * Dysphagia - ST. * Pain - Tylenol 1000mg q6 prn pain (1-10). * Bowel - senna/colace 1 tablet bid prn, Magnesium citrate 300ml daily prn. * Adult immunization - Administer pneumonia vaccine, covid vaccine, flu vaccine as appropriate. * DVT prophylaxis - on Xarelto 20mg daily. * Hypertension - Metoprolol succinate 12.5mg daily, Amlodipine 2.5mg daily. * Carotid artery disease - Aspirin 81mg MWF, Xarelto 20mg daily. * Hyperlipidemia - Atorvastatin 40mg qhs. * Atrial fibrillation - Metoprolol succinate 12.5mg daily, Flecainide 100mg q12, Xarelto 20mg daily. * Insomnia - Hydroxyzine 50mg qhs. * Pneumonia - Prednisone taper, wean oxygen as tolerated. * HFpEF - Metoprolol succinate 12.5mg daily, Aldactone 25mg daily, Furosemide 40mg daily. * Hypokalemia - KCL 20meq daily.
[2023-07-11] MEDS: hydrOXYzine PAM 25 MG Capsule 50 MG PO (20:37)
[2023-07-11] MEDS: Atorvastatin Calcium 40 MG Tablet PO (20:37)
[2023-07-12] MEDS: Flecainide 100 MG Tablet PO ×2 (04:43→16:10)
[2023-07-12 05:43] LABS: Absolute Lymphocyte Count 0.98 X10^3/uL (0.83-4.51); Absolute Neutrophil Count 11.7 X10^3/uL (2.0-7.7); Basophil# 0.03 X10^3/uL; Basophil% 0.2 % (0-1); Eosinophil# 0.37 X10^3/uL; Eosinophils% 2.7 % (0-5); Hematocrit 31.4 % (37-47); Hemoglobin 9.6 g/dL (12.0-15.0); Lymphocyte # 0.98 X10^3/ul (0.83-4.51); Lymphocyte % 7.1 % (19-41); Mean Corp Hgb Conc 30.6 g/dL (32-36); Mean Corpuscular Volume 94.9 fL (81-99); Mean Platelet Vol. 10.3 fl (6.2-12.0); Monocyte# 0.63 X10^3/uL; Monocyte% 4.6 % (0-10); NRBC Flagged by Analyzer 0 % (0-5); Neutrophil # 11.66 X10^3/uL (2.7-7.7); Neutrophil % 84.5 % (47-70); Platelet Count 307 K/mm3 (150-450); RBC Distribution Width CV 13.2 % (11.6-14.6); RBC Distribution Width SD 45.3 fl (35.1-43.9); Red Blood Count 3.31 M/mm3 (4.2-5.4); White Blood Count 13.8 K/mm3 (4.4-11.0)
[2023-07-12 06:13] LABS: Anion Gap 4 (5-15); BUN 16 mg/dL (7-18); BUN/Creat Ratio 24.2 RATIO (10-20); Chloride 109 mmol/L (98-107); Creatinine, Serum 0.66 mg/dL (0.55-1.02); EST Glomerular Filtration Rate 91 mL/min (>60); Est Glom Filt Rate - Afr Amer 110 mL/min (>60); Glucose 125 mg/dL (74-106); Potassium 3.2 mmol/L (3.5-5.1); Sodium Level 144 mmol/L (136-145)
[2023-07-12] MEDS: Spironolactone 25 MG Tablet PO (08:42)
[2023-07-12 08:43] VITALS: BP 110/46; PULSE 75
[2023-07-12] MEDS: Metoprolol(XL)Succ 25 MG Tablet 12.5 MG PO (08:43)
[2023-07-12] MEDS: amLODIPine 2.5 MG Tablet PO (08:43)
[2023-07-12] MEDS: Rivaroxaban 20 MG Tablet PO (08:46)
[2023-07-12] MEDS: 0.9% Saline Lock 10 ML Syringe IV (08:51)
[2023-07-12 08:53] VITALS: BP 110/46; PULSE 75
[2023-07-12] MEDS: Furosemide 40 MG Tablet PO (09:49)
[2023-07-12] MEDS: Potassium Chloride Oral Tablet 20 MEQ PO ×2 (09:49→16:10)
[2023-07-12] MEDS: Tuberculin,Purif.prot.deriv. 50 TU/ML Vial 0.100000000000000006 ML ID (09:50)
[2023-07-12] MEDS: predniSONE 20 MG Tablet 10 MG PO (09:50)
--- NOTE | 2023-07-12 13:57 | CASEMGMT ---
Social Work Met with pt to complete initial assessment. Introduced self and role. Verified and updated contacts. Educated to Medicare benefits. Sw verified contacts. Discussed code status and patient confirmed she does not want medical interventions, confirming DMNR-CCA no intubation (nursing notified). Educated to Medicare benefit and encouraged secondary insurance to ensure copay coverage ([employer]). Patient's goal is to be discharged to home where she resides independently. Sw to continue to follow for DC planning. Dillon Drummond, CABIN FURNISHINGS INSTALLER, CHIMNEY SUPERVISOR BRICK
[2023-07-12 15:10] VITALS: BP 109/42; PULSE 70; RESP 18; TEMP 36.8; O2SAT 94
[2023-07-12 15:13] VITALS: BP 106/48
[2023-07-12] MEDS: Aspirin E.C. 81 MG Tablet PO (16:10)
[2023-07-12] MEDS: hydrOXYzine PAM 25 MG Capsule 50 MG PO (20:47)
[2023-07-12] MEDS: Atorvastatin Calcium 40 MG Tablet PO (20:48)
[2023-07-13] MEDS: Flecainide 100 MG Tablet PO ×2 (05:07→17:27)
[2023-07-13 08:27] LABS: Anion Gap 1 (5-15); BUN 16 mg/dL (7-18); BUN/Creat Ratio 20.6 RATIO (10-20); Calcium,Total 8.7 mg/dL (8.5-10.1); Chloride 106 mmol/L (98-107); Creatinine, Serum 0.78 mg/dL (0.55-1.02); EST Glomerular Filtration Rate 75 mL/min (>60); Est Glom Filt Rate - Afr Amer 91 mL/min (>60); Glucose 98 mg/dL (74-106); Potassium 3.6 mmol/L (3.5-5.1); Sodium Level 139 mmol/L (136-145)
[2023-07-13 08:31] VITALS: O2SAT 95
[2023-07-13 08:42] VITALS: O2SAT 96
[2023-07-13 09:37] VITALS: BP 108/54; PULSE 64; RESP 16; TEMP 35.9
[2023-07-13 09:41] VITALS: PULSE 64
[2023-07-13] MEDS: predniSONE 20 MG Tablet 10 MG PO (09:41)
[2023-07-13] MEDS: Metoprolol(XL)Succ 25 MG Tablet 12.5 MG PO (09:41)
[2023-07-13] MEDS: Potassium Chloride Oral Tablet 20 MEQ PO ×2 (09:42→17:27)
[2023-07-13] MEDS: amLODIPine 2.5 MG Tablet PO (09:42)
[2023-07-13] MEDS: Furosemide 40 MG Tablet PO (09:43)
[2023-07-13] MEDS: Rivaroxaban 20 MG Tablet PO (09:44)
[2023-07-13] MEDS: Spironolactone 25 MG Tablet PO (09:44)
[2023-07-13 15:09] VITALS: BP 127/46; PULSE 66; RESP 18; TEMP 36.2; O2SAT 96
[2023-07-13] MEDS: hydrOXYzine PAM 25 MG Capsule 50 MG PO (20:59)
[2023-07-13] MEDS: Atorvastatin Calcium 40 MG Tablet PO (21:00)
[2023-07-13] MEDS: 0.9% Saline Lock 10 ML Syringe IV (21:06)
[2023-07-14 03:45] VITALS: O2SAT 96
--- NOTE | 2023-07-14 03:48 | NURSING ---
Pt was at 97% on 4L. Decreased O2 to 3L.
[2023-07-14] MEDS: Flecainide 100 MG Tablet PO ×2 (04:40→16:55)
[2023-07-14 07:22] LABS: Anion Gap 11 (5-15); BUN 15 mg/dL (7-18); BUN/Creat Ratio 21.2 RATIO (10-20); Calcium,Total 5.9 mg/dL (8.5-10.1); Chloride 106 mmol/L (98-107); Creatinine, Serum 0.71 mg/dL (0.55-1.02); EST Glomerular Filtration Rate 84 mL/min (>60); Est Glom Filt Rate - Afr Amer 102 mL/min (>60); Glucose 98 mg/dL (74-106); Potassium 4.3 mmol/L (3.5-5.1); Sodium Level 139 mmol/L (136-145)
[2023-07-14] MEDS: Furosemide 40 MG Tablet PO (08:00)
[2023-07-14] MEDS: amLODIPine 2.5 MG Tablet PO (08:01)
[2023-07-14] MEDS: predniSONE 20 MG Tablet 10 MG PO (08:01)
[2023-07-14] MEDS: Rivaroxaban 20 MG Tablet PO (08:03)
[2023-07-14] MEDS: Spironolactone 25 MG Tablet PO (08:04)
[2023-07-14] MEDS: Potassium Chloride Oral Tablet 20 MEQ PO ×2 (08:04→16:55)
[2023-07-14 08:07] VITALS: BP 118/62; PULSE 68
[2023-07-14] MEDS: Metoprolol(XL)Succ 25 MG Tablet 12.5 MG PO (08:07)
[2023-07-14 08:32] VITALS: O2SAT 96
[2023-07-14 10:55] LABS: Calcium,Total 8.6 mg/dL (8.5-10.1)
[2023-07-14 14:18] VITALS: BP 114/50; PULSE 66; RESP 16; TEMP 36.2; O2SAT 98
[2023-07-14] MEDS: 0.9% Saline Lock 10 ML Syringe IV (16:58)
[2023-07-14 21:00] VITALS: O2SAT 94
[2023-07-14] MEDS: hydrOXYzine PAM 25 MG Capsule 50 MG PO (21:14)
[2023-07-14] MEDS: Atorvastatin Calcium 40 MG Tablet PO (21:14)
[2023-07-15] MEDS: Flecainide 100 MG Tablet PO ×2 (04:45→17:43)
[2023-07-15 06:51] VITALS: O2SAT 95
[2023-07-15] MEDS: predniSONE 20 MG Tablet 10 MG PO (08:02)
[2023-07-15] MEDS: amLODIPine 2.5 MG Tablet PO (08:03)
[2023-07-15] MEDS: Rivaroxaban 20 MG Tablet PO (08:03)
[2023-07-15] MEDS: Furosemide 40 MG Tablet PO (08:03)
[2023-07-15] MEDS: Potassium Chloride Oral Tablet 20 MEQ PO ×2 (08:04→17:44)
[2023-07-15 08:05] VITALS: BP 109/54; PULSE 65
[2023-07-15] MEDS: Spironolactone 25 MG Tablet PO (08:05)
[2023-07-15] MEDS: Metoprolol(XL)Succ 25 MG Tablet 12.5 MG PO (08:05)
[2023-07-15 08:09] VITALS: BP 109/54; PULSE 65; RESP 16; O2SAT 94
[2023-07-15 14:14] VITALS: TEMP 36.4
[2023-07-15 15:12] VITALS: O2SAT 94
[2023-07-15] MEDS: Aspirin E.C. 81 MG Tablet PO (17:45)
[2023-07-15] MEDS: hydrOXYzine PAM 25 MG Capsule 50 MG PO (21:33)
[2023-07-15] MEDS: Atorvastatin Calcium 40 MG Tablet PO (21:33)
[2023-07-16] MEDS: Flecainide 100 MG Tablet PO ×2 (04:47→16:15)
[2023-07-16] MEDS: Spironolactone 25 MG Tablet PO (09:40)
[2023-07-16] MEDS: Potassium Chloride Oral Tablet 20 MEQ PO ×2 (09:40→16:15)
[2023-07-16] MEDS: predniSONE 20 MG Tablet 10 MG PO (09:41)
[2023-07-16] MEDS: Furosemide 40 MG Tablet PO (09:41)
[2023-07-16] MEDS: amLODIPine 2.5 MG Tablet PO (09:42)
[2023-07-16] MEDS: Rivaroxaban 20 MG Tablet PO (09:42)
[2023-07-16 09:51] VITALS: BP 122/42; PULSE 61
[2023-07-16] MEDS: Metoprolol(XL)Succ 25 MG Tablet 12.5 MG PO (09:51)
[2023-07-16 09:55] VITALS: BP 122/42; PULSE 61
--- NOTE | 2023-07-16 11:59 | NURSING ---
Offered Covid vaccine, VIS provided. Patient refuses at this time.
[2023-07-16 13:28] VITALS: O2SAT 99
--- NOTE | 2023-07-16 13:38 | PCM.PN.DRR ---
Documented by User: Christian Gutiérrez 07/16/23 13:55 TCU RX Drug Regimen Review Subjective/Objective Subjective/Objective: Subjective: 82 year old female with below past medical history hospitalized for acute respiratory failure with hypoxia, pneumonia, complicated by hyponatremia, dysphagia, admitted to TCU with debility, here for rehabilitation, strengthening, prior to discharge home alone. Objective: Allergies Sulfa (Sulfonamide Antibiotics) Allergy (Verified 06/29/23 01:37) Unknown Current Medications Generic Name Dose Route Start Last Admin Trade Name Freq PRN Reason Stop Dose Admin Acetaminophen 1,000 mg 07/11/23 20:37 Acetaminophen 500 Mg Tablet PO Q6H PRN PRN Pain Score 1-10 Amlodipine Besylate 2.5 mg 07/12/23 10:00 07/16/23 09:42 Amlodipine 2.5 Mg Tablet PO 2.5 mg DAILY GLORIA Administration Protocol Aspirin 81 mg 07/12/23 16:22 07/15/23 17:45 Aspirin E.C. 81 Mg Tablet PO 81 mg MOWEFR GLORIA Administration Atorvastatin Calcium 40 mg 07/11/23 22:00 07/15/23 21:33 Atorvastatin Calcium 40 Mg Tablet PO 40 mg QHS GLORIA Administration Flecainide Acetate 100 mg 07/11/23 16:30 07/16/23 04:47 Flecainide 100 Mg Tablet PO 100 mg Q12H GLORIA Administration Furosemide 40 mg 07/12/23 10:00 07/16/23 09:41 Furosemide 40 Mg Tablet PO 40 mg DAILY GLORIA Administration Protocol Hydroxyzine Pamoate 50 mg 07/11/23 22:00 07/15/23 21:33 Hydroxyzine Carmen 25 Mg Capsule PO 50 mg QHS GLORIA Administration Magnesium Citrate 300 ml 07/11/23 20:37 Magnesium Citrate 300 Ml PO DAILY PRN CONSTIPATION Metoprolol Succinate 12.5 mg 07/12/23 10:00 07/16/23 09:51 Metoprolol(Xl)Succ 25 Mg Tablet PO 12.5 mg DAILY GLORIA Administration Protocol Potassium Chloride 20 meq 07/12/23 08:00 07/16/23 09:40 Potassium Chloride Oral Tablet 20 Meq PO 20 meq BIDCM GLORIA Administration Prednisone 30 mg 07/12/23 08:00 07/16/23 09:41 Prednisone 20 Mg Tablet PO 07/24/23 07:59 30 mg BREAKFAST GLORIA Administration Taper Rivaroxaban 20 mg 07/12/23 10:00 07/16/23 09:42 Rivaroxaban 20 Mg Tablet PO 20 mg DAILY GLORIA Administration Senna/Docusate Sodium 1 tablet 07/11/23 20:37 Senna/Docusate Sodium 1 Tablet PO BID PRN CONSTIPATION Sodium Chloride 10 - 40 ml 07/11/23 16:10 07/14/23 16:58 0.9% Saline Lock 10 Ml Syringe IV 10 ml UD PRN Administration SALINE FLUSH Spironolactone 25 mg 07/12/23 08:00 07/16/23 09:40 Spironolactone 25 Mg Tablet PO 25 mg DAILYCM GLORIA Administration Protocol Tuberculin PPD 0.1 ml 07/19/23 10:00 Tuberculin,Purif.Prot.Deriv. 50 Tu/Ml Vial ID 07/19/23 10:01 X1 ONE Problem List (Updated 07/11/23 @ 20:[address] Dexter Stephens MD) Insomnia (Acute) Hyperlipidemia (Acute) Hypertension (Chronic) Atrial fibrillation (Acute) Dysphagia (Acute) Fall (Acute) Debility (Acute) Acute hypoxemic respiratory failure (Acute) Hyponatremia (Acute) Pneumonia (Acute) Vital Signs Temp Pulse Resp BP Pulse Ox O2 Del Method O2 Flow Rate 97.6 F L 61 16 122/42 H 94 Nasal Cannula 3 07/15/23 14:14 07/16/23 09:55 07/15/23 08:09 07/16/23 09:55 07/15/23 15:12 07/15/23 15:12 07/15/23 15:12 Oxygen Flow Rate (L/min) 3 Oxygen Delivery Method Nasal Cannula Weight: 64.682 kg Body Mass Index (BMI) 23.0 Sodium 139 mmol/L (136-145) 07/14/23 06:07 Potassium 4.3 mmol/L (3.5-5.1) 07/14/23 06:07 Chloride 106 mmol/L (98-107) 07/14/23 06:07 Carbon Dioxide 22.0 mmol/L (21.0-32.0) 07/14/23 06:07 Anion Gap 11 (5-15) 07/14/23 06:07 BUN 15 mg/dL (7-18) 07/14/23 06:07 Creatinine 0.71 mg/dL (0.55-1.02) 07/14/23 06:07 Est GFR (MDRD) Af Amer 102 mL/min (>60) 07/14/23 06:07 Est GFR (MDRD) Non-Af 84 mL/min (>60) 07/14/23 06:07 BUN/Creatinine Ratio 21.2 RATIO (10-20) H 07/14/23 06:07 Glucose 98 mg/dL (74-106) 07/14/23 06:07 Assessment/Plan: 1. Pain: acetaminophen 1000 mg PO Q6H PRN pain. The patient has not required any PRN doses of acetaminophen so far this admission. Please continue to monitor pain levels, PRN medication usage and LFTs (AST/ALT = 28/24 on 06/29/23). 2. Bowel: senna/docusate 1 tablet PO BID PRN constipation, magnesium citrate 300 mL PO daily PRN constipation. The patient has not used any PRN doses of senna/docusate or magnesium citrate so far this admission. The patient's last documented bowel movement was on 07/11/23. Please continue to monitor bowel movements, PRN medication usage, for constipation and diarrhea. The patient does not have a documented bowel movement for 5 days, please consider changing senna/docusate to 1 tablet PO BID scheduled until patient has consistent bowel movements, then reduce to BID PRN. 3. Hypertension/CAD/Atrial Fibrillation/hyperlipidemia/HFpEF: amlodipine 2.5 mg PO daily, aspirin 81 mg PO on Saturday, Saturday and Saturday, atorvastatin 40 mg PO QHS, flecainide 100 mg PO BID, furosemide 40 mg PO daily, metoprolol succinate 12.5 mg PO daily, rivaroxaban 20 mg PO daily, spironolactone 25 mg PO daily. Please continue to monitor blood pressures recent range (106-146/42-76 mmHg), for lower extremity edema, for chest pain, for s/s of bleeding/excessive bruising, hemoglobin levels (Hgb = 9.6 g/dL on 07/12/23), platelet counts (Plt = 307 K/mm3 on 07/12/23), for GI distress with aspirin administration, LFTs (AST/ALT = 28/24 on 06/29/23), lipid levels (cholesterol = 176 on 06/22/22 with LDL = 38 mg/dL on 06/22/22), for myalgias, heart rates (recent range = 61-87 beats/min), for palpitations, for dizziness, visual disturbances, renal function (serum creatinine = 0.71 mg/dL with creatinine clearance ~ 40 mL/min on 07/14/23), sodium levels (Na = 139 mmol/L on 07/14/23), potassium levels (K = 4.3 mmol/L on 07/14/23), calcium levels (Ca = 8/6 mg/dL on 07/14/23), for s/s of dehydration, and for fatigue. 4. Pneumonia: prednisone taper ending 07/24/23. Please continue to monitor for s/s or respiratory distress, O2 sats (recent range = 90-98%), respiratory rates (recent range = 14-18 breaths/min), blood pressures (106-146/42-76 mmHg), blood glucose levels (BG = 98 mg/dL on 07/14/23), and for insomnia. 5. Insomnia: hydroxyzine 50 mg PO QHS. Please continue to monitor for insomnia, for dizziness, and for anticholinergic side effects such as dry mouth, dry eyes, and delirium. 6. Hypokalemia: potassium 20 mEq PO BID with meals. Please continue to monitor potassium levels (K = 4.3 mmol/L on 07/14/23), and for GI distress with potassium administration. Assessment/Plan for indications treated with psychotropic medications: NA Medical chart and medication regimen reviewed. The following medication irregularities or issues were identified: 1. Bowel: senna/docusate 1 tablet PO BID PRN constipation, magnesium citrate 300 mL PO daily PRN constipation. The patient does not have a documented bowel movement for 5 days, please consider changing senna/docusate to 1 tablet PO BID scheduled until patient has consistent bowel movements, then reduce to BID PRN. Date Date of Note:: 07/16/23 Documented by User: Dr. Dexter Stephens MD 07/24/23 07:02 TCU RX Drug Regimen Review Provider Comments Provider responsibility Provider Comments to Recommendations by Pharmacy: Agree
[2023-07-16 15:15] VITALS: BMI 21.8
[2023-07-16 15:37] VITALS: BP 105/46; PULSE 65; RESP 16; TEMP 36.7; O2SAT 100
[2023-07-16 16:09] VITALS: BP 115/46
[2023-07-16] MEDS: 0.9% Saline Lock 10 ML Syringe IV (16:12)
[2023-07-16 19:57] VITALS: O2SAT 94
[2023-07-16] MEDS: Atorvastatin Calcium 40 MG Tablet PO (21:21)
[2023-07-16] MEDS: hydrOXYzine PAM 25 MG Capsule 50 MG PO (21:21)
[2023-07-17] MEDS: Flecainide 100 MG Tablet PO ×2 (05:11→17:08)
[2023-07-17 06:18] VITALS: O2SAT 96
[2023-07-17] MEDS: Potassium Chloride Oral Tablet 20 MEQ PO ×2 (08:27→17:08)
[2023-07-17] MEDS: amLODIPine 2.5 MG Tablet PO (08:27)
[2023-07-17] MEDS: predniSONE 20 MG Tablet 10 MG PO (08:28)
[2023-07-17] MEDS: Spironolactone 25 MG Tablet PO (08:28)
[2023-07-17 08:29] VITALS: BP 119/40; PULSE 63
[2023-07-17] MEDS: Furosemide 40 MG Tablet PO (08:29)
[2023-07-17] MEDS: Metoprolol(XL)Succ 25 MG Tablet 12.5 MG PO (08:29)
[2023-07-17] MEDS: Rivaroxaban 20 MG Tablet PO (08:30)
[2023-07-17 08:33] VITALS: BP 119/40; PULSE 63
--- NOTE | 2023-07-17 10:11 | CASEMGMT ---
Social Work IDT met with patient, dtr and son for care plan meeting. Discussed patient's progress in PT/OT/ST/SN. Educated to Medicare benefit. Encouraged to contact secondary insurance to ensure copay coverage. Pt's goal is to return home alone at [facility]. Pt was mod I prior, no AD, and no O2. SW will continue to follow for DC planning. Debby Chance, FILLING HAULER DRUM STOCK CLERK
--- NOTE | 2023-07-17 11:44 | NURSING ---
PT AND FAMILY UPDATED ON POSITIVE PT FOR COVID.
--- NOTE | 2023-07-17 11:58 | NURSING ---
Roof Cement And Paint Maker Note; Activity Asset: Serena Lamas is independent in her choice of daily activities. Family and friends visit daily and bring Cydney items she may need. Cydney enjoys reading the newspaper, watching tv using her tablet and working on word puzzles. Staff will remind her of daily activities and respect her right to say no.
[2023-07-17] MEDS: Ensure Plus High Protein 120 ML LIQUID PO ×2 (13:56→17:07)
[2023-07-17 15:21] VITALS: BP 109/42; PULSE 57; RESP 18; TEMP 36.4; O2SAT 99
--- NOTE | 2023-07-17 15:57 | CASEMGMT ---
Social Work BIMS () and PHQ-2 () completed for MDS assessment. BENSON LeonW
[2023-07-17 17:07] VITALS: BP 122/48
[2023-07-17] MEDS: Aspirin E.C. 81 MG Tablet PO (17:08)
[2023-07-17] MEDS: Atorvastatin Calcium 40 MG Tablet PO (20:20)
[2023-07-17] MEDS: hydrOXYzine PAM 25 MG Capsule 50 MG PO (20:20)
[2023-07-18] MEDS: Flecainide 100 MG Tablet PO ×2 (05:19→17:11)
[2023-07-18] MEDS: Acetaminophen 500 MG Tablet 1000 MG PO (07:47)
[2023-07-18] MEDS: Spironolactone 25 MG Tablet PO (07:47)
[2023-07-18] MEDS: Potassium Chloride Oral Tablet 20 MEQ PO ×2 (07:48→17:11)
[2023-07-18] MEDS: predniSONE 20 MG Tablet 10 MG PO (07:48)
[2023-07-18] MEDS: Furosemide 40 MG Tablet PO (07:48)
[2023-07-18 07:49] VITALS: PULSE 72
[2023-07-18] MEDS: Metoprolol(XL)Succ 25 MG Tablet 12.5 MG PO (07:49)
[2023-07-18] MEDS: amLODIPine 2.5 MG Tablet PO (07:49)
[2023-07-18] MEDS: Rivaroxaban 20 MG Tablet PO (07:50)
[2023-07-18 10:11] VITALS: O2SAT 99
[2023-07-18] MEDS: Ensure Plus High Protein 120 ML LIQUID PO ×2 (13:18→17:11)
[2023-07-18 13:50] VITALS: BP 104/49; PULSE 66; RESP 16; TEMP 36.2; O2SAT 94
--- NOTE | 2023-07-18 16:25 | CHAPLAIN ---
Type of Pastoral Visit ___ Initial Visit _x__ Follow-up Visit ___ On-call Visit ___ General Patient Visit ___ Spiritual Assessment ___ Family Conference ___ Bereavement ___ Rapid Response ___ Code Blue ___ Other (describe below) Pastoral Care Referral From _x__ Patient ___ Family ___ Nurse ___ Physician ___ Tray Worker ___ Baseball Player ___ Other (describe below) Sacrament/Intervention _x__ Active listening ___ Anointing ___ Yazidism ___ Bereavement ___ Communion ___ Archana exploration ___ ___ Life review _x__ Prayer ___ Reconciliation ___ Sacrament of Sick ___ Supportive presence ___ Wedding ___ Other (describe below) Pastoral Comments this is a follow up visit to patient who has been seen in ICU and PCU previously; pt reports that there is some improvement and that she is hopeful about being able to go home; pt states that she has never had pneumonia before and that this recovery has taken longer than she expected; pt does however present with a hopeful attitude about her future and is thinking she will be able to go home again; pt is welcoming of presence and prayers of this patient services representative
[2023-07-18] MEDS: hydrOXYzine PAM 25 MG Capsule 50 MG PO (21:29)
[2023-07-18] MEDS: Atorvastatin Calcium 40 MG Tablet PO (21:29)
--- NOTE | 2023-07-19 04:30 | NURSING ---
This nurse was called into patients room for complaints of pain on left side of back and chest pain. Pt described it at 8/10, and states its like a shooting pain. She states this is the 3rd morning in a row that she has woken up at 4:30 in the morning with this pain. Pt states they gave her tylenol last night and it worked. This nurse ordered an EKG per hospital policy for chest pain. Pts vitals were taken BP: 128/53, HR:62, SPO2-95% on 3L NC, respirations 16. Pts tylenol and Tambocor given per order at this time.
--- NOTE | 2023-07-19 04:55 | NURSING ---
called placed to tacking machine operator to page
[2023-07-19] MEDS: Acetaminophen 500 MG Tablet 1000 MG PO (05:02)
[2023-07-19] MEDS: Flecainide 100 MG Tablet PO ×2 (05:03→17:42)
--- NOTE | 2023-07-19 05:15 | NURSING ---
This nurse called 's cell number and left voicemail asking Doctor to call back for update on patient in abnormal reading.
[2023-07-19 06:01] LABS: Absolute Lymphocyte Count 1.76 X10^3/uL (0.83-4.51); Absolute Neutrophil Count 11.4 X10^3/uL (2.0-7.7); Basophil# 0.05 X10^3/uL; Basophil% 0.4 % (0-1); Eosinophil# 0.22 X10^3/uL; Eosinophils% 1.5 % (0-5); Hematocrit 35.6 % (37-47); Lymphocyte # 1.76 X10^3/ul (0.83-4.51); Lymphocyte % 12.4 % (19-41); Mean Corp Hgb Conc 30.9 g/dL (32-36); Mean Corpuscular Hgb 29.3 pg (27.0-32.0); Mean Corpuscular Volume 94.7 fL (81-99); Mean Platelet Vol. 9.8 fl (6.2-12.0); Monocyte# 0.72 X10^3/uL; Monocyte% 5.1 % (0-10); NRBC Flagged by Analyzer 0 % (0-5); Neutrophil # 11.37 X10^3/uL (2.7-7.7); Platelet Count 432 K/mm3 (150-450); RBC Distribution Width CV 14.1 % (11.6-14.6); RBC Distribution Width SD 48.2 fl (35.1-43.9); Red Blood Count 3.76 M/mm3 (4.2-5.4); White Blood Count 14.2 K/mm3 (4.4-11.0)
[2023-07-19 06:40] LABS: Anion Gap 1 (5-15); BUN 17 mg/dL (7-18); BUN/Creat Ratio 18.3 RATIO (10-20); Calcium,Total 9.1 mg/dL (8.5-10.1); Chloride 99 mmol/L (98-107); Creatinine, Serum 0.93 mg/dL (0.55-1.02); EST Glomerular Filtration Rate 61 mL/min (>60); Est Glom Filt Rate - Afr Amer 74 mL/min (>60); Estimated Creatinine Clearance 43.66 ml/min; Glucose 117 mg/dL (74-106); Potassium 4.6 mmol/L (3.5-5.1); Sodium Level 135 mmol/L (136-145)
[2023-07-19 08:05] VITALS: O2SAT 94
[2023-07-19] MEDS: Rivaroxaban 20 MG Tablet PO (08:13)
[2023-07-19] MEDS: amLODIPine 2.5 MG Tablet PO (08:14)
[2023-07-19] MEDS: predniSONE 20 MG Tablet 10 MG PO (08:14)
[2023-07-19] MEDS: Furosemide 40 MG Tablet PO (08:14)
[2023-07-19 08:15] VITALS: BP 111/40; PULSE 61
[2023-07-19] MEDS: Spironolactone 25 MG Tablet PO (08:15)
[2023-07-19] MEDS: Metoprolol(XL)Succ 25 MG Tablet 12.5 MG PO (08:15)
[2023-07-19] MEDS: Potassium Chloride Oral Tablet 20 MEQ PO ×2 (08:15→17:42)
[2023-07-19] MEDS: Ensure Plus High Protein 120 ML LIQUID PO ×3 (08:20→17:42)
--- NOTE | 2023-07-19 09:04 | NURSING ---
Plan Nurse Note; MDS for 07/18/2023 Complete
[2023-07-19 13:24] VITALS: BP 124/45; PULSE 60; RESP 16; TEMP 36.1; O2SAT 97
[2023-07-19] MEDS: Tuberculin,Purif.prot.deriv. 50 TU/ML Vial 0.100000000000000006 ML ID (15:08)
[2023-07-19] MEDS: 0.9% Normal Saline (1000mL) 1,000 ML 50 ML IV (15:17)
--- NOTE | 2023-07-19 15:48 | NURSING ---
IV fluid started this afternoon for dizziness/SOB with exertion and positive orthostatic VS. IV placed to right AC.
[2023-07-19] MEDS: Aspirin E.C. 81 MG Tablet PO (17:42)
[2023-07-19] MEDS: hydrOXYzine PAM 25 MG Capsule 50 MG PO (20:52)
[2023-07-19] MEDS: Atorvastatin Calcium 40 MG Tablet PO (20:52)
[2023-07-19 23:33] LABS: Urea Nitrogen, Urine 462 mg/dL (NO RANGE EST.)
[2023-07-20] MEDS: Flecainide 100 MG Tablet PO ×2 (05:15→17:27)
[2023-07-20] MEDS: Ensure Plus High Protein 120 ML LIQUID PO ×2 (08:08→17:27)
[2023-07-20 08:09] VITALS: O2SAT 97
[2023-07-20] MEDS: Spironolactone 25 MG Tablet PO (08:09)
[2023-07-20] MEDS: predniSONE 20 MG Tablet 10 MG PO (08:10)
[2023-07-20] MEDS: Potassium Chloride Oral Tablet 20 MEQ PO ×2 (08:10→17:27)
[2023-07-20 08:11] VITALS: BP 122/44; PULSE 60
[2023-07-20] MEDS: amLODIPine 2.5 MG Tablet PO (08:11)
[2023-07-20] MEDS: Metoprolol(XL)Succ 25 MG Tablet 12.5 MG PO (08:11)
[2023-07-20] MEDS: Rivaroxaban 20 MG Tablet PO (08:13)
[2023-07-20 15:36] VITALS: BP 117/53; PULSE 67; RESP 20; TEMP 36.2; O2SAT 99
[2023-07-20] MEDS: hydrOXYzine PAM 25 MG Capsule 50 MG PO (21:43)
[2023-07-20] MEDS: Atorvastatin Calcium 40 MG Tablet PO (21:43)
[2023-07-21] VITALS (7 sets, daily range): BP systolic 105–141; BP diastolic 43–55; PULSE 54–75; RESP 18; TEMP 36.2; O2SAT 4–99
[2023-07-21] MEDS: Flecainide 100 MG Tablet PO ×2 (05:28→17:33)
[2023-07-21 05:34] LABS: Anion Gap 2 (5-15); BUN 15 mg/dL (7-18); BUN/Creat Ratio 16.7 RATIO (10-20); Calcium,Total 8.8 mg/dL (8.5-10.1); Chloride 101 mmol/L (98-107); EST Glomerular Filtration Rate 64 mL/min (>60); Est Glom Filt Rate - Afr Amer 77 mL/min (>60); Estimated Creatinine Clearance 45.12 ml/min; Glucose 128 mg/dL (74-106); Potassium 5.1 mmol/L (3.5-5.1); Sodium Level 137 mmol/L (136-145)
[2023-07-21] MEDS: Spironolactone 25 MG Tablet PO (08:05)
[2023-07-21] MEDS: Potassium Chloride Oral Tablet 20 MEQ PO ×2 (08:05→17:33)
[2023-07-21] MEDS: amLODIPine 2.5 MG Tablet PO (08:06)
[2023-07-21] MEDS: Ensure Plus High Protein 120 ML LIQUID PO ×2 (08:06→12:39)
[2023-07-21] MEDS: Rivaroxaban 20 MG Tablet PO (08:06)
[2023-07-21] MEDS: Metoprolol(XL)Succ 25 MG Tablet 12.5 MG PO (08:07)
[2023-07-21] MEDS: predniSONE 20 MG Tablet 10 MG PO (08:08)
[2023-07-21] MEDS: Acetaminophen 500 MG Tablet 1000 MG PO (09:37)
[2023-07-21] MEDS: 0.9% Saline Lock 10 ML Syringe IV (09:38)
--- NOTE | 2023-07-21 09:51 | NURSING ---
This nurse was notified by customer service engineer that patient was having S.O.B. and elevated respirations. This nurse assessed patient, SpO2 97% on 4L, BP 110/48 (man), Hr 75. Patient c/o pain in buttocks and neck, prn Tylenol given, lungs assessed clear in both posterior and anterior lobes. Educated and walked resident through breathing techniques to help patient regulate their breathing. Patient left comfortable, relaxing in recliner with call light in reach denying any further needs. Will continue to monitor.
[2023-07-21] MEDS: Atorvastatin Calcium 40 MG Tablet PO (23:02)
[2023-07-21] MEDS: hydrOXYzine PAM 25 MG Capsule 50 MG PO (23:03)
[2023-07-22] MEDS: 0.9% Saline Lock 10 ML Syringe IV ×3 (05:23→20:57)
[2023-07-22] MEDS: Flecainide 100 MG Tablet PO ×2 (05:23→17:03)
[2023-07-22 05:28] VITALS: BP 132/52; PULSE 58
[2023-07-22 05:30] VITALS: O2SAT 98
[2023-07-22] MEDS: Acetaminophen 500 MG Tablet 1000 MG PO (05:45)
[2023-07-22] MEDS: Ensure Plus High Protein 120 ML LIQUID PO ×2 (09:30→17:04)
[2023-07-22] MEDS: predniSONE 20 MG Tablet 10 MG PO (09:31)
[2023-07-22 09:32] VITALS: BP 122/49; PULSE 56
[2023-07-22] MEDS: amLODIPine 2.5 MG Tablet PO (09:32)
[2023-07-22] MEDS: Furosemide 40 MG Tablet PO (09:32)
[2023-07-22] MEDS: Metoprolol(XL)Succ 25 MG Tablet 12.5 MG PO (09:32)
[2023-07-22] MEDS: Spironolactone 25 MG Tablet PO (09:33)
[2023-07-22] MEDS: Rivaroxaban 20 MG Tablet PO (09:33)
[2023-07-22 09:43] VITALS: BP 122/49; PULSE 56
[2023-07-22] MEDS: guaiFENesin 10 ML UDC (200MG/10ML) PO ×2 (12:46→17:03)
[2023-07-22 13:28] VITALS: BP 103/59; BP 133/62; BP 145/54; PULSE 65
[2023-07-22 13:29] VITALS: BP 117/48; PULSE 59; RESP 16; TEMP 36.3; O2SAT 99
--- NOTE | 2023-07-22 13:34 | NURSING ---
ORTHOSTATIC VITALS DONE PER VERBAL ORDER FROM .
--- NOTE | 2023-07-22 14:52 | NURSING ---
UPDATED DAUGHTER ON NEW ORDERS FOR HER MOM. DAUGHTER JOHN ASKED A FEW QUESTIONS ABOUT HER SPEECH THERAPY. STATED TO DAUGHTER I WOULD LET SPEECH KNOW TO CALL HER TO ANSWER HER QUESTIONS.
[2023-07-22] MEDS: Aspirin E.C. 81 MG Tablet PO (17:03)
[2023-07-22] MEDS: Atorvastatin Calcium 40 MG Tablet PO (20:57)
[2023-07-22] MEDS: hydrOXYzine PAM 25 MG Capsule 50 MG PO (20:57)
[2023-07-23] MEDS: guaiFENesin 10 ML UDC (200MG/10ML) PO ×5 (01:10→23:31)
[2023-07-23] MEDS: Flecainide 100 MG Tablet PO ×2 (05:22→16:56)
[2023-07-23] MEDS: Rivaroxaban 20 MG Tablet PO (07:35)
[2023-07-23] MEDS: Ensure Plus High Protein 120 ML LIQUID PO ×3 (07:35→16:56)
[2023-07-23] MEDS: predniSONE 20 MG Tablet 10 MG PO (07:36)
[2023-07-23] MEDS: Spironolactone 25 MG Tablet PO (07:45)
[2023-07-23 07:49] VITALS: BP 131/48; PULSE 62
[2023-07-23] MEDS: Metoprolol(XL)Succ 25 MG Tablet 12.5 MG PO (07:49)
[2023-07-23] MEDS: amLODIPine 2.5 MG Tablet PO (07:51)
[2023-07-23 08:00] VITALS: O2SAT 93
[2023-07-23 09:09] VITALS: BMI 20.5
[2023-07-23 13:33] VITALS: BP 114/47; PULSE 58; RESP 16; TEMP 36.1; O2SAT 99
[2023-07-23 19:30] VITALS: O2SAT 97
[2023-07-23] MEDS: Atorvastatin Calcium 40 MG Tablet PO (21:37)
[2023-07-23] MEDS: hydrOXYzine PAM 25 MG Capsule 50 MG PO (21:38)
[2023-07-24] MEDS: Flecainide 100 MG Tablet PO ×2 (05:20→18:09)
[2023-07-24] MEDS: guaiFENesin 10 ML UDC (200MG/10ML) PO ×3 (05:20→18:09)
[2023-07-24 05:34] VITALS: O2SAT 94
[2023-07-24] MEDS: Ensure Plus High Protein 120 ML LIQUID PO ×3 (07:56→18:16)
[2023-07-24 07:59] VITALS: BP 108/45; PULSE 70; RESP 16; O2SAT 94
[2023-07-24 08:00] VITALS: O2SAT 94
--- NOTE | 2023-07-24 08:49 | NURSING ---
0800- SALES ANALYTICS MANAGER calling for help, entered room and found patient sitting on side of bed with SALES ANALYTICS MANAGER supporting her. Per SALES ANALYTICS MANAGER she was trying to transfer patient to the chair but when she stood up she became weak, unable to walk, had tremors for a few seconds and had to be lowered back to the bed. Dr. Stephens to room to assess. Patient helped back into bed, denied dizziness or any symptoms at that time. Vitals taken and Dr. Stephens made aware. Verbal order to encourage fluids. Daughter notified via phone. Daughter reports cardiology had recently started her on a new med that she hadn't started taking yet. She couldn't remember the name.
[2023-07-24] MEDS: Rivaroxaban 20 MG Tablet PO (09:16)
[2023-07-24 09:30] VITALS: BP 88/46; RESP 33
[2023-07-24] MEDS: 0.9% Normal Saline (1000mL) 1,000 ML 999 ML IV (12:01)
--- NOTE | 2023-07-24 13:12 | NURSING ---
Resident hypotensive and lightheaded/dizzy this morning upon standing. Daughter called and spoke with this nurse stating resident takes her blood pressure medications as an as needed basis at home. She does not take the norvasc or the Toprol daily as prescribed at home. CHICHI updated and N.O. d/c norvasc. Dr. Stephens updated on new orders and hypotension, N.O. add parameters to Toprol XL, hold if SBP less than 100, n.o. give 1 liter NS bolus.
[2023-07-24 15:04] VITALS: BP 122/56; PULSE 68; RESP 18; TEMP 36.5; O2SAT 95
[2023-07-24] MEDS: Aspirin E.C. 81 MG Tablet PO (18:10)
[2023-07-24] MEDS: 0.9% Saline Lock 10 ML Syringe IV (20:58)
[2023-07-24] MEDS: Atorvastatin Calcium 40 MG Tablet PO (21:01)
[2023-07-24] MEDS: hydrOXYzine PAM 25 MG Capsule 50 MG PO (21:01)
[2023-07-25] MEDS: guaiFENesin 10 ML UDC (200MG/10ML) PO ×5 (00:17→23:12)
[2023-07-25] MEDS: Flecainide 100 MG Tablet PO ×2 (05:05→17:26)
[2023-07-25 06:30] VITALS: O2SAT 94
[2023-07-25] MEDS: Ensure Plus High Protein 120 ML LIQUID PO ×3 (07:51→17:26)
[2023-07-25 07:52] VITALS: BP 118/62; PULSE 68
[2023-07-25] MEDS: Metoprolol(XL)Succ 25 MG Tablet 12.5 MG PO (07:52)
[2023-07-25] MEDS: Furosemide 40 MG Tablet PO (07:54)
[2023-07-25] MEDS: Spironolactone 25 MG Tablet PO (07:55)
[2023-07-25] MEDS: Rivaroxaban 20 MG Tablet PO (07:56)
--- NOTE | 2023-07-25 08:16 | NURSING ---
Called [facility], appt made with Dr. Savanah Edwards 07/26/23 @4020. Updated patient and daughter Carmen, who said she will go to appt with patient.
[2023-07-25] MEDS: CARBOXYMETHYLCELLULOSE SODIUM 1 DRP DROPS 2 DRP OPHTHALMIC ×2 (09:51→19:42)
[2023-07-25 09:53] VITALS: PULSE 65; RESP 18; O2SAT 98
--- NOTE | 2023-07-25 10:45 | NURSING ---
Call from Nicole with the [facility], order from Dr. Bedoya to DC metoprolol. Order read back. Will DC and leave note updating Dr. Stephens.
[2023-07-25 13:33] VITALS: BP 125/50; TEMP 36.2
--- NOTE | 2023-07-25 14:59 | WOUNDNOTE ---
wound photo: upper inner buttocks/ cleft
[2023-07-25 15:44] VITALS: O2SAT 98
[2023-07-25] MEDS: Atorvastatin Calcium 40 MG Tablet PO (19:42)
[2023-07-25] MEDS: Senna/Docusate Sodium 1 Tablet PO (19:43)
[2023-07-25] MEDS: hydrOXYzine PAM 25 MG Capsule 50 MG PO (19:43)
[2023-07-26] MEDS: Flecainide 100 MG Tablet PO ×2 (05:00→16:43)
[2023-07-26] MEDS: guaiFENesin 10 ML UDC (200MG/10ML) PO ×4 (05:00→23:53)
[2023-07-26 05:46] LABS: Absolute Lymphocyte Count 0.83 X10^3/uL (0.83-4.51); Absolute Neutrophil Count 7.8 X10^3/uL (2.0-7.7); Basophil# 0.06 X10^3/uL; Basophil% 0.6 % (0-1); Eosinophil# 0.32 X10^3/uL; Eosinophils% 3.3 % (0-5); Hematocrit 35.1 % (37-47); Hemoglobin 10.8 g/dL (12.0-15.0); Lymphocyte # 0.83 X10^3/ul (0.83-4.51); Lymphocyte % 8.6 % (19-41); Mean Corp Hgb Conc 30.8 g/dL (32-36); Mean Corpuscular Volume 94.4 fL (81-99); Mean Platelet Vol. 9.9 fl (6.2-12.0); Monocyte# 0.58 X10^3/uL; NRBC Flagged by Analyzer 0 % (0-5); Neutrophil # 7.75 X10^3/uL (2.7-7.7); Neutrophil % 80.8 % (47-70); Platelet Count 214 K/mm3 (150-450); RBC Distribution Width CV 14.4 % (11.6-14.6); RBC Distribution Width SD 49.3 fl (35.1-43.9); Red Blood Count 3.72 M/mm3 (4.2-5.4); White Blood Count 9.6 K/mm3 (4.4-11.0)
[2023-07-26 06:10] LABS: Anion Gap 4 (5-15); BUN 15 mg/dL (7-18); BUN/Creat Ratio 18.4 RATIO (10-20); Calcium,Total 8.5 mg/dL (8.5-10.1); Chloride 99 mmol/L (98-107); Creatinine, Serum 0.82 mg/dL (0.55-1.02); EST Glomerular Filtration Rate 71 mL/min (>60); Est Glom Filt Rate - Afr Amer 86 mL/min (>60); Estimated Creatinine Clearance 48.14 ml/min; Glucose 155 mg/dL (74-106); Potassium 4.1 mmol/L (3.5-5.1); Sodium Level 135 mmol/L (136-145)
[2023-07-26 06:49] VITALS: BP 124/48
[2023-07-26] MEDS: CARBOXYMETHYLCELLULOSE SODIUM 1 DRP DROPS 2 DRP OPHTHALMIC ×2 (08:40→21:08)
[2023-07-26] MEDS: Rivaroxaban 20 MG Tablet PO (08:41)
[2023-07-26] MEDS: Furosemide 40 MG Tablet PO (08:41)
[2023-07-26] MEDS: Spironolactone 25 MG Tablet PO (08:41)
[2023-07-26 08:56] VITALS: BP 128/49; PULSE 86
[2023-07-26 09:00] VITALS: PULSE 62; RESP 18; O2SAT 98
--- NOTE | 2023-07-26 09:23 | NURSING ---
UPDATED FAMILY AND PT THAT THERE WAS A COVID POSITIVE STAFF MEMBER.
--- NOTE | 2023-07-26 10:38 | NURSING ---
PT LEFT BY WHEEL CHAIR WITH DAUGHTER TO SEE Keith ALVARADO IN PULMONOLOGY AT 0940.
--- NOTE | 2023-07-26 10:58 | NURSING ---
PT RETURNED TO FLOOR. NEW ORDERS FOR CHEST X-RAY,DUO NEB EVERY 6 HRS WHILE AWAKE, KEEP OXYGEN AT 89% AND ABOVE AND IN FORCE THE I.S. RN AWARE.
--- NOTE | 2023-07-26 11:10 | RAD_ITS ---
STUDY: X-RAY CHEST REASON FOR EXAM: Female, 82 years old. Increased oxygen needs. Shortness of breath. TECHNIQUE: Frontal and lateral views of the chest. COMPARISON: July 06, 2023. FINDINGS: Slight increased opacities in the lingular segment of the left upper lobe and left lower lobe. There is no demonstrated pleural abnormality. Cardiomegaly unchanged. Normal mediastinum and kenya. Normal visualized pulmonary arteries. Normal visualized aortic arch and descending thoracic aorta. Normal visualized thoracic spine. Normal visualized ribs, clavicles, and shoulders. There is no demonstrated abnormality of the visualized soft tissue structures of the upper abdomen. RAD/Chest PA and Lateral IMPRESSION: Radiographic worsening with increased opacities in the left upper lobe and left lower lobe. No acute or emergent findings. Electronically Signed: Jeremi Eubanks MD at 12:43 EST ,
[2023-07-26] MEDS: 0.9% Saline Lock 10 ML Syringe IV ×2 (13:33→13:43)
[2023-07-26 16:00] VITALS: BP 122/57; PULSE 68; RESP 16; TEMP 36.7; O2SAT 96
[2023-07-26] MEDS: Aspirin E.C. 81 MG Tablet PO (16:43)
[2023-07-26 16:49] VITALS: O2SAT 98
[2023-07-26] MEDS: Ensure Plus High Protein 120 ML LIQUID PO (17:10)
--- NOTE | 2023-07-26 17:16 | NURSING ---
DAUGHTER UPDATED ON NEW ORDERS FROM THE G. TAMBOCOR AND AMA
[2023-07-26 17:34] VITALS: PULSE 70; RESP 18; O2SAT 94
[2023-07-26 18:55] LABS: Bedside Glucose 266 mg/dL (74-106)
[2023-07-26] MEDS: Atorvastatin Calcium 40 MG Tablet PO (21:06)
[2023-07-26] MEDS: hydrOXYzine PAM 25 MG Capsule 50 MG PO (21:06)
[2023-07-26] MEDS: Senna/Docusate Sodium 1 Tablet PO (21:06)
--- NOTE | 2023-07-27 02:13 | NURSING ---
Late entry for 07/26/23- Patient called this nurse into room stating that she felt very short of breath and shaky . Daughter in room and states that patient had her first breathing treatment at around 1730. This nurse assessed patient who was sitting upright in recliner. Lung sounds diminished, HR 79, Pulse oxygen 97% on 3L. BP 114/51. Patient was then instructed to take deep breaths in through nose and out through mouth. Patient then taken to bathroom, and wanted to lay down in bed. Patient helped to bed after using restroom. This nurse went back in about 20 minutes later to reassess, patient states that she felt better pulse ox still 97%. Patient resting comfortably in bed.
[2023-07-27] MEDS: Flecainide 100 MG Tablet PO ×2 (05:04→17:28)
[2023-07-27] MEDS: guaiFENesin 10 ML UDC (200MG/10ML) PO ×3 (05:04→17:28)
[2023-07-27 07:41] VITALS: BP 110/68; PULSE 71; RESP 18; O2SAT 97
[2023-07-27] MEDS: Ensure Plus High Protein 120 ML LIQUID PO ×3 (07:42→17:28)
[2023-07-27] MEDS: Senna/Docusate Sodium 1 Tablet PO ×2 (07:43→22:29)
[2023-07-27] MEDS: Spironolactone 25 MG Tablet PO (07:44)
[2023-07-27] MEDS: CARBOXYMETHYLCELLULOSE SODIUM 1 DRP DROPS 2 DRP OPHTHALMIC ×2 (07:44→22:23)
[2023-07-27] MEDS: Rivaroxaban 20 MG Tablet PO (07:44)
[2023-07-27] MEDS: Furosemide 40 MG Tablet PO (07:44)
[2023-07-27] MEDS: 0.9% Saline Lock 10 ML Syringe IV ×2 (07:45→22:33)
[2023-07-27] MEDS: Acetaminophen 500 MG Tablet 1000 MG PO (07:47)
[2023-07-27 13:10] VITALS: O2SAT 98
--- NOTE | 2023-07-27 13:10 | CPS ---
Discussed with patient, patient stated she felt bad for 1 hour after the breathing treatment she was given last night. Patient stated she had never had a breathing treatment before. Patient informed that she can call for an aerosol if she changes her mind.
[2023-07-27 14:15] VITALS: BP 139/49; PULSE 63; RESP 22; TEMP 36.8; O2SAT 99
--- NOTE | 2023-07-27 14:42 | NURSING ---
Addendum entered by Abena Mitchell 07/27/23 18:49: Pt complains of dyspnea, shortness of breath. Requested 02 increased to 3L- sp02-96%. Addendum entered by Abena Mitchell 07/27/23 18:02: Pt ranging 95-97% on 3L supplemental oxygen. Pt states I feel more short of breath when the 02 is higher. Weaned down to 2L nasal cannula, pt tolerated activity/exertion well. Pt and family in pleasant mood, in agreement with plan of care. Original Note: Pt continues with shortness of breath (SOB) with exertion, denies SOB otherwise. sp02-95% on 3L nasal cannula. No complaints at this time.
[2023-07-27] MEDS: Atorvastatin Calcium 40 MG Tablet PO (22:28)
[2023-07-27] MEDS: hydrOXYzine PAM 25 MG Capsule 50 MG PO (22:28)
[2023-07-27 22:30] VITALS: BP 135/46; PULSE 73
[2023-07-27] MEDS: Metoprolol(XL)Succ 25 MG Tablet 12.5 MG PO (22:30)
[2023-07-28] MEDS: guaiFENesin 10 ML UDC (200MG/10ML) PO ×5 (00:32→23:19)
--- NOTE | 2023-07-28 04:46 | NURSING ---
0030- Pt w/ urge to void. Reports she has not voided since before supper. Water in toilet is clear. Bladder scan completed for 479 ml. Bladder is distended. St cath using sterile technique for 400 ml clear, straw colored urine without strong or foul odor. Pt tolerated well. Pericare completed after cath. Brown, peeling skin noted to b/l groin w/ redness and a small area of excoriation. Triad cream applied. Will continue to monitor.
[2023-07-28] MEDS: Flecainide 100 MG Tablet PO ×2 (05:33→17:49)
[2023-07-28 05:35] VITALS: BP 120/51; PULSE 61; O2SAT 95
[2023-07-28 08:09] LABS: Hematocrit 34.4 % (37-47); Hemoglobin 10.8 g/dL (12.0-15.0)
[2023-07-28 08:20] VITALS: BP 102/60; PULSE 75; RESP 20; O2SAT 90
[2023-07-28] MEDS: Ensure Plus High Protein 120 ML LIQUID PO ×3 (08:24→17:49)
[2023-07-28] MEDS: Spironolactone 25 MG Tablet PO (08:25)
[2023-07-28] MEDS: Rivaroxaban 20 MG Tablet PO (08:25)
[2023-07-28] MEDS: Furosemide 40 MG Tablet PO (08:25)
[2023-07-28] MEDS: Senna/Docusate Sodium 1 Tablet PO ×2 (08:25→23:18)
[2023-07-28] MEDS: CARBOXYMETHYLCELLULOSE SODIUM 1 DRP DROPS 2 DRP OPHTHALMIC ×2 (08:27→23:19)
--- NOTE | 2023-07-28 09:42 | NURSING ---
Pt denies feelings of retention, pain. Bladder scan reveals 400mL. Pt voided in toilet, bladder scan now 32mL. Continues to deny feelings of retention/pain, urge to void. No complaints at this time.
--- NOTE | 2023-07-28 14:37 | NURSING ---
Addendum entered by Abena Mitchell 07/28/23 15:07: clarification: straight cath drained clear, yellow urine. No foul odor noted. No abdominal distension noted. Original Note: Pt unable to void in toilet, denies feelings of pressure. Bladder scan shows ~ 726mL. Inserted straight-cath, drained 800mL; bladder scan now 3mL. Pt continues to deny feelings of pressure and discomfort. Tolerated well.
[2023-07-28 15:43] VITALS: BP 125/54; PULSE 65; RESP 16; TEMP 36.9; O2SAT 94
--- NOTE | 2023-07-28 21:31 | NURSING ---
Spoke w/ Dr. Stephens via phone to update K+ has been on hold since 07/22 and K+ levels drawn on 07/21 and 07/26. New order received and read back to have BMP drawn in am.
--- NOTE | 2023-07-28 21:33 | NURSING ---
Telephone order received and read back to insert cooper catheter for retention if next PVR is greater than 350ml as pt had st cath inserted for 400 ml and 800 ml within the past 24 hours.
[2023-07-28 23:18] VITALS: BP 144/57; PULSE 69
[2023-07-28] MEDS: Atorvastatin Calcium 40 MG Tablet PO (23:18)
[2023-07-28] MEDS: Metoprolol(XL)Succ 25 MG Tablet 12.5 MG PO (23:18)
[2023-07-28] MEDS: hydrOXYzine PAM 25 MG Capsule 50 MG PO (23:18)
--- NOTE | 2023-07-29 01:25 | NURSING ---
Left VM for Debby CLAYTON, to update that report received from [facility] nurse, Abena, that pt's daughter, the nurse did not identify a name for the daughter, that she is concerned that the pt is declining. This nurse also verbalized concerns that if pt will return to home alone at prior level of function without O2, the pt does not have a good understanding of her medication regimen and will need assistance from family.
[2023-07-29] MEDS: guaiFENesin 10 ML UDC (200MG/10ML) PO ×4 (05:20→23:56)
[2023-07-29] MEDS: Flecainide 100 MG Tablet PO ×2 (05:20→17:24)
[2023-07-29 05:56] LABS: Anion Gap 5 (5-15); BUN 16 mg/dL (7-18); BUN/Creat Ratio 17.9 RATIO (10-20); Calcium,Total 8.5 mg/dL (8.5-10.1); Chloride 98 mmol/L (98-107); Creatinine, Serum 0.89 mg/dL (0.55-1.02); EST Glomerular Filtration Rate 64 mL/min (>60); Est Glom Filt Rate - Afr Amer 78 mL/min (>60); Estimated Creatinine Clearance 44.35 ml/min; Glucose 138 mg/dL (74-106); Potassium 3.9 mmol/L (3.5-5.1); Sodium Level 135 mmol/L (136-145)
--- NOTE | 2023-07-29 06:53 | NURSING ---
Yeast-like rash noted under left breast when BALANCE BRIDGE INSPECTOR had this nurse assess affected area. New order for Nystatin powder topically BID.
[2023-07-29 08:10] VITALS: O2SAT 95
[2023-07-29] MEDS: Furosemide 40 MG Tablet PO (08:54)
[2023-07-29] MEDS: Rivaroxaban 20 MG Tablet PO (08:55)
[2023-07-29] MEDS: Spironolactone 25 MG Tablet PO (08:55)
[2023-07-29] MEDS: Senna/Docusate Sodium 1 Tablet PO (08:55)
[2023-07-29] MEDS: Acetaminophen 500 MG Tablet 1000 MG PO (08:58)
[2023-07-29] MEDS: Ensure Plus High Protein 120 ML LIQUID PO ×2 (08:59→17:42)
[2023-07-29] MEDS: CARBOXYMETHYLCELLULOSE SODIUM 1 DRP DROPS 2 DRP OPHTHALMIC (09:03)
[2023-07-29 09:08] VITALS: BP 107/47; PULSE 65
[2023-07-29 10:00] VITALS: O2SAT 98
--- NOTE | 2023-07-29 10:46 | NURSING ---
BEBETORN/WOUND NURSE IN TO SEE PT.
[2023-07-29] MEDS: Miconazole Nitrate 43 GM Bottle 1 APPLIC TOPICAL (11:14)
--- NOTE | 2023-07-29 11:15 | NURSING ---
Addendum entered by Pete Short 07/29/23 12:01: BLADDER SCANNED FOR 415, OUT PUT AFTER BUSCH PLACED 600ML Original Note: PT WENT TO REST ROOM AND COULD NOT VOID. FAILED 3RD TIME BLADDER SCAN. BUSCH INSERTED PER ORDER.
--- NOTE | 2023-07-29 11:31 | WOUNDNOTE ---
wound photo: upper inner buttocks/ cleft
[2023-07-29 15:33] VITALS: BP 124/47; PULSE 52; RESP 16; TEMP 36.2; O2SAT 100
[2023-07-29 16:33] VITALS: O2SAT 98
[2023-07-29] MEDS: Aspirin E.C. 81 MG Tablet PO (17:23)
[2023-07-29] MEDS: Tamsulosin HCl 0.4 MG Capsule 0.400000000000000022 MG PO (17:52)
--- NOTE | 2023-07-29 18:05 | RAD_ITS ---
STUDY: X-RAY - ABDOMEN/PELVIS REASON FOR EXAM: Female, 82 years old. Bloated, decreased appetite. TECHNIQUE: Single AP view of the abdomen / pelvis. COMPARISON: None. FINDINGS: Coarse opacity in the left lower lobe concerning for pneumonia. Increased gas pattern predominantly within the colon with mild gaseous distention. There is scattered fecal debris, more significant distally. The small bowel maintains normal caliber with no significant dilatation to suggest obstruction. There is no demonstrated free abdominal air. The visualized liver, spleen and kidneys are grossly normal in size and morphology. Vascular calcifications noted. There are diffuse degenerative changes of the visualized lumbar spine and bilateral hips. RAD/Abdomen Single View IMPRESSION: Mild nonspecific distention of the colon with scattered fecal debris as described. No significant distention to suggest obstruction. Electronically Signed: Katiana Urbina MD at 19:15 EST ,
[2023-07-29] MEDS: Piperacil/Tazobactam 3.375 GM in 0.9% Normal Saline (50mL MB+) 50 ML IV (23:47)
[2023-07-29] MEDS: 0.9% Normal Saline (250mL Bag) 250 ML 15 ML IV (23:47)
[2023-07-29] MEDS: hydrOXYzine PAM 25 MG Capsule 50 MG PO (23:54)
[2023-07-29] MEDS: Atorvastatin Calcium 40 MG Tablet PO (23:57)
[2023-07-29 23:58] VITALS: BP 114/47; PULSE 68
[2023-07-29] MEDS: Metoprolol(XL)Succ 25 MG Tablet 12.5 MG PO (23:58)
[2023-07-30] MEDS: Miconazole Nitrate 43 GM Bottle 1 APPLIC TOPICAL ×3 (00:02→22:03)
[2023-07-30] MEDS: Piperacil/Tazobactam 3.375 GM in 0.9% Normal Saline (50mL MB+) 50 ML IV ×3 (05:13→21:57)
[2023-07-30] MEDS: guaiFENesin 10 ML UDC (200MG/10ML) PO ×4 (05:13→21:56)
[2023-07-30] MEDS: Flecainide 100 MG Tablet PO ×2 (05:13→16:54)
[2023-07-30 06:03] LABS: Hematocrit 30.2 % (37-47); Hemoglobin 9.7 g/dL (12.0-15.0)
[2023-07-30] MEDS: Ensure Plus High Protein 120 ML LIQUID PO ×2 (07:48→16:54)
[2023-07-30] MEDS: Spironolactone 25 MG Tablet PO ×2 (07:49→07:53)
[2023-07-30] MEDS: Rivaroxaban 20 MG Tablet PO (07:53)
[2023-07-30] MEDS: Furosemide 40 MG Tablet PO (07:53)
[2023-07-30] MEDS: Senna/Docusate Sodium 1 Tablet PO ×2 (07:53→21:57)
[2023-07-30] MEDS: CARBOXYMETHYLCELLULOSE SODIUM 1 DRP DROPS 2 DRP OPHTHALMIC ×3 (07:54→22:00)
[2023-07-30 08:06] VITALS: BP 119/46; PULSE 58
[2023-07-30 09:39] VITALS: BMI 20.4
[2023-07-30] MEDS: 0.9% Saline Lock 10 ML Syringe IV ×2 (10:33→14:49)
[2023-07-30 13:46] VITALS: BP 110/44; PULSE 66; RESP 16; TEMP 36.2; O2SAT 93
[2023-07-30] MEDS: Tamsulosin HCl 0.4 MG Capsule 0.400000000000000022 MG PO (16:54)
[2023-07-30 21:56] VITALS: BP 105/52; PULSE 67
[2023-07-30] MEDS: Metoprolol(XL)Succ 25 MG Tablet 12.5 MG PO (21:56)
[2023-07-30] MEDS: hydrOXYzine PAM 25 MG Capsule 50 MG PO (21:57)
[2023-07-30] MEDS: Atorvastatin Calcium 40 MG Tablet PO (21:57)
[2023-07-30] MEDS: MENTHOL 226.8 GM JAR 1 APPLIC TOPICAL (22:01)
[2023-07-31] MEDS: Flecainide 100 MG Tablet PO ×2 (05:31→16:07)
[2023-07-31] MEDS: Piperacil/Tazobactam 3.375 GM in 0.9% Normal Saline (50mL MB+) 50 ML IV ×3 (05:31→22:41)
[2023-07-31] MEDS: guaiFENesin 10 ML UDC (200MG/10ML) PO ×4 (05:31→23:06)
[2023-07-31 06:06] LABS: Hemoglobin 10.2 g/dL (12.0-15.0)
[2023-07-31] MEDS: Ensure Plus High Protein 120 ML LIQUID PO ×3 (08:30→19:03)
[2023-07-31] MEDS: Miconazole Nitrate 43 GM Bottle 1 APPLIC TOPICAL ×2 (08:31→21:37)
[2023-07-31] MEDS: Furosemide 40 MG Tablet PO (08:31)
[2023-07-31] MEDS: CARBOXYMETHYLCELLULOSE SODIUM 1 DRP DROPS 2 DRP OPHTHALMIC ×2 (08:32→21:40)
[2023-07-31] MEDS: Rivaroxaban 20 MG Tablet PO (08:32)
[2023-07-31] MEDS: Senna/Docusate Sodium 1 Tablet PO ×2 (08:32→21:40)
--- NOTE | 2023-07-31 09:15 | CASEMGMT ---
Social Work BIMS () and PHQ-2 () completed for MDS assessment. Debby Chance MSW AIRPORT GUIDE
--- NOTE | 2023-07-31 11:25 | MDS.RN ---
Information for the mds was obtained from review of the clinical record, interview of resident, staff, and direct observation of resident's care.
[2023-07-31 11:30] VITALS: BP 106/50; PULSE 60; RESP 20; O2SAT 98
--- NOTE | 2023-07-31 11:35 | NURSING ---
Per therapy patient unable to tolerated standing or walking. When stood, she became shaky and pale, unable get blood pressure read as she was too shaky. Sitting in chair after working with therapy VSS, 02 98% on 3L but she feels short of breath and weak. This RN called and spoke with senior backup administrator office, they can get patient in today with Aramis CAMARILLO at 1:30. Called and updated patient's daughter Carmen who will come in and go to appt with her mother.
--- NOTE | 2023-07-31 13:29 | SP.MBSS_ITS ---
Modified Barium Swallow Patient Information Study Date: 07/31/23 Study Time: 12:30 Direct Billable Minutes: 115 Total Minutes procedure & reportin Diagnosis: Hypoxia R09.02, Aspiration pneumonia of right upper lobe J69.0 Referring Physician: Dexter Stephens Chi Reason for Referral: The patient is currently on an easy to chew texture/thin liquid diet and has been participated in ~3 weeks of dysphagia intervention w/ speech therapy during her TCU admission. Given her current PNA dx and limited improvement in respiratory status, she was referred for a repeat MBSS ? objective assessment of swallow function recommended to assess safety and efficacy of oropharyngeal swallow function for determination of the least restrictive diet and need for compensatory strategies to improve swallow function. Previous MBSS completed 07/08/23 which revealed moderate oropharyngeal dysphagia w/ silent aspiration of thin liquids and recommendation for an easy to chew/mildly thick liquid diet w/ the following compensatory strategies - small bites/small sips, slow rate, alternate bites/solids and sips/liquids, seated upright for intake. Medical History: A fib, HTN, GERD, Diverticulosis, Near syncope, TIA, Non-sustained ventricular tachycardia Current Diet Ordered: Easy to Chew/Thin Liquids Dentition: Natural Teeth (natural lower dentition present, upper denture plate not utilized during this study d/t reported weight loss resulting in poor fit) Respiratory Status: Oxygenating on 3L/M nasal cannula Penetration-Aspiration Scale Penetration-Aspiration Scale: OBJECTIVE ASSESSMENT OF SWALLOW FUNCTION (QUANTITATIVE ? PER TRIAL): PENETRATION / ASPIRATION SCALE (VEGA): 1 = does not enter airway 2 = enters airway/above vocal folds/ejected 3 = enters airway/above vocal folds/not ejected 4 = enters airway/contacts vocal folds/ejected 5 = enters airway/contacts vocal folds/not ejected 6 = enters airway/below vocal folds/ejected 7 = enters airway/below vocal folds/not ejected despite effort 8 = enters airway/below vocal folds/no effort Penetration-Aspiration Scale Score Thin Liquid via teaspoon: Result: 1= does not enter airway Thin Liquid via teaspoon Trial 2: Result: 2= enter airway/above vocal folds/ejected Thin Liquid via small single sip: cup: Result: 2= enter airway/above vocal folds/ejected Thin Liquid via small single sip: cup Trial 2: Result: 1= does not enter airway Thin Liquid via single sip: straw: Result: 2= enter airway/above vocal folds/ejected Thin Liquid via sequential sips: cup: Result: 5= enters airways/contacts vocal folds/not ejected [place] Thick Liquid via small single sip: cup: Result: 1= does not enter airway Pudding via teaspoon: Result: 1= does not enter airway 1/4 Shortbread Cookie, crumbled and mixed w/ pudding: Result: 1= does not enter airway Thin Liquid via small single sip: cup Trial 3: Result: 1= does not enter airway Thin Liquid via small single sip: cup Trial 4: Result: 1= does not enter airway Oral Phase Labial Seal: No Labial Escape Tongue Control During Bolus Hold: Cohesive bolus between tongue to palatal seal Bolus Preparation/Mastication: Slow prolonged chewing/mashing with complete recollection Bolus Transport/Lingual Motion: Delayed initiation of tongue motion Oral Residue: Trace residue lining oral structures Pharyngeal Phase Initiation of Pharyngeal Swallow: Bolus head at posterior laryngeal surgace of epiglottis Soft Palate Elevation: No bolus between soft palate and pharyngeal wall Laryngeal Elevation: Partial superior movement thyroid cart/partial apprx aryt- epig petiole Anterior Hyoid Excursion: Partial anterior movement Epiglottic Movement: Complete inversion Laryngeal Vestibule Closure at Height of Swallow: Incomplete; narrow column of air/contrast in laryngeal vestibule Pharyngeal Stripping Wave: Present - complete Pharyngoesophageal Segment Opening: Parital distension and partial duration; parital obstruction of flow (noted protrusion of C5-6 w/ narrowing at PES, did not impact bolus flow through PES) Tongue Base Retraction: Wide column of contrast between tongue base & post. pharyngeal wall Pharyngeal Residue: Trace residue within or on pharyngeal structures Esophageal Phase Esophageal Clearance: Complete clearance Diagnosis/Impression Diagnosis: mild oropharyngeal dysphagia (R13.12) Impression: The oral phase is characterized by: -lack of upper dentition d/t reported weight loss resulting in a poorly fitting upper denture plate -unable to masticate 1/2 shortbread cookie w/out upper teeth, cookie was spit out -1/4 shortbread cookie was presented, crushed and mixed w/ pudding - prolonged mastication time appreciated, but was able to sufficiently chew and clear the bolus from the oral cavity -trace retention of residue w/in the oral cavity -sufficient oral control w/out loss of liquid boluses during cued oral holding The pharyngeal phase is characterized by: -pharyngeal swallow onset w/ initiating when liquids boluses reached the posterior laryngeal surface of the epiglottis -reduction in anterior hyoid movement and laryngeal elevation noted, resulting in incomplete laryngeal vestibule closure -transient laryngeal vestibule penetration appreciated inconsistently w/ thin liquid trials - difficult to discern penetration w/ complete ejection vs. contrast lining the aryepiglottic folds giving the appearance of penetration at the height of pharyngeal swallow -definitive penetration present w/ the second to third sequential swallow of thin liquid via cup w/ contrast reaching the vocal folds - delayed throat clearing response to penetration was appreciated which appeared to clear penetration from the laryngeal vestibule -trace contrast retention w/in the valleculae -improved pharyngeal contraction/stripping wave w/ marked improvement in pharyngeal bolus clearance - less contrast lining the pharyngeal structures compared to previous MBSS 07/08/23 -patient independently utilized a partial chin tuck posture when swallowing across several trials Recommendations Diet: Regular Textures (Easy to Chew - IDDSI 7) and Thin Liquids Compensatory Strategies: Small Bites, Small Sips, Alternate bites/solids and sips/liquids and Sitting upright Supervision: Distant Supervision Recommend Repeat Modified Barium Swallow: TBD Need for Skilled Speech Therapy Services: Yes Comment: Recommend continued dysphagia intervention during TCU stay for ongoing assessment of diet tolerance w/ use of compensatory strategies and continued oropharyngeal strengthening for maintenance of current swallow function. Recommended Referrals: Dental Evaluation (consider plug grower referral to adjust fit of upper denture plate) Education Completed: 1. Described result of evaluation. and 2. Pt understands evaluation & agrees with goals and treatment plan. Status Active ST Patient: Active Contact Information [facility] Speech Therapy:: Polina Valiente M.A. [facility] DIRECTOR Speech Language Pathologist [facility] [address] [place], [place] [id number] [email or web address]
--- NOTE | 2023-07-31 14:28 | NURSING ---
Call from Aramis Engle with [facility]. He feels patient was over diuresed, gave verbal orders to DC lasix and aldactone. Continue tambacor and metoprolol as ordered. He is also concerned about patient's anemia and thinks it should be looked into as a possible cause of weakness. Will notify Dr. Stephens of recommendations.
[2023-07-31] MEDS: 0.9% Saline Lock 10 ML Syringe IV (14:51)
[2023-07-31 16:00] VITALS: BP 109/47; PULSE 67; RESP 16; TEMP 36.7; O2SAT 99
[2023-07-31] MEDS: Aspirin E.C. 81 MG Tablet PO (16:07)
[2023-07-31] MEDS: Tamsulosin HCl 0.4 MG Capsule 0.400000000000000022 MG PO (19:03)
[2023-07-31 19:45] VITALS: PULSE 68; RESP 18; O2SAT 98
[2023-07-31] MEDS: Atorvastatin Calcium 40 MG Tablet PO (21:39)
[2023-07-31] MEDS: hydrOXYzine PAM 25 MG Capsule 50 MG PO (21:40)
[2023-07-31 22:41] VITALS: BP 129/48; PULSE 68
[2023-07-31] MEDS: Metoprolol(XL)Succ 25 MG Tablet 12.5 MG PO (22:41)
[2023-08-01] MEDS: guaiFENesin 10 ML UDC (200MG/10ML) PO ×4 (05:05→22:23)
[2023-08-01] MEDS: Flecainide 100 MG Tablet PO ×2 (05:05→16:32)
[2023-08-01 06:01] LABS: Absolute Lymphocyte Count 0.75 X10^3/uL (0.83-4.51); Absolute Neutrophil Count 4.6 X10^3/uL (2.0-7.7); Basophil# 0.04 X10^3/uL; Basophil% 0.6 % (0-1); Eosinophil# 0.34 X10^3/uL; Eosinophils% 5.4 % (0-5); Hematocrit 32.5 % (37-47); Hemoglobin 10.5 g/dL (12.0-15.0); Lymphocyte # 0.75 X10^3/ul (0.83-4.51); Lymphocyte % 11.8 % (19-41); Mean Corp Hgb Conc 32.3 g/dL (32-36); Mean Corpuscular Hgb 29.9 pg (27.0-32.0); Mean Corpuscular Volume 92.6 fL (81-99); Mean Platelet Vol. 9.1 fl (6.2-12.0); Monocyte# 0.59 X10^3/uL; Monocyte% 9.3 % (0-10); NRBC Flagged by Analyzer 0 % (0-5); Neutrophil # 4.58 X10^3/uL (2.7-7.7); Neutrophil % 72.4 % (47-70); Platelet Count 192 K/mm3 (150-450); RBC Distribution Width CV 14.4 % (11.6-14.6); RBC Distribution Width SD 48.8 fl (35.1-43.9); Red Blood Count 3.51 M/mm3 (4.2-5.4); White Blood Count 6.3 K/mm3 (4.4-11.0)
[2023-08-01 06:26] LABS: Iron 28 ug/dL (50-170); Iron Binding Capacity,Total 245 ug/dL (250-450); PERCENT IRON SATURATION 11.4 % (15.0-55.0)
[2023-08-01] MEDS: Piperacil/Tazobactam 3.375 GM in 0.9% Normal Saline (50mL MB+) 50 ML IV ×3 (06:37→22:22)
[2023-08-01 06:50] VITALS: PULSE 90; RESP 16; O2SAT 94
[2023-08-01] MEDS: Miconazole Nitrate 43 GM Bottle 1 APPLIC TOPICAL ×2 (08:13→22:22)
[2023-08-01] MEDS: Ensure Plus High Protein 120 ML LIQUID PO ×2 (08:13→16:35)
[2023-08-01] MEDS: CARBOXYMETHYLCELLULOSE SODIUM 1 DRP DROPS 2 DRP OPHTHALMIC ×2 (08:14→22:19)
[2023-08-01] MEDS: Rivaroxaban 20 MG Tablet PO (08:15)
[2023-08-01] MEDS: Senna/Docusate Sodium 1 Tablet PO ×2 (08:15→22:21)
[2023-08-01] MEDS: MENTHOL 226.8 GM JAR 1 APPLIC TOPICAL (08:16)
[2023-08-01 08:23] VITALS: BP 90/46; PULSE 56
--- NOTE | 2023-08-01 08:23 | NURSING ---
PT BP 90/46, MANUAL/ HR 56. PT TIRED AND SOB 96% ON 3L. REPORTED TO . NEW ORDER FOR 1 L NS/BOLUS. RN AWARE.
[2023-08-01] MEDS: 0.9% Normal Saline (1000mL) 1,000 ML 999 ML IV (09:48)
[2023-08-01] MEDS: Iron Polysaccharide Complex 150 MG CAPSULE PO (09:48)
[2023-08-01 13:21] VITALS: PULSE 59; RESP 16; O2SAT 99
[2023-08-01] MEDS: Ipratropium/Albuterol Sulfate 3 ML AMPUL.NEB INHALATION (13:21)
[2023-08-01 14:35] VITALS: PULSE 57; RESP 18; O2SAT 96
[2023-08-01] MEDS: 0.9% Saline Lock 10 ML Syringe IV (14:47)
[2023-08-01 15:36] VITALS: BP 112/44; PULSE 59; RESP 18; TEMP 36.3; O2SAT 97
[2023-08-01] MEDS: Tamsulosin HCl 0.4 MG Capsule 0.400000000000000022 MG PO (16:31)
--- NOTE | 2023-08-01 17:42 | NURSING ---
PT AND DAUGHTER UPDATED ON + BLOOD IN STOOL AND CONSULT PUT IN FOR PER ORDER FROM .
[2023-08-01 22:21] VITALS: BP 108/48; PULSE 63
[2023-08-01] MEDS: Atorvastatin Calcium 40 MG Tablet PO (22:21)
[2023-08-01] MEDS: hydrOXYzine PAM 25 MG Capsule 50 MG PO (22:22)
[2023-08-01] MEDS: Acetaminophen 500 MG Tablet 1000 MG PO (22:38)
[2023-08-02] MEDS: Flecainide 100 MG Tablet PO ×2 (05:13→18:05)
[2023-08-02] MEDS: Piperacil/Tazobactam 3.375 GM in 0.9% Normal Saline (50mL MB+) 50 ML IV ×3 (05:13→22:45)
[2023-08-02] MEDS: guaiFENesin 10 ML UDC (200MG/10ML) PO ×4 (05:14→23:04)
[2023-08-02 05:54] LABS: Absolute Lymphocyte Count 0.65 X10^3/uL (0.83-4.51); Absolute Neutrophil Count 4.3 X10^3/uL (2.0-7.7); Basophil# 0.05 X10^3/uL; Basophil% 0.8 % (0-1); Eosinophil# 0.34 X10^3/uL; Eosinophils% 5.7 % (0-5); Hematocrit 32.3 % (37-47); Hemoglobin 10.2 g/dL (12.0-15.0); Lymphocyte # 0.65 X10^3/ul (0.83-4.51); Lymphocyte % 10.9 % (19-41); Mean Corp Hgb Conc 31.6 g/dL (32-36); Mean Corpuscular Hgb 29.4 pg (27.0-32.0); Mean Corpuscular Volume 93.1 fL (81-99); Mean Platelet Vol. 9.9 fl (6.2-12.0); Monocyte# 0.54 X10^3/uL; Monocyte% 9.1 % (0-10); NRBC Flagged by Analyzer 0 % (0-5); Neutrophil # 4.33 X10^3/uL (2.7-7.7); Platelet Count 236 K/mm3 (150-450); RBC Distribution Width CV 14.6 % (11.6-14.6); RBC Distribution Width SD 48.9 fl (35.1-43.9); Red Blood Count 3.47 M/mm3 (4.2-5.4); White Blood Count 5.9 K/mm3 (4.4-11.0)
[2023-08-02 06:47] LABS: Anion Gap 5 (5-15); BUN 9 mg/dL (7-18); BUN/Creat Ratio 10.7 RATIO (10-20); Calcium,Total 8.6 mg/dL (8.5-10.1); Chloride 101 mmol/L (98-107); Creatinine, Serum 0.84 mg/dL (0.55-1.02); EST Glomerular Filtration Rate 69 mL/min (>60); Est Glom Filt Rate - Afr Amer 83 mL/min (>60); Estimated Creatinine Clearance 46.85 ml/min; Glucose 126 mg/dL (74-106); Potassium 3.9 mmol/L (3.5-5.1); Sodium Level 138 mmol/L (136-145)
[2023-08-02] MEDS: Iron Polysaccharide Complex 150 MG CAPSULE PO (08:14)
[2023-08-02] MEDS: Ensure Plus High Protein 120 ML LIQUID PO ×3 (08:14→18:05)
[2023-08-02] MEDS: Senna/Docusate Sodium 1 Tablet PO ×2 (08:14→22:50)
[2023-08-02] MEDS: CARBOXYMETHYLCELLULOSE SODIUM 1 DRP DROPS 2 DRP OPHTHALMIC ×2 (08:14→22:50)
[2023-08-02] MEDS: Rivaroxaban 20 MG Tablet PO (08:15)
[2023-08-02] MEDS: Miconazole Nitrate 43 GM Bottle 1 APPLIC TOPICAL ×2 (08:17→22:52)
--- NOTE | 2023-08-02 13:08 | NURSING ---
Spoke with Kristyn in Dr. Keller's office and consult placed for positive occult stool and anemia.
[2023-08-02] MEDS: 0.9% Normal Saline (1000mL) 1,000 ML 75 ML IV (15:12)
[2023-08-02] MEDS: MENTHOL 226.8 GM JAR 1 APPLIC TOPICAL ×2 (15:50→22:52)
[2023-08-02 16:00] VITALS: BP 151/39; PULSE 63; RESP 16; O2SAT 98
[2023-08-02] MEDS: Aspirin E.C. 81 MG Tablet PO (18:05)
[2023-08-02] MEDS: Tamsulosin HCl 0.4 MG Capsule 0.400000000000000022 MG PO (18:05)
--- NOTE | 2023-08-02 18:32 | NURSING ---
Patient continues to get very SOB with exertion and BP dropping with standing. NO for IV bolus per Dr. Stephens. Dr. Ross also in to see patient for GI bleed and anemia and plan is to do colonoscopy.
[2023-08-02 20:49] VITALS: O2SAT 94
[2023-08-02] MEDS: Acetaminophen 500 MG Tablet 1000 MG PO (22:46)
[2023-08-02] MEDS: hydrOXYzine PAM 25 MG Capsule 50 MG PO (22:50)
[2023-08-02 22:51] VITALS: BP 123/54; PULSE 64
[2023-08-02] MEDS: Metoprolol(XL)Succ 25 MG Tablet 12.5 MG PO (22:51)
[2023-08-02] MEDS: Atorvastatin Calcium 40 MG Tablet PO (22:51)
[2023-08-03] MEDS: Flecainide 100 MG Tablet PO ×2 (05:29→17:12)
[2023-08-03] MEDS: guaiFENesin 10 ML UDC (200MG/10ML) PO ×4 (05:29→23:05)
[2023-08-03] MEDS: Piperacil/Tazobactam 3.375 GM in 0.9% Normal Saline (50mL MB+) 50 ML IV ×3 (05:39→21:24)
[2023-08-03] MEDS: 0.9% Normal Saline (1000mL) 1,000 ML 75 ML IV ×2 (05:39→19:06)
[2023-08-03 05:55] VITALS: PULSE 57; RESP 18; O2SAT 95
[2023-08-03] MEDS: Ipratropium/Albuterol Sulfate 3 ML AMPUL.NEB INHALATION (05:55)
[2023-08-03 06:58] VITALS: O2SAT 91
[2023-08-03 08:11] VITALS: BP 131/47; PULSE 88; RESP 18; O2SAT 91
[2023-08-03] MEDS: Ensure Plus High Protein 120 ML LIQUID PO ×3 (08:13→18:16)
[2023-08-03] MEDS: Iron Polysaccharide Complex 150 MG CAPSULE PO (08:13)
[2023-08-03] MEDS: CARBOXYMETHYLCELLULOSE SODIUM 1 DRP DROPS 2 DRP OPHTHALMIC ×2 (08:13→21:19)
[2023-08-03] MEDS: Senna/Docusate Sodium 1 Tablet PO ×2 (08:14→21:20)
[2023-08-03] MEDS: Rivaroxaban 20 MG Tablet PO (08:14)
[2023-08-03] MEDS: Miconazole Nitrate 43 GM Bottle 1 APPLIC TOPICAL ×2 (08:16→21:25)
[2023-08-03 11:24] VITALS: BMI 20.3
--- NOTE | 2023-08-03 11:48 | NURSING ---
Addendum entered by Abena Paula 08/03/23 15:01: daughter, Carmen present at bedside for visit. updated on new orders; Carmen (and pt) in agreement with plan of care. Addendum entered by Abena Paula 08/03/23 12:12: Contacted Dr. Ross, clarified that colonoscopy is scheduled for Saturday, 08/05. Updated bowel prep orders accordingly. Original Note: Dr. Ross entered new orders for bowel prep (clear liquids, bisacodyl, miralax, NPO after midnight), d/t colonoscopy tomorrow.
[2023-08-03 13:48] VITALS: TEMP 36.4
[2023-08-03] MEDS: Tamsulosin HCl 0.4 MG Capsule 0.400000000000000022 MG PO (17:12)
[2023-08-03] MEDS: Atorvastatin Calcium 40 MG Tablet PO (21:19)
[2023-08-03 21:20] VITALS: BP 148/59; PULSE 62
[2023-08-03] MEDS: Metoprolol(XL)Succ 25 MG Tablet 12.5 MG PO (21:20)
[2023-08-03] MEDS: hydrOXYzine PAM 25 MG Capsule 50 MG PO (21:24)
[2023-08-04 05:15] VITALS: PULSE 62; RESP 20; O2SAT 97
[2023-08-04] MEDS: Flecainide 100 MG Tablet PO ×2 (05:22→16:38)
[2023-08-04] MEDS: guaiFENesin 10 ML UDC (200MG/10ML) PO ×2 (05:22→22:59)
[2023-08-04] MEDS: Piperacil/Tazobactam 3.375 GM in 0.9% Normal Saline (50mL MB+) 50 ML IV ×3 (05:32→21:52)
[2023-08-04 05:40] VITALS: PULSE 63; RESP 18; O2SAT 99
[2023-08-04] MEDS: Ipratropium/Albuterol Sulfate 3 ML AMPUL.NEB INHALATION (05:40)
[2023-08-04 06:00] VITALS: BMI 18.2
[2023-08-04] MEDS: 0.9% Normal Saline (1000mL) 1,000 ML 75 ML IV (08:44)
[2023-08-04 08:46] VITALS: BP 135/41; PULSE 64; RESP 18; O2SAT 94
[2023-08-04] MEDS: Iron Polysaccharide Complex 150 MG CAPSULE PO (08:48)
[2023-08-04] MEDS: CARBOXYMETHYLCELLULOSE SODIUM 1 DRP DROPS 2 DRP OPHTHALMIC ×2 (08:48→21:53)
[2023-08-04] MEDS: Senna/Docusate Sodium 1 Tablet PO (08:48)
[2023-08-04] MEDS: Miconazole Nitrate 43 GM Bottle 1 APPLIC TOPICAL ×2 (08:52→22:08)
--- NOTE | 2023-08-04 11:58 | NURSING ---
Pt currently taking Xarelto daily. Contacted Dr. Ross, who gave order to hold medication today and tomorrow for (colonoscopy) procedure. RN aware.
[2023-08-04] MEDS: Bisacodyl 5 MG Tablet 20 MG PO (13:26)
[2023-08-04 14:13] VITALS: TEMP 36.3
[2023-08-04] MEDS: Polyethylene Glycol 3350 BOWEL PREP PO (16:37)
[2023-08-04] MEDS: Tamsulosin HCl 0.4 MG Capsule 0.400000000000000022 MG PO (16:38)
[2023-08-04 21:52] VITALS: BP 150/50; PULSE 66
[2023-08-04] MEDS: Metoprolol(XL)Succ 25 MG Tablet 12.5 MG PO (21:52)
[2023-08-04] MEDS: hydrOXYzine PAM 25 MG Capsule 50 MG PO (21:52)
[2023-08-04] MEDS: Atorvastatin Calcium 40 MG Tablet PO (21:53)
[2023-08-05] VITALS (7 sets, daily range): BP systolic 106–141; BP diastolic 41–56; PULSE 65–71; RESP 18–24; TEMP 36.4; O2SAT 89–98; BMI 21.4
[2023-08-05] MEDS: Ipratropium/Albuterol Sulfate 3 ML AMPUL.NEB INHALATION ×2 (01:50→20:42)
[2023-08-05] MEDS: Flecainide 100 MG Tablet PO ×2 (05:19→15:31)
[2023-08-05] MEDS: Piperacil/Tazobactam 3.375 GM in 0.9% Normal Saline (50mL MB+) 50 ML IV ×2 (06:20→15:34)
--- NOTE | 2023-08-05 14:40 | WOUNDNOTE ---
Pt is currently off the unit for testing. will reassess buttocks at a later time.
[2023-08-05] MEDS: Aspirin E.C. 81 MG Tablet PO (15:31)
[2023-08-05] MEDS: Iron Polysaccharide Complex 150 MG CAPSULE PO (15:31)
[2023-08-05] MEDS: guaiFENesin 10 ML UDC (200MG/10ML) PO (15:31)
[2023-08-05] MEDS: Ensure Plus High Protein 120 ML LIQUID PO (15:31)
[2023-08-05] MEDS: CARBOXYMETHYLCELLULOSE SODIUM 1 DRP DROPS 2 DRP OPHTHALMIC ×2 (15:31→20:58)
[2023-08-05] MEDS: Miconazole Nitrate 43 GM Bottle 1 APPLIC TOPICAL ×2 (15:35→21:02)
[2023-08-05] MEDS: 0.9% Saline Lock 10 ML Syringe IV (15:35)
--- NOTE | 2023-08-05 15:55 | NURSING ---
Addendum entered by Bronwyn Pryor 08/05/23 16:38: Lasix order changed to being 40mg PO daily. Addendum entered by Bronwyn Pryor 08/05/23 16:26: NO for chest CT with contrast for increased SOB and oxygen demand. Also NO for IV Lasix 40mg x 1dose. Vistaril and Guaifenesin d/c. Original Note: Return from colonoscopy at 1430. Report from Barbara that patient tolerated procedure well but that she was unable to keep spo2 up in recovery and had to be on 100% non-rebreather along with a breathing treatment and they also did a chest x-ray and 20mg of Lasix. When patient returned to floor on 3L per NC, she was 85%. Placed on 4L and is 89%-90%. Patient denies feeling SOB. Dr. Stephens made aware.
--- NOTE | 2023-08-05 16:17 | PN.TCU_ITS ---
Subjective Subjective Resident seen, examined. She feels tired. 07/29/2023 CT chest left lower lobe pneumonia, right lung mass. 07/31/2023 MBS regular textures, thin liquids. 08/01/2023 Stool occult positive. 08/05/2022 Dr. Ross colonoscopy. Impressions : - Diverticulosis in the recto-sigmoid colon and in the sigmoid colon. - One 8 mm polyp in the sigmoid colon, removed with a cold snare. Resected and retrieved. - Localized mild inflammation was found at the splenic flexure secondary to ischemic colitis. Biopsied. - The examined portion of the ileum was normal. Post colonoscopy, resident had acute respiratory distress, Furosemide 20mg iv given, Chest X-ray shows CHF. Objective Data Objective Data Vital Signs: Vital Signs Temp Pulse Resp BP Pulse Ox O2 Del Method O2 Flow Rate 97.6 F L 66 20 H 141/56 H 90 Nasal Cannula 5 08/05/23 15:22 08/05/23 15:22 08/05/23 15:22 08/05/23 15:22 08/05/23 15:22 08/05/23 15:22 08/05/23 15:22 Oxygen Flow Rate (L/min) 5 Oxygen Delivery Method Nasal Cannula Weight: 60.373 kg Body Mass Index (BMI) 21.4 Intake & Output: Intake and Output for Last 24 Hours 08/03/23 08/04/23 08/05/23 23:59 23:59 23:59 Intake Total 3110 / 3110 2636.25 / 2636.25 100 / 100 Output Total 875 / 875 450 / 450 650 / 650 Balance 2235 / 2235 2186.25 / 2186.25 -550 / -550 Medical Nutrition Assessment Dietitian: Malnutrition Criteria Met Start: 07/24/23 13:30 Freq: Status: Active Protocol: Document 07/31/23 08:44 SLA (Rec: 07/31/23 08:44 SLA Desktop) Nutrition Malnutrition Evidence of Malnutrition Exists Yes Malnutrition (moderate): Acute Illness/Injury Evidenced By Suboptimal Energy Intake ( Moderate),Weight Loss (Severe) Intake Problem Inadequate Oral Intake Status Inactive Problem Clinical Problem Acute Disease or Injury Related Malnutrition Etiology related to resp failure/acute illness and inadequate energy intake Signs/Symptoms as evidenced by unintended 6.2 % wt loss and consuming ~50% of est nutritional needs since adm Status Active Problem Recommendation Dietitian Recommendations/Changes continue regular/no added salt diet- texture/consistency per PERFORMANCE IMPROVEMENT SPECIALIST; orange or chocolate magic cup ice cream w/ lunch and dinner; continue chocolate ensure plus high protein 3x/day w/ medpass for increased nutrition if consumed; rec appetite stimulant to help encourage increased po intake Lab / Micro Data Attestation: I reviewed the patient's lab results. 08/02/23 05:09 08/02/23 05:09 Micro: Microbiology 08/01/23 12:50 Stool Stool Occult Blood (RAHEL) - Final Occult Blood Positive 08/01/23 05:10 Nasal Secretion SARS-CoV-2 Antigen (Rapid) - Final 07/29/23 06:40 Nasal Secretion SARS-CoV-2 Antigen (Rapid) - Final 07/26/23 05:10 Nasal Secretion SARS-CoV-2 Antigen (Rapid) - Final 07/23/23 05:25 Nasal Secretion SARS-CoV-2 Antigen (Rapid) - Final 07/17/23 11:45 Nasal Secretion SARS-CoV-2 Antigen (Rapid) - Final Physical Exam Const alert General Appearance: cooperative HEENT normocephalic Eyes PERRL and EOMs intact bilaterally Neck supple, no JVD and no carotid bruits Resp normal respiratory effort, normal air movement and clear to auscultation bilaterally Auscultation: crackles bilateral and rhonchi lower bilaterally Cardio regular rate and regular rhythm GI normal to inspection, nondistended, normoactive bowel sounds, non-tender and non-distended Extremity normal capillary refill General Extremity: Negative for edema Skin no rashes or lesions noted General Skin Exam: no breakdown Psych affect normal Appearance: appropriate Assessment & Plan Assessment/Plan (1) Debility: (2) Acute hypoxemic respiratory failure: (3) Fall: (4) Hyponatremia: (5) Pneumonia: QUALIFIERS: Pneumonia type: aspiration pneumonia Aspiration pneumonia type: unspecified Laterality: right Lung location: upper lobe of lung Qualified Code(s): J69.0 - Pneumonitis due to inhalation of food and vomit (6) Dysphagia: (7) Atrial fibrillation: (8) Hypertension: (9) Hyperlipidemia: (10) Insomnia: PLAN: Plan 82 year old female with below past medical history hospitalized for acute respiratory failure with hypoxia, pneumonia, complicated by hyponatremia, dysphagia, admitted to TCU with debility, here for rehabilitation, strengthening, prior to discharge home alone. * Debility - PT/OT. * Dysphagia - ST, MBS regular textures, thin liquids. * Pain - Tylenol 1000mg q6 prn pain (1-10). * Bowel - senna/colace 1 tablet bid, Magnesium citrate 300ml daily prn. * Adult immunization - Administer pneumonia vaccine, covid vaccine, flu vaccine as appropriate. * DVT prophylaxis - on Xarelto 20mg daily. * Right lung mass - CT chest with contrast. * Hypertension - Metoprolol succinate 12.5mg qhs. * Carotid artery disease - Aspirin 81mg MWF, Xarelto 20mg daily. * Hyperlipidemia - Atorvastatin 40mg qhs. * Atrial fibrillation - Metoprolol succinate 12.5mg daily, Flecainide 100mg q12, Xarelto 20mg daily. * Insomnia - Hydroxyzine 50mg qhs. * Pneumonia - Zosyn 3.375gm iv q8 thru 08/05/2023, Duoneb 3ml q6 prn. * HFpEF - Metoprolol succinate 12.5mg daily, Furosemide 40mg iv x 1 dose, then 40mg po daily, cbcd, bmp, bnp. * Hypokalemia - KCL 20meq daily bidcm. * Urinary retention - Tamsulosin 0.4mg daily, indwelling cooper catheter. * Iron deficiency anemia - Ferrex 150mg daily, +stool guaiac, colonoscopy done. * Tinea Corporis - Miconazole topical bid. * Skin irritation - Calmoseptine topcial 4x/day. * Dry eyes - Artificial tears 2 gtt ou bid. * Nutrition - Ensure Plus 120ml tidcm. Capacity Legal Rad Tech Reflex Medical hold order details:: IF a medical hold is selected below, a suggested order for a MEDICAL HOLD will reflex upon signing the document. Next of kin: [place] law dictates a PRIORITY LIST for identifying legal decision-maker/legal next of kin in the following order (LNOK): 1st: The patient?s legal guardian, if any 2nd: The patient's spouse (if status is questionable, consult Risk Management) 3rd: The patient?s adult child(brittney) (majority, if multiple children) 4th: The patient?s parents 5th: The patient?s adult siblings (majority, if multiple children siblings)
[2023-08-05 16:46] LABS: Absolute Lymphocyte Count 0.94 X10^3/uL (0.83-4.51); Absolute Neutrophil Count 6.6 X10^3/uL (2.0-7.7); Basophil# 0.05 X10^3/uL; Basophil% 0.6 % (0-1); Eosinophil# 0.19 X10^3/uL; Eosinophils% 2.3 % (0-5); Hematocrit 35.3 % (37-47); Hemoglobin 10.8 g/dL (12.0-15.0); Lymphocyte # 0.94 X10^3/ul (0.83-4.51); Lymphocyte % 11.2 % (19-41); Mean Corp Hgb Conc 30.6 g/dL (32-36); Mean Corpuscular Hgb 28.4 pg (27.0-32.0); Mean Corpuscular Volume 92.9 fL (81-99); Mean Platelet Vol. 8.6 fl (6.2-12.0); Monocyte# 0.55 X10^3/uL; Monocyte% 6.6 % (0-10); NRBC Flagged by Analyzer 0 % (0-5); Neutrophil # 6.58 X10^3/uL (2.7-7.7); Neutrophil % 78.6 % (47-70); Platelet Count 241 K/mm3 (150-450); RBC Distribution Width CV 14.5 % (11.6-14.6); RBC Distribution Width SD 49.4 fl (35.1-43.9); White Blood Count 8.4 K/mm3 (4.4-11.0)
[2023-08-05 17:10] LABS: Anion Gap 6 (5-15); BUN 5 mg/dL (7-18); BUN/Creat Ratio 7.5 RATIO (10-20); Calcium,Total 8.8 mg/dL (8.5-10.1); Chloride 103 mmol/L (98-107); Creatinine, Serum 0.67 mg/dL (0.55-1.02); EST Glomerular Filtration Rate 89 mL/min (>60); Est Glom Filt Rate - Afr Amer 108 mL/min (>60); Estimated Creatinine Clearance 50.76 ml/min; Glucose 135 mg/dL (74-106); Sodium Level 139 mmol/L (136-145)
[2023-08-05 17:34] LABS: BNP,B-Type NATRIURETIC PEPTIDE 168.2 pg/mL (0-100)
[2023-08-05] MEDS: Tamsulosin HCl 0.4 MG Capsule 0.400000000000000022 MG PO (17:36)
[2023-08-05] MEDS: Furosemide 40 MG/4 ML Vial IV (18:32)
[2023-08-05] MEDS: Potassium Chloride Oral Tablet 20 MEQ 60 MEQ PO (20:56)
[2023-08-05] MEDS: Atorvastatin Calcium 40 MG Tablet PO (20:57)
[2023-08-05] MEDS: Senna/Docusate Sodium 1 Tablet PO (20:58)
[2023-08-05] MEDS: Meropenem 1 GM in 0.9% Normal Saline (100mL MB+) 100 ML IV (21:28)
[2023-08-06] MEDS: Flecainide 100 MG Tablet PO ×2 (05:29→16:42)
[2023-08-06] MEDS: Meropenem 1 GM in 0.9% Normal Saline (100mL MB+) 100 ML IV ×3 (05:46→22:46)
[2023-08-06 06:35] LABS: Anion Gap 6 (5-15); BUN 6 mg/dL (7-18); BUN/Creat Ratio 9.4 RATIO (10-20); Calcium,Total 8.8 mg/dL (8.5-10.1); Chloride 104 mmol/L (98-107); Creatinine, Serum 0.64 mg/dL (0.55-1.02); EST Glomerular Filtration Rate 95 mL/min (>60); Est Glom Filt Rate - Afr Amer 115 mL/min (>60); Estimated Creatinine Clearance 50.76 ml/min; Glucose 115 mg/dL (74-106); Potassium 3.5 mmol/L (3.5-5.1); Sodium Level 140 mmol/L (136-145)
[2023-08-06 06:48] VITALS: RESP 18; O2SAT 92
[2023-08-06] MEDS: Potassium Chloride Oral Tablet 20 MEQ PO ×2 (08:08→16:42)
[2023-08-06] MEDS: Miconazole Nitrate 43 GM Bottle 1 APPLIC TOPICAL ×2 (08:08→22:54)
[2023-08-06] MEDS: Iron Polysaccharide Complex 150 MG CAPSULE PO (08:09)
[2023-08-06] MEDS: Furosemide 40 MG Tablet PO (08:09)
[2023-08-06] MEDS: Senna/Docusate Sodium 1 Tablet PO ×2 (08:10→22:45)
[2023-08-06] MEDS: Rivaroxaban 20 MG Tablet PO (08:10)
[2023-08-06] MEDS: CARBOXYMETHYLCELLULOSE SODIUM 1 DRP DROPS 2 DRP OPHTHALMIC ×2 (08:11→22:45)
[2023-08-06 08:21] VITALS: BP 148/45; PULSE 78; RESP 24; O2SAT 90
[2023-08-06 09:26] VITALS: PULSE 67; RESP 22
[2023-08-06] MEDS: Ipratropium/Albuterol Sulfate 3 ML AMPUL.NEB INHALATION ×2 (09:26→17:19)
--- NOTE | 2023-08-06 09:54 | NURSING ---
UPDATED PT AND PT DAUGHTER JOHN ON NEW ORDERS AND A THORACENTESIS TODAY.
--- NOTE | 2023-08-06 11:29 | NURSING ---
PT LEAVING FLOOR BY BED FOR THORACENTESIS.
[2023-08-06] MEDS: Ensure Plus High Protein 120 ML LIQUID PO ×2 (12:50→16:43)
--- NOTE | 2023-08-06 12:52 | NURSING ---
PT RETURNED TO FLOOR BY BED FROM PROCEDURE.
[2023-08-06 13:22] LABS: Body Fluid Mononuclear WBC # 1.259 10^3/uL; Body Fluid Mononuclear WBC % 64.5 %; Body Fluid Polynuclear WBC # 0.692 10^3/uL; Body Fluid Polynuclear WBC % 35.5 %; Body Fluid Total Cells Counted 2.934 10^3/ul; Red Cell Count/Body Fluid 0.009 10^6/ul; White Blood Count/Body Fluid 1.951 10^3/uL
[2023-08-06 13:47] LABS: Glucose, Body Fluid 170 mg/dL (40-70); LDH,Body Fluid 126 Units/L (Not Establ.); Protein, Body Fluid 1.8 g/dL (Not Establ.)
[2023-08-06] MEDS: 0.9% Saline Lock 10 ML Syringe IV (14:20)
[2023-08-06] MEDS: 0.9% Normal Saline (250mL Bag) 250 ML 15 ML IV (14:26)
[2023-08-06 14:28] LABS: Auto B Fluid Analyzer BKGD Ct COUNTS W/IN LIMITS (W/IN LIMITS); Lymphocytes 19 %; Macrophages 47 %; Mesothelial Cells 4 %; Monocytes 1 %; Neutrophil (Segs) 29 %
[2023-08-06 14:29] LABS: Appearance/Body Fluid SL CLDY; Body Fluid QC Type(s) BF1Q; Color/Body Fluid YELLOW; Source- Body Fluid THORACENTESIS
[2023-08-06 16:00] VITALS: BP 154/60; PULSE 83; RESP 17; TEMP 36.6; O2SAT 94
[2023-08-06] MEDS: Tamsulosin HCl 0.4 MG Capsule 0.400000000000000022 MG PO (16:42)
[2023-08-06 17:18] VITALS: PULSE 78; RESP 19
--- NOTE | 2023-08-06 18:52 | NURSING ---
NEEDS TO BE CALLED [facility] SATURDAY MORNING PER ORDER. PT DAUGHTER JOHN STATED TO THIS NURSE THAT SHE DOES NOT WANT THE ACID MAKER TO SEE HER MOM. RN AWARE
[2023-08-06 22:45] VITALS: BP 153/63; PULSE 78
[2023-08-06] MEDS: Atorvastatin Calcium 40 MG Tablet PO (22:45)
[2023-08-06] MEDS: Metoprolol(XL)Succ 25 MG Tablet 12.5 MG PO (22:45)
[2023-08-07] MEDS: Ipratropium/Albuterol Sulfate 3 ML AMPUL.NEB INHALATION ×2 (03:10→13:51)
[2023-08-07 03:29] VITALS: PULSE 79; RESP 24; O2SAT 93
[2023-08-07] MEDS: Flecainide 100 MG Tablet PO (05:10)
[2023-08-07] MEDS: Meropenem 1 GM in 0.9% Normal Saline (100mL MB+) 100 ML IV ×2 (05:13→13:43)
[2023-08-07 06:19] LABS: Anion Gap 4 (5-15); BUN 9 mg/dL (7-18); BUN/Creat Ratio 13.2 RATIO (10-20); Chloride 105 mmol/L (98-107); Creatinine, Serum 0.68 mg/dL (0.55-1.02); EST Glomerular Filtration Rate 88 mL/min (>60); Est Glom Filt Rate - Afr Amer 106 mL/min (>60); Estimated Creatinine Clearance 50.76 ml/min; Glucose 158 mg/dL (74-106); Potassium 4.1 mmol/L (3.5-5.1); Sodium Level 140 mmol/L (136-145)
[2023-08-07 06:50] VITALS: O2SAT 93
[2023-08-07] MEDS: Furosemide 40 MG Tablet PO (07:35)
[2023-08-07] MEDS: Iron Polysaccharide Complex 150 MG CAPSULE PO (07:35)
[2023-08-07] MEDS: Potassium Chloride Oral Tablet 20 MEQ PO (07:35)
[2023-08-07] MEDS: Ensure Plus High Protein 120 ML LIQUID PO (07:35)
[2023-08-07] MEDS: Rivaroxaban 20 MG Tablet PO (07:36)
[2023-08-07] MEDS: Senna/Docusate Sodium 1 Tablet PO (07:36)
[2023-08-07] MEDS: CARBOXYMETHYLCELLULOSE SODIUM 1 DRP DROPS 2 DRP OPHTHALMIC (07:44)
[2023-08-07] MEDS: Miconazole Nitrate 43 GM Bottle 1 APPLIC TOPICAL (07:48)
--- NOTE | 2023-08-07 10:12 | NURSING ---
Spoke with Dr. Will office regarding urgent appt for unresolved PN and SOB. Also make office know family requests patient see the doctor rather than BOMBSIGHT SPECIALIST. Scheduling report that patient usually sees Dr. Camacho and that he has earliest appt available which is on 08/19/23 at 0745, but they will put patient on wait list for possible earlier appt.
[2023-08-07 13:51] VITALS: PULSE 82; RESP 24; O2SAT 88
[2023-08-07 14:55] VITALS: BP 130/53; PULSE 76; RESP 16; TEMP 36.8; O2SAT 88
--- NOTE | 2023-08-07 15:09 | NURSING ---
Dr. Stephens calls down for update on patient and gives order for patient to be sent to ED due to worsening respiratory distress despite interventions. At the time of call, this nurse had just been in room with patient and patient was SOB with respirations at 40 and 86% on 6L after breathing treatment and SPO2 has been dropping to 70s with minimal exertion. Report called to ED and patient taken down at 1445 and bedside report given to nurse. Daughter Carmen called and updated on patient condition and that she had been sent to ER.
--- NOTE | 2023-08-07 20:30 | DS.PCM_ITS ---
Providers Date of Admission: 07/11/23 Primary Care Physician: Dr. Chirag Gibbons MD Consultations 07/24/23 16:34 Consult: Onc/Wound/scruff worker Routine Comment: Reason for Consult:: buttocks wound 08/01/23 17:18 Consult: Gastroenterology Routine Consulting Provider: [facility] Reason for Consult: Anemia, +stool guaic. EMERGENT Consult: No MD Notified: Yes Date Notified: 08/02/23 Time Notified: 13:00 Method of Notification: Verbal Reason For Visit: PNEUMONIA Diagnosis Discharge Diagnosis (1) Debility: Status: Acute Code(s): R53.81 - Other malaise (2) Acute hypoxemic respiratory failure: Status: Resolved Code(s): J96.01 - Acute respiratory failure with hypoxia (3) Fall: Status: Acute Code(s): W19.XXXA - Unspecified fall, initial encounter (4) Hyponatremia: Status: Acute Code(s): E87.1 - Hypo-osmolality and hyponatremia (5) Pneumonia: Status: Acute Code(s): J18.9 - Pneumonia, unspecified organism Qualifiers: Pneumonia type: aspiration pneumonia Aspiration pneumonia type: unspecified Laterality: right Lung location: upper lobe of lung Qualified Code(s): J69.0 - Pneumonitis due to inhalation of food and vomit (6) Dysphagia: Status: Acute Code(s): R13.10 - Dysphagia, unspecified (7) Atrial fibrillation: Status: Acute Code(s): I48.91 - Unspecified atrial fibrillation (8) Hypertension: Status: Chronic Code(s): I10 - Essential (primary) hypertension (9) Hyperlipidemia: Status: Acute Code(s): E78.5 - Hyperlipidemia, unspecified (10) Insomnia: Status: Acute Code(s): G47.00 - Insomnia, unspecified Plan 82 year old female with below past medical history hospitalized for acute respiratory failure with hypoxia, pneumonia, complicated by hyponatremia, dysphagia, admitted to TCU with debility, here for rehabilitation, strengthening, prior to discharge home alone. * Debility - PT/OT. * Dysphagia - ST, MBS regular textures, thin liquids. * Pain - Tylenol 1000mg q6 prn pain (1-10). * Bowel - senna/colace 1 tablet bid, Magnesium citrate 300ml daily prn. * Adult immunization - Administer pneumonia vaccine, covid vaccine, flu vaccine as appropriate. * DVT prophylaxis - on Xarelto 20mg daily. * Right lung mass - CT chest with contrast. * Hypertension - Metoprolol succinate 12.5mg qhs. * Carotid artery disease - Aspirin 81mg MWF, Xarelto 20mg daily. * Hyperlipidemia - Atorvastatin 40mg qhs. * Atrial fibrillation - Metoprolol succinate 12.5mg daily, Flecainide 100mg q12, Xarelto 20mg daily. * Insomnia - Hydroxyzine 50mg qhs. * Pneumonia - Zosyn 3.375gm iv q8 thru 08/05/2023, Duoneb 3ml q6 prn. * HFpEF - Metoprolol succinate 12.5mg daily, Furosemide 40mg iv x 1 dose, then 40mg po daily, cbcd, bmp, bnp. * Hypokalemia - KCL 20meq daily bidcm. * Urinary retention - Tamsulosin 0.4mg daily, indwelling cooper catheter. * Iron deficiency anemia - Ferrex 150mg daily, +stool guaiac, colonoscopy done. * Tinea Corporis - Miconazole topical bid. * Skin irritation - Calmoseptine topcial 4x/day. * Dry eyes - Artificial tears 2 gtt ou bid. * Nutrition - Ensure Plus 120ml tidcm. Medications at Discharge Home Medications atorvastatin 40 mg tablet 40 mg PO QHS CHOLESTEROL #90 tabs 03/08/16 aspirin 81 mg tablet,delayed release 81 mg PO [facility] 02/23/19 flecainide 100 mg tablet 100 mg PO Q12H HEART RATE #180 tabs 11/01/22 rivaroxaban 20 mg tablet (Xarelto) 20 mg PO DAILY BLOOD THINNER #90 tabs 06/27/23 furosemide 40 mg tablet 40 mg PO DAILY FLUID RETENTION 07/26/23 magnesium citrate 300 ml PO DAILY PRN LAXATIVE 07/26/23 metoprolol succinate 25 mg tablet,extended release 24 hr 12.5 mg PO QHS HEART 07/26/23 potassium chloride 20 mEq oral packet 20 meq PO BIDCM SUPPLEMENT 07/26/23 acetaminophen 500 mg tablet 1,000 mg PO Q6H PRN PAIN 07/31/23 ipratropium 0.5 mg-albuterol 3 mg (2.5 mg base)/3 mL nebulization soln 3 ml inhalation Q6H PRN SHORTNESS OF BREATH/ WHEEZING 07/31/23 menthol 3 % topical cream 1 applic topical DAILY PRN MUSCLE ACHES 07/31/23 miconazole nitrate 2 % topical powder 1 applic topical BID SKIN INFECTION 07/31/23 sennosides 8.6 mg-docusate sodium 50 mg tablet (Senna Plus) 1 tab-cap PO BID STOOL SOFTENER 07/31/23 tamsulosin 0.4 mg capsule 0.4 mg PO DAILY PROSTATE 07/31/23 Hospital Course Operations None Procedures Thoracentesis Summary of Care Provided Minutes Spent on Discharge: 35 Hospital Course: 82 year old female with below past medical history hospitalized for acute respiratory failure with hypoxia, pneumonia, complicated by hyponatremia, dysphagia, admitted to TCU with debility, here for rehabilitation, [facility] ramos, prior to discharge home alone. 07/26/2023 Chest X-ray showed worsening pneumonia, resident treated with Zosyn x 7 days. 08/05/2023 CT chest showed worsening left lower lobe pneumonia, Zosyn stopped, Meropenem started. 08/06/2023 Thoracentesis performed, resident did not feel any better afterwards. Appointment made with Dr. Will, but unable to see until 08/19/2023. 08/07/2023 Resident respiratory status worsened, increasing oxygen requirements, unable to do therapy. Discharge to [facility] ED 08/07/2023 for acute respiratory failure with hypoxia, worsening pneumonia, despite aggressive treatment. Physical Exam Const alert General Appearance: cooperative HEENT normocephalic Eyes PERRL and EOMs intact bilaterally Neck supple, no JVD and no carotid bruits Resp normal respiratory effort, normal air movement and clear to auscultation bilaterally Auscultation: crackles bilateral, rales bilateral and rhonchi lower bilaterally Cardio regular rate and regular rhythm GI normal to inspection, nondistended, normoactive bowel sounds, non-tender and non-distended Extremity normal capillary refill General Extremity: Negative for edema Skin no rashes or lesions noted General Skin Exam: no breakdown Psych affect normal Appearance: appropriate Weight / BMI Weight Weight: 60.373 kg Body Mass Index (BMI) 21.4 ABG / Lab / Microbiology Data 08/05/23 16:30 08/07/23 05:08 Laboratory: Laboratory Results - last 24 hr 08/07/23 05:08: Sodium 140, Potassium 4.1, Chloride 105, Carbon Dioxide 31.0, Anion Gap 4 L, BUN 9, Creatinine 0.68, Estim Creat Clear Calc 50.76, Est GFR (MDRD) Af Amer 106, Est GFR (MDRD) Non-Af 88, BUN/Creatinine Ratio 13.2, Glucose 158 H, Calcium 9.0 Microbiology: Microbiology 08/06/23 05:31 Nasal Secretion SARS-CoV-2 Antigen (Rapid) - Final 08/01/23 12:50 Stool Stool Occult Blood (RAHEL) - Final Occult Blood Positive 08/01/23 05:10 Nasal Secretion SARS-CoV-2 Antigen (Rapid) - Final 07/29/23 06:40 Nasal Secretion SARS-CoV-2 Antigen (Rapid) - Final 07/26/23 05:10 Nasal Secretion SARS-CoV-2 Antigen (Rapid) - Final 07/23/23 05:25 Nasal Secretion SARS-CoV-2 Antigen (Rapid) - Final 07/17/23 11:45 Nasal Secretion SARS-CoV-2 Antigen (Rapid) - Final D/C Instructions Discharge Diet: No restrictions Discharge Activity: Return to Normal Activity, May Shower and Use Walker Weight Bearing Status: Weight bearing as tolerated Call your doctor if you observe: Fever of 101 or Higher, Inability to urinate, I nability to have a bowel movement, Shortness of breath, Dizziness, Fainting spells, Swelling in the ankles, Chest pain and Uncontrolled pain Additional Instructions: Discharge to [facility] ED 08/07/2023 for acute respiratory failure with hypoxia, worsening pneumonia, despite aggressive treatment. Please Follow Up With: Savanah Edwards NP, DIRECTOR AGRICULTURAL SERVICES-C Meaningful Use Info Meaningful Use Diagnoses (Choose all that apply): None applicable Discharge Plan Admission Admit Date/Time: 07/11/23 15:52 Primary Reason for Your Visit: Debility. Attending Provider: Dexter Stephens Chi Primary Care Provider: Chirag Gibbons Instructions Additional Instructions / Restrictions: Discharge to [facility] ED 08/07/2023 for acute respiratory failure with hypoxia, worsening pneumonia, despite aggressive treatment. Discharge Orders/Prescriptions Prescriptions: No Action aspirin 81 mg tablet,delayed release (DR/EC) 81 mg PO MOWEFR Patient Comments: heart health, prevention of stroke furosemide 40 mg tablet 40 mg PO DAILY Hold Instructions: - low BP potassium chloride 20 mEq packet 20 meq PO BIDCM magnesium citrate Solution 300 ml PO DAILY PRN (Reason: LAXATIVE) sennosides-docusate sodium [Senna Plus] 8.6-50 mg tablet 1 tab-cap PO BID acetaminophen 500 mg tablet 1,000 mg PO Q6H PRN (Reason: PAIN ) ipratropium-albuterol 0.5 mg-3 mg(2.5 mg base)/3 mL solution for nebulization 3 ml inhalation Q6H PRN (Reason: SHORTNESS OF BREATH/ WHEEZING) menthol 3 % cream 1 applic topical DAILY PRN (Reason: MUSCLE ACHES) miconazole nitrate 2 % powder 1 applic topical BID tamsulosin 0.4 mg capsule 0.4 mg PO DAILY atorvastatin 40 MG tablet 40 mg PO QHS Qty: 90 0RF flecainide 100 mg tablet 100 mg PO Q12H Qty: 180 3RF Xarelto 20 mg tablet 20 mg PO DAILY Qty: 90 3RF metoprolol succinate 25 mg tablet extended release 24 hr 12.5 mg PO QHS Referrals / Follow Up: Anders Bedoya MD [Med Staff - Active Staff] - Chirag Gibbons MD [Primary Care Provider] - Savanah Edwards NP, DIRECTOR [employer]GRICULTURAL SERVICES-C [Med Staff - Adv Practice Prof] - Disposition Disposition (needs filled in before D/C Order can be placed): Acute Care Hospital [facility]
[2023-08-08 09:26] LABS: Pathologist Comment/Body Fluid Reviewed
== END 2023-08-07 20:29 | disposition short-term general hospital (02) | DRG 193 ==
PROVIDERS: Internal Medicine; Admitting Provider Family Medicine Geriatric Medicine; PCP Family Medicine; Visit Provider Family Medicine Geriatric Medicine
DX: J18.9 Pneumonia, unspecified organism (principal); I50.33 Acute on chronic diastolic (congestive) heart failure; K55.9 Vascular disorder of intestine, unspecified; I48.0 Paroxysmal atrial fibrillation; D50.9 Iron deficiency anemia, unspecified; B35.4 Tinea corporis; I11.0 Hypertensive heart disease with heart failure; J69.0 Pneumonitis due to inhalation of food and vomit; E78.5 Hyperlipidemia, unspecified; E87.6 Hypokalemia; K57.30 Diverticulosis of large intestine without perforation or abscess without bleeding; K63.5 Polyp of colon; K21.9 Gastro-esophageal reflux disease without esophagitis; Z79.82 Long term (current) use of aspirin; Z87.891 Personal history of nicotine dependence; R13.10 Dysphagia, unspecified; G47.00 Insomnia, unspecified; Z79.899 Other long term (current) drug therapy; Z23 Encounter for immunization; R33.9 Retention of urine, unspecified; R91.8 Other nonspecific abnormal finding of lung field
CPT/HCPCS: 36415; 71046; 74018; 74230; 80048; 82040; 82274; 82310; 82945; 82962; 83540; 83550; 83615; 83880; 84157; 84540; 85014; 85018; 85025; 87811; 89050; 92526; 92610; 92611; 93005; 94640; 94667; 97110; 97116; 97162; 97166; 97530; 97535; 97802; G0008; J2185; J7030; J7050; 90662; A4216; J1940

== ENCOUNTER → 2023-07-29 | Outpatient (CLI) | payer MEDICARE, OTHER, SELFPAY ==
--- OUTSIDE RECORDS SUMMARY | 2023-07-29 17:48 | XMS RPT_ITS | CCD ---
Author Name Unknown Address [address] [place] [address] Organization [facility] Care Team Providers Care Neon Electrician Name Role Phone Sudha Goncalves Unavailable Unavailable Sudha Goncalves Unavailable Unavailable Sudha Goncalves Unavailable Unavailable Valdez MORA, Colin Smith Unavailable Valeriano Maldonado MD Unavailable Allergies Allergy Classification Reported Allergen(s) Allergy Type Date of Onset Reaction(s) Facility (5 sources) Sulfonamides (Antibiotic); Translations: [SULFA] drug allergy 03-28-2016 RASH [facility] Work Phone: Medications Completed/Discontinued Medications Medication Drug Class(es) Dates Sig (Normalized) Sig (Original) aspirin 81 mg delayed release oral tablet (9 sources) Nonsteroidal Anti-inflammatory Drug Start: 02-23-2020 ASPIRIN 81 TBEC 1 tablet daily ASPIRIN TBEC [id number] Saloni Ramirez LPN Problems Active Problems Problem [...] 15:11-0400 BMI (Body Mass Index) 26.95 kg/m2 [facility] Work Phone: 03-28-2017 15:11-0400 BP Diastolic 70 mm[Hg] [facility] Work Phone: 03-28-2017 15:11-0400 BP Systolic 150 mm[Hg] [facility] Work Phone: 03-28-2017 15:11-0400 Pulse (Heart Rate) 60 /min [facility] Work Phone: 03-28-2017 15:11-0400 Weight 75.75 kg [facility] Work Phone: 03-13-2017 14:45-0400 BMI (Body Mass Index) 26.69 kg/m2 Colin Kellogg MD [facility] Work Phone: 03-13-2017 14:45-0400 Body Temperature 97.7 [degF] Colni Kellogg MD [facility] Work Phone: 03-13-2017 14:45-0400 BP Diastolic 70 mm[Hg] Colin Kellogg MD [facility] Work Phone: 03-13-2017 14:45-0400 BP Systolic 147 mm[Hg] Colin Kellogg MD [facility] Work Phone: 03-13-2017 14:45-0400 Height 167.64 cm Colin Kellogg MD [facility] Work Phone: 03-13-2017 14:45-0400 Pulse (Heart Rate) 62 /min Colin Kellogg MD [facility] Work Phone: 03-13-2017 14:45-0400 Respiratory Rate 20 /min Colin Kellogg MD [facility] Work Phone: 03-13-2017 14:45-0400 Weight 75.03 kg Colin Kellogg MD [facility] Work Phone: 03-28-2016 14:32-0400 BSA (Body Surface Area) 1.84 m2 Colin Kellogg MD [facility] Work Phone: NEGATED: Highlighted [id number] 11:05-0400 BMI (Body Mass Index) 5.5 kg/m2 Elvi VanScoit [facility] Work Phone: NEGATED: Highlighted [id number] 11:05-0400 Body weight 67.59 kg Elvi VanScoit AT [facility] Work Phone: NEGATED: Highlighted [id number] 11:05-0400 Body weight 68 kg Elvi VanScoit [facility] Work Phone: NEGATED: Highlighted [id number] 11:05-0400 Heart rate 2+ Elvi VanScoit AT [facility] Work Phone: NEGATED: Highlighted [id number] 11:05-0400 Height 351.03 cm Elvi VanScoit AT [facility] Work Phone: NEGATED: Highlighted [id number] 11:05-0400 Height 351 cm Elvi VanScoit AT [facility] Work Phone: Encounters Encounter Date Encounter Type Care Provider Facility Start: 02-26-2020 End: 02-26-2020 Patient encounter procedure Valeriano Maldonado MD Work Phone: [facility] Work Phone: Procedures Date Procedure Procedure Detail [...] MD Work Phone: Start: 03-28-2017 End: 03-28-2017 FURNACE OPERATOR OIL OR GAS Celsa Harman PA-C Work Phone: Start: 03-28-2017 [...] Author Start: 02-26-2020 End: 02-26-2020 Appointment Appointment [facility] Work Phone: Start: 02-26-2020 End: 02-26-2020 Radex hip unilateral with pelvis 2-3 views XR PELVIS W HIP 2-3 VWS-RT [facility] Work Phone: Start: 07-11-2017 End: 07-11-2017 Appointment Appointment [facility] Work Phone: Start: 03-28-2017 End: 03-28-2017 Appointment Appointment [facility] Work Phone: Start: 03-28-2017 End: 03-28-2017 48 hour holter monitor 48 hour holter monitor [facility] Work Phone: Start: 03-28-2017 End: 03-28-2017 FURNACE OPERATOR OIL OR GAS FURNACE OPERATOR OIL OR GAS [facility] Work Phone: Start: 03-28-2017 End: 03-28-2017 Follow Up Appt 3 months Follow Up Appt 3 months [facility] Work Phone: Start: 03-13-2017 End: 03-13-2017 Appointment Appointment [facility] Work Phone: Start: 03-13-2017 End: 03-19-2017 Carotid duplex Carotid duplex [facility] Work Phone: Start: 09-28-2016 End: 09-28-2016 Follow Up Appt 6 months Follow Up Appt 6 months [facility] Work Phone: Start: 09-28-2016 End: 09-28-2016 MMM MMM [facility] Work Phone: Start: 03-29-2016 End: 03-30-2016 Stress Echocardiogram (treadmill) Stress Echocardiogram (treadmill) [facility] Work Phone: Start: 03-28-2016 End: 03-28-2016 Electrocardiogram, complete EKG (In office) [facility] Work Phone: Start: 03-28-2016 End: 03-28-2016 Follow Up Appt Other Follow Up Appt Other [facility] Work Phone: Social History Date Type Detail Facility Start: 02-26-2020 End: 02-26-2020 Assertion Unknown if ever smoked [facility] Or [facility] Work Phone: Chief Complaint Chief Complaint Description [...] BE BASED ON THE PRIMARY CLINICAL RECORDS. [facility]. provides no warranty or guarantee of the accuracy or completeness of information in this document.
--- NOTE | 2023-07-29 18:12 | CT_ITS ---
INDICATION: PNEUMONIA EXAMINATION: CT CHEST WITHOUT CONTRAST - CT Chest W/O Contrast Injection TECHNIQUE: Helically acquired images were obtained of the chest. A radiation dose optimization technique was used for this scan. IV Contrast dosage and agent: None. COMPARISON: Chest x-ray dated 07/26/2023. FINDINGS: LUNGS, PLEURA AND LARGE AIRWAYS: There is left lower lobe consolidation compatible with pneumonia. There is right upper lobe coarse opacity with spiculations which could represent neoplasm versus scarring, measuring approximately 3.7 x 1.8 cm. There are diffuse areas of reticular interstitial prominence with groundglass opacities, more severe throughout the bilateral upper lungs and less severe through the lung bases compatible with interstitial lung disease versus fibrosis. Superimposed pneumonitis cannot be excluded. Nodularity within the right lower lobe subpleural region, image 54, series 5 which could represent a nodule measuring 8.5 mm. Question areas of right suprahilar scarring versus residual mass, axial image 37, series 2 measuring approximately 1.5 cm. No pleural effusion or thickening. No pneumothorax. THYROID: There is enlargement of the left thyroid lobe with multiple hypoattenuating nodules, largest measuring 1 cm. HEART AND PERICARDIUM: Normal cardiac size. No pericardial effusion. CORONARY ARTERIES: Coronary artery calcification VESSELS: Atherosclerosis of aorta with no aneurysm. MEDIASTINUM AND TAMEKA: No mediastinal or hilar adenopathy. Esophagus is unremarkable. No hiatal hernia. UPPER ABDOMEN: No acute pathology. BONES: Diffuse osteopenia with multilevel degenerative disease of the spine. CT/Chest without Contrast IMPRESSION: Left lower lobe consolidation compatible with pneumonia. Scarring versus mass at the right lung apex with question suprahilar residual mass versus scarring, correlation with prior CT from 8 available recommended. Otherwise, neoplasm cannot be excluded. Right lower lobe subpleural nodule measuring 8.5 mm. Underlying interstitial lung disease/fibrosis more significant in the bilateral upper lobe and less severe within the lung bases with superimposed pneumonitis not excluded. These findings recommended to be further evaluated with CT chest with intravenous contrast in 1to 2 months following treatment to evaluate for resolution. If persistent, diagnostic evaluation with PET scan or CT chest at 6 months interval to evaluate for stability may help. Electronically Signed: Katiana Urbina MD at 19:02 EST ,
== END | disposition home or self-care (01) ==
PROVIDERS: PCP Family Medicine; Visit Provider Family Medicine Geriatric Medicine
DX: J18.9 Pneumonia, unspecified organism (principal)
CPT/HCPCS: 71250

== ENCOUNTER 2023-08-05 11:26 | Day surgery (SDC) | payer MEDICARE, OTHER, SELFPAY ==
[2023-08-05] VITALS (18 sets, daily range): BP systolic 96–148; BP diastolic 36–65; PULSE 64–70; RESP 16–32; TEMP 36.2–37.5; O2SAT 88–100; BMI 21.4
[2023-08-05] MEDS: Lactated Ringers 1,000 ML 15 ML IV (11:00)
--- NOTE | 2023-08-05 11:30 | HP.PCM_ITS ---
[facility] - General General Date of Admission: 08/05/23 Date of Service: 08/05/23 Chief Complaint: GI bleed HPI Narrative LANDON MARMOLEJO, is a 82 F with history of atrial fibrillation, hypertension, carotid artery stenosis presents following a fall around bedtime. She said that over the last 1 month she has been having progressive cough and associated fatigue, lightheadedness and shortness of breath. For suspected bronchitis she was started on Levaquin today. After taking her first dose she felt even more fatigued, and could not maintain her balance at night and tripped and fell. Extensive evaluation done in the ED did not show any major sequelae of the fall. She is on anticoagulation with Xarelto for her A-fib. She was also found to have hyponatremia with a sodium of 126 mg/DL. She drinks a lot of fluids throughout the day at least 10 to 12 glasses of water per day. She is presently on spironolactone only. The chest x-ray showed small right pleural effusion possible subtle airspace along the medial aspect of right lower lobe consider atelectasis. She was found to havepatchy infiltrates in her right upper and right lower lobe. She is found during her stay to have some swallowing deficits so there is a possibility that this could be due to aspiration. She did have decline in her respiratory status during her hospitalization and had ultimately transferred to the ICU. She had to be maintained on BiPAP for few days but slowly started to improve with IV Lasix and steroids. Her antibiotics were also broadened to Zosyn and vancomycin. She has completed 10 days of antibiotics and will not need any on discharge. Her oxygen requirements is down to 2 L at rest and 4 L with ambulation. She is still about 2 L positive so she was given a dose of IV Lasix today prior to discharge to help with her respiratory status as her creatinine is stable at baseline of 0.71. She does take Aldactone at home which she will continue with on discharge to the transitional care unit. Will continue with steroids, she was transition to 40 mg of prednisone daily and this should be tapered at the transitional care unit over the next 10 to 14 days. I was asked to see her because of GI bleeding and Heme + stools [facility] Medical History (Updated 08/05/23 @ 12:[address] Maldonado Friend, DO) Anemia Arthritis Cardiology follow-up encounter Diverticulosis Essential (primary) hypertension Former smoker GERD (gastroesophageal reflux disease) History of atrial fibrillation History of echocardiogram History of edema History of stress test Near syncope Non-sustained ventricular tachycardia On home oxygen therapy Paroxysmal atrial fibrillation Post-menopausal Pressure ulcer Shortness of breath on exertion Thyroid disease TIA (transient ischemic attack) TIA (transient ischemic attack) Wears glasses Wears partial dentures Home Medications atorvastatin 40 mg tablet 40 mg PO QHS cholesterol #90 tabs 03/08/16 [Rx Last Taken 07/10/23 19:40] aspirin 81 mg tablet,delayed release 81 mg PO [facility] 02/23/19 [History Last Taken 07/10/23 09:20] hydroxyzine HCl 50 mg tablet 50 mg PO QHS PRN sleep 03/28/21 [History Last Taken Unknown] flecainide 100 mg tablet 100 mg PO Q12H heart rate #180 tabs 11/01/22 [Rx Last Taken 08/05/23] rivaroxaban 20 mg tablet (Xarelto) 20 mg PO DAILY blood thinner #90 tabs 06/27/23 [Rx Last Taken 07/11/23 08:35] furosemide 40 mg tablet 40 mg PO DAILY 07/26/23 [History Last Taken Unknown] guaifenesin 100 mg/5 mL oral liquid 200 mg PO Q6H PRN 07/26/23 [History Last Taken Unknown] magnesium citrate 300 ml PO DAILY PRN 07/26/23 [History Last Taken Unknown] metoprolol succinate 25 mg tablet,extended release 24 hr 12.5 mg PO .COMPLEX 07/26/23 [History Last Taken Unknown] potassium chloride 20 mEq oral packet 20 meq PO BID 07/26/23 [History Last Taken Unknown] acetaminophen 500 mg tablet 1,000 mg PO Q6H PRN 07/31/23 [History Last Taken Unknown] ipratropium 0.5 mg-albuterol 3 mg (2.5 mg base)/3 mL nebulization soln 3 ml inhalation Q6H PRN 07/31/23 [History Last Taken Unknown] menthol 3 % topical cream applic topical 07/31/23 [History Last Taken Unknown] miconazole nitrate 2 % topical powder 1 applic topical BID 07/31/23 [History Last Taken Unknown] sennosides 8.6 mg-docusate sodium 50 mg tablet (Senna Plus) 1 tab-cap PO BID 07/31/23 [History Last Taken Unknown] spironolactone 25 mg tablet 25 mg PO DAILY 07/31/23 [History Last Taken Unknown] tamsulosin 0.4 mg capsule 0.4 mg PO DAILY 07/31/23 [History Last Taken Unknown] Allergy/AdvReac Type Severity Reaction Status Date / Time Sulfa (Sulfonamide Allergy Unknown Verified 08/05/23 10:57 Antibiotics) metoprolol AdvReac Severe Bradycardia Verified 08/05/23 10:57 even at 12.5 mg Family History Father CHF (congestive heart failure) Brother CAD (coronary artery disease) Brother CAD (coronary artery disease) Surgical History (Updated 08/05/23 @ 11:08 by Alexsandra Perez) History of left-sided carotid endarterectomy (03/30/16) History of partial thyroidectomy History of thyroid surgery Social History household members: none Smoking Status: Former smoker alcohol intake: never caffeine: Yes Type: coffee Number of servings: 4 ROS Constitutional Constitutional: Reports weakness; Denies chills, fever(s) or weight gain ENT HEENT: Denies headache(s), nasal congestion or nasal discharge Cardiovascular Cardiovascular: Denies chest pain or palpitations Respiratory/Chest Respiratory/Chest: Denies cough, excessive phlegm production or shortness of breath with exertion Gastrointestinal Gastrointestinal: Denies abdominal pain, nausea or vomiting Genitourinary Genitourinary: Denies dysuria Musculoskeletal Musculoskeletal: Denies joint pain or joint swelling Integumentary Integumentary: Denies rash or wounds Neurologic Neurologic: Denies focal weakness, numbness or tingling Psychiatric Psychiatric: Denies anxiety, auditory hallucinations, depression, homicidal ideation or suicidal ideation Vital Signs Vital Signs Vital Signs: 08/05/23 11:08 08/05/23 11:08 Temperature 99.5 F H Temperature Source Temporal Pulse Rate 65 Respiratory Rate 16 Respiratory Pattern Normal Blood Pressure 135/51 H Blood Pressure Mean 79 Blood Pressure Source Monitor Blood Pressure Position Semi-Fowlers Blood Pressure Location Left Arm Pulse Ox 99 Oxygen Delivery Method Nasal Cannula Oxygen Flow Rate (L/min) 3 Weight Weight: 133 lb Body Mass Index (BMI) 21.4 Physical Exam Const alert General Appearance: cooperative HEENT normocephalic Eyes PERRL and EOMs intact bilaterally Neck supple, no JVD and no carotid bruits Resp normal respiratory effort, normal air movement and clear to auscultation bilaterally Cardio regular rate and regular rhythm GI normal to inspection, nondistended, normoactive bowel sounds, non-tender and non-distended Extremity normal capillary refill General Extremity: Negative for edema Skin no rashes or lesions noted General Skin Exam: no breakdown Psych affect normal Appearance: appropriate Assessment & Plan Assessment/Plan (1) Anemia: PLAN: Plan She will undergo colonoscopy evaluation of her lower GI tract. She was explained alternatives, risk, benefits include not withstanding bleeding, infection, sepsis, perforation, need for emergent urgent . She will have an ASA of 3.
--- OUTSIDE RECORDS SUMMARY | 2023-08-05 11:46 | XMS RPT_ITS | CCD ---
Author Name Unknown Address [address] [place] [address] Organization [facility] Care Team Providers Care Repair Operator Name Role Phone Sudha Goncalves Unavailable Unavailable Sudha Goncalves Unavailable Unavailable Sudha Goncalves Unavailable Unavailable Valdez MORA, Colin Smith Unavailable Valeriano Maldonado MD Unavailable Allergies Allergy Classification Reported Allergen(s) Allergy Type Date of Onset Reaction(s) Facility (5 sources) Sulfonamides (Antibiotic); Translations: [SULFA] drug allergy 03-28-2016 [facility] Work Phone: Medications Completed/Discontinued Medications Medication Drug Class(es) Dates Sig (Normalized) Sig (Original) aspirin 81 mg delayed release oral tablet (9 sources) Nonsteroidal Anti-inflammatory Drug Start: 02-23-2020 ASPIRIN 81 TBEC 1 tablet daily ASPIRIN TBEC [id number] Saloni aRmirez LPN Problems Active Problems Problem Classification Problem [...] 15:11-0400 BMI (Body Mass Index) 26.95 kg/m2 [employer] Work Phone: 03-28-2017 15:11-0400 BP Diastolic 70 mm[Hg] [employer] Work Phone: 03-28-2017 15:11-0400 BP Systolic 150 mm[Hg] [employer] Work Phone: 03-28-2017 15:11-0400 Pulse (Heart Rate) 60 /min [employer] Work Phone: 03-28-2017 15:11-0400 Weight 75.75 kg [employer] Work Phone: 03-13-2017 14:45-0400 BMI (Body Mass Index) 26.69 kg/m2 Colin Kellogg MD [facility] [employer] Work Phone: 03-13-2017 14:45-0400 Body Temperature 97.7 [degF] Colin Kellogg MD [facility] [employer] Work Phone: 03-13-2017 14:45-0400 BP Diastolic 70 mm[Hg] Colin Kellogg MD [facility] [employer] Work Phone: 03-13-2017 14:45-0400 BP Systolic 147 mm[Hg] Colin Kellogg MD [facility] Work Phone: 03-13-2017 14:45-0400 Height 167.64 cm Colin Kellogg MD [facility] Work Phone: 03-13-2017 14:45-0400 Pulse (Heart Rate) 62 /min Colin Kellogg MD [facility] Work Phone: 03-13-2017 14:45-0400 Respiratory Rate 20 /min Colin Kellogg MD [facility] [employer] Work Phone: 03-13-2017 14:45-0400 Weight 75.03 kg Colin Kellogg MD [facility] [employer] Work Phone: 03-28-2016 14:32-0400 BSA (Body Surface Area) 1.84 m2 Colin Kellogg MD [facility] [employer] Work Phone: NEGATED: Highlighted [id number] 11:05-0400 BMI (Body Mass Index) 5.5 kg/m2 Elvi VanScoit AT [facility] Work Phone: NEGATED: Highlighted [id number] 11:05-0400 Body weight 67.59 kg Elvi VanScoit AT [facility] Work Phone: NEGATED: Highlighted [id number] 11:05-0400 Body weight 68 kg Elvi VanScoit AT [facility] Work Phone: NEGATED: Highlighted [id number] 11:05-0400 Heart rate 2+ Elvi VanScoit AT [facility] Work Phone: NEGATED: Highlighted [id number] 11:05-0400 Height 351.03 cm Elvi VanScoit AT [facility] Work Phone: NEGATED: Highlighted [id number] 11:05-0400 Height 351 cm Elvi VanScoit AT [facility] Work Phone: Encounters Encounter Date Encounter Type Care Provider Facility Start: 02-26-2020 End: 02-26-2020 Patient encounter procedure Valeriano Maldonado MD Work Phone: [facility] Work Phone: Procedures Date Procedure Procedure Detail [...] MD Work Phone: Start: 03-28-2017 End: 03-28-2017 SUSPENDER MAKER Celsa Harman PA-C Work Phone: Start: 03-28-2017 [...] Author Start: 02-26-2020 End: 02-26-2020 Appointment Appointment [facility] Work Phone: Start: 02-26-2020 End: 02-26-2020 Radex hip unilateral with pelvis 2-3 views XR PELVIS W HIP 2-3 VWS-RT [facility] Work Phone: Start: 07-11-2017 End: 07-11-2017 Appointment Appointment [facility] Work Phone: Start: 03-28-2017 End: 03-28-2017 Appointment Appointment [facility] Work Phone: Start: 03-28-2017 End: 03-28-2017 48 hour holter monitor 48 hour holter monitor [facility] Work Phone: Start: 03-28-2017 End: 03-28-2017 SUSPENDER MAKER SUSPENDER MAKER [facility] Work Phone: Start: 03-28-2017 End: 03-28-2017 Follow Up Appt 3 months Follow Up Appt 3 months [facility] Work Phone: Start: 03-13-2017 End: 03-13-2017 Appointment Appointment [facility] Work Phone: Start: 03-13-2017 End: 03-19-2017 Carotid duplex Carotid duplex [facility] [employer] Work Phone: Start: 09-28-2016 End: 09-28-2016 Follow Up Appt 6 months Follow Up Appt 6 months [facility] [employer] Work Phone: Start: 09-28-2016 End: 09-28-2016 MMM MMM [facility] [employer] Work Phone: Start: 03-29-2016 End: 03-30-2016 Stress Echocardiogram (treadmill) Stress Echocardiogram (treadmill) [facility] [employer] Work Phone: Start: 03-28-2016 End: 03-28-2016 Electrocardiogram, complete EKG (In office) [facility] [employer] Work Phone: Start: 03-28-2016 End: 03-28-2016 Follow Up Appt Other Follow Up Appt Other [facility] [employer] Work Phone: Social History Date Type Detail Facility Start: 02-26-2020 End: 02-26-2020 Assertion Unknown if ever smoked [facility] Work Phone: Chief Complaint Chief Complaint Description [...] BE BASED ON THE PRIMARY CLINICAL RECORDS. [facility]. provides no warranty or guarantee of the accuracy or completeness of information in this document.
--- NOTE | 2023-08-05 12:05 | COLBX_PTH ---
PATHOLOGY RESULTS PATIENT: LANDON MARMOLEJO LOC: EN U#:[id number] AGE/SX: 82/F ROOM: RE08/05/[address]: Dr. Joel Ross DO : 1940 BED: DIS: 08/05/2023 SPEC #: [id number] RECD: 08/06/23 07:26 STATUS: LILLY LISANDRO #: [id number] DEWAYNE: 08/05/23 12:[address]: Joel Ross DEPT: SURGICAL PATHOLOGY RECD BY: Neena Lorenzana ENTERED: 08/06/23 07:26 SP TYPE: COLON BX OT DR: Dr. Chirag Gibbons MD Tissues: COLON BIOPSY Sigmoid colon biopsy Procedures: Surgery Specimen Level IV HEADER OPERATION: Colonoscopy with biopsy and polypectomy PRE-OP DIAGNOSIS: Anemia, GI bleed TISSUE SUBMITTED: A - Splenic flexure biopsy, B - Sigmoid colon polyp MICROSCOPIC DIAGNOSIS A. Splenic flexure, biopsy: Fragments of colonic mucosa with rare pigment laden macrophages suggestive of melanosis coli. B. Sigmoid colon polyp, polypectomy: Fragments of tubular adenoma. RODGER:karlene 08/07/2023 MICROSCOPIC DESCRIPTION Slides are reviewed. GROSS DESCRIPTION A - Received in fixative is one container labeled with the patient's name and designated biopsy splenic flexure. The specimen consists of two irregular fragments of light avila soft tissue that in aggregate measure 0.6 x 0.2 x 0.1 cm. The specimen is totally submitted in one cassette. B - Received in fixative is one container labeled with the patient's name and designated polyp sigmoid colon. The specimen consists of multiple irregular fragments of light avila soft tissue that in aggregate measure 1.0 x 0.3 x 0.1 cm. The specimen is totally submitted in one cassette. / RODGER:karlene 08/06/2023 TC:1 CPT: 44540 x2
--- NOTE | 2023-08-05 12:53 | OP.COLON_ITS ---
Patient Name: Cydney Chan Procedure Date: 08/05/2023 10:40 AM Date of : 1940 Age: 82 Procedure: Colonoscopy Indications: Iron deficiency anemia Providers: Joel Ross DO Medicines: Monitored Anesthesia Care Patient Profile: This is an 82 year old female. Refer to note in patient chart for documentation of history and physical. Last Colonoscopy: 5 years ago. Complications: No immediate complications. Procedure: Pre-Anesthesia Assessment: - Prior to the procedure, a History and Physical was performed, and patient medications and allergies were reviewed. The patient is competent. The risks and benefits of the procedure and the sedation options and risks were discussed with the patient. All questions were answered and informed consent was obtained. Patient identification and proposed procedure were verified by the physician. Mental Status Examination: normal. Prophylactic Antibiotics: The patient does not require prophylactic antibiotics. Prior Anticoagulants: The patient has taken no anticoagulant or antiplatelet agents except for NSAID medication. ASA Grade Assessment: III - A patient with severe systemic disease. After reviewing the risks and benefits, the patient was deemed in satisfactory condition to undergo the procedure. The anesthesia plan was to use monitored anesthesia care (MAC). Immediately prior to administration of medications, the patient was re-assessed for adequacy to receive sedatives. The heart rate, respiratory rate, oxygen saturations, blood pressure, adequacy of pulmonary ventilation, and response to care were monitored throughout the procedure. The physical status of the patient was re-assessed after the procedure. After I obtained informed consent, the scope was passed under direct vision. Throughout the procedure, the patient's blood pressure, pulse, and oxygen saturations were monitored continuously. The Colonoscope was introduced through the anus and advanced to the terminal ileum. The colonoscopy was performed with ease. The patient tolerated the procedure well. The quality of the bowel preparation was adequate. The terminal ileum, ileocecal valve, appendiceal orifice, and rectum were photographed. Scope In: 12:17:00 PM Scope Withdrawal Time 0 hours 10 minutes 58 seconds Scope Out: 12:30:24 PM Total Procedure Duration Time 0 hours 13 minutes 24 seconds Findings: The perianal and digital rectal examinations were normal. A few small-mouthed diverticula were found in the recto-sigmoid colon and sigmoid colon. An 8 mm polyp was found in the sigmoid colon. The polyp was sessile. The polyp was removed with a cold snare. Resection and retrieval were complete. Verification of patient identification for the specimen was done by the physician. Estimated blood loss was minimal. Localized mild inflammation characterized by congestion (edema), erosions, erythema and friability was found at the splenic flexure. Biopsies were taken with a cold forceps for histology. Verification of patient identification for the specimen was done by the nurse. Estimated blood loss was minimal. The terminal ileum appeared normal. Impression: - Diverticulosis in the recto-sigmoid colon and in the sigmoid colon. - One 8 mm polyp in the sigmoid colon, removed with a cold snare. Resected and retrieved. - Localized mild inflammation was found at the splenic flexure secondary to ischemic colitis. Biopsied. - The examined portion of the ileum was normal. Recommendation: - Return patient to TCU for ongoing care. - Resume previous diet. - Continue present medications. - Await pathology results. - Repeat colonoscopy in 5 years for surveillance. Procedure Code(s): --- Professional --- 92273, Colonoscopy, flexible; with removal of tumor(s), polyp(s), or other lesion(s) by snare technique 99314, 59, Colonoscopy, flexible; with biopsy, single or multiple CPT copyright 2021 [employer]. All rights reserved. The codes documented in this report are preliminary and upon label coder review may be revised to meet current compliance requirements. Joel Ross DO 08/05/2023 12:53:00 PM This report has been signed electronically. Number of Addenda: 0 Note Initiated On: 08/05/2023 10:40 AM
--- NOTE | 2023-08-05 12:53 | OP.CCLET_ITS ---
08/05/2023 Chirag Gibbons MD [address] [place] [address] Re : Colonoscopy procedure for Cydney Chan Dear Dr. Gibbons This procedure was performed on Saturday, August 05, 2023. My impressions and recommendations are as follows: Impressions : - Diverticulosis in the recto-sigmoid colon and in the sigmoid colon. - One 8 mm polyp in the sigmoid colon, removed with a cold snare. Resected and retrieved. - Localized mild inflammation was found at the splenic flexure secondary to ischemic colitis. Biopsied. - The examined portion of the ileum was normal. Recommendations : - Return patient to TCU for ongoing care. - Resume previous diet. - Continue present medications. - Await pathology results. - Repeat colonoscopy in 5 years for surveillance. My findings are described in the full procedure note, which is enclosed. If I can be of further assistance, please feel free to contact me at . Sincerely, Joel Ross, 08/05/2023 12:53:00 PM This report has been signed electronically.
--- NOTE | 2023-08-05 12:53 | NURSING ---
O2 SATS 93-94% ON 5L SIMPLE MASK , O2 INCREASED TO 6L SIMPLE MASK.
[2023-08-05] MEDS: Ipratropium/Albuterol Sulfate 3 ML AMPUL.NEB INHALATION (13:10)
--- NOTE | 2023-08-05 13:28 | SUR.PHASEI ---
100% NRB MASK APPLIED FOR SATS DROPPING 85-88%
--- NOTE | 2023-08-05 13:29 | RAD_ITS ---
STUDY: X-RAY CHEST REASON FOR EXAM: Female, 82 years old. SOB TECHNIQUE: Single AP portable view of the chest. COMPARISON: Comparison is made with prior study dated January 24, 2024. FINDINGS: EKG electrodes are seen. Since prior study, there has been progression of the interstitial markings in both lungs with areas of confluence worse in the left midlung. This may represent evidence of CHF with possible infiltrate in the left midlung. Blunting of the right costophrenic angle. Normal size heart. Normal mediastinum and kenya. Normal visualized pulmonary arteries. There is atherosclerotic calcification of the aortic arch with tortuosity. Normal visualized thoracic spine. Normal visualized ribs, clavicles, and shoulders. There is no demonstrated abnormality of the visualized soft tissue structures of the upper abdomen. RAD/Chest 1 View IMPRESSION: Findings suggestive of CHF with superimposed atelectasis and/or infiltrate in the left midlung. Blunting of the right costophrenic angle. Electronically Signed: Jason Em MD at 14:30 EST ,
--- NOTE | 2023-08-05 13:38 | SUR.PHASEI ---
PCXR COMPLETED, 20MG IV LASIX GIVEN.
--- NOTE | 2023-08-05 13:48 | SUR.PHASEI ---
RESP EASIER, PT A&O X3, DENIES ANY PAIN, O2 DECREASED TO 6L NC, DR MARTINEZ AT BEDSIDE, LUNGS DIMIN WITH FEW CRACKLES IN BASES. PLAN IS TO CONTINUE TO MONITOR AND CALL DR MARTINEZ WITH UPDATE.
--- NOTE | 2023-08-05 13:58 | NURSING ---
O2 CHANGED TO 7L VIA SIMPLE MASK TO MAINTAIN SATS 95% OR GREATER. PT STILL REPORTS SOB, LUNGS WITH CRACKLES IN BASES, NO WHEEZES. BUSCH CATH PUTING OUT PALE CLEAR YELLOW URINE.
--- NOTE | 2023-08-05 14:32 | SUR.PHASEI ---
3LNC ON, SATS 96%, LUNGS DIMIN BILAT BASES WITH FINE CRACKLES LT BASE, PT REPORTS FEELING BETTER, BUSCH DRNG PALE CLEAR YELLOW URINE. ATTEMPTED TO UPDATE FAMILY, NO ONE IN WAITING ROOM, COST RECOVERY TECHNICIAN WILL UPDATE.
--- NOTE | 2023-08-05 14:40 | SUR.PHASEI ---
DAUGHTER LANDON CALLED AND UPDATED ON CARE PROVIDED IN PACU.
== END 2023-08-05 14:56 | disposition home or self-care (01) ==
LOC: EN 11:28 → AC 11:29
PROVIDERS: PCP Family Medicine; Referring Provider Family Medicine; Visit Provider Internal Medicine Gastroenterology
PROC: 0DJD8ZZ Inspection of Lower Intestinal Tract, Via Natural or Artificial Opening Endoscopic (ICD-10-PCS; CPT 45378; principal; 2023-08-05 12:00)
DX: D12.5 Benign neoplasm of sigmoid colon (principal); K55.9 Vascular disorder of intestine, unspecified; I48.0 Paroxysmal atrial fibrillation; D50.9 Iron deficiency anemia, unspecified; K57.30 Diverticulosis of large intestine without perforation or abscess without bleeding; E87.1 Hypo-osmolality and hyponatremia; I10 Essential (primary) hypertension; E78.5 Hyperlipidemia, unspecified; R06.03 Acute respiratory distress; Z99.81 Dependence on supplemental oxygen; Z87.891 Personal history of nicotine dependence; Z79.01 Long term (current) use of anticoagulants
CPT/HCPCS: 45385; 45380; 71045; 71260; 88305; J7120; Q9967; J1940

== ENCOUNTER 2023-08-05 16:29 | Outpatient (CLI) | payer MEDICARE, OTHER, SELFPAY ==
--- NOTE | 2023-08-05 16:31 | CT_ITS ---
INDICATION: INCREASED SOB EXAMINATION: CT CHEST WITH CONTRAST - CT Chest W/ Contrast Injection TECHNIQUE: Helically acquired images were obtained of the chest following IV contrast. A radiation dose optimization technique was used for this scan. IV Contrast dosage and agent: COMPARISON: 07/29/2023 FINDINGS: LUNGS, PLEURA AND LARGE AIRWAYS: Moderate bilateral apical scarring with a confluent component in the apex of the right lung. Mild emphysema with subpleural scarring. Increase in the alveolar density in the left lower lobe lungs consistent with worsening left lower lobe pneumonia. Moderate bilateral pleural effusions. No pneumothorax. THYROID: No thyroid lesions. HEART AND PERICARDIUM: Heart size is normal. No pericardial effusion. VESSELS: Thoracic aorta is not dilated. No aortic dissection. No obvious central pulmonary embolism although this study was not performed with the pulmonary embolism protocol. Enlarged central pulmonary arteries suggestive of pulmonary arterial hypertension. MEDIASTINUM AND TAMEKA: No mediastinal or hilar adenopathy. Esophagus is unremarkable. No hiatal hernia. UPPER ABDOMEN: No acute pathology. BONES: No suspicious lytic or blastic abnormality. CT/Chest WITH Contrast IMPRESSION: 1. Worsening left lower lobe pneumonia. 2. No change in soft tissue fullness in the hilum of the right lung and suspected right apical scarring. This may represent scarring or mass. Follow-up after resolution of symptoms would be useful. 3. Moderate bilateral pleural effusions.. 4. Suspect pulmonary arterial hypertension. Electronically Signed: Alexis Harvey MD at 18:22 EST ,
--- OUTSIDE RECORDS SUMMARY | 2023-08-05 16:52 | XMS RPT_ITS | CCD ---
Author Name Unknown Address [address] [place] [address] Organization [facility] Care Team Providers Care Agronomy Professor Name Role Phone Sudha Goncalves Unavailable Unavailable Sudha Goncalves Unavailable Unavailable Sudha Goncalves Unavailable Unavailable Valdez MORA, Colin Smith Unavailable Valeriano Maldonado MD Unavailable Allergies Allergy Classification Reported Allergen(s) Allergy Type Date of Onset Reaction(s) Facility (5 sources) Sulfonamides (Antibiotic); Translations: [SULFA] drug allergy 03-28-2016 [facility] Work Phone: Medications Completed/Discontinued Medications Medication Drug Class(es) Dates Sig (Normalized) Sig (Original) aspirin 81 mg delayed release oral tablet (9 sources) Nonsteroidal Anti-inflammatory Drug Start: 02-23-2020 ASPIRIN 81 TBEC 1 tablet daily ASPIRIN TBEC [id number] Saloni Ramirez LPN Problems Active Problems Problem [...] 15:11-0400 BMI (Body Mass Index) 26.95 kg/m2 [employer] Work Phone: 03-28-2017 15:11-0400 BP Diastolic 70 mm[Hg] [employer] Work Phone: 03-28-2017 15:11-0400 BP Systolic 150 mm[Hg] [employer] Work Phone: 03-28-2017 15:11-0400 Pulse (Heart Rate) 60 /min [employer] Work Phone: 03-28-2017 15:11-0400 Weight 75.75 kg [employer] Work Phone: 03-13-2017 14:45-0400 BMI (Body Mass Index) 26.69 kg/m2 Colin Kellogg MD [facility] [employer] Work Phone: 03-13-2017 14:45-0400 Body Temperature 97.7 [degF] Colin Kellogg MD [facility] [employer] Work Phone: 03-13-2017 14:45-0400 BP Diastolic 70 mm[Hg] Colin Kellogg MD [facility] [employer] Work Phone: 03-13-2017 14:45-0400 BP Systolic 147 mm[Hg] Colin Kellogg MD [facility] Work Phone: 03-13-2017 14:45-0400 Height 167.64 cm Colin Kellogg MD [facility] Work Phone: 03-13-2017 14:45-0400 Pulse (Heart Rate) 62 /min Colin Kellogg MD [facility] Work Phone: 03-13-2017 14:45-0400 Respiratory Rate 20 /min Colin Kellogg MD [facility] [employer] Work Phone: 03-13-2017 14:45-0400 Weight 75.03 kg Colin Kellogg MD [facility] [employer] Work Phone: 03-28-2016 14:32-0400 BSA (Body Surface Area) 1.84 m2 Colin Kellogg MD [facility] [employer] Work Phone: NEGATED: Highlighted [id number] 11:05-0400 BMI (Body Mass Index) 5.5 kg/m2 Elvi VanScoit AT [facility] Work Phone: NEGATED: Highlighted [id number] 11:05-0400 Body weight 67.59 kg Elvi VanScoit AT [facility] Work Phone: NEGATED: Highlighted [id number] 11:05-0400 Body weight 68 kg Elvi VanScoit AT [facility] Work Phone: NEGATED: Highlighted [id number] 11:05-0400 Heart rate 2+ Elvi VanScoit AT [facility] Work Phone: NEGATED: Highlighted [id number] 11:05-0400 Height 351.03 cm Elvi VanScoit AT [facility] Work Phone: NEGATED: Highlighted [id number] 11:05-0400 Height 351 cm Elvi VanScoit AT [facility] Work Phone: Encounters Encounter Date Encounter Type Care Provider Facility Start: 02-26-2020 End: 02-26-2020 Patient encounter procedure Valeriano Maldonado MD Work Phone: [facility] Work Phone: Procedures Date Procedure Procedure [...] MD Work Phone: Start: 03-28-2017 End: 03-28-2017 SPECIAL NEEDS LIBRARIAN Celsa Harman PA-C Work Phone: Start: 03-28-2017 [...] Author Start: 02-26-2020 End: 02-26-2020 Appointment Appointment [facility] Work Phone: Start: 02-26-2020 End: 02-26-2020 Radex hip unilateral with pelvis 2-3 views XR PELVIS W HIP 2-3 VWS-RT [facility] Work Phone: Start: 07-11-2017 End: 07-11-2017 Appointment Appointment [facility] Work Phone: Start: 03-28-2017 End: 03-28-2017 Appointment Appointment [facility] Work Phone: Start: 03-28-2017 End: 03-28-2017 48 hour holter monitor 48 hour holter monitor [facility] Work Phone: Start: 03-28-2017 End: 03-28-2017 SPECIAL NEEDS LIBRARIAN SPECIAL NEEDS LIBRARIAN [facility] Work Phone: Start: 03-28-2017 End: 03-28-2017 Follow Up Appt 3 months Follow Up Appt 3 months [facility] Work Phone: Start: 03-13-2017 End: 03-13-2017 Appointment Appointment [facility] Work Phone: Start: 03-13-2017 End: 03-19-2017 Carotid duplex Carotid duplex [facility] [employer] Work Phone: Start: 09-28-2016 End: 09-28-2016 Follow Up Appt 6 months Follow Up Appt 6 months [facility] [employer] Work Phone: Start: 09-28-2016 End: 09-28-2016 MMM MMM [facility] [employer] Work Phone: Start: 03-29-2016 End: 03-30-2016 Stress Echocardiogram (treadmill) Stress Echocardiogram (treadmill) [facility] [employer] Work Phone: Start: 03-28-2016 End: 03-28-2016 Electrocardiogram, complete EKG (In office) [facility] [employer] Work Phone: Start: 03-28-2016 End: 03-28-2016 Follow Up Appt Other Follow Up Appt Other [facility] [employer] Work Phone: Social History Date Type Detail Facility Start: 02-26-2020 End: 02-26-2020 Assertion Unknown if ever smoked [facility] Work Phone: Chief Complaint Chief Complaint [...] BE BASED ON THE PRIMARY CLINICAL RECORDS. [employer] [facility]. provides no warranty or guarantee of the accuracy or completeness of information in this document.
== END 2023-08-05 23:59 | disposition home or self-care (01) ==
LOC: CT 16:30
PROVIDERS: PCP Family Medicine; Referring Provider Family Medicine Geriatric Medicine; Visit Provider Family Medicine Geriatric Medicine
DX: D12.5 Benign neoplasm of sigmoid colon (principal); K55.9 Vascular disorder of intestine, unspecified; I48.0 Paroxysmal atrial fibrillation; R06.03 Acute respiratory distress; Z99.81 Dependence on supplemental oxygen; I10 Essential (primary) hypertension; K57.30 Diverticulosis of large intestine without perforation or abscess without bleeding; D50.9 Iron deficiency anemia, unspecified; E87.1 Hypo-osmolality and hyponatremia; E78.5 Hyperlipidemia, unspecified; Z87.891 Personal history of nicotine dependence; Z79.01 Long term (current) use of anticoagulants
CPT/HCPCS: 45385; 45380; 71260; Q9967

== ENCOUNTER → 2023-08-06 | Outpatient (CLI) | payer MEDICARE, OTHER, SELFPAY ==
--- NOTE | 2023-08-06 | FLU_PTH ---
PATHOLOGY RESULTS PATIENT: LANDON MARMOLEJO LOC: [facility]#:[id number] AGE/SX: 82/F ROOM: RE08/06/[address]: Dr. Dexter Stephens MD : 1940 BED: DIS: 08/06/2023 SPEC #: [id number] RECD: 08/06/23 13:28 STATUS: LILLY REAshley #: [id number] DEWAYNE: 08/06/23 00:[address]: Dexter Stephens Chi DEPT: CYTOLOGY RECD BY: Neena Lorenzana ENTERED: 08/06/23 13:28 SP TYPE: Fluid OTHR DR: Dr. 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 See comment. SJ:karlene 08/07/2023 COMMENT Immunohistochemistry ([id number]) supports the above diagnosis. Clinical correlation and appropriate follow up are necessary. Case has been reviewed in consultation with Dr. Acosta who concurs with the above diagnosis. IDC:AM CYTOLOGY STUDY Slides are reviewed. CYTOLOGY GROSS Received is 85 ml of red cloudy fluid labeled with the patient's name and and designated per the requisition as thoracentesis. Submitted for cytology preparation including cell block. / karlene 08/06/2023 TC:0 CPT: 23673, 48047
--- NOTE | 2023-08-06 | IMM_PTH ---
PATHOLOGY RESULTS PATIENT: LANDON MARMOLEJO LOC: [facility]#:[id number] AGE/SX: 82/F ROOM: RE08/06/[address]: Dr. Dexter Stephens MD : 1940 BED: DIS: 08/06/2023 SPEC #: [id number] RECD: 08/07/23 13:54 STATUS: LILLY REQ #: [id number] DEWAYNE: 08/06/23 00:[address]: Dexter Stephens Chi DEPT: IMMUNOHISTOCHEMISTRY RECD BY: Gabi Cazares ENTERED: 08/07/23 13:56 SP TYPE: IMMUNO OTHR DR: Dr. Chirag Gibbons MD Tissues: THORACIC FLUID Procedures: RCC (add) NAPSIN A (add) Pelon Ret (add) CK20 (add) CK5-6 (add) CK7 (add) CK8 (add) HEP PAR (add) KI-67 (add) P53 (add) HI (add) TTF1 (add) Vimentin (add) Pankeratin (add) P40 (add) CD68 (ADD) ER (initial) PHYSICIAN & [address] [address] SPECIMEN INFORMATION: Tissue Source: Thoracentesis fluid Clinical Info: Pleural effusion Specimen Number: [id number] CPT code: 56739, 43302 x16 METHODOLOGY: Deparaffinized sections of prefer/formalin-fixed tissue or PAP/DQ stained slides are incubated with monoclonal/polyclonal antibodies/oligonucleotide probes. Localization is made via biotin free immunoperoxidase method. Appropriate controls are performed and reacted as expected. Results on target cell population are indicated in the following table: RESULTS: ANTIBODY / CLONE RESULT ER (6F11) negative HI (1E2) negative AE1-3 (AE1/AE3/PCK26) positive CK7 (OV-TL12/30) positive CK8 (60bsegX93) positive CK20 (KS20.8) negative Vimentin (V9) negative CD68 (KP-1) negative TTF-1 (8G7G3/1) positive Napsin A (Rabbit Polyclonal) positive HepPar (OCh1E5) negative RCC (PN-15) negative CALRET (polyclonal) negative CK5-6 (D5 & 1684) negative P40 (BC28) negative P53 (DO-7) positive, focal (wild type pattern) Ki-67 (30-9) positive, moderate These tests were developed and their performance characteristics determined by [facility]. They may not have been cleared or approved by the U.S. Food and Drug Administration. The FDA has determined that such clearance or approval is not necessary. The above immunohistochemical/dualISH markers are ordered and reviewed by the Pathologist. INTERPRETATION: Thoracentesis fluid (cell block): Malignant cells present derived from metastatic non-small cell carcinoma, favor adenocarcinoma consistent with lung primary. SJ:karlene 08/08/2023
[2023-08-06 11:47] VITALS: BP 139/44; PULSE 79; RESP 22; TEMP 36.6; O2SAT 94
[2023-08-06] MEDS: Lidocaine 2% (20 ml mdv) 20 ML Vial INFILT (11:52)
[2023-08-06 11:54] VITALS: BP 138/46; PULSE 79; RESP 22; O2SAT 92
--- NOTE | 2023-08-06 12:00 | RAD_ITS ---
STUDY: X-RAY CHEST REASON FOR EXAM: Female, 82 years old. POST THORA TECHNIQUE: AP inspiration and expiration views. COMPARISON: Comparison is made with prior study dated August 05, 2023. FINDINGS: The patient is status post left thoracentesis. No evidence of pneumothorax. RAD/Chest Insp/Exp 2 View IMPRESSION: No evidence of pneumothorax following the left thoracentesis. Electronically Signed: Jason Em MD at 12:16 EST ,
[2023-08-06 12:05] VITALS: BP 122/43; PULSE 78; RESP 22; O2SAT 93
--- NOTE | 2023-08-06 12:37 | PRO.PCM_ITS ---
Procedure Report Date of Procedure: 08/06/23 Assessment & Plan Assessment/Plan (1) Pleural effusion, left: PLAN: PROCEDURE: Ultrasound Guided Thoracentesis ORDERING PROVIDER: Dr. Stephens INDICATION: Female, 82 years old. Left pleural effusion. PROVIDER: MARLA Araujo PROCEDURE: The risks, benefits, and alternatives to the procedure were explained to the patient. The specific risks of bleeding, infection, and pneumothorax requiring chest tube insertion were discussed and accepted. Written informed consent was obtained. The patient was placed in the sitting, upright position. Ultrasonographic evaluation of the bilateral lower pleural spaces was carried out. An adequate pocket was identified in the left lower pleural space. There was minimal effusion in the right pleural space. The overlying skin was prepped and draped in sterile fashion. 2% lidocaine was administered subcutaneously for local anesthesia. Under ultrasound guidance, a 5-Indian thoracentesis needle/catheter system was advanced into the right posterior lower pleural fluid collection. 280 ml of clear red/casa colored fluid was drained. 100 and mL of this fluid was sent to the laboratory for analysis, as per requesting physician. The catheter was removed, and a sterile dressing was applied. The patient tolerated the procedure well. A chest x-ray was ordered. IMPRESSION: Successful ultrasound-guided thoracentesis of left pleural effusion. Procedures Radiology Radiology US Procedures: [id number] Thoracentesis
== END | disposition home or self-care (01) ==
PROVIDERS: PCP Family Medicine; Referring Provider Family Medicine Geriatric Medicine; Visit Provider Family Medicine Geriatric Medicine
DX: J90 Pleural effusion, not elsewhere classified (principal)
CPT/HCPCS: 32555; 71046; 88108; 88305; 88313; 88341; 88342

== ENCOUNTER 2023-08-07 14:58 | Inpatient (IN) | payer MEDICARE, OTHER, SELFPAY ==
[2023-08-07] VITALS (19 sets, daily range): BP systolic 120–151; BP diastolic 43–126; PULSE 72–85; RESP 14–30; TEMP 36.1–36.3; O2SAT 83–97; BMI 23.5; BMI 21.7
--- NOTE | 2023-08-07 15:47 | RAD_ITS ---
EXAM: XR CHEST, 1 VIEW CLINICAL INDICATION: sob, hypoxia, recent thoracentesis TECHNIQUE: Frontal view of the chest. COMPARISON: 08/06/2023 FINDINGS: LUNGS AND PLEURAL SPACES: Left upper and lower lobe airspace disease persists without significant change. There is blunting right costophrenic angle compatible with effusion. No pneumothorax. HEART: Unremarkable. Cardiac silhouette not enlarged. MEDIASTINUM: Central airways and mediastinal contour are unremarkable. BONES/JOINTS: Unremarkable. No acute fracture. SOFT TISSUES: Unremarkable. RAD/Chest 1 View (Portable) IMPRESSION: No change in the appearance of the chest from the reference examination. Electronically Signed: Alonso Cifuentes MD at 16:23 EST ,
--- NOTE | 2023-08-07 15:54 | EKG12_ITS ---
Test Reason : SOB Blood Pressure : / mmHG Vent. Rate : 078 BPM Atrial Rate : 078 BPM P-R Int : 200 ms QRS Dur : 140 ms QT Int : 412 ms P-R-T Axes : 054 -10 035 degrees QTc Int : 469 ms Normal sinus rhythm Non-specific intra-ventricular conduction block Minimal voltage criteria for LVH, may be normal variant ( Rexford product ) Septal infarct , age undetermined Abnormal ECG Confirmed by BRITTNI MORA, KORIN ([id number]), video effects editor KALLI RODRÍGUEZ ([id number]) on 08/09/2023 9:47:05 AM Referred By: SONNY/MALIKA Confirmed By:KORIN ELKINS MD
--- NOTE | 2023-08-07 15:57 | EDS_ITS ---
HPI History of Present Illness Chief Complaint: Shortness of Breath Informant: patient and family Narrative Narrative: Patient presents from TCU secondary to increased shortness of breath. She has been in the hospital in TCU for the past 5 weeks. Family states has been on multiple antibiotics for pneumonia. She had a thoracentesis yesterday to drain 280 mL of fluid from the left lung. She states today she tried to get up from her bed to the chair to go to therapy and was so short of breath and weak they decided to bring her down for evaluation. On arrival from TCU her O2 sat was 83% on 7 L. Patient states that she had been stable on 3 L nasal cannula for quite some time. She denies chest pain. She has had a mild cough. No fever. [facility] Medical History Anemia Arthritis Cardiology follow-up encounter Diverticulosis Essential (primary) hypertension Former smoker GERD (gastroesophageal reflux disease) History of atrial fibrillation History of echocardiogram History of edema History of stress test Near syncope Non-sustained ventricular tachycardia On home oxygen therapy Paroxysmal atrial fibrillation Post-menopausal Pressure ulcer Shortness of breath on exertion Thyroid disease TIA (transient ischemic attack) TIA (transient ischemic attack) Wears glasses Wears partial dentures Home Medications atorvastatin 40 mg tablet 40 mg PO QHS cholesterol #90 tabs 03/08/16 [Rx Last Taken 07/10/23 19:40] aspirin 81 mg tablet,delayed release 81 mg PO [facility] 02/23/19 [History Last Taken 07/10/23 09:20] hydroxyzine HCl 50 mg tablet 50 mg PO QHS PRN sleep 03/28/21 [History Last Taken Unknown] flecainide 100 mg tablet 100 mg PO Q12H heart rate #180 tabs 11/01/22 [Rx Last Taken 08/05/23] rivaroxaban 20 mg tablet (Xarelto) 20 mg PO DAILY blood thinner #90 tabs 06/27/23 [Rx Last Taken 07/11/23 08:35] furosemide 40 mg tablet 40 mg PO DAILY 07/26/23 [History Last Taken Unknown] guaifenesin 100 mg/5 mL oral liquid 200 mg PO Q6H PRN 07/26/23 [History Last Taken Unknown] magnesium citrate 300 ml PO DAILY PRN 07/26/23 [History Last Taken Unknown] metoprolol succinate 25 mg tablet,extended release 24 hr 12.5 mg PO .COMPLEX 07/26/23 [History Last Taken Unknown] potassium chloride 20 mEq oral packet 20 meq PO BID 07/26/23 [History Last Taken Unknown] acetaminophen 500 mg tablet 1,000 mg PO Q6H PRN 07/31/23 [History Last Taken Unknown] ipratropium 0.5 mg-albuterol 3 mg (2.5 mg base)/3 mL nebulization soln 3 ml inhalation Q6H PRN 07/31/23 [History Last Taken Unknown] menthol 3 % topical cream applic topical 07/31/23 [History Last Taken Unknown] miconazole nitrate 2 % topical powder 1 applic topical BID 07/31/23 [History Last Taken Unknown] sennosides 8.6 mg-docusate sodium 50 mg tablet (Senna Plus) 1 tab-cap PO BID 07/31/23 [History Last Taken Unknown] spironolactone 25 mg tablet 25 mg PO DAILY 07/31/23 [History Last Taken Unknown] tamsulosin 0.4 mg capsule 0.4 mg PO DAILY 07/31/23 [History Last Taken Unknown] Allergy/AdvReac Type Severity Reaction Status Date / Time Sulfa (Sulfonamide Allergy Unknown Verified 08/05/23 10:57 Antibiotics) metoprolol AdvReac Severe Bradycardia Verified 08/05/23 10:57 even at 12.5 mg Family History Father CHF (congestive heart failure) Brother CAD (coronary artery disease) Brother CAD (coronary artery disease) Surgical History History of left-sided carotid endarterectomy (03/30/16) History of partial thyroidectomy History of thyroid surgery Social History household members: none Smoking Status: Former smoker alcohol intake: never caffeine: Yes Type: coffee Number of servings: 4 ROS ROS ED Constitutional Constitutional ED: Denies chills or fever(s) Eyes Eyes: Denies discharge from eye(s) ENT ENT ED: Denies discharge from eye(s), rhinorrhea or sore throat Cardiovascular Cardiovascular: Denies chest pain or palpitations Respiratory/Chest Respiratory/Chest: Reports cough and dyspnea Gastrointestinal Gastrointestinal: Denies abdominal pain, nausea or vomiting Genitourinary Genitourinary ED: Denies dysuria Musculoskeletal Musculoskeletal: Denies back pain or extremity pain Integumentary Denies Abrasions or rash Neurologic Neurologic: Reports weakness; Denies headache(s) Psychiatric Psychiatric: Denies anxiety or depression Allergic/Immunologic Allergic/Immunologic ED: Denies lip swelling or urticaria EXAM Physical Exam Const Vital Signs: 08/07/23 14:59 08/07/23 15:00 08/07/23 16:23 Temperature 97.2 F L 97.1 F L Temperature Source Temporal Temporal Pulse Rate 80 78 Respiratory Rate 30 H 26 H Respiratory Effort Respiratory Depth Respiratory Pattern Blood Pressure 120/66 145/53 H Blood Pressure Mean 84 83 Pulse Ox 83 95 97 Oxygen Delivery Method Nasal Cannula Non-Rebreather High Flow Oxygen Flow Rate (L/min) 7 15 12 08/07/23 16:23 08/07/23 17:55 Temperature Temperature Source Pulse Rate 78 Respiratory Rate 14 Respiratory Effort Short of Breath Respiratory Depth Shallow Respiratory Pattern Tachypnea Blood Pressure 141/48 H Blood Pressure Mean 79 Pulse Ox 90 Oxygen Delivery Method Oxygen Flow Rate (L/min) Positive well nourished and well developed General Appearance ED: well developed HEENT Reports moist mucous membranes Eyes EOMs intact bilaterally Chest Wall inspection of chest normal and palpation of chest normal Resp Resp Narrative: Mild tachypnea. Breath sounds are present bilaterally. Equal chest rise bilaterally. Cardio regular rate and regular rhythm GI non-tender Palpation: soft Extremity normal to inspection Neuro oriented x3 Neuro Narrative: No focal neurologic deficit. Psych mental status grossly normal Skin no rashes or lesions noted MDM MDM MDM Narrative Medical decision making narrative: Given the patient a thoracentesis yesterday and is now hypoxic, I did order a stat chest x-ray as I was going back to see the patient. IV line will be established. Labwork obtained to evaluate for leukocytosis, anemia, and electrolyte derangement. History & Record Review Discussion w/independent historian: Patient and Family Additional record(s) reviewed:: Prior inpatient record, Prior ED visit and Prior labs Lab Data Attestation: I reviewed the patient's lab results. Labs: Laboratory Results - last 24 hr 08/07/23 16:10 WBC 10.5 RBC 3.80 L Hgb 10.9 L Hct 35.2 L MCV 92.6 MCH 28.7 MCHC 31.0 L RDW Std Deviation 51.1 H RDW Coeff of Missy 14.9 H Plt Count 316 MPV 8.9 Immature Gran % (Auto) 0.700 Neut % (Auto) 83.0 H Lymph % (Auto) 7.8 L [place] % (Auto) 6.9 Eos % (Auto) 1.2 Baso % (Auto) 0.4 Absolute Neuts (auto) 8.7 H Absolute Lymphs (auto) 0.82 L Nucleated RBC % 0 D-Dimer Quant (PE/DVT) 2.14 H* Sodium 137 Potassium 4.1 Chloride 103 Carbon Dioxide 32.0 Anion Gap 2 L BUN 11 Creatinine 0.76 Estim Creat Clear Calc 50.76 Est GFR (MDRD) Af Amer 94 Est GFR (MDRD) Non-Af 77 BUN/Creatinine Ratio 14.5 Glucose 157 H Calcium 9.2 Total Bilirubin 0.50 Direct Bilirubin 0.19 AST 28 ALT 28 Alkaline Phosphatase 112 Troponin I High Sens 24 B-Natriuretic Peptide 94.6 Total Protein 5.7 L Albumin 2.4 L Globulin 3.3 Radiography Chest X-Ray - ED: 1 View, Read by ED Physician, Chronic Changes and - (No pneumothorax) Diagnostic Testing: Clinical Impression(s) from Imaging Studies Chest X-Ray 08/07/23 15:47 IMPRESSION: No change in the appearance of the chest from the reference examination. Electronically Signed: Alonso Cifuentes MD at 16:23 EST , Chest CTA 08/07/23 17:25 IMPRESSION: 1. No evidence of pulmonary embolus. 2. Bilateral pleural effusions with left lower lobe pneumonia. There has been mild improved aeration in the left lung base from the reference exam. Electronically Signed: Alonso Cifuentes MD at 18:00 EST , Treatment and Re-Evaluation :: CBC was normal white count of 10.5 with 83% neutrophils. Hemoglobin 10.9 which is consistent with her prior values. D-dimer elevated at 2.14. Chemistry studies unremarkable. Troponin is normal at 24. BNP is 94. Portable chest x- ray per my interpretation reveals chronic changes with scarring versus infiltrate in the left lower lobe. No evidence of pneumothorax. Patient sent for CTA of the chest. This reveals persistent pneumonia in the left lower lobe with mild improvement since prior study. No evidence of pulmonary embolism. Swab for COVID, influenza, and RSV is negative. Patient was recently initiated on meropenem. She is currently requiring 12 L high flow and maintaining her sats in the 90s. I will speak with hospitalist regarding admission. Discharge Plan Triage Chief Complaint: Shortness of Breath ED Provider: Carmen Main Dx/Rx/DC Orders Clinical Impression: Hypoxia, Pneumonia Prescriptions: No Action aspirin 81 mg tablet,delayed release (DR/EC) 81 mg PO MOWEFR Patient Comments: heart health, prevention of stroke hydroxyzine HCl 50 mg tablet 50 mg PO QHS PRN (Reason: sleep) furosemide 40 mg tablet 40 mg PO DAILY Hold Instructions: - low BP potassium chloride 20 mEq packet 20 meq PO BID guaifenesin 100 mg/5 mL liquid 200 mg PO Q6H PRN magnesium citrate Solution 300 ml PO DAILY PRN sennosides-docusate sodium [Senna Plus] 8.6-50 mg tablet 1 tab-cap PO BID acetaminophen 500 mg tablet 1,000 mg PO Q6H PRN ipratropium-albuterol 0.5 mg-3 mg(2.5 mg base)/3 mL solution for nebulization 3 ml inhalation Q6H PRN menthol 3 % cream topical miconazole nitrate 2 % powder 1 applic topical BID spironolactone 25 mg tablet 25 mg PO DAILY Hold Instructions: 07/31/2023- low BP tamsulosin 0.4 mg capsule 0.4 mg PO DAILY atorvastatin 40 MG tablet 40 mg PO QHS Qty: 90 0RF Patient Comments: cholesterol flecainide 100 mg tablet 100 mg PO Q12H Qty: 180 3RF Xarelto 20 mg tablet 20 mg PO DAILY Qty: 90 3RF metoprolol succinate 25 mg tablet extended release 24 hr 12.5 mg PO .COMPLEX Rx Instructions: 12.5 mg orally qhs; Primary Care Provider: Chirag Gibbons Referrals: Chirag Gibbons MD [Primary Care Provider] - Disposition Disposition: [facility] Legal Stitching Machine Feeder Or Offbearer Reflex Medical hold order details:: IF a medical hold is selected below, a suggested order for a MEDICAL HOLD will reflex upon signing the document. Next of kin: [place] law dictates a PRIORITY LIST for identifying legal decision-maker/legal next of kin in the following order (LNOK): 1st: The patient?s legal guardian, if any 2nd: The patient's spouse (if status is questionable, consult Risk Management) 3rd: The patient?s adult child(brittney) (majority, if multiple children) 4th: The patient?s parents 5th: The patient?s adult siblings (majority, if multiple children siblings)
--- OUTSIDE RECORDS SUMMARY | 2023-08-07 16:23 | XMS RPT_ITS | CCD ---
Author Name Unknown Address [address] [place] [address] Organization [facility] Care Team Providers Care Supervisor [place] Name Role Phone Sudha Goncalves Unavailable Unavailable Sudha Goncalves Unavailable Unavailable Sudha Goncalves Unavailable Unavailable Valdez MORA, Colin Smith Unavailable [phone] Valeriano Maldonado MD Unavailable [phone] Allergies Allergy Classification Reported Allergen(s) Allergy Type Date of Onset Reaction(s) Facility (5 sources) Sulfonamides (Antibiotic); Translations: [SULFA] drug allergy 03-28-2016 [facility] Work Phone: Medications Completed/Discontinued Medications Medication Drug Class(es) Dates Sig (Normalized) Sig (Original) aspirin 81 mg delayed release oral tablet (9 sources) Nonsteroidal Anti-inflammatory Drug Start: 02-23-2020 ASPIRIN 81 TBEC 1 tablet daily ASPIRIN TBEC [id number] Saloni Ramirez LPN Problems Active Problems Problem [...] 15:11-0400 BMI (Body Mass Index) 26.95 kg/m2 [facility] Work Phone: 03-28-2017 15:11-0400 BP Diastolic 70 mm[Hg] [facility] Work Phone: 03-28-2017 15:11-0400 BP Systolic 150 mm[Hg] [facility] Work Phone: 03-28-2017 15:11-0400 Pulse (Heart Rate) 60 /min [facility] Work Phone: 03-28-2017 15:11-0400 Weight 75.75 kg [facility] Work Phone: 03-13-2017 14:45-0400 BMI (Body Mass Index) 26.69 kg/m2 Colin Kellogg MD [facility] Work Phone: 03-13-2017 14:45-0400 Body Temperature 97.7 [degF] Colin Kellogg MD [facility] Work Phone: 03-13-2017 14:45-0400 BP Diastolic 70 mm[Hg] Colin Kellogg MD [facility] Work Phone: 03-13-2017 14:45-0400 BP Systolic 147 mm[Hg] Colin Kellogg MD [facility] Work Phone: 03-13-2017 14:45-0400 Height 167.64 cm Colin Kellogg MD [facility] Work Phone: 03-13-2017 14:45-0400 Pulse (Heart Rate) 62 /min Colin Kellogg MD [facility] Work Phone: 03-13-2017 14:45-0400 Respiratory Rate 20 /min Colin Kellogg MD [facility] Work Phone: 03-13-2017 14:45-0400 Weight 75.03 kg Colin Kellogg MD [facility] Work Phone: 03-28-2016 14:32-0400 BSA (Body Surface Area) 1.84 m2 Colin Kellogg MD [facility] Work Phone: NEGATED: Highlighted [id number] 11:05-0400 BMI (Body Mass Index) 5.5 kg/m2 [facility] Work Phone: NEGATED: Highlighted [id number] 11:05-0400 Body weight 67.59 kg Elvi [facility] Work Phone: NEGATED: Highlighted [id number] 11:05-0400 Body weight 68 kg Elvi [facility] Work Phone: NEGATED: Highlighted [id number] 11:05-0400 Heart rate 2+ Elvi [facility] Work Phone: NEGATED: Highlighted [id number] 11:05-0400 Height 351.03 cm Elvi [facility] Work Phone: NEGATED: Highlighted [id number] 11:05-0400 Height 351 cm Elvi [facility] Work Phone: Encounters Encounter Date Encounter Type Care Provider Facility Start: 02-26-2020 End: 02-26-2020 Patient encounter procedure Valeriano Maldonado MD Work Phone: [facility] Work Phone: Procedures Date Procedure [...] MD Work Phone: Start: 03-28-2017 End: 03-28-2017 CRYPTANALYST Celsa Harman PA-C Work Phone: Start: 03-28-2017 [...] Start: 02-26-2020 End: 02-26-2020 Appointment Appointment [facility] Work Phone: Start: 02-26-2020 End: 02-26-2020 Radex hip unilateral with pelvis 2-3 views XR PELVIS W HIP 2-3 VWS-RT [facility] Work Phone: Start: 07-11-2017 End: 07-11-2017 Appointment Appointment [facility] Work Phone: Start: 03-28-2017 End: 03-28-2017 Appointment Appointment [facility] Work Phone: Start: 03-28-2017 End: 03-28-2017 48 hour holter monitor 48 hour holter monitor [facility] Work Phone: Start: 03-28-2017 End: 03-28-2017 CRYPTANALYST CR[facility] Work Phone: Start: 03-28-2017 End: 03-28-2017 Follow Up Appt 3 months Follow Up Appt 3 months [facility] Work Phone: Start: 03-13-2017 End: 03-13-2017 Appointment Appointment [facility] Work Phone: Start: 03-13-2017 End: 03-19-2017 Carotid duplex Carotid duplex [facility] [employer] Work Phone: Start: 09-28-2016 End: 09-28-2016 Follow Up Appt 6 months Follow Up Appt 6 months [facility] [employer] Work Phone: Start: 09-28-2016 End: 09-28-2016 MMM MMM [facility] [employer] Work Phone: Start: 03-29-2016 End: 03-30-2016 Stress Echocardiogram (treadmill) Stress Echocardiogram (treadmill) [facility] [employer] Work Phone: Start: 03-28-2016 End: 03-28-2016 Electrocardiogram, complete EKG (In office) [facility] [employer] Work Phone: Start: 03-28-2016 End: 03-28-2016 Follow Up Appt Other Follow Up Appt Other [facility] [employer] Work Phone: Social History Date Type Detail Facility Start: 02-26-2020 End: 02-26-2020 Assertion Unknown if ever smoked [facility] Work Phone: Chief Complaint Chief Complaint [...] BE BASED ON THE PRIMARY CLINICAL RECORDS. [employer] [facility]. provides no warranty or guarantee of the accuracy or completeness of information in this document.
[2023-08-07 16:27] LABS: Absolute Lymphocyte Count 0.82 X10^3/uL (0.83-4.51); Absolute Neutrophil Count 8.7 X10^3/uL (2.0-7.7); Basophil# 0.04 X10^3/uL; Basophil% 0.4 % (0-1); Eosinophil# 0.13 X10^3/uL; Eosinophils% 1.2 % (0-5); Hematocrit 35.2 % (37-47); Hemoglobin 10.9 g/dL (12.0-15.0); Lymphocyte # 0.82 X10^3/ul (0.83-4.51); Lymphocyte % 7.8 % (19-41); Mean Corpuscular Hgb 28.7 pg (27.0-32.0); Mean Corpuscular Volume 92.6 fL (81-99); Mean Platelet Vol. 8.9 fl (6.2-12.0); Monocyte# 0.72 X10^3/uL; Monocyte% 6.9 % (0-10); NRBC Flagged by Analyzer 0 % (0-5); Neutrophil # 8.72 X10^3/uL (2.7-7.7); Platelet Count 316 K/mm3 (150-450); RBC Distribution Width CV 14.9 % (11.6-14.6); RBC Distribution Width SD 51.1 fl (35.1-43.9); White Blood Count 10.5 K/mm3 (4.4-11.0)
[2023-08-07 16:47] LABS: AST(SGOT) 28 U/L (15-37); Alanine Aminotransfer ALT/SGPT 28 U/L (13-56); Albumin, Serum 2.4 g/dL (3.2-5.0); Alkaline Phosphatase 112 U/L (45-117); Anion Gap 2 (5-15); BUN 11 mg/dL (7-18); BUN/Creat Ratio 14.5 RATIO (10-20); Bilirubin, Direct 0.19 mg/dL (0.00-0.30); Calcium,Total 9.2 mg/dL (8.5-10.1); Chloride 103 mmol/L (98-107); Creatinine, Serum 0.76 mg/dL (0.55-1.02); EST Glomerular Filtration Rate 77 mL/min (>60); Est Glom Filt Rate - Afr Amer 94 mL/min (>60); Estimated Creatinine Clearance 50.76 ml/min; Globulin 3.3 g/dL (2.2-4.2); Glucose 157 mg/dL (74-106); Potassium 4.1 mmol/L (3.5-5.1); Protein, Total 5.7 g/dL (6.4-8.2); Sodium Level 137 mmol/L (136-145); Troponin-I HS 24 pg/mL (3.0-54.0)
[2023-08-07 16:49] LABS: D-Dimer Quantitative (DVT/PE) 2.14 FEU/ug/m (0.27-0.49)
[2023-08-07 17:25] LABS: BNP,B-Type NATRIURETIC PEPTIDE 94.6 pg/mL (0-100)
--- NOTE | 2023-08-07 17:25 | CT_ITS ---
EXAM: CT ANGIOGRAPHY CHEST WITHOUT AND WITH INTRAVENOUS CONTRAST CLINICAL INDICATION: hypoxia TECHNIQUE: Helically acquired angiography images were obtained of the chest without and with intravenous contrast. This CT exam was performed using one or more of the following dose reduction techniques: automated exposure control, adjustment of the mA and/or kV according to patient size, and/or use of iterative reconstruction technique. MIP reconstructed images were created and reviewed. CONTRAST: IV 100mL [id number] COMPARISON: 08/03/2023 FINDINGS: PULMONARY ARTERIES: Unremarkable. Normal in caliber. No evidence of pulmonary embolism. AORTA: Unremarkable. Normal in caliber. No evidence of dissection. GREAT VESSELS OF AORTIC ARCH: Unremarkable. Normal in caliber. No evidence of dissection. LUNGS AND PLEURAL SPACES: There are groundglass opacities seen within the lung apices are stable. There is elevation left lower lobe compatible with pneumonia which mildly decreased from the reference. There is a moderate right-sided pleural effusion is stable from the reference exam. There is a small left-sided effusion. No mass. HEART: Unremarkable. Heart size is normal. No pericardial effusion. No significant coronary artery calcifications. MEDIASTINUM: Unremarkable. No mediastinal or hilar adenopathy. Esophagus is unremarkable. No hiatal hernia. THYROID: Unremarkable. No thyroid lesions. BONES/JOINTS: See above. LYMPH NODES: There is soft tissue in right hilum compatible with adenopathy which is stable. CT/CTA Chest W/WO Contrast IMPRESSION: 1. No evidence of pulmonary embolus. 2. Bilateral pleural effusions with left lower lobe pneumonia. There has been mild improved aeration in the left lung base from the reference exam. Electronically Signed: Alonso Cifuentes MD at 18:00 EST ,
--- NOTE | 2023-08-07 20:14 | HP.PCM.HOS_ITS ---
HPI - General General Date of Admission: 08/07/23 Date of Service: 08/07/23 Chief Complaint: Shortness of breath HPI Narrative LANDON MARMOLEJO, is a 82 F who presented to the emergency department at [facility] on 08/07/2022 with worsening shortness of breath. Patient was recently hospitalized for an extended period of time from 06/29/2023 through 07/11/2023 and then discharged to the transitional care unit. During that hosp italization she was admitted for acute hypoxic respiratory failure that was felt to be worse to progressive bilateral pneumonia versus pulmonary fibrosis. She was treated with diuretics, broad-spectrum antibiotics, and steroids. She eventually was able to be weaned down to 2 L of oxygen at rest and 4 L with exertion but needed ongoing therapy so was discharged to the transitional care unit. There was thought to be some aspiration component to this as she had an abnormal modified barium swallow and has been receiving ongoing speech therapy as well as physical and Occupational Therapy over the transitional care unit. Her daughter reports that she had a repeat modified barium swallow within the last week and they did advance her diet some and she is currently on a soft diet with thin liquids using strategies dictated by speech therapy. She is on Xarelto at baseline so PE is likely not the etiology of her hypoxia. On the BNP was obtained and was slightly elevated 105 so she was placed on diuretics and this has helped and her BNP is normalized at the time of admission. She has had no fever or chills and denies any sputum production. She did undergo a colonoscopy on 08/05/2023 for anemia and was found to have diverticulosis and an 8 mm polyp in the sigmoid colon that was removed with cold snare and localized mild inflammation around the splenic flexure secondary to ischemic colitis which was biopsied but was otherwise unremarkable. It appears that her oxygen saturations were stable on the anesthesia record during her colonoscopy but is unclear how much supplemental oxygen she was on at the time. The patient had a thoracentesis yesterday on the left side and 280 cc of fluid were drained from that left side. Unfortunately, cultures were not sent and serum LDH and protein were not obtained so I am unable to calculate lights criteria. Evidently, today she tried to get up from her bed to go to the chair for therapy and was short of breath and very weak so they brought her for evaluation. Oxygen saturations upon arrival from the TCU on 7 L nasal cannula were 83%. Vital signs on presentation showed temperature of 97.2, heart rate 80, blood pressure was 120/66, respiratory rate was 30 and oxygen saturations were 83% on room air. She was placed on high flow and has continued to desat therefore we are placing her on Airvo. CBC shows a white count of 10.5 and an 83% neutrophilia. Her hemoglobin is stable at 10.9 and her platelets are unremarkable. Chemistry panel is unremarkable. Her glucose is elevated at 157. D-dimer was obtained and found to be 2.14 and therefore CTA of her chest was performed and demonstrated no PE infiltrates with abnormal lung parenchyma, but she did have bilateral effusions that are small and bilateral patchy infiltrate s/airspace disease. [facility] Medical History Anemia Arthritis Cardiology follow-up encounter Diverticulosis Essential (primary) hypertension Former smoker GERD (gastroesophageal reflux disease) History of atrial fibrillation History of echocardiogram History of edema History of stress test Near syncope Non-sustained ventricular tachycardia On home oxygen therapy Paroxysmal atrial fibrillation Post-menopausal Pressure ulcer Shortness of breath on exertion Thyroid disease TIA (transient ischemic attack) TIA (transient ischemic attack) Wears glasses Wears partial dentures Home Medications atorvastatin 40 mg tablet 40 mg PO QHS CHOLESTEROL #90 tabs 03/08/16 [Rx Last Taken 08/06/23] aspirin 81 mg tablet,delayed release 81 mg PO [facility] 02/23/19 [History Last Taken 08/07/23] flecainide 100 mg tablet 100 mg PO Q12H HEART RATE #180 tabs 11/01/22 [Rx Last Taken 08/07/23] rivaroxaban 20 mg tablet (Xarelto) 20 mg PO DAILY BLOOD THINNER #90 tabs 06/27/23 [Rx Last Taken 08/06/23] furosemide 40 mg tablet 40 mg PO DAILY FLUID RETENTION 07/26/23 [History Last Taken 08/06/23] magnesium citrate 300 ml PO DAILY PRN LAXATIVE 07/26/23 [History Last Taken Unknown] metoprolol succinate 25 mg tablet,extended release 24 hr 12.5 mg PO QHS HEART 07/26/23 [History Last Taken 08/06/23] potassium chloride 20 mEq oral packet 20 meq PO BIDCM SUPPLEMENT 07/26/23 [History Last Taken 08/07/23] acetaminophen 500 mg tablet 1,000 mg PO Q6H PRN PAIN 07/31/23 [History Last Taken Unknown] ipratropium 0.5 mg-albuterol 3 mg (2.5 mg base)/3 mL nebulization soln 3 ml inhalation Q6H PRN SHORTNESS OF BREATH/ WHEEZING 07/31/23 [History Last Taken 08/07/23] menthol 3 % topical cream 1 applic topical DAILY PRN MUSCLE ACHES 07/31/23 [History Last Taken 08/02/23] miconazole nitrate 2 % topical powder 1 applic topical BID SKIN INFECTION 07/31/23 [History Last Taken 08/06/23] sennosides 8.6 mg-docusate sodium 50 mg tablet (Senna Plus) 1 tab-cap PO BID STOOL SOFTENER 07/31/23 [History Last Taken 08/06/23] tamsulosin 0.4 mg capsule 0.4 mg PO DAILY PROSTATE 07/31/23 [History Last Taken 08/07/23] Allergy/AdvReac Type Severity Reaction Status Date / Time Sulfa (Sulfonamide Allergy Unknown Verified 08/05/23 10:57 Antibiotics) metoprolol AdvReac Severe Bradycardia Verified 08/05/23 10:57 even at 12.5 mg Family History Father CHF (congestive heart failure) Brother CAD (coronary artery disease) Brother CAD (coronary artery disease) Surgical History History of left-sided carotid endarterectomy (03/30/16) History of partial thyroidectomy History of thyroid surgery Social History (Updated 08/07/23 @ 20:[address] Destiny Brush DO) housing: [facility] Smoking Status: Former smoker alcohol intake: never substance use type: does not use caffeine: Yes Type: coffee Number of servings: 4 ROS Constitutional Constitutional: Reports fatigue and weakness; Denies anorexia, change in weight, chills, fever(s), malaise, night sweats or other Eyes Eyes: Denies blurry vision, change in eye color, change in vision, discharge from eye(s), double vision, erythema, eye pain, loss of vision or other ENT HEENT: Denies abnormal hearing, dysphagia, ear pain, epistaxis, headache(s), hearing loss, nasal congestion, nasal discharge, post nasal drip, sinus pressure, sore throat or other Cardiovascular Cardiovascular: Reports dyspnea on exertion; Denies chest pain, claudication, edema, lightheadedness, orthopnea, palpitations, paroxysmal nocturnal dyspnea, rapid heart rate, syncope or other Respiratory/Chest Respiratory/Chest: Reports cough, shortness of breath at rest and shortness of breath with exertion; Denies dyspnea, excessive phlegm production, hemoptysis, productive cough, wheezing or other Gastrointestinal Gastrointestinal: Denies abdominal pain, coffee ground emesis, constipation, diarrhea, dyspepsia, hematemesis, hematochezia, loose stools, melena, nausea, vomiting or other Genitourinary Genitourinary: Denies burning urination, difficulty urinating, dysuria, hematuria, nocturia, urinary frequency, urinary hesitancy, urinary incontinence, urinary urgency or other Musculoskeletal Musculoskeletal: Reports joint pain and joint stiffness; Denies arthralgias, back pain, joint swelling, myalgias, neck pain or other Neurologic Neurologic: Denies abnormal gait, abnormal speech, confusion, disequilibrium, dizziness, focal weakness, headache(s), numbness, paresthesias, seizure-like activity, seizures, syncope, tingling, tremor(s) or other Psychiatric Psychiatric: Denies anxiety, depression, homicidal ideation, suicidal ideation or other Endocrine Endocrinology: Denies change in body appearance, cold intolerance, excessive sweating, heat intolerance, polydipsia, polyuria or other Hematologic/Lymphatic Hematologic/Lymphatic: Denies anemia, easy bleeding, easy bruising, lymphadenopathy or other Allergic/Immunologic Allergic/Immunologic: Denies rhinitis, hives, eczemia, asthma or other Vital Signs Vital Signs Vital Signs: 08/07/23 14:59 08/07/23 15:00 08/07/23 16:23 Temperature 97.2 F L 97.1 F L Temperature Source Temporal Temporal Pulse Rate 80 78 Respiratory Rate 30 H 26 H Respiratory Effort Respiratory Depth Respiratory Pattern Blood Pressure 120/66 145/53 H Blood Pressure Mean 84 83 Pulse Ox 83 95 97 Oxygen Delivery Method Nasal Cannula Non-Rebreather High Flow Oxygen Flow Rate (L/min) 7 15 12 08/07/23 16:23 08/07/23 17:55 08/07/23 19:35 Temperature Temperature Source Pulse Rate 78 79 Respiratory Rate 14 27 H Respiratory Effort Short of Breath Respiratory Depth Shallow Respiratory Pattern Tachypnea Blood Pressure 141/48 H 137/99 H Blood Pressure Mean 79 111 Pulse Ox 90 93 Oxygen Delivery Method High Flow Oxygen Flow Rate (L/min) 15 08/07/23 18:00 08/07/23 17:00 08/07/23 18:00 Temperature 97.1 F L 97.1 F L Temperature Source Temporal Temporal Pulse Rate 79 80 Respiratory Rate 21 H 28 H Respiratory Effort Respiratory Depth Respiratory Pattern Blood Pressure 145/48 H 145/48 H 139/52 H Blood Pressure Mean 80 80 81 Pulse Ox 92 93 Oxygen Delivery Method High Flow High Flow Oxygen Flow Rate (L/min) 12 12 08/07/23 19:00 Temperature 97 F L Temperature Source Temporal Pulse Rate 80 Respiratory Rate 26 H Respiratory Effort Respiratory Depth Respiratory Pattern Blood Pressure 140/53 H Blood Pressure Mean 82 Pulse Ox 91 Oxygen Delivery Method High Flow Oxygen Flow Rate (L/min) 12 Weight Weight: 66 kg Body Mass Index (BMI) 23.5 Physical Exam Const alert, oriented x3, no apparent distress and average body habitus; Negative for healthy appearing Constitutional Narrative: Elderly, white female, tachypneic on exam with no tripoding or acute respiratory distress at this time, sitting up in bed, daughter at bedside General Appearance: cooperative HEENT normocephalic, head/scalp atraumatic, hearing grossly normal bilaterally and moist oral mucous membranes HEENT Narrative: Mallampati 2, no thrush Eyes PERRL, EOMs intact bilaterally and conjunctivae normal Eyes Narrative: No scleral icterus Neck no lymphadenopathy and supple Neck Narrative: Trachea midline, no thyroid enlargement Resp No normal respiratory effort, no retractions, no use of accessory muscles and No clear to auscultation bilaterally Resp Narrative: Scattered crackles left greater than right, tachypnea Auscultation: crackles; Negative for rhonchi or wheezes Cardio regular rate, regular rhythm, S1 normal heart sound, S2 normal heart sound, no murmurs, no rub, no gallops and no clicks GI normal to inspection, nondistended, normoactive bowel sounds, soft to palpation and non-tender Extremity Extremity Narrative: No cyanosis or clubbing, 1+ bilateral lower extremity pitting edema-patient states this is chronic and her baseline Skin no rashes or lesions noted, no wounds, skin turgor normal, no jaundice, no petechiae and no mottling Skin Narrative: Pale Neuro oriented x3, CN's II-XII intact bilaterally, moves all extremities and no focal motor deficits Neuro Narrative: Significant generalized weakness Speech: speech normal Psych affect normal Psych Narrative: Patient is very pleasant, eye contact is good, patient interacts appropriately Results Lab / Micro Data 08/07/23 16:10 08/07/23 16:10 Labs: Laboratory Results - last 24 hr 08/07/23 16:10: WBC 10.5, RBC 3.80 L, Hgb 10.9 L, Hct 35.2 L, MCV 92.6, MCH 28.7, MCHC 31.0 L, RDW Std Deviation 51.1 H, RDW Coeff of Missy 14.9 H, Plt Count 316, MPV 8.9, Immature Gran % (Auto) 0.700, Neut % (Auto) 83.0 H, Lymph % (Auto) 7.8 L, Thomas % (Auto) 6.9, Eos % (Auto) 1.2, Baso % (Auto) 0.4, Absolute Neuts (auto) 8.7 H, Absolute Lymphs (auto) 0.82 L, Nucleated RBC % 0, D-Dimer Quant (PE/DVT) 2.14 H*, Sodium 137, Potassium 4.1, Chloride 103, Carbon Dioxide 32.0, Anion Gap 2 L, BUN 11, Creatinine 0.76, Estim Creat Clear Calc 50.76, Est GFR (MDRD) Af Amer 94, Est GFR (MDRD) Non-Af 77, BUN/Creatinine Ratio 14.5, Glucose 157 H, Calcium 9.2, Total Bilirubin 0.50, Direct Bilirubin 0.19, AST 28, ALT 28, Alkaline Phosphatase 112, Troponin I High Sens 24, B-Natriuretic Peptide 94.6, Total Protein 5.7 L, Albumin 2.4 L, Globulin 3.3 Micro: Microbiology 08/07/23 16:10 Mucosa - Nose SARS-CoV-2, Influenza & RSV (PCR) - Final Imagaing Radiology Impression Chest X-Ray 08/07/23 15:47 IMPRESSION: No change in the appearance of the chest from the reference examination. Electronically Signed: Alonso Cifuentes MD at 16:23 EST , Chest CTA 08/07/23 17:25 IMPRESSION: 1. No evidence of pulmonary embolus. 2. Bilateral pleural effusions with left lower lobe pneumonia. There has been mild improved aeration in the left lung base from the reference exam. Electronically Signed: Alonso Cifuentes MD at 18:00 EST , Assessment & Plan Assessment/Plan (1) Acute hypoxic respiratory failure: (2) Elevated d-dimer: (3) Hyperglycemia: PLAN: Plan Acute hypoxic respiratory failure -Etiology is unclear at this time -Patient is currently requiring Airvo to maintain saturations above 88% -Give Solu-Medrol 1 g and will consult pulmonary allergy to see if they want to continue treating her for possible IPF flare -Broad-spectrum antibiotics with vancomycin and cefepime as well as azithromycin to cover atypicals however my suspicion for bacterial pneumonia is low -Sputum culture if able -Scheduled and as needed nebulizers -Incentive spirometry -Acapella -Check ANCA's, RF, LYNNETTE panel with reflex -Lasix 40 mg IV push daily -Consult pulmonary medicine for assistance -Discussed with Dr. Camacho if we are unable to come up with a plan of care pat ient may need transfer to tertiary center Dysphagia -Continue soft thin liquid diet -Consult speech therapy Elevated D-dimer -Patient is on Xarelto and CTA of the chest is unremarkable -No further workup at this time Hyperglycemia -Patient has been on and off of steroids -Will check hemoglobin A1c -SSI as patient will be on steroids while she is hospitalized Anemia -Counts are stable -Colonoscopy done recently with no signs of bleeding -Monitor CBC Chronic bilateral lower extremity edema -Continue Lasix but utilize IV Urinary retention -Continue Flomax History of atrial fibrillation -Currently in normal sinus rhythm -Continue home Xarelto -Continue metoprolol -Continue flecainide Hyperlipidemia -Continue atorvastatin Carotid artery disease -History of left carotid endarterectomy in 2016 -Continue aspirin -Ongoing outpatient follow-up History of TIA -Continue aspirin Hypertension -Continue metoprolol -Hold oral Lasix and utilize IV Lasix for now GERD -Start Protonix 40 daily while on high-dose steroids DVT prophylaxis -Continue Xarelto Remote history of tobacco abuse -Ongoing cessation CODE STATUS -DNR CCA okay for short-term intubation Charges/Coding Visit Charges Inpatient E&M: 45038 Init Hosp L2
--- OUTSIDE RECORDS SUMMARY | 2023-08-07 20:33 | XMS RPT_ITS | CCD ---
Author Name Unknown Address [address] [place] [address] Organization [facility] Care Team Providers Care Anesthesiology Resident Name Role Phone Sudha Goncalves Unavailable Unavailable Sudha Goncalves Unavailable Unavailable Sudha Goncalves Unavailable Unavailable Valdez MORA, Colin Smith Unavailable [phone] Valeriano Maldonado MD Unavailable Allergies Allergy Classification Reported Allergen(s) Allergy Type Date of Onset Reaction(s) Facility (5 sources) Sulfonamides (Antibiotic); Translations: [SULFA] drug allergy 03-28-2016 RASH [facility] Work Phone: Medications Completed/Discontinued Medications Medication Drug Class(es) Dates Sig (Normalized) Sig (Original) aspirin 81 mg delayed release oral tablet (9 sources) Nonsteroidal Anti-inflammatory Drug Start: 02-23-2020 ASPIRIN 81 TBEC 1 tablet daily ASPIRIN TBEC [id number] Saloni Ramirez LPN Problems Active Problems Problem [...] 15:11-0400 BMI (Body Mass Index) 26.95 kg/m2 [employer] Work Phone: 03-28-2017 15:11-0400 BP Diastolic 70 mm[Hg] [employer] Work Phone: 03-28-2017 15:11-0400 BP Systolic 150 mm[Hg] [employer] Work Phone: 03-28-2017 15:11-0400 Pulse (Heart Rate) 60 /min [employer] Work Phone: 03-28-2017 15:11-0400 Weight 75.75 kg [employer] Work Phone: 03-13-2017 14:45-0400 BMI (Body Mass Index) 26.69 kg/m2 Colin Kellogg MD [facility] Work Phone: 03-13-2017 14:45-0400 Body Temperature 97.7 [degF] Colin Kellogg MD [facility] Work Phone: 03-13-2017 14:45-0400 BP Diastolic 70 mm[Hg] Colin Kellogg MD [facility] Work Phone: 03-13-2017 14:45-0400 BP Systolic 147 mm[Hg] Colin Kellogg MD [facility] Work Phone: 03-13-2017 14:45-0400 Height 167.64 cm Colin Kellogg MD [facility] Work Phone: 03-13-2017 14:45-0400 Pulse (Heart Rate) 62 /min Colin eKllogg MD [facility] Work Phone: 03-13-2017 14:45-0400 Respiratory Rate 20 /min Colin Kellogg MD [facility] Work Phone: 03-13-2017 14:45-0400 Weight 75.03 kg Colin Kellogg MD [facility] Work Phone: 03-28-2016 14:32-0400 BSA (Body Surface Area) 1.84 m2 Colin Kellogg MD [facility] Work Phone: NEGATED: Highlighted [id number] 11:05-0400 BMI (Body Mass Index) 5.5 kg/m2 [facility] Work Phone: NEGATED: Highlighted [id number] 11:05-0400 Body weight 67.59 kg Elvi VanScoit [facility] Work Phone: NEGATED: Highlighted [id number] 11:05-0400 Body weight 68 kg Elvi VanScoit [facility] Work Phone: NEGATED: Highlighted [id number] 11:05-0400 Heart rate 2+ Elvi VanScoit AT [facility] Work Phone: NEGATED: Highlighted [id number] 11:05-0400 Height 351.03 cm Elvi VanScoit [facility] Work Phone: NEGATED: Highlighted [id number] 11:05-0400 Height 351 cm Elvi VanScoit AT [facility] Work Phone: Encounters Encounter Date Encounter Type Care Provider Facility Start: 02-26-2020 End: 02-26-2020 Patient encounter procedure Valeriano Maldonado MD Work Phone: [facility] Work Phone: Procedures Date Procedure Procedure [...] MD Work Phone: Start: 03-28-2017 End: 03-28-2017 ENERGY CONSULTANT Celsa Harman PA-C Work Phone: Start: 03-28-2017 [...] Author Start: 02-26-2020 End: 02-26-[address] [facility] Work Phone: Start: 02-26-2020 End: 02-26-2020 Radex hip unilateral with pelvis 2-3 views XR PELVIS W HIP 2-3 VWS-RT [facility] Work Phone: Start: 07-11-2017 End: 07-11-2017 Appointment Appointment [facility] Work Phone: Start: 03-28-2017 End: 03-28-2017 Appointment Appointment [facility] Work Phone: Start: 03-28-2017 End: 03-28-2017 48 hour holter monitor 48 hour holter monitor [facility] Work Phone: Start: 03-28-2017 End: 03-28-2017 ENERGY CONSULTANT ENERGY CONSULTANT [facility] Work Phone: Start: 03-28-2017 End: 03-28-2017 Follow Up Appt 3 months Follow Up Appt 3 months [facility] Work Phone: Start: 03-13-2017 End: 03-13-2017 Appointment Appointment [facility] Work Phone: Start: 03-13-2017 End: 03-19-2017 Carotid duplex Carotid duplex [facility] [employer] Work Phone: Start: 09-28-2016 End: 09-28-2016 Follow Up Appt 6 months Follow Up Appt 6 months [facility] Work Phone: Start: 09-28-2016 End: 09-28-2016 MMM MMM [facility] Work Phone: Start: 03-29-2016 End: 03-30-2016 Stress Echocardiogram (treadmill) Stress Echocardiogram (treadmill) [facility] [employer] Work Phone: Start: 03-28-2016 End: 03-28-2016 Electrocardiogram, complete EKG (In office) [facility] [employer] Work Phone: Start: 03-28-2016 End: 03-28-2016 Follow Up Appt Other Follow Up Appt Other [facility] [employer] Work Phone: Social History Date Type Detail Facility Start: 02-26-2020 End: 02-26-2020 Assertion Unknown if ever smoked [facility] Work Phone: Chief Complaint Chief Complaint Description [...] BE BASED ON THE PRIMARY CLINICAL RECORDS. [employer] [facility]. provides no warranty or guarantee of the accuracy or completeness of information in this document.
[2023-08-07 20:56] LABS: Allen Test Positive; Base Excess 4 mmol/L (-2 to +2); Bicarbonate 28.7 mmol/L (22-26); Blood Gas Specimen Type ART; Comment 45l. 42%; Mode Not entered; O2 Delivery Device airvo; PO2 65 mmHG (75-100); SITE L Radial; SO2 93 % (95-99); Total Carbon Dioxide 30 mmol/L; pCO2 44.2 mmHg (35-45); pH 7.42 (7.35-7.45)
[2023-08-07 21:09] LABS: Rheumatoid Factor < 10.0 IU/mL (<15)
[2023-08-07] MEDS: Ipratropium/Albuterol Sulfate 3 ML AMPUL.NEB INHALATION (21:40)
[2023-08-07] MEDS: Cefepime HCl 2 GM in 0.9% Normal Saline (100mL MB+) 100 ML IV (22:22)
[2023-08-07] MEDS: 0.9% Saline Lock 10 ML Syringe IV ×2 (22:22→23:11)
[2023-08-07] MEDS: guaiFENesin 1,200 MG Tablet 1200 MG PO (22:25)
[2023-08-07] MEDS: Atorvastatin Calcium 40 MG Tablet PO (22:25)
[2023-08-07] MEDS: Senna/Docusate Sodium 1 Tablet PO (22:25)
[2023-08-07] MEDS: Flecainide 100 MG Tablet PO (22:25)
[2023-08-07] MEDS: Metoprolol(XL)Succ 25 MG Tablet 12.5 MG PO (22:25)
[2023-08-07] MEDS: MethylPREDNISolone 1,000 MG in 0.9% Normal Saline (100mL Bag) 100 ML 100 MG IV (22:26)
[2023-08-07] MEDS: Miconazole Nitrate 43 GM Bottle 1 APPLIC TOPICAL (22:26)
[2023-08-07 23:06] LABS: M R Staph aureus DNA By PCR Negative (Negative); Probe Check PASS; Specimen Processing Control PASS
[2023-08-07] MEDS: Vancomycin IV 1,000 MG/200 ML BAG 200 MG IV (23:10)
[2023-08-07 23:34] LABS: Bedside Glucose 103 mg/dL (74-106)
--- OUTSIDE RECORDS SUMMARY | 2023-08-07 23:38 | XMS RPT_ITS | CCD ---
Author Name Unknown Address [address] [place] [address] Organization [facility] Care Team Providers Care Bmx Rider Name Role Phone Sudha Goncalves Unavailable Unavailable Sudha Goncalves Unavailable Unavailable Sudha Goncalves Unavailable Unavailable Valdez MORA, Colin Smith Unavailable [phone] Valeriano Maldonado MD Unavailable [phone] Allergies Allergy Classification Reported Allergen(s) Allergy Type Date of Onset Reaction(s) Facility (5 sources) Sulfonamides (Antibiotic); Translations: [SULFA] drug allergy 03-28-[address] [facility] Work Phone: Medications Completed/Discontinued Medications Medication Drug Class(es) Dates Sig (Normalized) Sig (Original) aspirin 81 mg delayed release oral tablet (9 sources) Nonsteroidal Anti-inflammatory Drug Start: 02-23-2020 ASPIRIN 81 TBEC 1 tablet daily ASPIRIN TBEC [id number] Saloni Ramirez LPN Problems Active Problems Problem [...] 15:11-0400 BMI (Body Mass Index) 26.95 kg/m2 [employer] Work Phone: 03-28-2017 15:11-0400 BP Diastolic 70 mm[Hg] [employer] Work Phone: 03-28-2017 15:11-0400 BP Systolic 150 mm[Hg] [employer] Work Phone: 03-28-2017 15:11-0400 Pulse (Heart Rate) 60 /min [employer] Work Phone: 03-28-2017 15:11-0400 Weight 75.75 kg [employer] Work Phone: 03-13-2017 14:45-0400 BMI (Body Mass Index) 26.69 kg/m2 Colin Kellogg MD [facility] [employer] Work Phone: 03-13-2017 14:45-0400 Body Temperature 97.7 [degF] Colin Kellogg MD [facility] [employer] Work Phone: 03-13-2017 14:45-0400 BP Diastolic 70 mm[Hg] Colin Kellogg MD [facility] [employer] Work Phone: 03-13-2017 14:45-0400 BP Systolic 147 mm[Hg] Colin Kellogg MD [facility] Work Phone: 03-13-2017 14:45-0400 Height 167.64 cm Colin Kellogg MD [facility] Work Phone: 03-13-2017 14:45-0400 Pulse (Heart Rate) 62 /min Colin Kellogg MD [facility] Work Phone: 03-13-2017 14:45-0400 Respiratory Rate 20 /min Colin Kellogg MD [facility] [employer] Work Phone: 03-13-2017 14:45-0400 Weight 75.03 kg Colin Kellogg MD [facility] [employer] Work Phone: 03-28-2016 14:32-0400 BSA (Body Surface Area) 1.84 m2 Colin Kellogg MD [facility] [employer] Work Phone: NEGATED: Highlighted [id number] 11:05-0400 BMI (Body Mass Index) 5.5 kg/m2 Elvi [facility] Work Phone: NEGATED: Highlighted [id number] 11:05-0400 Body weight 67.59 kg Elvi [facility] Work Phone: NEGATED: Highlighted [id number] 11:05-0400 Body weight 68 kg Elvi [facility] Work Phone: NEGATED: Highlighted [id number] 11:05-0400 Heart rate 2+ Elvi [facility]Scoit AT [facility] Work Phone: NEGATED: Highlighted [id number] 11:05-0400 Height 351.03 cm Elvi VanScoit AT [facility] Work Phone: NEGATED: Highlighted [id number] 11:05-0400 Height 351 cm Elvi [facility]Sco[facility] AT [facility] Work Phone: Encounters Encounter Date Encounter Type Care Provider Facility Start: 02-26-2020 End: 02-26-2020 Patient encounter procedure Valeriano Maldonado MD Work Phone: [facility] Work Phone: Procedures Date Procedure Procedure Detail [...] MD Work Phone: Start: 03-28-2017 End: 03-28-2017 DISMANTLER Celsa Harman PA-C Work Phone: Start: 03-28-2017 [...] Author Start: 02-26-2020 End: 02-26-2020 Appointment Appointment [facility] Work Phone: Start: 02-26-2020 End: 02-26-2020 Radex hip unilateral with pelvis 2-3 views XR PELVIS W HIP 2-3 VWS-RT [facility] Work Phone: Start: 07-11-2017 End: 07-11-2017 Appointment Appointment [facility] Work Phone: Start: 03-28-2017 End: 03-28-[address] [facility] Work Phone: Start: 03-28-2017 End: 03-28-2017 48 hour holter monitor 48 hour holter monitor [facility] Work Phone: Start: 03-28-2017 End: 03-28-2017 DISMANTLER DISMANTLER [facility] Work Phone: Start: 03-28-2017 End: 03-28-2017 Follow Up Appt 3 months Follow Up Appt 3 months [facility] Work Phone: Start: 03-13-2017 End: 03-13-[address] [facility] Work Phone: Start: 03-13-2017 End: 03-19-[address] [facility] [employer] Work Phone: Start: 09-28-2016 End: 09-28-2016 Follow Up Appt 6 months Follow Up Appt [address] [facility] [employer] Work Phone: Start: 09-28-2016 End: 09-28-[address] [facility] [employer] Work Phone: Start: 03-29-2016 End: 03-30-2016 Stress Echocardiogram (treadmill) Stress Echocardiogram (treadmill) [facility] [employer] Work Phone: Start: 03-28-2016 End: 03-28-2016 Electrocardiogram, complete EKG (In office) [facility] [employer] Work Phone: Start: 03-28-2016 End: 03-28-2016 Follow Up Appt Other Follow Up Appt Other [facility] [employer] Work Phone: Social History Date Type Detail Facility Start: 02-26-2020 End: 02-26-2020 Assertion Unknown if ever smoked [facility] Work Phone: Chief Complaint Chief Complaint Description [...] BE BASED ON THE PRIMARY CLINICAL RECORDS. [employer] [facility]. provides no warranty or guarantee of the accuracy or completeness of information in this document.
[2023-08-08] VITALS (19 sets, daily range): BP systolic 107–163; BP diastolic 41–102; PULSE 6–78; RESP 12–60; TEMP 36.3–36.6; O2SAT 92–98; BMI 21.7
[2023-08-08] MEDS: Albuterol 2.5 MG/3 ML VIAL.NEB. INHALATION (00:50)
[2023-08-08] MEDS: Ipratropium/Albuterol Sulfate 3 ML AMPUL.NEB INHALATION ×2 (05:10→11:25)
[2023-08-08 06:22] LABS: Basophil# 0.01 X10^3/uL; Basophil% 0.1 % (0-1); Hematocrit 36.5 % (37-47); Hemoglobin 11.2 g/dL (12.0-15.0); Lymphocyte % 7.8 % (19-41); Mean Corp Hgb Conc 30.7 g/dL (32-36); Mean Corpuscular Hgb 28.4 pg (27.0-32.0); Mean Corpuscular Volume 92.4 fL (81-99); Mean Platelet Vol. 8.9 fl (6.2-12.0); Monocyte% 1.3 % (0-10); NRBC Flagged by Analyzer 0 % (0-5); Neutrophil # 6.98 X10^3/uL (2.7-7.7); Neutrophil % 90.2 % (47-70); POSITIVE DIFFERENTIAL YES; Platelet Count 312 K/mm3 (150-450); RBC Distribution Width CV 14.7 % (11.6-14.6); RBC Distribution Width SD 50.7 fl (35.1-43.9); Red Blood Count 3.95 M/mm3 (4.2-5.4); White Blood Count 7.7 K/mm3 (4.4-11.0)
[2023-08-08 06:29] LABS: Differential Indicated SCAN CRITERIA MET
[2023-08-08 06:47] LABS: ALB/GLOB Ratio 0.7 RATIO (0.9-2.4); AST(SGOT) 25 U/L (15-37); Alanine Aminotransfer ALT/SGPT 26 U/L (13-56); Albumin, Serum 2.4 g/dL (3.2-5.0); Alkaline Phosphatase 112 U/L (45-117); Anion Gap 6 (5-15); BUN 11 mg/dL (7-18); BUN/Creat Ratio 17.9 RATIO (10-20); Calcium,Total 9.1 mg/dL (8.5-10.1); Chloride 104 mmol/L (98-107); Creatinine, Serum 0.61 mg/dL (0.55-1.02); EST Glomerular Filtration Rate 99 mL/min (>60); Est Glom Filt Rate - Afr Amer 120 mL/min (>60); Estimated Creatinine Clearance 50.76 ml/min; Globulin 3.5 g/dL (2.2-4.2); Glucose 199 mg/dL (74-106); Magnesium 2.1 mg/dL (1.6-2.6); Phosphorus 2.4 mg/dL (2.5-4.9); Potassium 4.4 mmol/L (3.5-5.1); Protein, Total 5.9 g/dL (6.4-8.2); Sodium Level 137 mmol/L (136-145)
--- NOTE | 2023-08-08 06:57 | CON.PCM.CC_ITS ---
Assessment & Plan Assessment/Plan (1) Acute hypoxic respiratory failure: PLAN: Plan RECOMMENDATIONS: 1. Continue empiric antibiotics. 2. Initiate BiPAP therapy. Wean FiO2 for saturations greater than 90%. 3. Continue steroids as ordered. 4. Ongoing diuresis as tolerated by hemodynamics and renal function. 5. Continue Xarelto per home regimen. 6. Plan for goals of care discussion with the patient and her family this morning. IMPRESSIONS: 1. Acute hypoxemic respiratory failure The exact etiology for the patient's presentation is not entirely clear. She was recently hospitalized and treated for pneumonia. Her respiratory status did ultimately improve, only to decompensate while in the TCU. Her chest imaging is certainly concerning for an underlying interstitial lung process with the possibility of a secondary superimposed pneumonia. However, I cannot definitively ascertain whether this pneumonia would be infectious or inflammatory in nature. In addition, she does have a small pleural effusion. Given the wide differential, the patient was initiated on antibiotics, steroids and Lasix. Under normal circumstances, I would proceed with bronchoscopy. However, the patient's respiratory status is quite tenuous. I explained to her that proceeding with bronchoscopy carries with it a high risk for potential need for intubation. The patient made it very clear to me this morning that she is not interested in pursuing with bronchoscopy, nor does she wish to be intubated. At this time, I am going to plan to continue current supportive care, while awaiting the patient's final decision regarding goals of care. She should remain n.p.o. for now. 2. History of dysphagia The patient should remain n.p.o. for now. Depending on the outcome of her goals of care discussion, the patient may require reevaluation by speech therapy. 3. Chronic lower extremity edema/history of atrial fibrillation/coronary artery disease/hypertension/GERD Complicates care, management, recovery and prognosis. Continue supportive care as noted above. CODE status: Discussed CODE status at length including difference between FULL code, DNR-CCA and DNR-CC status. Following discussions about the differences in these status, patient requested DNR CCA without intubation CODE STATUS. She is leaning towards pursuing initiation of comfort care measures and referral to hospice care services, but would like to discuss further with her daughter at t he bedside. Advanced Care Planning Face to Face Time: 20 minutes This note was generated with SafedoXation software. It may contain incorrect words, spelling, and punctuation that were not noted in checking the note before signing. HPI Consult Data Date of Consult: 08/08/23 HPI Narrative Reason for Consultation: Respiratory failure HPI Narrative: The patient is an 82-year-old female, with a history as outlined below, who presented to the emergency department from the transitional care unit on August 07 with shortness of breath and hypoxemia. The patient had previously been admitted to the hospital June 29 with acute hypoxemic respiratory failure with concern for underlying bilateral pneumonia versus pulmonary fibrosis. Her oxygen requirement improved over the course of her hospitalization. She ultimately followed up in the pulmonary medicine clinic on July 26, at which time, she was noted to be requiring 2 L/min of oxygen at rest and 4 L/min with exertion. The patient was being followed by speech therapy in the TCU and was on a modified diet over concerns in the past for aspiration. On presentation to the emergency department, the patient was documented to be afebrile and hemodynamically stable. Initial laboratory evaluation revealed no evidence of a leukocytosis. Arterial blood gas demonstrated a pH of 7.4 with a pCO2 of 44 and pO2 of 65. Chemistry profile was unremarkable. BNP and troponin were normal. CTA chest showed no evidence for pulmonary embolism. However, th ere was evidence of bilateral groundglass opacities with airspace consolidation in the left lower lobe and right-sided pleural effusion. There is a questionable mass versus focal area of scar tissue in the right lung apex. The patient was placed on antibiotics and diuretics. She also received a one-time dose of Solu-Medrol. The patient was ultimately initiated on heated high flow oxygen and admitted to the medical intensive care unit for further management. I spoke at length with the patient and her daughter this morning at the bedside. The patient made it very clear to me that she would not want to be intubated and placed on a ventilator. I explained to her the wide differential of her questionable diagnosis. I explained that I would normally want to proceed with bronchoscopy with BAL, at a minimum. However, the patient would be at exceedingly high risk for further respiratory acute decompensation and the need for intubation given her current FiO2 requirement. Given this, the patient reported that she is not interested in pursuing any form of bronchoscopy. In fact, she reported an interest in potentially being made comfortable. She wishes to discuss this further with her daughter at the bedside. [facility] Medical History Anemia Arthritis Cardiology follow-up encounter Diverticulosis Essential (primary) hypertension Former smoker GERD (gastroesophageal reflux disease) History of atrial fibrillation History of echocardiogram History of edema History of stress test Near syncope Non-sustained ventricular tachycardia On home oxygen therapy Paroxysmal atrial fibrillation Post-menopausal Pressure ulcer Shortness of breath on exertion Thyroid disease TIA (transient ischemic attack) TIA (transient ischemic attack) Wears glasses Wears partial dentures Home Medications atorvastatin 40 mg tablet 40 mg PO QHS CHOLESTEROL #90 tabs 03/08/16 [Rx Last Taken 08/06/23] aspirin 81 mg tablet,delayed release 81 mg PO [facility] 02/23/19 [History Last Taken 08/07/23] flecainide 100 mg tablet 100 mg PO Q12H HEART RATE #180 tabs 11/01/22 [Rx Last Taken 08/07/23] rivaroxaban 20 mg tablet (Xarelto) 20 mg PO DAILY BLOOD THINNER #90 tabs 06/27/23 [Rx Last Taken 08/06/23] furosemide 40 mg tablet 40 mg PO DAILY FLUID RETENTION 07/26/23 [History Last Taken 08/06/23] magnesium citrate 300 ml PO DAILY PRN LAXATIVE 07/26/23 [History Last Taken Unknown] metoprolol succinate 25 mg tablet,extended release 24 hr 12.5 mg PO QHS HEART 07/26/23 [History Last Taken 08/06/23] potassium chloride 20 mEq oral packet 20 meq PO BIDCM SUPPLEMENT 07/26/23 [History Last Taken 08/07/23] acetaminophen 500 mg tablet 1,000 mg PO Q6H PRN PAIN 07/31/23 [History Last Taken Unknown] ipratropium 0.5 mg-albuterol 3 mg (2.5 mg base)/3 mL nebulization soln 3 ml inhalation Q6H PRN SHORTNESS OF BREATH/ WHEEZING 07/31/23 [History Last Taken 08/07/23] menthol 3 % topical cream 1 applic topical DAILY PRN MUSCLE ACHES 07/31/23 [History Last Taken 08/02/23] miconazole nitrate 2 % topical powder 1 applic topical BID SKIN INFECTION 07/31/23 [History Last Taken 08/06/23] sennosides 8.6 mg-docusate sodium 50 mg tablet (Senna Plus) 1 tab-cap PO BID STOOL SOFTENER 07/31/23 [History Last Taken 08/06/23] tamsulosin 0.4 mg capsule 0.4 mg PO DAILY PROSTATE 07/31/23 [History Last Taken 08/07/23] Allergy/AdvReac Type Severity Reaction Status Date / Time Sulfa (Sulfonamide Allergy Unknown Verified 08/05/23 10:57 Antibiotics) metoprolol AdvReac Severe Bradycardia Verified 08/05/23 10:57 even at 12.5 mg Family History Father CHF (congestive heart failure) Brother CAD (coronary artery disease) Brother CAD (coronary artery disease) Surgical History History of left-sided carotid endarterectomy (03/30/16) History of partial thyroidectomy History of thyroid surgery Social History (Updated 08/07/23 @ 20:[address] Destiny Brush DO) housing: care home Smoking Status: Former smoker alcohol intake: never substance use type: does not use caffeine: Yes Type: coffee Number of servings: 4 ROS ROS Narrative 10 systems were reviewed with pertinent positives as noted in the HPI above. Physical Exam Const alert Constitutional Narrative: Appears anxious and uncomfortable in bed. General Appearance: cooperative HEENT normocephalic and head/scalp atraumatic Eyes PERRL, EOMs intact bilaterally and conjunctivae normal Neck supple General: trachea midline Chest inspection of chest normal Resp Resp Narrative: Bibasilar crackles, left greater than right Effort and Inspection: tachypneic and labored Cardio regular rate and regular rhythm GI normal to inspection, nondistended, normoactive bowel sounds Extremity Extremity Narrative: Bilateral lower extremity pitting edema General Extremity: Negative for clubbing Skin no rashes or lesions noted Neuro CN's II-XII intact bilaterally, moves all extremities and no focal motor deficits Psych Mood & Affect: anxious Lab / Micro Data 08/08/23 06:15 08/08/23 06:15 Labs: Laboratory Results - last 24 hr 08/07/23 16:10: WBC 10.5, RBC 3.80 L, Hgb 10.9 L, Hct 35.2 L, MCV 92.6, MCH 28.7, MCHC 31.0 L, RDW Std Deviation 51.1 H, RDW Coeff of Missy 14.9 H, Plt Count 316, MPV 8.9, Immature Gran % (Auto) 0.700, Neut % (Auto) 83.0 H, Lymph % (Auto) 7.8 L, [place] % (Auto) 6.9, Eos % (Auto) 1.2, Baso % (Auto) 0.4, Absolute Neuts (auto) 8.7 H, Absolute Lymphs (auto) 0.82 L, Nucleated RBC % 0, D-Dimer Quant (PE/DVT) 2.14 H*, Sodium 137, Potassium 4.1, Chloride 103, Carbon Dioxide 32.0, Anion Gap 2 L, BUN 11, Creatinine 0.76, Estim Creat Clear Calc 50.76, Est GFR (MDRD) Af Amer 94, Est GFR (MDRD) Non-Af 77, BUN/Creatinine Ratio 14.5, Glucose 157 H, Calcium 9.2, Total Bilirubin 0.50, Direct Bilirubin 0.19, AST 28, ALT 28, Alkaline Phosphatase 112, Troponin I High Sens 24, B-Natriuretic Peptide 94.6, Total Protein 5.7 L, Albumin 2.4 L, Globulin 3.3, Rheumatoid Factor < 10.0 08/07/23 21:15: MRSA (PCR) Negative 08/07/23 22:49: POC Glucose 103 08/08/23 06:15: WBC 7.7, RBC 3.95 L, Hgb 11.2 L, Hct 36.5 L, MCV 92.4, MCH 28.4, MCHC 30.7 L, RDW Std Deviation 50.7 H, RDW Coeff of Missy 14.7 H, Plt Count 312, MPV 8.9, Immature Gran % (Auto) 0.600, Neut % (Auto) 90.2 H, Lymph % (Auto) 7.8 L, [place] % (Auto) 1.3, Eos % (Auto) 0.0, Baso % (Auto) 0.1, Absolute Neuts (auto) 7.0, Absolute Lymphs (auto) 0.60 L, Nucleated RBC % 0, Sodium 137, Potassium 4.4, Chloride 104, Carbon Dioxide 27.0, Anion Gap 6, BUN 11, Creatinine 0.61, Estim Creat Clear Calc 50.76, Est GFR (MDRD) Af Amer 120, Est GFR (MDRD) Non-Af 99, BUN/Creatinine Ratio 17.9, Glucose 199 H, Calcium 9.1, Phosphorus 2.4 L, Magnesium 2.1, Total Bilirubin 0.70, AST 25, ALT 26, Alkaline Phosphatase 112, Total Protein 5.9 L, Albumin 2.4 L, Globulin 3.5, Albumin/Globulin Ratio 0.7 L Micro: Microbiology 08/07/23 21:20 Mucosa - Nasopharyngeal Respiratory Panel (PCR) - Final 08/07/23 23:15 Urine Catheter - Pro Legionella Antigen - Final 08/07/23 23:15 Urine Catheter - Pro Streptococcus pneumoniae Antigen (M - Final 08/07/23 16:10 Mucosa - Nose SARS-CoV-2, Influenza & RSV (PCR) - Final ABG Data ABG results: ABG 08/07/23 20:53 Specimen Type ART Sample Site L Radial pH 7.42 Bicarbonate Actual 28.7 H Total CO2 30 Base Excess 4 H O2 Saturation 93 L O2 % 42.0 ABG pCO2 44.2 ABG pO2 65 L Fam Test Positive O2 Delivery Device airvo Vent Mode Not entered Clinical Comments 45l. 42% Imagaing Radiology Impression Chest X-Ray 08/07/23 15:47 IMPRESSION: No change in the appearance of the chest from the reference examination. Electronically Signed: Alonso Cifuentes MD at 16:23 EST , Chest CTA 08/07/23 17:25 IMPRESSION: 1. No evidence of pulmonary embolus. 2. Bilateral pleural effusions with left lower lobe pneumonia. There has been mild improved aeration in the left lung base from the reference exam. Electronically Signed: Alonso Cifuentes MD at 18:00 EST , Capacity Legal Deck Molder Reflex Medical hold order details:: IF a medical hold is selected below, a suggested order for a MEDICAL HOLD will r eflex upon signing the document. Next of kin: [place] law dictates a PRIORITY LIST for identifying legal decision-maker/legal next of kin in the following order (LNOK): 1st: The patient?s legal guardian, if any 2nd: The patient's spouse (if status is questionable, consult Risk Management) 3rd: The patient?s adult child(brittney) (majority, if multiple children) 4th: The patient?s parents 5th: The patient?s adult siblings (majority, if multiple children siblings) Charges/Coding Visit Charges Inpatient E&M: 73319 Init Hosp L3 Procedures Hospitalists Procedures: 95128 Advncd Care Plan 30 Min
[2023-08-08 07:02] LABS: Differential Comment S
[2023-08-08] MEDS: Senna/Docusate Sodium 1 Tablet PO (08:35)
[2023-08-08] MEDS: Insulin Lispro 100 UNIT/ML INSULN.PEN SC ×2 (08:35→11:44)
[2023-08-08] MEDS: Pantoprazole Sodium 40 MG Tablet PO (08:35)
[2023-08-08] MEDS: Flecainide 100 MG Tablet PO (08:35)
[2023-08-08] MEDS: guaiFENesin 1,200 MG Tablet 1200 MG PO (08:35)
[2023-08-08] MEDS: Tamsulosin HCl 0.4 MG Capsule 0.400000000000000022 MG PO (08:35)
[2023-08-08] MEDS: Menthol/Lanolin/Calamine/Znox 113 GM Tube 1 APPLIC TOPICAL (08:40)
[2023-08-08] MEDS: Miconazole Nitrate 43 GM Bottle 1 APPLIC TOPICAL (08:40)
[2023-08-08 08:49] LABS: Procalcitonin 0.09 ng/mL (0.00-0.09)
[2023-08-08 08:50] LABS: Bedside Glucose 201 mg/dL (74-106)
--- NOTE | 2023-08-08 08:53 | PCM.PN.HOSP ---
Subjective Subjective Maintaining sats on Airvo, she still tachypneic and in mild to moderate respiratory distress Objective Data Objective Data Vital Signs: Vital Signs Temp Pulse Resp BP Pulse Ox O2 Del Method O2 Flow Rate 97.3 F L 72 35 H 151/75 H 97 Airvo 50 08/08/23 08:00 08/08/23 08:40 08/08/23 08:40 08/08/23 08:00 08/08/23 08:40 08/08/23 08:00 08/08/23 08:00 FiO2 70 08/08/23 08:40 Oxygen Flow Rate (L/min) 50 Oxygen Delivery Method Airvo Weight: 134 lb 11.239 oz Body Mass Index (BMI) 21.7 Intake & Output: Intake and Output for Last 24 Hours 08/07/23 08/08/23 08/09/23 03:59 03:59 03:59 Intake Total 416 / 416 Output Total 800 / 800 200 / 200 Balance -384 / -384 -200 / -200 Lab / Micro Data 08/08/23 06:15 08/08/23 06:15 Labs: Laboratory Results - last 24 hr 08/07/23 16:10: WBC 10.5, RBC 3.80 L, Hgb 10.9 L, Hct 35.2 L, MCV 92.6, MCH 28.7, MCHC 31.0 L, RDW Std Deviation 51.1 H, RDW Coeff of Missy 14.9 H, Plt Count 316, MPV 8.9, Immature Gran % (Auto) 0.700, Neut % (Auto) 83.0 H, Lymph % (Auto) 7.8 L, [place] % (Auto) 6.9, Eos % (Auto) 1.2, Baso % (Auto) 0.4, Absolute Neuts (auto) 8.7 H, Absolute Lymphs (auto) 0.82 L, Nucleated RBC % 0, D-Dimer Quant (PE/DVT) 2.14 H*, Sodium 137, Potassium 4.1, Chloride 103, Carbon Dioxide 32.0, Anion Gap 2 L, BUN 11, Creatinine 0.76, Estim Creat Clear Calc 50.76, Est GFR (MDRD) Af Amer 94, Est GFR (MDRD) Non-Af 77, BUN/Creatinine Ratio 14.5, Glucose 157 H, Calcium 9.2, Total Bilirubin 0.50, Direct Bilirubin 0.19, AST 28, ALT 28, Alkaline Phosphatase 112, Troponin I High Sens 24, B-Natriuretic Peptide 94.6, Total Protein 5.7 L, Albumin 2.4 L, Globulin 3.3, Rheumatoid Factor < 10.0 08/07/23 21:15: MRSA (PCR) Negative 08/07/23 22:49: POC Glucose 103 08/08/23 06:15: WBC 7.7, RBC 3.95 L, Hgb 11.2 L, Hct 36.5 L, MCV 92.4, MCH 28.4, MCHC 30.7 L, RDW Std Deviation 50.7 H, RDW Coeff of Missy 14.7 H, Plt Count 312, MPV 8.9, Immature Gran % (Auto) 0.600, Neut % (Auto) 90.2 H, Lymph % (Auto) 7.8 L, [place] % (Auto) 1.3, Eos % (Auto) 0.0, Baso % (Auto) 0.1, Absolute Neuts (auto) 7.0, Absolute Lymphs (auto) 0.60 L, Nucleated RBC % 0, Differential Comment S, Sodium 137, Potassium 4.4, Chloride 104, Carbon Dioxide 27.0, Anion Gap 6, BUN 11, Creatinine 0.61, Estim Creat Clear Calc 50.76, Est GFR (MDRD) Af Amer 120, Est GFR (MDRD) Non-Af 99, BUN/Creatinine Ratio 17.9, Glucose 199 H, Calcium 9.1, Phosphorus 2.4 L, Magnesium 2.1, Total Bilirubin 0.70, AST 25, ALT 26, Alkaline Phosphatase 112, Total Protein 5.9 L, Albumin 2.4 L, Globulin 3.5, Albumin/Globulin Ratio 0.7 L 08/08/23 06:54: Procalcitonin 0.09 08/08/23 08:30: POC Glucose 201 H Micro: Microbiology 08/07/23 21:20 Mucosa - Nasopharyngeal Respiratory Panel (PCR) - Final 08/07/23 23:15 Urine Catheter - Pro Legionella Antigen - Final 08/07/23 23:15 Urine Catheter - Pro Streptococcus pneumoniae Antigen (M - Final 08/07/23 16:10 Mucosa - Nose SARS-CoV-2, Influenza & RSV (PCR) - Final ABG Data ABG results: ABG 08/07/23 20:53 Specimen Type ART Sample Site L Radial pH 7.42 Bicarbonate Actual 28.7 H Total CO2 30 Base Excess 4 H O2 Saturation 93 L O2 % 42.0 ABG pCO2 44.2 ABG pO2 65 L Fam Test Positive O2 Delivery Device airvo Vent Mode Not entered Clinical Comments 45l. 42% Radiography Diagnostic Testing: Radiology Impression Chest X-Ray 08/07/23 15:47 IMPRESSION: No change in the appearance of the chest from the reference examination. Electronically Signed: Alonso Cifuentes MD at 16:23 EST , Chest CTA 08/07/23 17:25 IMPRESSION: 1. No evidence of pulmonary embolus. 2. Bilateral pleural effusions with left lower lobe pneumonia. There has been mild improved aeration in the left lung base from the reference exam. Electronically Signed: Alonso Cifuentes MD at 18:00 EST , Physical Exam Narrative General: Alert, Oriented x3, Cooperative, moderate respiratory distress HEENT: Atraumatic, PERRLA, EOMI, Normocephalic Oral: Moist Mucosa Neck: Supple, No JVD Lungs: Diminished, Normal air movement, bilateral crackles, tachypneic, labored Cardiovascular: Regular rate, Regular Rhythm, Normal S1, Normal S2, No murmurs Abdomen: Soft, Non Tender, Non-Distended, No Hepato-splenomegaly Extremities: Edema, Capillary Refill Less than 3 Seconds Skin: No rashes, No breakdown Musculoskeletal: No Tenderness to Palpation of Joints or Extremities Neurological: Cranial nerves II-XII grossly intact, Motor Exam 5/5 strength throughout, Sensory exam intact to light touch and pain Psych/Mental Status: Anxious Assessment & Plan Assessment/Plan (1) Acute hypoxic respiratory failure: (2) Elevated d-dimer: (3) Hyperglycemia: PLAN: Plan 1. Acute hypoxic respiratory failure ? Etiology is likely multifactorial given her past medical history ? Continue with antibiotics and steroids ? She was given a gram of Solu-Medrol for possible idiopathic pulmonary fibrosis flare ? Appreciate pulmonology's assistance ? Autoimmune workup is pending ? Given the high-dose steroids and her borderline history of diabetes and her current hyperglycemia we will continue sliding scale insulin and will monitor make adjustments as necessary ? I did have a 20-minute discussion on advance care planning as she had inquired about hospice. Will continue with current therapy until a decision is made 2. Chronic diastolic CHF/A-fib/HTN/HLD/status post CEA in 2016 ? BNP is unremarkable likely not in acute heart failure ? Continue with IV Lasix ? Continue with his cholesterol medications as well as her blood pressure medications ? Continue with Xarelto ? We will monitor make adjustments as necessary 3. Dysphagia with GERD ? She has seen GI in the past for this issue ? Continue with her soft thin liquid diet ? Continue with PPI 4. Urinary retention ? Stable ? Continue with Flomax DVT: Xarelto Capacity Legal Single Resource Boss Reflex Medical hold order details:: IF a medical hold is selected below, a suggested order for a MEDICAL HOLD will reflex upon signing the document. Next of kin: [place] law dictates a PRIORITY LIST for identifying legal decision-maker/legal next of kin in the following order (LNOK): 1st: The patient?s legal guardian, if any 2nd: The patient's spouse (if status is questionable, consult Risk Management) 3rd: The patient?s adult child(brittney) (majority, if multiple children) 4th: The patient?s parents 5th: The patient?s adult siblings (majority, if multiple children siblings) Charges/Coding Visit Charges Inpatient E&M: 22056 Subs Hosp L2 Procedures Hospitalists Procedures: [id number] Advncd Care Plan 30 Min
--- NOTE | 2023-08-08 09:00 | CPS ---
Pt was uncomfortable with the pressure, decreased to 10/5. Dr Camacho aware. SpO2=97%
[2023-08-08] MEDS: 0.9% Saline Lock 10 ML Syringe IV ×2 (09:52→11:45)
[2023-08-08] MEDS: Furosemide 40 MG/4 ML Vial IV (09:52)
[2023-08-08] MEDS: Cefepime HCl 2 GM in 0.9% Normal Saline (100mL MB+) 100 ML IV (09:52)
--- NOTE | 2023-08-08 10:00 | EKG12_ITS ---
Test Reason : AM EKG Blood Pressure : / mmHG Vent. Rate : 070 BPM Atrial Rate : 070 BPM P-R Int : 236 ms QRS Dur : 136 ms QT Int : 404 ms P-R-T Axes : 078 -12 041 degrees QTc Int : 436 ms Sinus rhythm with 1st degree A-V block Non-specific intra-ventricular conduction block Cannot rule out Septal infarct , age undetermined Abnormal ECG When compared with ECG of 07-AUG-2023 15:16, MANUAL COMPARISON REQUIRED, DATA IS UNCONFIRMED Confirmed by BRITTNI MORA, KORIN ([id number]), science editor KALLI RODRÍGUEZ ([id number]) on 08/09/2023 10:42:10 AM Referred By: Confirmed By:KORIN ELKINS MD
[2023-08-08 10:05] LABS: Hemoglobin A1c 6.5 % (3.8-5.6)
[2023-08-08 10:14] LABS: Rheumatoid Factor < 10.0 IU/mL (<15)
[2023-08-08] MEDS: Azithromycin 500 MG in Dextrose 5%-Water (250mL Bag) 250 ML 250 MG IV (11:00)
--- NOTE | 2023-08-08 11:59 | CHAPLAIN ---
Type of Pastoral Visit ___ Initial Visit _x__ Follow-up Visit ___ On-call Visit ___ General Patient Visit ___ Spiritual Assessment ___ Family Conference ___ Bereavement ___ Rapid Response ___ Code Blue ___ Other (describe below) Pastoral Care Referral From _x__ Patient ___ Family ___ Nurse ___ Physician ___ Leach Cell Operator ___ Gold Nib Grinder ___ Other (describe below) Sacrament/Intervention ___ Active listening ___ Anointing ___ Yazidism ___ Bereavement ___ Communion ___ Archana exploration ___ ___ Life review _x__ Prayer ___ Reconciliation ___ Sacrament of Sick _x__ Supportive presence ___ Wedding ___ Other (describe below) Pastoral Comments patient was seen last month and has returned to the ICU; family members are gathered around the bed; pt is on O2 but alert and able to talk; talking does require some exertion and this gas booster engineer instructs pt to talk slowly and not too much; asked other questions of family members; pt does state that I am not getting better and asks for prayers for her family; sister answers that the pt needs comfort and would you pray for that? decisions are to be made about future care; pt has identified herself as a Yazdanism and connected to a archana community; spiritual care and presence given along with the prayers; offer of support and care of any other needs given for the future to pt and family
[2023-08-08 12:07] LABS: Bedside Glucose 218 mg/dL (74-106)
--- NOTE | 2023-08-08 12:30 | CASEMGMT ---
Patient and family would like to talk with Hospice. SW met with patient and her daughter Carmen. Introduced self and role at [facility]. They confirmed they would like to talk with [facility]. SW let them both know SW will make the referral and a medical scientific liaison will come in and talk with them about their services. Patient and Carmen were in agreement. SW made a referral to [facility] and e-mailed referral. Elen Ruiz POLISH MAKER INES
--- NOTE | 2023-08-08 15:59 | PCM.DC.SUM ---
Providers Date of Admission: 08/07/23 Date of Discharge: 08/08/23 Primary Care Physician: Dr. Chirag Gibbons MD Consultations 08/07/23 21:05 Consult: Psych Social Worker / Pulmonary Medicine Routine Consulting Provider: Pulmonary Medicine rachel [place] Reason for Consult: Acute hypoxic respiratory failure EMERGENT Consult: No Notified: Yes Date Notified: 08/07/23 Time Notified: 20:08 Method of Notification: Verbal 08/08/23 12:30 Consult: Hospice / Palliative Care Routine Consulting Provider: [facility] Reason for Consult: end of life EMERGENT Consult: No Notified: Yes Date Notified: 08/08/23 Time Notified: 12:31 Method of Notification: Answering Service Reason For Visit: ACUTE HYPOXIC RESPIRATORY FAILURE Diagnosis Discharge Diagnosis (1) Acute hypoxic respiratory failure: Status: Acute Code(s): J96.01 - Acute respiratory failure with hypoxia (2) Elevated d-dimer: Status: Acute Code(s): R79.89 - Other specified abnormal findings of blood chemistry (3) Hyperglycemia: Status: Acute Code(s): R73.9 - Hyperglycemia, unspecified Medications at Discharge Home Medications atorvastatin 40 mg tablet 40 mg PO QHS CHOLESTEROL #90 tabs 03/08/16 aspirin 81 mg tablet,delayed release 81 mg PO [facility] 02/23/19 flecainide 100 mg tablet 100 mg PO Q12H HEART RATE #180 tabs 11/01/22 rivaroxaban 20 mg tablet (Xarelto) 20 mg PO DAILY BLOOD THINNER #90 tabs 06/27/23 furosemide 40 mg tablet 40 mg PO DAILY FLUID RETENTION 07/26/23 magnesium citrate 300 ml PO DAILY PRN LAXATIVE 07/26/23 metoprolol succinate 25 mg tablet,extended release 24 hr 12.5 mg PO QHS HEART 07/26/23 potassium chloride 20 mEq oral packet 20 meq PO BIDCM SUPPLEMENT 07/26/23 acetaminophen 500 mg tablet 1,000 mg PO Q6H PRN PAIN 07/31/23 ipratropium 0.5 mg-albuterol 3 mg (2.5 mg base)/3 mL nebulization soln 3 ml inhalation Q6H PRN SHORTNESS OF BREATH/ WHEEZING 07/31/23 menthol 3 % topical cream 1 applic topical DAILY PRN MUSCLE ACHES 07/31/23 miconazole nitrate 2 % topical powder 1 applic topical BID SKIN INFECTION 07/31/23 sennosides 8.6 mg-docusate sodium 50 mg tablet (Senna Plus) 1 tab-cap PO BID STOOL SOFTENER 07/31/23 tamsulosin 0.4 mg capsule 0.4 mg PO DAILY PROSTATE 07/31/23 Hospital Course Operations None Procedures None Summary of Care Provided Minutes Spent on Discharge: 37 Hospital Course: Per HPI: LANDON MARMOLEJO, is a 82 F who presented to the emergency department at [facility] on 08/07/2022 with worsening shortness of breath. Patient was recently hospitalized for an extended period of time from 06/29/2023 through 07/11/2023 and then discharged to the transitional care unit. During that hospitalization she was admitted for acute hypoxic respiratory failure that was felt to be worse to progressive bilateral pneumonia versus pulmonary fibrosis. She was treated with diuretics, broad-spectrum antibiotics, and steroids. She eventually was able to be weaned down to 2 L of oxygen at rest and 4 L with exertion but needed ongoing therapy so was discharged to the transitional care unit. There was thought to be some aspiration component to this as she had an abnormal modified barium swallow and has been receiving ongoing speech therapy as well as physical and Occupational Therapy over the transitional care unit. Her daughter reports that she had a repeat modified barium swallow within the last week and they did advance her diet some and she is currently on a soft diet with thin liquids using strategies dictated by speech therapy. She is on Xarelto at baseline so PE is likely not the etiology of her hypoxia. On the BNP was obtained and was slightly elevated 105 so she was placed on diuretics and this has helped and her BNP is normalized at the time of admission. She has had no fever or chills and denies any sputum production. She did undergo a colonoscopy on 08/05/2023 for anemia and was found to have diverticulosis and an 8 mm polyp in the sigmoid colon that was removed with cold snare and localized mild inflammation around the splenic flexure secondary to ischemic colitis which was biopsied but was otherwise unremarkable. It appears that her oxygen saturations were stable on the anesthesia record during her colonoscopy but is unclear how much supplemental oxygen she was on at the time. The patient had a thoracentesis yesterday on the left side and 280 cc of fluid were drained from that left side. Unfortunately, cultures were not sent and serum LDH and protein were not obtained so I am unable to calculate lights criteria. Evidently, today she tried to get up from her bed to go to the chair for therapy and was short of breath and very weak so they brought her for evaluation. Oxygen saturations upon arrival from the TCU on 7 L nasal cannula were 83%. Vital signs on presentation showed temperature of 97.2, heart rate 80, blood pressure was 120/66, respiratory rate was 30 and oxygen saturations were 83% on room air. She was placed on high flow and has continued to desat therefore we are placing her on Airvo. CBC shows a white count of 10.5 and an 83% neutrophilia. Her hemoglobin is stable at 10.9 and her platelets are unremarkable. Chemistry panel is unremarkable. Her glucose is elevated at 157. D-dimer was obtained and found to be 2.14 and therefore CTA of her chest was performed and demonstrated no PE infiltrates with abnormal lung parenchyma, but she did have bilateral effusions that are small and bilateral patchy infiltrates/airspace disease. Hospital Course: 1. Acute hypoxic respiratory failure?82-year-old female presented from transitional care unit with acute epoxy respiratory failure etiology was likely multifactorial there is also concern for idiopathic pulmonary fibrosis. Autoimmune workup was started on admission however today when pulmonology evaluated her they discussed the possibility of a bronchoscopy and the possibility of intubation of the procedure and she felt that she did not want to pursue any further evaluations or treatment and that she would just like to go hospice. With my discussion she iterated the same stance that she just wanted to become comfortable and stop struggling to breathe. At the time of my discussion there is no family in the room but she says that they have agreed with her decision so [facility] was consulted and they came in and evaluated her and felt that she was appropriate for the inpatient unit and accepted her for transfer today. She was discharged on 08/08/2023. 2. Chronic diastolic CHF, A-fib, hypertension, hyperlipidemia, dysphagia with GERD, urinary retention are all chronic medical conditions which complicate her care. She can continue with her home medications were appropriate Medical Records Data Medical Nutrition Assessment Dietitian: Malnutrition Criteria Met Start: 08/08/23 10:07 Freq: Status: Active Protocol: Document 08/08/23 10:07 AG (Rec: 08/08/23 10:07 AG Desktop) Nutrition Malnutrition Evidence of Malnutrition Exists Yes Malnutrition (severe): Acute Illness/Injury Evidenced By Suboptimal Energy Intake ( Severe),Weight Loss (Severe) Intake Problem Inadequate Oral Intake Etiology r/t resp. failure Signs/Symptoms as evidenced by NPO status on bipap Status Active Problem Clinical Problem Acute Disease or Injury Related Malnutrition Etiology severe, acute malnutrition related to inadequate energy intake Signs/Symptoms as evidenced by estimated PO intake meeting <50% of estimated energy needs > 5 days, unintentional 7% wt loss x 1month Status Active Problem Recommendation Dietitian Recommendations/Changes recommend regular diet, texture/consistency per SADDLE STITCHER; ensure plus high protein 120mL 4x/day and magic cup BID when appropriate for PO intake Weight / BMI Weight Weight: 134 lb 11.239 oz Body Mass Index (BMI) 21.7 ABG / Lab / Microbiology Data 08/08/23 06:15 08/08/23 06:15 Laboratory: Laboratory Results - last 24 hr 08/07/23 16:10: WBC 10.5, RBC 3.80 L, Hgb 10.9 L, Hct 35.2 L, MCV 92.6, MCH 28.7, MCHC 31.0 L, RDW Std Deviation 51.1 H, RDW Coeff of Missy 14.9 H, Plt Count 316, MPV 8.9, Immature Gran % (Auto) 0.700, Neut % (Auto) 83.0 H, Lymph % (Auto) 7.8 L, Grundy % (Auto) 6.9, Eos % (Auto) 1.2, Baso % (Auto) 0.4, Absolute Neuts (auto) 8.7 H, Absolute Lymphs (auto) 0.82 L, Nucleated RBC % 0, D-Dimer Quant (PE/DVT) 2.14 H*, Sodium 137, Potassium 4.1, Chloride 103, Carbon Dioxide 32.0, Anion Gap 2 L, BUN 11, Creatinine 0.76, Estim Creat Clear Calc 50.76, Est GFR (MDRD) Af Amer 94, Est GFR (MDRD) Non-Af 77, BUN/Creatinine Ratio 14.5, Glucose 157 H, Calcium 9.2, Total Bilirubin 0.50, Direct Bilirubin 0.19, AST 28, ALT 28, Alkaline Phosphatase 112, Troponin I High Sens 24, B-Natriuretic Peptide 94.6, Total Protein 5.7 L, Albumin 2.4 L, Globulin 3.3, Rheumatoid Factor < 10.0 08/07/23 21:15: MRSA (PCR) Negative 08/07/23 22:49: POC Glucose 103 08/08/23 06:15: WBC 7.7, RBC 3.95 L, Hgb 11.2 L, Hct 36.5 L, MCV 92.4, MCH 28.4, MCHC 30.7 L, RDW Std Deviation 50.7 H, RDW Coeff of Missy 14.7 H, Plt Count 312, MPV 8.9, Immature Gran % (Auto) 0.600, Neut % (Auto) 90.2 H, Lymph % (Auto) 7.8 L, Grundy % (Auto) 1.3, Eos % (Auto) 0.0, Baso % (Auto) 0.1, Absolute Neuts (auto) 7.0, Absolute Lymphs (auto) 0.60 L, Nucleated RBC % 0, Differential Comment S, Sodium 137, Potassium 4.4, Chloride 104, Carbon Dioxide 27.0, Anion Gap 6, BUN 11, Creatinine 0.61, Estim Creat Clear Calc 50.76, Est GFR (MDRD) Af Amer 120, Est GFR (MDRD) Non-Af 99, BUN/Creatinine Ratio 17.9, Glucose 199 H, Hemoglobin A1c 6.5 H, Calcium 9.1, Phosphorus 2.4 L, Magnesium 2.1, Total Bilirubin 0.70, AST 25, ALT 26, Alkaline Phosphatase 112, Total Protein 5.9 L, Albumin 2.4 L, Globulin 3.5, Albumin/Globulin Ratio 0.7 L 08/08/23 06:54: Procalcitonin 0.09, Rheumatoid Factor < 10.0 08/08/23 08:30: POC Glucose 201 H 08/08/23 11:44: POC Glucose 218 H Microbiology: Microbiology 08/07/23 21:20 Mucosa - Nasopharyngeal Respiratory Panel (PCR) - Final 08/07/23 23:15 Urine Catheter - Pro Legionella Antigen - Final 08/07/23 23:15 Urine Catheter - Pro Streptococcus pneumoniae Antigen (M - Final 08/07/23 16:10 Mucosa - Nose SARS-CoV-2, Influenza & RSV (PCR) - Final ABG: ABG 08/07/23 20:53 Specimen Type ART Sample Site L Radial pH 7.42 Bicarbonate Actual 28.7 H Total CO2 30 Base Excess 4 H O2 Saturation 93 L O2 % 42.0 ABG pCO2 44.2 ABG pO2 65 L Fam Test Positive O2 Delivery Device airvo Vent Mode Not entered Clinical Comments 45l. 42% Radiography Diagnostic Testing: Radiology Impression Chest X-Ray 08/07/23 15:47 IMPRESSION: No change in the appearance of the chest from the reference examination. Electronically Signed: Alonso Cifuentes MD at 16:23 EST , Chest CTA 08/07/23 17:25 IMPRESSION: 1. No evidence of pulmonary embolus. 2. Bilateral pleural effusions with left lower lobe pneumonia. There has been mild improved aeration in the left lung base from the reference exam. Electronically Signed: Alonso Cifuentes MD at 18:00 EST , Meaningful Use Info Meaningful Use Diagnoses (Choose all that apply): None applicable Discharge Plan Admission Admit Date/Time: 08/07/23 20:04 Attending Provider: Aki Shane Primary Care Provider: Chirag Gibbons Consulting Providers: Akhil Tijerina; Quentin Will; Christian Camacho; Juan Hutchison; Deninse Polo; Blake Oreilly; Diane Girard; Jesus Manuel Pizano; Tal Coles; Yong Juarez; Danis Spivey; Shiv Cobb; Timbo Arzate; Savanah Edwards NP; Kendrick Morfin; Kendrick Denis; Maura Byrd; Dia Atkins; Amie Eric STREETCAR REPAIRER Discharge Orders/Prescriptions Prescriptions: No Action aspirin 81 mg tablet,delayed release (DR/EC) 81 mg PO MOWEFR Patient Comments: heart health, prevention of stroke furosemide 40 mg tablet 40 mg PO DAILY Hold Instructions: - low BP potassium chloride 20 mEq packet 20 meq PO BIDCM magnesium citrate Solution 300 ml PO DAILY PRN (Reason: LAXATIVE) sennosides-docusate sodium [Senna Plus] 8.6-50 mg tablet 1 tab-cap PO BID acetaminophen 500 mg tablet 1,000 mg PO Q6H PRN (Reason: PAIN ) ipratropium-albuterol 0.5 mg-3 mg(2.5 mg base)/3 mL solution for nebulization 3 ml inhalation Q6H PRN (Reason: SHORTNESS OF BREATH/ WHEEZING) menthol 3 % cream 1 applic topical DAILY PRN (Reason: MUSCLE ACHES) miconazole nitrate 2 % powder 1 applic topical BID tamsulosin 0.4 mg capsule 0.4 mg PO DAILY atorvastatin 40 MG tablet 40 mg PO QHS Qty: 90 0RF flecainide 100 mg tablet 100 mg PO Q12H Qty: 180 3RF Xarelto 20 mg tablet 20 mg PO DAILY Qty: 90 3RF metoprolol succinate 25 mg tablet extended release 24 hr 12.5 mg PO QHS Referrals / Follow Up: Chirag Gibbons MD [Primary Care Provider] - Disposition Disposition (needs filled in before D/C Order can be placed): Hospice in Medical Facility Charges/Coding Visit Charges Inpatient E&M: 60063 Disch Hosp >30min
[2023-08-09 11:08] LABS: ANTINUCLEAR ANTIBODIES DIRECT Negative (Negative)
[2023-08-09 15:08] LABS: CCP IgG Antibodies 6 units (0-19); Cytoplasmic Ab (C-ANCA) <1:20 titer (Neg:<1:20); Perinuclear Ab (P-ANCA) <1:20 titer (Neg:<1:20)
== END 2023-08-08 16:59 | disposition hospice, inpatient (51) | DRG 180 ==
LOC: ED 18:15 → ICU 23:26
PROVIDERS: Internal Medicine; Internal Medicine Critical Care Medicine; Admitting Provider Internal Medicine; Emergency Provider Emergency Medicine; PCP Family Medicine; Visit Provider Family Medicine
DX: C34.90 Malignant neoplasm of unspecified part of unspecified bronchus or lung (principal); J96.01 Acute respiratory failure with hypoxia; E43 Unspecified severe protein-calorie malnutrition; I50.32 Chronic diastolic (congestive) heart failure; J91.0 Malignant pleural effusion; I11.0 Hypertensive heart disease with heart failure; J84.112 Idiopathic pulmonary fibrosis; I48.0 Paroxysmal atrial fibrillation; D50.9 Iron deficiency anemia, unspecified; I25.10 Atherosclerotic heart disease of native coronary artery without angina pectoris; E78.5 Hyperlipidemia, unspecified; K21.9 Gastro-esophageal reflux disease without esophagitis; K63.5 Polyp of colon; Z99.81 Dependence on supplemental oxygen; R73.9 Hyperglycemia, unspecified; R13.10 Dysphagia, unspecified; R33.9 Retention of urine, unspecified; Z68.21 Body mass index [BMI] 21.0-21.9, adult; Z11.52 Encounter for screening for COVID-19; Z79.82 Long term (current) use of aspirin; Z79.01 Long term (current) use of anticoagulants; Z66 Do not resuscitate; Z79.899 Other long term (current) drug therapy; Z87.891 Personal history of nicotine dependence; Z86.73 Personal history of transient ischemic attack (TIA), and cerebral infarction without residual deficits
CPT/HCPCS: 32555; 36600; 71045; 71046; 71260; 71275; 80048; 80053; 80076; 82803; 82962; 83036; 83735; 83880; 84100; 84145; 84484; 85025; 85379; 86038; 86200; 86225; 86235; 86256; 86431; 87449; 87631; 87633; 87641; 88108; 88305; 88313; 88341; 88342; 93005; 94002; 94640; 94660; 94668; 97802; 99252; 99285; J7120; Q9967; A4216; G0463; J1940; J2930